=== PATIENT | male | born 1940 | race Caucasian/White ===

== ENCOUNTER 2022-07-03 16:17 | Outpatient (CLI) | payer MEDICARE, BC, SELFPAY ==
[2022-07-03 22:13] LABS: Hemoglobin* 9.9 gm/dL (13.5-17.5); Mean Corpuscular HGB Conc 33 gm/dL (32-36); Mean Corpuscular Hemoglobin 33 pg (26-34); Mean Corpuscular Volume 99 fL (80-100); Platelet Count* 139 K/uL (140-440); Red Blood Count 3.02 m/uL (4.30-5.90); Slide Review Reflex No; White Blood Count* 8.27 K/uL (4.50-11.00)
[2022-07-03 22:24] LABS: Chloride* 103 mmol/L (96-114); Potassium* 4.4 mmol/L (3.6-5.1); Sodium* 136 mmol/L (135-149)
[2022-07-03 22:27] LABS: Blood Urea Nitrogen* 22 mg/dL (7-30); Carbon Dioxide* 25 mmol/L (20-32); Creatinine* 1.3 mg/dL (0.5-1.5); Estimated Glomerular Filt Rate 55 ml/min
[2022-07-03 22:28] LABS: Calcium* 9.4 mg/dL (8.4-10.6); Glucose* 209 mg/dL (60-115)
== END 2022-07-03 16:18 | disposition home or self-care (01) ==
PROVIDERS: PCP Family Medicine; Visit Provider Family Medicine
DX: I10 Essential (primary) hypertension (principal)
CPT/HCPCS: 80048; 85027

== ENCOUNTER 2023-05-30 08:45 | Outpatient (CLI) | payer MEDICARE, BC, SELFPAY | END 2023-05-30 08:46 | disposition home or self-care (01) | PROVIDERS: PCP Family Medicine; Visit Provider Family Medicine | DX: E11.9 Type 2 diabetes mellitus without complications (principal); I10 Essential (primary) hypertension; E78.2 Mixed hyperlipidemia; E55.9 Vitamin D deficiency, unspecified; R53.83 Other fatigue | CPT/HCPCS: 80048; 80061; 85025 ==

== ENCOUNTER 2023-09-04 10:50 | Outpatient (CLI) | payer MEDICARE, BC, SELFPAY | END 2023-09-04 10:51 | disposition home or self-care (01) | PROVIDERS: PCP Family Medicine; Visit Provider Family Medicine | DX: I10 Essential (primary) hypertension (principal); D64.9 Anemia, unspecified | CPT/HCPCS: 80048; 85018; 85025 ==

== ENCOUNTER 2024-01-24 09:50 | Outpatient (CLI) | payer MEDICARE, BC, SELFPAY ==
--- OUTSIDE RECORDS SUMMARY | 2024-01-25 04:45 | XMS_ITS | Clinical Summary ---
Author Organization [facility] [employer] [facility] Address [place], [place] [address] Care Team Providers Care Striker Off Name Role Phone Tres Ling MD Primary Care Provider + Allergies Active Allergy Reactions Criticality Noted Date Comments Brimonidine Erythema High 07/18/2016 Other reaction(s): eye infection Medications Medication Sig Dispensed Refills Start Date End Date Status aspirin 325 mg tablet Take 325 mg by mouth once daily with a meal. Active dorzolamide-timolo l (COSOPT) 2-0.5 % ophthalmic solution Place 1 Drop into both eyes two times daily. Active cholecalciferol (VITAMIN D-3) 2,000 unit capsuleIndications :Vitamin D deficiency Take 1 capsule by mouth once daily. 100 capsule 3 8 Active latanoprost (XALATAN) 0.005 % ophthalmic solution Place 1 Drop into both eyes at bedtime. 8 Active simvastatin (ZOCOR) 40 mg tabletIndications: Hyperlipidemia, unspecified hyperlipidemia type Take 1 tablet by mouth at bedtime. 90 tablet 3 8 Active finasteride (PROSCAR) 5 mg tabletIndications: Benign prostatic hyperplasia, unspecified whether lower urinary tract symptoms present Take 1 tablet by mouth every morning. 90 tablet 3 8 Active blood sugar diagnostic (ACCU-CHEK WILLY PLUS TEST STRP) stripIndications:T ype 2 diabetes mellitus with complication, without long-term current use of insulin (HC) Dispense item covered by pt ins. E11.9 NIDDM type II - Test 4 times/day due to labile sugars 400 Strip 3 8 Active Bblcr-0-PSE-EPA-Fi sh Oil (Fish Oil) 1,000 mg (120 mg-180 mg) cap Take 1 Capsule by mouth once daily. Active carboxymethylcellu lose 0.5% (Refresh Tears) 0.5 % drop ophthalmic drops Place 1 Drop into both eyes two times daily. At noon and 3 pm Active pioglitazone (ACTOS) 30 mg tablet Take 30 mg by mouth once daily. Active glimepiride (AMARYL) 4 mg tablet Take 4 mg by mouth two times daily. Active losartan (COZAAR) 50 mg tabletIndications: Essential hypertension Take 1 Tablet (50 mg) by mouth once daily. 4 Active metoprolol succinate (TOPROL XL) 50 mg sustained-release tabletIndications: Essential hypertension Take 1 Tablet (50 mg) by mouth once daily. 4 Active insulin aspart, U-100, (NOVOLOG FLEXPEN) 100 unit/mL (3 mL) penIndications:Typ e 2 diabetes mellitus without complication, without long-term current use of insulin (HC) Give subcutaneous TID with meals per blood glucose (mg/dL). Don't give corrective dose for PRN, post-prandial or nocturnal glucose checks unless ordered. Blood Glucose.....Dose <70............. ..See Hypoglycemia Protocol 70-149.......... No insulin, give prandial insulin, if ordered 150-199........1 unit 200-249........2 units 250-299........3 units 300-349........4 units 350-399........5 units 400 or greater....6 units & call MD 4 Active losartan (COZAAR) 50 mg tabletIndications: Hypertension Take 1 tablet by mouth once daily. 90 tablet 3 8 01/11/20 24 Discontinued( Pharmacist change per medication history (E-cancel not sent)) glimepiride (AMARYL) 4 mg tabletIndications: Type 2 diabetes mellitus with complication, without long-term current use of insulin (HC) Take 1 tablet by mouth once daily with a meal. 1 BID 90 tablet 3 8 01/11/20 24 Discontinued( Pharmacist change per medication history (E-cancel not sent)) metoprolol succinate (TOPROL XL) 50 mg sustained-release tabletIndications: Essential hypertension Take 1 tablet by mouth once daily. 90 tablet 3 8 01/11/20 24 Discontinued( Pharmacist change per medication history (E-cancel not sent)) guaFENesin SR (MUCINEX) 1,200 mg [id number]:Co ugh Take 1 tablet by mouth every 12 hours if needed for Expectoration. 20 tablet 9 01/12/20 24 Discontinued( Pharmacist change per medication history (E-cancel not sent)) losartan (COZAAR) 100 mg tablet Take 100 mg by mouth once daily. 4 01/17/20 24 Discontinued( *IP Discontinued) metoprolol succinate (TOPROL XL) 100 mg Sustained-Release tablet Take 100 mg by mouth once daily. 01/17/20 24 Discontinued( *IP Discontinued) Active Problems Problem Noted Date Diagnosed Date Pneumothorax ex vacuo 01/14/2024 Macrocytic anemia 01/12/2024 CAD (coronary artery disease) 01/12/2024 Elevated troponin 01/12/2024 Complete heart block 01/12/2024 Pacemaker 01/12/2024 CHF (congestive heart failure) 01/12/2024 Fall 01/12/2024 Pneumothorax 01/12/2024 Pleural effusion on left 01/12/2024 Elevated brain natriuretic peptide (BNP) level 0 01/12/2024 Presence of cardiac pacemaker 01/12/2024 Cough 01/12/2024 Impaired functional mobility and activity tolera nce 08/28/2022 SBO (small bowel obstruction) 08/25/2022 BPH (benign prostatic hyperplasia) 08/25/2022 Essential hypertension 08/25/2022 Mixed hyperlipidemia 08/25/2022 Type 2 diabetes mellitus wit hout complication, without long-term current use of insulin 11/11/2017 Chronic coronary artery disease 09/28/2015 Bradycardia 09/28/2015 Traumatic intracerebral hemorrhage 09/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 09/28/2015 Herpes simplex virus (HSV) infection 10/07/2012 Syncope and collapse 09/25/2011 Vitamin D deficiency 09/25/2011 Anemia 09/20/2010 Resolved Problems Problem Noted Date Diagnosed Date Resolved Date Type 2 diabetes mellitus without complication 11/29/19 16 11/11/2017 Type 2 diabetes mellitus 09/28/2015 Encounters Date Type Department Care Team Description 01/17/2024 Orders Only [facility] [address] [place] [address] Richelle Villareal NP <No scans attached> 01/15/2024 Travel 01/13/2024 Travel 01/12/2024 5:33 PM CDT - 01/17/2024 10:30 AM CDT Hospital Encounter [facility] [address] [place] [address] [facility] [place] [facility] MD Qamar, Asma, MBBS Diastolic dysfunction (Primary Dx); Essential hypertension; Type 2 diabetes mellitus without complication, without long-term current use of insulin (HC) Discharge Disposition: Senior Care Facility 01/12/2024 Telephone [facility] [address] [address] Eran Kay MD C5 TRANFER ACCEPT 01/11/2024 5:35 PM CDT - 01/12/2024 4:25 PM CDT Emergency [facility] [address] [place] [address] Allyn Quevedo MD Connelly, MD Vicky Dean Jaya, MBBS Bodeau, Haleigh Ann, MD Congestive heart failure, unspecified HF chronicity, unspecified heart failure type (HC) (Primary Dx); Hypoxia; Fall, initial encounter; Anemia, unspecified type; Pleural effusion on left; Weakness generalized; Pneumothorax ex vacuo Discharge Disposition: Home Self Care 01/11/2024 Travel from Last 3 Months Immunizations Name Administration Dates Next Due COVID-19 vaccine (Cometa NTBeanstalk Tax 30mcg/0.3mL) JESSICA PLASENCIA 08/18/2020,07/28/2020 Hepatitis A (Adult) 07/16/1995 Influenza, High-dose Inactivated 03/05/2017,11/0 09/2015,06/07/2015 Influenza, IIV4 06/07/2015 Pneumococcal Poly,23-Valent (Pneumovax) 06/11/19 12,12/25/2003 Pneumococcal conj 13-Valent (Prevnar 13) 015 Tdap 06/07/2015 Zoster (Zostavax-ZVL, live) 10/11/2006 Family History Medical History Relation Name Comments Heart Disease Brother 1 Heart Disease Brother 2 Diabetes Brother 3 Heart Disease Brother 3 Good Health Daughter Stroke Father Good Health Son 1 Good Health Son 2 Good Health Son 3 Relation Name Status Comments Brother 1 Alive Brother 2 Brother 3 Daughter Alive Father Mother Son 1 Alive Son 2 Alive Son 3 Alive Social History Tobacco Use Types Packs/Day Years Used Date Smoking Tobacco: Former Cigars Smokeless Tobacco: Never Quit: 07/07/2005 Tobacco Cessation:Counseling Given: Yes Alcohol Use Standard Drinks/Week Comments Yes 7 (1 standard drink = 0.6 oz pur e alcohol) occasionally PHQ-2 Answer Date Recorded PHQ-2 Score 0 08/10/2018 Social Connections Answer Date Recorded Frequency of Communication with Friends and Fami ly 0 01/15/2024 Financial Resource Strain Answer Date R ecorded Difficulty of Paying Living Expenses 3 01/15/2024 Difficulty of Paying Living Expenses Not on file 01/15/2024 Food Insecurity Answer Date Recorded Worried About Running Out of Food in the Last Ye ar 1 01/15/2024 Transportation Needs Answer Date Record ed Lack of Transportation (Medical) 1 01/15/2024 Housing Stability Answer Date Recorded Unable to Pay for Housing in the Last Year 1 01/15/2024 Sex and Gender Information Value Date Recorded Sex Assigned at Not on file Gender Identity Not on file Sexual Orientation Not on file Obstetrics History Last Filed Vital Signs Vital Sign Reading Time Taken Comments Blood Pressure 107/56 01/17/2024 8:16 AM CDT Pulse 67 01/17/2024 8:16 AM CDT Temperature 36.4 ??C (97.6 ??F) 01/17/2024 8:16 AM CD T Respiratory Rate 18 01/17/2024 8:16 AM CDT Oxygen Saturation 95% 01/17/2024 8:16 AM CDT Inhaled Oxygen Concentration - - Weight 64.7 kg (142 lb 10.2 oz) 024 12:11 PM CDT Height 170.2 cm (5' 7) 01/13/2024 12:1 1 PM CDT Body Mass Index 22.34 01/13/2024 12:11 PM CDT Plan of Treatment Upcoming Encounters Date Type Department Care Team (Late st Contact Info) Description 05/16/2024 Cardiac Device Check [facility] [phone] Health Maintenance Due Date Last Done Comments Medicare Wellness for age 65+ 2003 Zoster (shingles) series for age 50+ (2 of 3) 12/06/2006 10/11/2006 BMI (ht and wt on same day) for age 18+ 02/26/2019 02/26/2018, 11/09/2017, 06/12/2017, Additional history exists Depression screening for age 12+ 02/26/2019 02/26/2018, 02/21/2018, 11/09/2017, Additional history exists COVID-19 vaccine series ( season) 2023 03/28/2021, 08/18/2020, 07/28/2020 Influenza for age 65+ 02/10/2024 03/05/2017 , 04/14/2016, 06/07/2015, Additional history exists Tetanus booster 06/07/2025 06/07/2015 Pneumococcal series for age 65+ Completed 11/24/2014, 06/11/2011, 12/25/2003 Tdap Completed 06/07/2015 Medical Devices Implanted Type Area Printer Slotter Helper Device Identifier Shelf Expiration Date Model / Serial / Lot Standard Pacemaker-2 Implanted: by Neville Dunbar MD (Quantity not on file) Standard Pacemaker [employer] [id number] / [id number] / Procedures Procedure Name Priority Date/Time Associated Diagnosis Comments GLUCOSE METER Timed 01/17/2024 8:21 AM CDT GLUCOSE METER Timed 01/16/2024 11:52 PM CDT LEGIONELLA AND PNEUMOCOCCAL URINE ANTIGEN Today 01/16/2024 6:50 PM CDT GLUCOSE METER Timed 01/16/2024 5:15 PM CDT XR CHEST 1 VIEW PORTABLE Routine 01/16/2024 12:20 PM CDT GLUCOSE METER Timed 01/16/2024 11:52 AM CDT STREP A PCR Timed 01/16/2024 11:32 AM CDT THROAT RAPID STREP A WITH REFLEX Today 01/16/2024 11:32 AM CDT GLUCOSE METER Timed 01/16/2024 8:16 AM CDT POTASSIUM Early AM 01/16/2024 7:35 AM CDT GLUCOSE METER Timed 01/15/2024 9:41 PM CDT GLUCOSE METER Timed 01/15/2024 6:16 PM CDT BODY FLUID CULTURE,STAIN (AEROBIC) Today 01/15/2024 4:56 PM CDT GLUCOSE METER Timed 01/15/2024 12:50 PM CDT XR CHEST 1 VIEW PORTABLE Routine 01/15/2024 12:03 PM CDT SCAN-CARDIAC STRIP 01/15/2024 8: 20 AM CDT XR CHEST 1 VIEW PORTABLE Routine 01/15/2024 7:51 AM CDT GLUCOSE METER Timed 01/15/2024 7:36 AM CDT POTASSIUM Early AM 01/15/2024 6:17 AM CDT GLUCOSE METER Timed 01/14/2024 8:52 PM CDT GLUCOSE METER Timed 01/14/2024 5:19 PM CDT PATH NON CLINICAL RECRUITER CYTOLOGY Today 01/14/2024 3:32 PM CDT LD,BODY FLUID Today 01/14/2024 3:22 PM CDT PROTEIN,BODY FLUID Today 01/14/2024 3: 22 PM CDT BODY FLUID CELL COUNT/DIF Today 01/14/2024 3:22 PM CDT ECHO TTE COMPLETE WO CONTRAST Routine 01/14/2024 1:44 PM CDT PACER [place] DUAL CHAMBER WO REPROG Routine 01/14/2024 11:14 AM CDT GLUCOSE METER Timed 01/14/2024 11:12 AM CDT SCAN-CARDIAC STRIP 01/14/2024 10 :10 AM CDT GLUCOSE METER Timed 01/14/2024 8:32 AM CDT HEMOGLOBIN A1C SCREENING Early AM 01/14/2024 6:42 AM CDT POTASSIUM Early AM 01/14/2024 6:42 AM CDT SCAN-CARDIAC STRIP 01/14/2024 1: 49 AM CDT GLUCOSE METER Timed 01/13/2024 8:58 PM CDT GLUCOSE METER Timed 01/13/2024 5:[address] CHEST TUBE PLACEMENT LEFT Routine 01/13/2024 3:[address] CHEST WO Routine 01/13/2024 2:07 PM CDT GLUCOSE METER Timed 01/13/2024 12:45 PM CDT SCAN-CARDIAC STRIP 01/13/2024 10 :48 AM CDT GLUCOSE METER Timed 01/13/2024 10:32 AM CDT GLUCOSE METER Timed 01/13/2024 8:36 AM CDT COMP METABOLIC PANEL Early AM 01/13/2024 7:57 AM CDT LD,TOTAL Early AM 01/13/2024 7:57 AM CDT SCAN-CARDIAC STRIP 01/12/2024 11 :16 PM CDT GLUCOSE METER Timed 01/12/2024 10:23 PM CDT SCAN-CARDIAC STRIP 01/12/2024 6: 53 PM CDT THORACENTESIS Routine 01/12/2024 4:28 AM CDT INFLUENZA A/B PCR STAT 01/12/2024 4:1 5 AM CDT COVID-19 MOLECULAR Today 01/12/2024 4: 15 AM CDT XR CHEST 1 VIEW PORTABLE STAT 01/12/2024 3:39 AM CDT XR CHEST 1 VIEW PORTABLE STAT 01/12/2024 1:44 AM CDT XR CHEST 1 VIEW PORTABLE STAT 01/11/2024 11:19 PM CDT PROTEIN,BODY FLUID STAT 01/11/2024 11 :17 PM CDT LD,BODY FLUID STAT 01/11/2024 11:17 PM CDT BEDSIDE US STUDY ARCHIVE Routine 01/11/2024 10:32 PM CDT URINALYSIS MICROSCOPIC STAT 9:42 PM CDT UA W/ SEDIMENT EXAM REFLEXED PER CRITERIA STAT 01/11/2024 9:[address] CHEST ABDOMEN PELVIS W STAT 01/11/2024 8:46 PM CDT TYPE & SCREEN STAT 01/11/2024 8:33 PM CDT TROPONIN T (HS) ONE TIME Timed 01/11/2024 8:33 PM CDT BEDSIDE US STUDY ARCHIVE Routine 01/11/2024 7:45 PM CDT EKG 12 LEAD STAT 01/11/2024 7:[address] SPINE CERVICAL WO STAT 01/11/2024 7:[address] HEAD BRAIN WO STAT 01/11/2024 7:12 PM CDT XR CHEST 2 VIEWS PA AND LATERAL STAT 01/11/2024 7:06 PM CDT PROTIME-INR STAT 01/11/2024 6:36 PM CDT TROPONIN T (HS) ACUTE W/2HR REFLEX [facility]ICO 01/11/2024 6:36 PM CDT PRO-BNP CHICO 01/11/2024 6:36 PM CDT CK TOTAL STAT 01/11/2024 6:36 PM CDT BASIC METABOLIC PANEL STAT 01/11/2024 6:36 PM CDT CBC W PLT NO DIFF STAT 01/11/2024 6:3 6 PM CDT GLUCOSE METER Routine 01/11/2024 5:51 PM CDT SCAN-PACER 01/11/2024 12:00 AM CDT SCAN-PACER 01/11/2024 12:00 AM CDT from Last 3 Months Results * (ABNORMAL) GLUCOSE METER (01/17/2024 8:21 AM CDT) Only the most recent of20 resultswithin the time period is included. [facility] Signature GLUCOSE METER 120(H) 65 - 100 mg/dL 01/17/2024 8:22 AM CDT [facility] Blood BLOOD SPECIMEN / Unknown 01/17/2024 8:21 AM CDT 01/17/2024 8:22 AM CDT Luis F Perez [facility] Performing Organization Address [facility] Co de Phone Number [facility] [address] [place] [address], * LEGIONELLA AND PNEUMOCOCCAL URINE ANTIGEN (01/16/2024 6:50 PM CDT) STREP PNEUMO ANTIGEN Negative 01/16/2024 7:45 PM CDT [facility] Comment:Presumptive negative for pneumococcal pneumonia, suggesting no current or recent pneumococcal infection. Infection due to S. pneumoniae cannot be ruled out since the antigen present in the sample may be below the detection limit of the test. LEGIONELLA ANTIGEN Negative 01/16/2024 7:45 PM CDT [facility] Comment:Negative for L.pneum ophila serogroup 1 antigen, suggesting no recent or current infection. Infection due to Legionella cannot be ruled out since other serogroups and species may cause disease, antigen may not be present in urine in early infection, and the level of antigen present may be below the detection limit of the test. Low test sensitivity in patients with mild pneumonia. Urine URINE SPECIMEN / Unknown Non-Blood / Unknown 01/16/2024 6:50 PM CDT 01/16/2024 7:04 PM CDT Luis F Perez [facility] Performing Organization Address [facility] de Phone Number [facility] [address] [place] [address], * XR CHEST 1 VIEW PORTABLE (01/16/2024 12:20 PM CDT) Only the most recent of6 resultswithin the time period is included. Anatomical Region Laterality Modality HEART, THORAX, CHEST Digital Rad iography 01/16/2024 3:26 PM CDT Impressions 01/16/2024 3:26 PM CDT Interval removal of left chest tube. No pneumothorax. Dictated by Clifford Pink MD @ Jan ??7 2023 ??3:26PM (Electronically Signed) [email or web address] Narrative 01/16/2024 3:26 PM CDT For Patients: ??As a result of the Cures Act, medical imaging exams and procedure reports are released immediately into your electronic medical record. ??You may view this report before your referring provider. ??If you have questions, please contact your health care provider. INDICATION: Post chest tube removal. TECHNIQUE: Chest 1 views. COMPARISON: January 15, 2024. FINDINGS: Cardiovascular and mediastinum: ??Stable heart size and vasculature. Unchanged right chest wall pacemaker device and left chest wall abandoned leads. Lungs and pleural spaces: ??Interval removal of left chest tube. Stable left lower lobe airspace disease. Trace left pleural effusion. No pneumothorax. ?? Bones and soft tissues: ??No significant findings. Procedure Note Clifford Pink MD - 01/16/2024 For Patients: As a result of the Cures Act, medical imagingexams and procedure reports are released immediately into your electronicmedical record. You may view this report before your referring provider.If you have questions, please contact your health care provider. INDICATION: Post chest tube removal. TECHNIQUE: Chest 1 views. COMPARISON: January 15, 2024. FINDINGS: Cardiovascular and mediastinum: Stable heart size and vasculature.Unchanged right chest wall pacemaker device and left chest wall abandonedleads. Lungs and pleural spaces: Interval removal of left chest tube. Stableleft lower lobe airspace disease. Trace left pleural effusion. Nopneumothorax. Bones and soft tissues: No significant findings. IMPRESSION: Interval removal of left chest tube. No pneumothorax. Dictated by Clifford Pink MD @ Jan 16 2024 3:26PM (Electronically Signed) [email or web address] [facility] * STREP A PCR (01/16/2024 11:32 AM CDT) GROUP A STREP Negative 01/16/2024 12:58 PM CDT [facility] Throat SPECIMEN FROM THROAT / Unknown Non-Blood / Unknown 01/16/2024 11:32 AM CDT 01/16/2024 12:24 PM CDT [facility] Performing Organization Address [facility] Co de Phone Number [facility] [address] [place] [address], * THROAT RAPID STREP A WITH REFLEX (01/16/2024 11:32 AM CDT) STREP A ANTIGEN Negative 01/16/2024 12:24 PM CDT [facility] Comment:PCR to follow. Throat SPECIMEN FROM THROAT / Unknown Non-Blood / Unknown 01/16/2024 11:32 AM CDT 01/16/2024 12:02 PM CDT Luis F Perez [facility] Performing Organization Address [facility] Co de Phone Number [facility] [address] [place] [address], * POTASSIUM (01/16/2024 7:35 AM CDT) Only the most recent of3 resultswithin the time period is included. POTASSIUM 3.6 3.5 - 5.1 mmol/L 01/16/2024 8:10 AM CDT [facility] Blood BLOOD SPECIMEN / Unknown Non-Lab Venipuncture / Unknown 01/16/2024 7:35 AM CDT 01/16/2024 7:41 AM CDT Getachew Pastrana MD CHEMISTRY Performing Organization Address [facility] Co de Phone Number [facility] [address] [place] [address], * BODY FLUID CULTURE,STAIN (AEROBIC) (01/15/2024 4:56 PM CDT) CULTURE No Growth. 01/21/2024 10:07 AM CDT [facility] GRAM STAIN No PMNs 01/21/2024 10:07 AM CDT [facility] GRAM STAIN No Epithelial cells 01/21/2024 10:07 AM CDT [facility] GRAM STAIN 2+ RBCs 01/21/2024 10:07 AM CDT [facility] GRAM STAIN No organisms seen 01/21/2024 10:07 AM CDT [facility] Body Fluid (Pleural) Non-Blood / Unknown 01/15/2024 4:56 PM CDT 01/15/2024 5:04 PM CDT Luis F Perez [facility] [address] [place] [address], * SCAN-CARDIAC STRIP (01/15/2024 8:20 AM CDT) Scanner OTHER * Cytology Pleural Fluid (LEFT) (01/14/2024 3:32 PM CDT) Case Report Medical Cytology Report ? Case: [id number] ? Authorizing Provider: ??Luis Angel Jasso, DO ?Collected: ? 01/14/2024 1532 ? Ordering Location: ? [facility] ?Received: ?01/14/2024 1534 ? Hospital ? Pathologist: ? Segundo Cuevas MD ? Specimen: ?Left Pleural Fluid ? 01/16/2024 4:46 PM CDT [facility] Final Diagnosis A) LEFT PLEURAL FLUID, CYTOLOGY WITH CELL BLOCK: 1. Negative for malignancY 2. Blood 01/16/2024 4:46 PM CDT [facility] Clinical Information Left pleural effusion 01/16/2024 4:46 PM CDT [facility] Gross Description A) SOURCE: Pleural fluid, left The specimen consists of 10 cc of red cloudy fluid from which the following is prepared: ? -1 DiffQuik stained slide ? -1 Papanicolaou stained ThinPrep slide ? -1 H&E stained cell block slide A2 Cell block material was placed in formalin at 1010 on 01/15/24 and fixed in formalin at least 6 hours and no more than 72 hours. 01/16/2024 4:46 PM CDT [facility] Microscopic Description Specimen adequacy: Adequate for interpretation. All slides were reviewed. The microscopic appearance substantiates the diagnosis. 01/16/2024 4:46 PM CDT [facility] Additional Information Cytology is screened at [facility] - [address], [place] [address] and [facility] - [address] [place] [address] and [facility] - [address] [address] Interpreted at [facility] - [address], [place] [address] 01/16/2024 4:46 PM CDT [facility] Other (Left Pleural Fluid) Non-Blood / Unknown 01/14/2024 3:32 PM CDT 01/14/2024 3:34 PM CDT Comment:Collect from fluid a trium Luis Angel Jasso DO PATHOLOGY/CYTOLOGY Performing Organization Address [facility]/ZIP Co de Phone Number [facility] [address] [address], [place] * Cell Count Pleural Fluid (LEFT) (01/14/2024 3:22 PM CDT) BODY FLUID SOURCE Pleural Fluid 01/14/2024 4:41 PM CDT [facility] Comment:Left BODY FLUID COLOR Grossly Bloody 01/14/2024 4:41 PM CDT [facility] BODY FLUID CLARITY Turbid 01/14/2024 4:41 PM CDT [facility] TOTAL NUCLEATED CELLS, BF 146 /cu mm 01/14/2024 4:41 PM CDT [facility] RED BLOOD COUNT, BODY FLUID 128,000 /cu mm 01/14/2024 4:41 PM CDT [facility] % NEUTROPHILS, BODY FLUID 56 % 01/14/2024 4:41 PM CDT [facility] % LYMPHOCYTES, BODY FLUID 44 % 01/14/2024 4:41 PM CDT [facility] Body Fluid SPECIMEN FROM PLEURA OBTAINED BY THORACENTESIS / Unknown Non-Blood / Unknown 01/14/2024 3:22 PM CDT 01/14/2024 3:[address] [facility] - 01/14/2024 4:41 PM CDT Collect from fluid atrium TO ORDER BODY FLUID CULTURES, USE; [id number] BODY FLUID CULTURE, STAIN Luis Angel Jasso DO BODY FLUID Performing Organization Address City/[facility]/ZIP Co de Phone Number [facility] [address] [place] [id number], [place] * Protein Pleural Fluid (LEFT) (01/14/2024 3:22 PM CDT) Only the most recent of2 resultswithin the time period is included. SPECIMEN SOURCE Thoracentesis 01/14/2024 6:18 PM CDT [facility] PROTEIN,BODY FLUID 3.1 g/dL 01/14/2024 6:18 PM CDT [facility] Comment:No Reference Range D efined. Body Fluid SPECIMEN FROM PLEURA OBTAINED BY THORACENTESIS / Unknown Non-Blood / Unknown 01/14/2024 3:22 PM CDT 01/14/2024 3:33 PM CDT [facility] - 01/14/2024 6:18 PM CDT Pleural: Pleural fluid transudate total protein to serum total protein ratio typically </=0.5. Pleural fluid exudate total protein to serum total protein ratio typically >0.5. Peritoneal: Ascitic fluid total protein is a reflection of serum protein concentration. May be useful in differentiating secondary bacterial peritonitis from spontaneous bacterial peritonitis when at least two of the three criteria are met in ascetic fluid: Total Protein > 1.0 g/dL Glucose < 50 mg/dL LDH > Upper reference limit for serum Ascitic fluid total protein may be elevated > 2.5 g/dL in patients with high albumin gradient ascites caused by heart failure. Test developed & performance characteristics determined by [facility], [place], [place] consistent with CLIA requirements. Not cleared or approved by [place] FDA. Luis Angel Jasso DO BODY FLUID [facility] [address] [place] [address], * LD Pleural Fluid (LEFT) (01/14/2024 3:22 PM CDT) Only the most recent of2 resultswithin the time period is included. SPECIMEN SOURCE Thoracentesis 01/14/2024 6:18 PM CDT [facility] LD,BODY FLUID 376 IU/L 01/14/2024 6:18 PM CDT [facility] Body Fluid SPECIMEN FROM PLEURA OBTAINED BY THORACENTESIS / Unknown Non-Blood / Unknown 01/14/2024 3:22 PM CDT 01/14/2024 3:[address] [facility] - 01/14/2024 6:18 PM CDT Pleural: ? Pleural fluid LDH to serum LDH ratio <= 0.6 or less than 2/3 the ?upper limit of normal serum LDH consistent with transudative ?effusions, while pleural fluid LDH to serum LDH ratio > 0.6 is ?consistent with exudative effusions. Peritoneal: ??Ascitic fluid LDH may be useful in differentiating secondary ?bacterial peritonitis from spontaneous bacterial peritonitis when ?at least two of the three criteria are met in ascites Fluid: ? Total protein >1.0 g/dL ? Glucose <50 mg/dL ? LDH > upper reference limit for serum Test developed & performance characteristics determined by [facility], [place], [place] consistent with CLIA requirements. Not cleared or approved by [place] FDA. Luis Angel Jasso DO BODY FLUID [facility] [address] [place] [address], * ECHO TTE COMPLETE WO CONTRAST (01/14/2024 1:44 PM CDT) AORTIC VALVE MEAN PG 4 mmHg PEAK TR VELOCITY 2.5 m/s LVEDD 3.1 cm EJECTION FRACTION 55 - 60% Anatomical Region Laterality Modality Ultrasound 01/14/2024 10:0 7 AM CDT Narrative 01/14/2024 4:46 PM CDT ECHOCARDIOGRAM EMILIO RIDER ?Accession#: ?? [id number] : ?[id number] 83 years Study Date: ?? 01/14/2024 10:07:48 AM Gender: M ? BP: ? 147/71 mmHg Height: 170.00 cm ? BSA: ?1.75 m? ? ? Weight: 65.00 kg ?Tech: ? OZZIE/CM ?Referring MD: ERAN KAY Site: ? [facility] Reading Location: AN IP Patient Location: Inpatient. Procedure: 2D, Color Doppler and Spectral Doppler. Indication for study: CHF Cardiac Rhythm: Normal sinus.Study quality: Technically limited. Imaging limitations: This study was subject to imaging limitations due to lying in a supine position. Final Impressions: 1. Technically limited exam. 2. Normal LV size, severely increased wall thickness, normal global systolic function with an estimated EF of 55 - 60%. 3. The mitral valve is sclerotic, trace mitral regurgitation. 4. The aortic valve is trileaflet and sclerotic, no stenosis and no regurgitation. Comparison Compared to prior exam images and report of 05/16/2017, there has been no significant change. Chamber Sizes and Function Normal left ventricular size, severely increased wall thickness, normal global systolic function with an estimated EF of 55 - 60%. Left atrial size is normal. Right ventricular cavity size is normal, global systolic RV function is normal. Pacing wire/catheter visualized in the right ventricle and pacing wire/catheter visualized in the right atrium. The right atrium is normal. The pulmonary artery is not well visualized. The sinus of Valsalva is normal sized. The ascending aorta is normal sized. Valves, RV Pressures and Diastolic Function The aortic valve is trileaflet and sclerotic, no stenosis and no regurgitation. The mitral valve is sclerotic, trace mitral regurgitation. Indeterminate pattern of LV diastolic filling. The tricuspid valve is normal in structure. Tricuspid regurgitation is mild regurgitation. The tricuspid regurgitant velocity is 2.5 m/s, the estimated right ventricular systolic pressure is 26 mmHg plus right atrial pressure. The pulmonic valve is normal. Trace pulmonary regurgitation. Masses, Effusion, Shunts There is no pericardial effusion. The inferior vena cava is normal sized, respiratory size variation greater than 50%. No left to right shunting was detected by limited color flow Doppler interrogation of the interatrial septum. MEASUREMENTS AND CALCULATIONS 2-D Measurements and LV Function: LVID (d) 3.1 cm LV FS% (2D) ?? 39 % LVID (s) 1.9 cm LVOT diameter 2.1 cm IVS (d) ??1.5 cm HR ?70 bpm LVPW (d) 1.5 cm LA Vol index ??33 ml/m2 Ao Sinus 3.6 cm RV Max 4C (d) 3.8 cm Asc Ao ?? 3.0 cm Diastology: Mitral ?Tissue Doppler E Peak 0.8 m/s ??e', Septum ? 0.05 m/s A Peak 1.0 m/s ??e', Lateral ?0.06 m/s E/A ?0.8 ?E/e' Average ?? 14.80 DT ? 301 msec Aortic Valve: Vmax ? 1.4 m/s ??SD (V) ?? 3.54 cm? ? ? VTI ?0.30 m ?? SD (I) ?? 3.26 cm? ? ? LVOT V max 1.4 m/s ??Max PG ?7 mmHg LVOT VTI ?? 0.28 m ?? Mean PG ?? 4 mmHg SV ? 97 ml ?Dim Index 0.94 SV index ?? 55 ml/m? ? ? CO ?6.8 l/min ?CI ?3.9 l/min/m? ? ? Mitral Valve: MVA ?2.5 cm? ? ? MV P 1/2 87 msec Tricuspid Valve and estimated PA pressures: TR Vmax 2.5 m/s TAPSE 2.0 cm TR maxG 26 mmHg . This study was interpreted by an [facility] accredited facility. ??Final ?? Procedure Note Carole Carbajal MD - 01/14/2024 ECHOCARDIOGRAM EMILIO RIDER : 1940 83 years Study Date: 01/14/2024 10:07:48 AM Gender: M BP: 147/71 mmHg Height: 170.00 cm BSA: 1.75 m? ? ? Weight: 65.00 kg Tech: OZZIE/CM Referring MD: ERAN KAY Site: [facility] Patient Location: Inpatient. Procedure: 2D, Color Doppler and Spectral Doppler. Indication for study: CHF Cardiac Rhythm: Normal sinus.Study quality: Technically limited. Imaging limitations: This study was subject to imaging limitations due tolying in a supine position. Final Impressions: 1. Technically limited exam. 2. Normal LV size, severely increased wall thickness, normal globalsystolic function with an estimated EF of 55 - 60%. 3. The mitral valve is sclerotic, trace mitral regurgitation. 4. The aortic valve is trileaflet and sclerotic, no stenosis and noregurgitation. Comparison Compared to prior exam images and report of 05/16/2017, there has been nosignificant change. Chamber Sizes and Function Normal left ventricular size, severely increased wall thickness, normalglobal systolic function with an estimated EF of 55 - 60%. Left atrialsize is normal. Right ventricular cavity size is normal, global systolicRV function is normal. Pacing wire/catheter visualized in the rightventricle and pacing wire/catheter visualized in the right atrium. Theright atrium is normal. The pulmonary artery is not well visualized. Thesinus of Valsalva is normal sized. The ascending aorta is normal sized. Valves, RV Pressures and Diastolic Function The aortic valve is trileaflet and sclerotic, no stenosis and noregurgitation. The mitral valve is sclerotic, trace mitral regurgitation.Indeterminate pattern of LV diastolic filling. The tricuspid valve isnormal in structure. Tricuspid regurgitation is mild regurgitation. Thetricuspid regurgitant velocity is 2.5 m/s, the estimated right ventricularsystolic pressure is 26 mmHg plus right atrial pressure. The pulmonicvalve is normal. Trace pulmonary regurgitation. Masses, Effusion, Shunts There is no pericardial effusion. The inferior vena cava is normal sized,respiratory size variation greater than 50%. No left to right shunting wasdetected by limited color flow Doppler interrogation of the interatrialseptum. MEASUREMENTS AND CALCULATIONS 2-D Measurements and LV Function: LVID (d) 3.1 cm LV FS% (2D) 39 % LVID (s) 1.9 cm LVOT diameter 2.1 cm IVS (d) 1.5 cm HR 70 bpm LVPW (d) 1.5 cm LA Vol index 33 ml/m2 Ao Sinus 3.6 cm RV Max 4C (d) 3.8 cm Asc Ao 3.0 cm Diastology: Mitral Tissue Doppler E Peak 0.8 m/s e', Septum 0.05 m/s A Peak 1.0 m/s e', Lateral 0.06 m/s E/A 0.8 E/e' Average 14.80 DT 301 msec Aortic Valve: Vmax 1.4 m/s SD (V) 3.54 cm? ? ? VTI 0.30 m SD (I) 3.26 cm? ? ? LVOT V max 1.4 m/s Max PG 7 mmHg LVOT VTI 0.28 m Mean PG 4 mmHg SV 97 ml Dim Index 0.94 SV index 55 ml/m? ? ? CO 6.8 l/min CI 3.9 l/min/m? ? ? Mitral Valve: MVA 2.5 cm? ? ? MV P 1/2 87 msec Tricuspid Valve and estimated PA pressures: TR Vmax 2.5 m/s TAPSE 2.0 cm TR maxG 26 mmHg . This study was interpreted by an [facility] accredited facility. Final Eran Kay MD ECHO ORD * SCAN-CARDIAC STRIP (01/14/2024 10:10 AM CDT) Scanner OTHER * (ABNORMAL) HEMOGLOBIN A1C SCREENING (01/14/2024 6:42 AM CDT) HEMOGLOBIN A1C SCREENING 8.6(H) <=6.4 % 01/14/2024 7:58 AM CDT [facility] Blood BLOOD SPECIMEN / Unknown Venipuncture / Unknown 01/14/2024 6:42 AM CDT 01/14/2024 7:[address] [facility] - 01/14/2024 7:58 AM CDT ? (<5.7%) ?Normal ? (5.7% to 6.4%) ? Indicates prediabetes ? (>=6.5%) ? Confirms diabetes Falsely low levels may be seen with: Recent Transfusion, Recent Significant Blood Loss, Hemolytic Diseases, or Falsely elevated levels may be seen with: Untreated Anemias, Splenectomy Luis F BENAVIDES CHEMISTRY [facility] [address] [place] [address], * SCAN-CARDIAC STRIP (01/14/2024 1:49 AM CDT) Scanner OTHER * CT CHEST TUBE PLACEMENT LEFT (01/13/2024 3:11 PM CDT) Anatomical Region Laterality Modality Computed Tomogra phy Narrative 01/13/2024 3:42 PM CDT RADIOLOGY POST PROCEDURE NOTE ?? 01/13/2024 Emilio Rider [id number] INFORMEDCONSENT: In my discussion, prior to the signing of the consent, I reviewed the procedure, benefits, risks, long-term effects, treatment options, possible use of pain or sedation medications, and how the procedure will meet the treatment goal with the patient and/or family. The patient was given ample time to ask questions. All questions were answered. INDICATIONS: Left pneumothorax. PROCEDURE PERFORMED: CT-guided left-sided chest tube placement. PROCEDURE NARRATIVE: The left-sided pneumothorax was using CT. ??The overlying skin was prepped and draped in the usual sterile fashion. ??1% lidocaine was used for local anesthesia. ??A 12 Jamaican drainage catheter was advanced into the pneumothorax at the left anterior third-fourth intercostal space and attached to an atrium. POST-PROCEDURE DIAGNOSIS: ??Status post CT-guided left-sided chest tube placement. PATIENT POSITION: supine ANTISEPTIC PREPARATION and BARRIER TECHNIQUES USED: ??Skin was prepped and draped in the usual sterile fashion. IMAGING GUIDANCE FOR ACCESS / PROCEDURE: ??CT ?Permanently recorded images are archived in PACS. ACCESS LOCATION / SITE / TECHNIQUE: Anterior left chest. EQUIPMENT UTILIZED: 12 Jamaican drainage catheter. CLOSURE: ??none RADIATION DOSE: ?? total exam DLP: 411 mGy-cm MEDICATIONS GIVEN: ?1% Lidocaine was used for local anesthesia. SPECIMEN(S): None. COMPLICATIONS: no complications noted DRAINS: 12 Jamaican drainage catheter. ESTIMATED BLOOD LOSS: ??Less than 10 cc. PHYSICIAN(S) AND ASSISTANTS (if any): ??Chase Child MD Additional Comments: Please call with questions. Chase Child MD [place] Protocol A. Pre-procedure verification complete yes 1-relevant information / documentation available, reviewed and properly matched to the patient; 2-consent accurate and complete, 3-equipment and supplies available B. Site marking complete Yes Site marked if not in continuous attendance with patient C. TIME OUT completed yes Time Out was conducted just prior to starting procedure to verify the eight required elements: 1-patient identity, 2-consent accurate and complete, 3-position, 4-correct side/site marked (if applicable), 5-procedure, 6-relevant images / results properly labeled and displayed (if applicable), 7-antibiotics / irrigation fluids (if applicable), 8-safety precautions. Please note that all CT scans at this facility use dose modulation, iterative reconstruction, and/or weight-based dosing when appropriate to reduce radiation dose to as low as reasonably achievable. Getachew Pastrana MD CT * CT CHEST WO (01/13/2024 2:07 PM CDT) Anatomical Region Laterality Modality CHEST, THORAX, HEART Computed To mography Narrative 01/13/2024 3:51 PM CDT Indication: Pleural effusion. ??Pneumothorax. Comparison: CT scan of the chest, abdomen, and pelvis dated 11 January 2024. Technique: Noncontrast chest ET scan. Findings: No mediastinal or hilar adenopathy. ??No axillary adenopathy. ?? Atherosclerotic vascular calcifications. ??Right-sided pacemaker. The lungs show resolution of the left-sided pleural effusion. ?? Atelectasis/consolidation of the lower portion of the left lower lobe. ?? Nodular left anterior pleural thickening. ??A few calcified pleural plaques bilaterally. Moderate left-sided pneumothorax. ??Left-sided chest tube in the chest wall. No focal abnormalities identified in the visualized portions of the liver, spleen, pancreas, adrenal glands, and kidneys. Degenerative changes of the spine. Impression: Resolution of the left-sided pleural effusion. Moderate left-sided pneumothorax. Getachew Pastrana MD CT * SCAN-CARDIAC STRIP (01/13/2024 10:48 AM CDT) Scanner OTHER * (ABNORMAL) LD,TOTAL (01/13/2024 7:57 AM CDT) [facility] LD,TOTAL 284(H) 135 - 225 IU/L 01/13/2024 9:24 AM CDT [facility] Blood BLOOD SPECIMEN / Unknown Venipuncture / Unknown 01/13/2024 7:57 AM CDT 01/13/2024 8:16 AM CDT [facility] [address] [place] [address], * (ABNORMAL) COMP METABOLIC PANEL (01/13/2024 7:57 AM CDT) [facility] SODIUM 142 136 - 145 mmol/L 01/13/2024 8:42 AM CDT [facility] POTASSIUM 3.2(L) 3.5 - 5.1 mmol/L 01/13/2024 8:42 AM [facility] CHLORIDE 100 98 - 107 mmol/L 01/13/2024 8:42 AM [facility] CO2,TOTAL 32(H) 22 - 29 mmol/L 01/13/2024 8:42 AM [facility] ANION GAP 10 5 - 18 01/13/2024 8:42 AM [facility] GLUCOSE 70 70 - 99 mg/dL 01/13/2024 8:42 AM [facility] CALCIUM 9.0 8.8 - 10.2 mg/dL 01/13/2024 8:42 AM [facility] BUN 21 8 - 23 mg/dL 01/13/2024 8:42 AM [facility] CREATININE 1.09 0.70 - 1.20 mg/dL 01/13/2024 8:42 AM [facility] BUN/CREAT RATIO 19 10 - 20 8:42 AM [facility] eGFR 67(L) >90 mL/min/1.7 3m2 01/13/2024 8:42 AM [facility] Comment:As of 2021, eG FR is calculated by the CKD-EPI creatinine equation without race adjustment. ??eGFR can be influenced by muscle mass, exercise, and diet. ??The reported eGFR is an estimation only and is only applicable if the renal function is stable. ALBUMIN 3.4(L) 4.0 - 4.9 g/dL 01/13/2024 8:42 AM [facility] PROTEIN,TOTAL 6.8 6.0 - 8.0 g/dL 01/13/2024 8:42 AM [facility] BILIRUBIN,TOTAL 0.6 0.0 - 1.2 mg/dL 01/13/2024 8:42 AM [facility] ALK PHOSPHATASE 107 40 - 129 IU/L 01/13/2024 8:42 AM CDT [facility] ALT (SGPT) 6(L) 10 - 50 IU/L 01/13/2024 8:42 AM CDT [facility] AST (SGOT) 25 10 - 50 IU/L 01/13/2024 8:42 AM CDT [facility] Blood BLOOD SPECIMEN / Unknown Venipuncture / Unknown 01/13/2024 7:57 AM CDT 01/13/2024 8:14 AM CDT [facility]i [facility] [address] [place] [id number], * SCAN-CARDIAC STRIP (01/12/2024 11:16 PM CDT) Scanner OTHER * SCAN-CARDIAC STRIP (01/12/2024 6:53 PM CDT) Scanner OTHER * THORACENTESIS (01/12/2024 4:28 AM CDT) Narrative Andres Hampton MD - 01/12/2024 4:28 AM CDT Andres Hampton MD ? 01/12/2024 ??7:59 AM THORACENTESIS Date/Time: 01/12/2024 4:28 AM Performed by: Andres Hampton MD Authorized by: Andres Hampton MD ?? Consent: ??Consent obtained: ??Written ??Consent given by: ??Patient (Daughter agrees as witness at bedside.) ??Risks, benefits, and alternatives were discussed: yes ?Risks discussed: ??Bleeding, infection, pain, pneumothorax and incomplete drainage ??Alternatives discussed: ??Delayed treatment, observation and referral [place] protocol: ??Procedure explained and questions answered to patient or proxy's satisfaction: yes ?Relevant documents present and verified: yes ?Test results available: yes ?Imaging studies available: yes ?Required blood products, implants, devices, and special equipment available: no ?Site/side marked: yes ?Immediately prior to procedure, a time out was called: yes ?Patient identity confirmed: ??Verbally with patient, arm band and hospital-assigned identification number Sedation: ??Sedation type: ??None Anesthesia: ??Anesthesia method: ??Local infiltration ??Local anesthetic: ??Lidocaine 1% WITH epi Procedure details: ??Preparation: Patient was prepped and draped in usual sterile fashion ?Patient position: ??Sitting ??Location: ??L midscapular line ??Intercostal space: ??6th ??Puncture method: ??Fory-[id number]-[id number] catheter ??Ultrasound guidance: yes ?Indwelling catheter placed: yes ?Needle gauge: ??18 ??Catheter size: ??8 Fr ??Number of attempts: ??1 ??Fluid characteristics: 1.3 L removed of yellow pleural fluid, some serosanguinous. Post-procedure details: ??Chest x-ray performed: yes ?Chest x-ray findings: ??Pneumothorax and pleural effusion improved ??Procedure completion: ??Tolerated Andres Hampton MD PROCEDURE ORD * COVID-19 MOLECULAR (01/12/2024 4:15 AM CDT) [facility] COVID 19 [place] MOLECULAR Not detected Not detected 01/12/2024 4:39 AM CDT [facility]ING LABORATORY [facility] 01/12/2024 4:39 AM CDT [facility] Comment:Specimen submitted t o [facility] for testing. Other SPECIMEN FROM NASOPHARYNGEAL STRUCTURE / Unknown Non-Blood / Unknown 01/12/2024 4:15 AM CDT 01/12/2024 4:18 AM CDT Andres Hampton MD MICROBIOLOGY [facility] [address] [place] [address] * INFLUENZA A/B PCR (01/12/2024 4:15 AM CDT) [facility] INFLUENZA A PCR NOT Detected 01/12/2024 4:39 AM CDT [facility] INFLUENZA B PCR NOT Detected 01/12/2024 4:39 AM CDT [facility] Other SPECIMEN FROM NASOPHARYNGEAL STRUCTURE / Unknown Non-Blood / Unknown 01/12/2024 4:15 AM CDT 01/12/2024 4:18 AM CDT Andres Hampton MD MICROBIOLOGY Performing Organization Address [facility] Co de Phone Number [facility] [address] [place] [address] * URINALYSIS MICROSCOPIC (01/11/2024 9:42 PM CDT) RBC None Seen 0-2, None Seen /HPF 01/11/2024 9:56 PM CDT [facility] WBC None Seen 0-2, 3-5, None Seen /HPF 01/11/2024 9:56 PM CDT [facility] BACTERIA Rare None Seen, Rare, Few Bacteria/ HPF 01/11/2024 9:56 PM CDT [facility] EPITHELIAL CELLS None Seen None Seen, Few Epi/HPF 01/11/2024 9:56 PM CDT [facility] Urine URINE SPECIMEN / Unknown Non-Blood / Unknown 01/11/2024 9:42 PM CDT 01/11/2024 9:47 PM CDT Allyn Quevedo MD URINE Performing Organization Address [facility] Co de Phone Number [facility] [address] [place] [address] * (ABNORMAL) UA W/ SEDIMENT EXAM REFLEXED PER CRITERIA (01/11/2024 9:42 PM CDT) COLOR Yellow Yellow Color 01/11/2024 9:50 PM CDT [facility] CLARITY Clear Clear Clarity 01/11/2024 9:50 PM CDT [facility] SPECIFIC GRAVITY,URINE 1.015 1.010, 1.015, 1.020, 1.025 01/11/2024 9:50 PM CDT [facility] PH,URINE 7.5 6.0, 7.0, 8.0, 5.5, 6.5, 7.5, 8.5 01/11/2024 9:50 PM CDT [facility] UROBILINOGEN, QUALITATIVE Normal Normal EU/dl 01/11/2024 9:50 PM CDT [facility] PROTEIN, URINE Negative Negative mg/dL 01/11/2024 9:50 PM CDT [facility] GLUCOSE, URINE 500(A) Negative mg/dL 01/11/2024 9:50 PM CDT [facility] KETONES,URINE Negative Negative mg/dL 01/11/2024 9:50 PM CDT [facility] BILIRUBIN,URI NE Negative Negative 01/11/2024 9:50 PM CDT [facility] OCCULT BLOOD,URINE Trace(A) Negative 01/11/2024 9:50 PM CDT [facility] NITRITE Negative Negative 01/11/2024 9:50 PM CDT [facility] LEUKOCYTE ESTERASE Negative Negative 01/11/2024 9:50 PM CDT [facility] Urine URINE SPECIMEN / Unknown Non-Blood / Unknown 01/11/2024 9:42 PM CDT 01/11/2024 9:47 PM CDT Allyn Quevedo MD URINE [facility] [address] [place] [address] * CT CHEST ABDOMEN PELVIS W (01/11/2024 8:46 PM CDT) Anatomical Region Laterality Modality Abdomen, Pelvis, AORTA, LIVER, SPLEEN, CHEST Computed Tomography 01/11/2024 9:14 PM CDT Impressions 01/11/2024 9:14 PM CDT Large left pleural effusion with compressive atelectasis. Otherwise, no acute intrathoracic or intra-abdominal/pelvic abnormality. Chronic T8 and L1 compression fractures. Please note that all CT scans at this facility use dose modulation, iterative reconstruction, and/or weight-based dosing when appropriate to reduce radiation dose to as low as reasonably achievable. Dictated by Clifford Pink MD @ 01/11/2024 9:14:27 PM (Electronically Signed) Narrative 01/11/2024 9:14 PM CDT For Patients: ??As a result of the Cures Act, medical imaging exams and procedure reports are released immediately into your electronic medical record. ??You may view this report before your referring provider. ??If you have questions, please contact your health care provider. INDICATION: Trauma. TECHNIQUE: CT chest, abdomen and pelvis acquired with 100 cc Omnipaque 300 IV contrast. COMPARISON: Chest x-ray, January 11, 2024. CT abdomen/pelvis, August 24, 2022. FINDINGS: CHEST: Cardiovascular structures: Heart size is normal. Coronary artery calcifications. Thoracic aorta and main pulmonary artery are normal in caliber. ? Mediastinum and suleiman: No mass or adenopathy. ?? Lungs and pleura: Large left pleural effusion with compressive atelectasis. No right lung focal consolidations or significant pleural effusions. Scattered pleural calcifications. No pneumothoraces. Chest wall and axilla: Right chest wall pacemaker device. No mass or adenopathy. ?? Bones: Chronic T8 compression fracture. ABDOMEN AND PELVIS: Liver: Unremarkable. No sign of acute injury. Gallbladder and bile ducts: Cholecystectomy. Pancreas: Unremarkable. ?? Spleen: Unremarkable. No sign of acute injury. Adrenal glands: Unremarkable. ?? Kidneys: Unremarkable. ?? GI tract: Unremarkable. ?? Vascular structures: Aortoiliac arterial calcifications.. Mesenteric arteries are patent. Lymph nodes: Unremarkable. ?? Miscellaneous: Unremarkable. ??No free air or significant free fluid. ?? Pelvic Organs: Mildly distended bladder with circumferential wall thickening.. Bones: Chronic L1 compression fracture. Procedure Note Clifford Pink MD - 01/11/2024 For Patients: As a result of the Cures Act, medical imagingexams and procedure reports are released immediately into your electronicmedical record. You may view this report before your referring provider.If you have questions, please contact your health care provider. INDICATION: Trauma. TECHNIQUE: CT chest, abdomen and pelvis acquired with 100 cc Omnipaque 300 IVcontrast. COMPARISON: Chest x-ray, January 11, 2024. CT abdomen/pelvis, August 24, 2022. FINDINGS: CHEST: Cardiovascular structures: Heart size is normal. Coronary arterycalcifications. Thoracic aorta and main pulmonary artery are normal incaliber. Mediastinum and suleiman: No mass or adenopathy. Lungs and pleura: Large left pleural effusion with compressiveatelectasis. No right lung focal consolidations or significant pleuraleffusions. Scattered pleural calcifications. No pneumothoraces. Chest wall and axilla: Right chest wall pacemaker device. No mass oradenopathy. Bones: Chronic T8 compression fracture. ABDOMEN AND PELVIS: Liver: Unremarkable. No sign of acute injury. Gallbladder and bile ducts: Cholecystectomy. Pancreas: Unremarkable. Spleen: Unremarkable. No sign of acute injury. Adrenal glands: Unremarkable. Kidneys: Unremarkable. GI tract: Unremarkable. Vascular structures: Aortoiliac arterial calcifications.. Mesentericarteries are patent. Lymph nodes: Unremarkable. Miscellaneous: Unremarkable. No free air or significant free fluid. Pelvic Organs: Mildly distended bladder with circumferential wallthickening.. Bones: Chronic L1 compression fracture. IMPRESSION: Large left pleural effusion with compressive atelectasis. Otherwise, no acute intrathoracic or intra-abdominal/pelvic abnormality. Chronic T8 and L1 compression fractures. Please note that all CT scans at this facility use dose modulation,iterative reconstruction, and/or weight-based dosing when appropriate toreduce radiation dose to as low as reasonably achievable. Dictated by Clifford Pink MD @ 01/11/2024 9:14:27 PM (Electronically Signed) Allyn Quevedo MD CT * (ABNORMAL) TROPONIN T (HS) ONE TIME (01/11/2024 8:33 PM CDT) TROPONIN T HS 45(H) 6-15 ng/L ng/L 01/11/2024 8:58 PM CDT [facility] Blood BLOOD SPECIMEN / Unknown Butterfly / Unknown 01/11/2024 8:33 PM CDT 01/11/2024 8:39 PM CDT Andres Hampton MD CHEMISTRY [facility] [address] [place] [address] * TYPE AND SCREEN ONLY (01/11/2024 8:33 PM CDT) ABORH B Rh Positive 01/11/2024 9:14 PM CDT [facility] BLOOD BANK ANTIBODY SCREEN Negative Negative 01/11/2024 9:14 PM CDT [facility] BLOOD BANK SPECIMEN EXPIRATION DATE/TIME 01/14/24 23:59 01/11/2024 9:14 PM CDT [facility] BLOOD BANK Blood BLOOD SPECIMEN / Unknown Butterfly / Unknown 01/11/2024 8:33 PM CDT 01/11/2024 8:39 PM CDT Andres Hampton MD BLOOD BANK [facility] BLOOD BANK [address] [place] [address] * EKG 12 LEAD (01/11/2024 7:21 PM CDT) Pathologist [facility] Interpretation AV dual-paced rhythm Abnormal ECG When compared with ECG of 27-Feb-2023 15:47, Vent. rate has decreased by ?? 3 bpm BEYOND NOW Ventricular Rate 60 BPM BEYOND NOW Atrial Rate 60 BPM BEYOND NOW P-R Interval 188 ms BEYOND NOW QRS Duration 146 ms BEYOND NOW QT 506 ms BEYOND NOW QTc 506 ms BEYOND NOW P Col[place] degrees BEYOND NOW R Colcord 39 degrees BEYOND NOW T Colcord -65 degrees BEYOND NOW 01/11/2024 7:21 PM CDT 01/11/2024 7:55 PM CDT Allyn Quevedo MD EKG ORD BEYOND NOW [place], [place] * CT SPINE CERVICAL WO (01/11/2024 7:13 PM CDT) Anatomical Region Laterality Modality CERVICAL SPINE, NECK, Spine Comp uted Tomography 01/11/2024 7:57 PM CDT Impressions 01/11/2024 7:57 PM CDT 1. Superior endplate fractures at C7, T1 and T2 with mild height loss. Age indeterminate. Please note that all CT scans at this facility use dose modulation, iterative reconstruction, and/or weight-based dosing when appropriate to reduce radiation dose to as low as reasonably achievable. Dictated by Saran Summers MD @ 01/11/2024 7:57:10 PM (Electronically Signed) Narrative 01/11/2024 7:57 PM CDT For Patients: ??As a result of the Cures Act, medical imaging exams and procedure reports are released immediately into your electronic medical record. ??You may view this report before your referring provider. ??If you have questions, please contact your health care provider. INDICATION: Neck trauma. TECHNIQUE: CT of the cervical spine without contrast. Coronal and sagittal reformats are included. COMPARISON: None. FINDINGS: Superior endplate fractures at C7, T1 and T2 with mild height loss. Age indeterminate. Bones are diffusely demineralized. Craniocervical junction alignment is maintained. Mild disc degeneration C4-5. Trace anterolisthesis C4-5, C5-6 and C6-7. Multilevel uncovertebral/facet arthrosis with high-grade neural foraminal stenosis at C2-3/C3-4 on the right, and low-grade elsewhere. No high grade spinal canal stenosis as far as visualized. Left ICA stenting. The visualized pulmonary apices are clear. Procedure Note Saran Summers MD - 01/11/2024 For Patients: As a result of the Cures Act, medical imagingexams and procedure reports are released immediately into your electronicmedical record. You may view this report before your referring provider.If you have questions, please contact your health care provider. INDICATION: Neck trauma. TECHNIQUE: CT of the cervical spine without contrast. Coronal and sagittal reformatsare included. COMPARISON: None. FINDINGS: Superior endplate fractures at C7, T1 and T2 with mild height loss. Ageindeterminate. Bones are diffusely demineralized. Craniocervical junctionalignment is maintained. Mild disc degeneration C4-5. Traceanterolisthesis C4-5, C5-6 and C6-7. Multilevel uncovertebral/facetarthrosis with high-grade neural foraminal stenosis at C2-3/C3-4 on theright, and low-grade elsewhere. No high grade spinal canal stenosis as faras visualized. Left ICA stenting. The visualized pulmonary apices areclear. IMPRESSION: 1. Superior endplate fractures at C7, T1 and T2 with mild height loss. Ageindeterminate. Please note that all CT scans at this facility use dose modulation,iterative reconstruction, and/or weight-based dosing when appropriate toreduce radiation dose to as low as reasonably achievable. Dictated by Saran Summers MD @ 01/11/2024 7:57:10 PM (Electronically Signed) Allyn Quevedo MD CT * CT HEAD BRAIN WO (01/11/2024 7:12 PM CDT) Anatomical Region Laterality Modality HEAD, BRAIN Computed Tomogra phy 01/11/2024 7:47 PM CDT Impressions 01/11/2024 7:47 PM CDT IMPRESSION: ? 1. ??No acute intracranial abnormalities. Please note that all CT scans at this facility use dose modulation, iterative reconstruction, and/or weight-based dosing when appropriate to reduce radiation dose to as low as reasonably achievable. Dictated by Saran Summers MD @ 01/11/2024 7:47:12 PM (Electronically Signed) Narrative 01/11/2024 7:47 PM CDT For Patients: ??As a result of the Century Cures Act, medical imaging exams and procedure reports are released immediately into your electronic medical record. ??You may view this report before your referring provider. ??If you have questions, please contact your health care provider. INDICATION: Head trauma. TECHNIQUE: CT of the head without contrast. Coronal and sagittal reformats are included. COMPARISON: Head CT from 09/28/2015. FINDINGS: No acute intracranial hemorrhage. No mass effect or midline shift. No hydrocephalus or extra-axial collections. Patchy white matter hypoattenuation, typical for chronic microvascular ischemic change. [id number] generalized parenchymal volume loss. Renovascular calcifications. No acute osseous abnormalities. Widespread paranasal sinus opacification. Postop changes right maxillary sinus. Mastoid air cells are clear. Small left parietal scalp contusion. Procedure Note Saran Summers MD - 01/11/2024 For Patients: As a result of the Cures Act, medical imagingexams and procedure reports are released immediately into your electronicmedical record. You may view this report before your referring provider.If you have questions, please contact your health care provider. INDICATION: Head trauma. TECHNIQUE: CT of the head without contrast. Coronal and sagittal reformats areincluded. COMPARISON: Head CT from 09/28/2015. FINDINGS: No acute intracranial hemorrhage. No mass effect or midline shift. Nohydrocephalus or extra-axial collections. Patchy white matterhypoattenuation, typical for chronic microvascular ischemic change.[id number] generalized parenchymal volume loss. Renovascularcalcifications. No acute osseous abnormalities. Widespread paranasal sinus opacification.Postop changes right maxillary sinus. Mastoid air cells are clear. Smallleft parietal scalp contusion. IMPRESSION: IMPRESSION: 1. No acute intracranial abnormalities. Please note that all CT scans at this facility use dose modulation,iterative reconstruction, and/or weight-based dosing when appropriate toreduce radiation dose to as low as reasonably achievable. Dictated by Saran Summers MD @ 01/11/2024 7:47:12 PM (Electronically Signed) Allyn Quevedo MD CT * XR CHEST 2 VIEWS PA AND LATERAL (01/11/2024 7:06 PM CDT) Anatomical Region Laterality Modality CHEST, THORAX, Lung, HEART Digit al Radiography 01/11/2024 8:11 PM CDT Narrative 01/11/2024 8:11 PM CDT For Patients: ??As a result of the Cures Act, medical imaging exams and procedure reports are released immediately into your electronic medical record. ??You may view this report before your referring provider. ??If you have questions, please contact your health care provider. INDICATION: Shortness of breath TECHNIQUE: Chest radiograph 2 views COMPARISON: 02/27/2023 FINDINGS: Mediastinum: The mediastinum is normal in appearance. The heart silhouette is normal in size and morphology. Right cardiac pacer and disconnected left pacer leads are noted without change. Lung: New consolidation of most of the left hemithorax is noted which may be due to a large loculated pleural effusion. Small right lung volumes are present with mild perihilar and basilar atelectasis. No pneumothorax is identified. Bone and Soft tissue: There is a severe chronic compression deformity present in the midthoracic spine. Interval development of a severe compression deformity is noted in the thoracolumbar region. IMPRESSIONS: 1. New consolidation of most of the left hemithorax is noted which may be due to a large loculated pleural effusion. 2. There is a severe chronic compression deformity present in the midthoracic spine. Interval development of a severe compression deformity is noted in the thoracolumbar region. Dictated by Kenn Florentino MD @ 01/11/2024 8:11:45 PM Dictated by: Kenn Florentino MD @ 01/11/2024 20:11:50 (Electronically Signed) Procedure Note Kenn Florentino MD - 01/11/2024 For Patients: As a result of the Cures Act, medical imagingexams and procedure reports are released immediately into your electronicmedical record. You may view this report before your referring provider.If you have questions, please contact your health care provider. INDICATION: Shortness of breath TECHNIQUE: Chest radiograph 2 views COMPARISON: 02/27/2023 FINDINGS: Mediastinum: The mediastinum is normal in appearance. The heart silhouetteis normal in size and morphology. Right cardiac pacer and disconnectedleft pacer leads are noted without change. Lung: New consolidation of most of the left hemithorax is noted which maybe due to a large loculated pleural effusion. Small right lung volumes arepresent with mild perihilar and basilar atelectasis. No pneumothorax isidentified. Bone and Soft tissue: There is a severe chronic compression deformitypresent in the midthoracic spine. Interval development of a severecompression deformity is noted in the thoracolumbar region. IMPRESSIONS: 1. New consolidation of most of the left hemithorax is noted which may bedue to a large loculated pleural effusion. 2. There is a severe chronic compression deformity present in themidthoracic spine. Interval development of a severe compression deformityis noted in the thoracolumbar region. Dictated by Kenn Florentino MD @ 01/11/2024 8:11:45 PM Dictated by: Kenn Florentino MD @ 01/11/2024 20:11:50 (Electronically Signed) Allyn Quevedo MD GENERAL IMAGI NG * (ABNORMAL) TROPONIN T (HS) ACUTE W/2HR REFLEX (01/11/2024 6:36 PM CDT) TROPONIN T HS 54(H) 6-15 ng/L ng/L 01/11/2024 8:45 PM CDT [facility] Blood BLOOD SPECIMEN / Unknown Venipuncture / Unknown 01/11/2024 6:36 PM CDT 01/11/2024 6:41 PM CDT [facility] - 01/11/2024 8:45 PM CDT hs-cTnT (Elecsys Troponin T Gen 5) concentration (s) above the sex-specific 99th percentile (16 ng/L or greater for males or 11 ng/L or greater for females) are indicative of myocardial injury. If initial hs-cTnT <=100 ng/L at presentation, a 0h/2h ABSOLUTE (ng/L) delta change (rising or falling) of >=10 ng/L suggests a significant change, whereas a 0h/2h delta change <=3 ng/L suggests no significant change. If initial hs-cTnT >100 ng/L at presentation, a 0h/2h/ RELATIVE (percent, %) delta change of 20% is suggested to distinguish patients with acute vs. chronic myocardial injury. There are multiple etiologies that can cause hs-cTnT increases above the 99th percentile (myocardial injury) other than acute myocardial infarction. Clinical context and careful clinical evaluation are critical for diagnosis and risk-stratification. The diagnosis of acute myocardial infarction requires a rising and/or falling pattern in hs-cTnT concentrations with at least one value above the sex-specific 99th percentile PLUS at least one of the following clinical criteria: ischemic symptoms, new or presumed new significant ST-T wave changes or new LBBB, development of pathological Q waves, imaging evidence of new loss of viable myocardium or new regional wall motion abnormality, or identification of intracoronary atherothrombosis or an acute angiographic culprit on coronary angiography. In appropriate low-risk patients with a non-ischemic electrocardiogram without active chest pain with a symptom onset >3-hours without recurrence, a single initial hs-cTnT<6 ng/L identifies patient with a very low risk in emergency department patient population. Andres Hampton MD CHEMISTRY [facility] [address] [place] [address] * (ABNORMAL) CBC W PLT NO DIFF (01/11/2024 6:36 PM CDT) WHITE BLOOD COUNT 7.7 4.5 - 11.0 thou/cu mm 01/11/2024 6:45 PM CDT [facility] RED BLOOD COUNT 2.95(L) 4.30 - 5.90 mil/cu mm 01/11/2024 6:45 PM T [facility] HEMOGLOBIN 9.5(L) 13.5 - 17.5 g/dL 01/11/2024 6:45 PM T [facility] HEMATOCRIT 30.5(L) 37.0 - 53.0 % 01/11/2024 6:45 PM T [facility] MCV 103(H) 80 - 100 fL 01/11/2024 6:45 PM T [facility] MCH 32.2 26.0 - 34.0 pg 01/11/2024 6:45 PM T [facility] MCHC 31.1(L) 32.0 - 36.0 g/dL 01/11/2024 6:45 PM T [facility] RDW 13.8 11.5 - 15.5 % 01/11/2024 6:45 PM T [facility] PLATELET COUNT 182 140 - 440 thou/cu mm 01/11/2024 6:45 PM T [facility] MPV 10.9 6.5 - 11.0 fL 01/11/2024 6:45 PM [facility] Blood BLOOD SPECIMEN / Unknown Venipuncture / Unknown 01/11/2024 6:36 PM CDT 01/11/2024 6:41 PM CDT Allyn Quevedo MD HEMATOLOGY Performing Organization Address [facility] Co de Phone Number [facility] [address] [place] [address] * (ABNORMAL) PROTIME-INR (01/11/2024 6:36 PM CDT) INR 1.5(H) <1.3 01/11/2024 8:28 PM CDT [facility] PROTIME 16.4(H) 10.3 - 12.3 sec 01/11/2024 8:28 PM CDT [facility] Blood BLOOD SPECIMEN / Unknown Venipuncture / Unknown 01/11/2024 6:36 PM CDT 01/11/2024 8:24 PM CDT [facility] - 01/11/2024 8:28 PM CDT ?Therapeutic Range 2.0-3.0 for most anticoagulated patients 2.5-3.5 or 4.0 for high risk patients The INR is only used for patients on stable oral anticoagulant therapy. It makes no significant contribution to the diagnosis or treatment of patients whose Protime is prolonged for other reasons. INR results are increased when heparin levels exceed 1.0 U/mL, which corresponds to an aPTT >125 seconds if the patient is on UFH. Andres Hampton MD HEMATOLOGY Performing Organization Address [facility] Co de Phone Number [facility] [address] [place] [address] * (ABNORMAL) PRO-BNP (01/11/2024 6:36 PM CDT) PRO-BNP 12,163(H) <450 pg/mL 01/11/2024 8:45 PM CDT [facility] Blood BLOOD SPECIMEN / Unknown Venipuncture / Unknown 01/11/2024 6:36 PM CDT 01/11/2024 6:41 PM CDT [facility] - 01/11/2024 8:45 PM CDT The following cut-points have been suggested for the use of proBNP for the diagnostic evaluation of heart failure (HF) in patient with acute dyspnea. Patients with eGFR >= 60 Diagnosis (rule in CHF) ? <50 Years Old ?450 pg/mL 50 - 75 Years Old ?900 pg/mL >75 Years Old ? 1800 pg/mL Exclusion (rule out CHF) Age Independent ?300 pg/mL A cutoff of 1200 pg/mL for patients with an eGFR <60 yields a diagnostic sensitivity of 89% and specificity of 72% for acute congestive heart failure. ? Andres Hampton MD SEND OUTS Performing Organization Address [facility] Co de Phone Number [facility] [address] [place] [address] * CK TOTAL (01/11/2024 6:36 PM CDT) [facility] CK,TOTAL 151 39 - 308 IU/L 01/11/2024 7:00 PM CDT [facility] Blood BLOOD SPECIMEN / Unknown Venipuncture / Unknown 01/11/2024 6:36 PM CDT 01/11/2024 6:41 PM CDT Allyn Quevedo MD CHEMISTRY Performing Organization Address [facility] Co de Phone Number [facility] [address] [place], [place] [id number] * (ABNORMAL) BASIC METABOLIC PANEL (01/11/2024 6:36 PM CDT) [facility] SODIUM 140 136 - 145 mmol/L 01/11/2024 7:00 PM [facility] POTASSIUM 3.3(L) 3.5 - 5.1 mmol/L 01/11/2024 7:00 PM [facility] CHLORIDE 100 98 - 107 mmol/L 01/11/2024 7:00 PM [facility] CO2,TOTAL 29 22 - 29 mmol/L 01/11/2024 7:00 PM [facility] ANION GAP 11 5 - 18 01/11/2024 7:00 PM [facility] GLUCOSE 274(H) 70 - 99 mg/dL 01/11/2024 7:00 PM [facility] CALCIUM 9.5 8.8 - 10.2 mg/dL 01/11/2024 7:00 PM [facility] BUN 26(H) 8 - 23 mg/dL 01/11/2024 7:00 PM [facility] CREATININE 1.15 0.70 - 1.20 mg/dL 01/11/2024 7:00 PM [facility] BUN/CREAT RATIO 23(H) 10 - 20 7:00 PM [facility] eGFR 62(L) >90 mL/min/1.7 3m2 01/11/2024 7:00 PM [facility] Comment:As of 2021, eG FR is calculated by the CKD-EPI creatinine equation without race adjustment. ??eGFR can be influenced by muscle mass, exercise, and diet. ??The reported eGFR is an estimation only and is only applicable if the renal function is stable. Blood BLOOD SPECIMEN / Unknown Venipuncture / Unknown 01/11/2024 6:36 PM CDT 01/11/2024 6:41 PM T Allyn Quevedo MD CHEMISTRY [facility] [address] [place] [address] * SCAN-PACER (01/11/2024 12:00 AM CDT) Narrative 01/11/2024 12:00 AM CDT Ordered by an unspecified provider. Other Clinical Staff OTHER * SCAN-PACER (01/11/2024 12:00 AM CDT) Narrative 01/11/2024 12:00 AM CDT Ordered by an unspecified provider. Other Clinical Staff OTHER from Last 3 Months Advance Directives Documents on File Type Date Recorded Patient [place] Expl anation Healthcare Directive 06/30/2014 3:23 PM * Full Code (Latest Code Status on File) Date Activated Date Inactivated Comments 01/12/2024 6:11 PM 01/17/2024 12:31 PM Question Answer Comments Code Status Discussion: Reviewed Preferences * DNR Date Activated Date Inactivated Comments 01/12/2024 5:45 PM 01/12/2024 6:11 PM Question Answer Comments Code Status Discussion: Unable to Assess Preferences, Provider to review later * DNR Date Activated Date Inactivated Comments 08/25/2022 2:07 PM 08/28/2022 6:57 PM Question Answer Comments Code Status Discussion: Reviewed Preferences * Full Code Date Activated Date Inactivated Comments 09/28/2015 1:16 PM 09/30/2015 1:16 PM Question Answer Comments Code Status Discussion: Discussed Care Teams Striker Off Relationship Specialty Start Date End Date Tres Ling MD [address] [place] [id number] PCP - General Family Practice 04/19/19
--- OUTSIDE RECORDS SUMMARY | 2024-01-25 04:46 | XMS_ITS | Encounter Summary ---
Author Organization [facility] Address [address] [place] [id number] Care Team Providers Care Insurance Processor Name Role Phone Unavailable Primary Care Provider Unavailabl e Reason for Referral * Outpatient (Routine) - Authorized Specialty Diagnoses / Procedures Referred By Chris ratliff Referred To Contact Ophthalmology Miky Dorsey M.D., M.S. [address] [place] [phone] [facility] Referral ID Status Reason Start Date Expiration Date V isits Requested Visits Authorized [id number] Authorized 01/11/2024 07/12/2025 1 1 * Outpatient (Routine) - Authorized Specialty Diagnoses / Procedures Referred By Chris ratliff Referred To Contact Diagnoses Refraction Disorder Procedures Refraction Miky Dorsey M.D., M.S. [address] [place] [phone] [facility] Referral ID Status Reason Start Date Expiration Date V isits Requested Visits Authorized [id number] Authorized 01/11/2024 01/10/2025 1 1 Reason for Visit * Reason Comments Follow-up * Outpatient (Routine) - Closed Specialty Diagnoses / Procedures Referred By Chris t Referred To Contact Ophthalmology Braden Skinner M.D. [address] [place] [phone] [facility] Referral ID Status Reason Start Date Expiration Date Visits Re quested Visits Authorized [id number] Closed 11/28/2023 05/29/2025 1 1 Encounter Details Date Type Department Care Team (Latest Contact Info) Description 01/07/2024 8:30 AM CDT Office Visit Department of Ophthalmology in [place], [place] [address] [place] [phone] Miky Dorsey M.D., M.S. 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; Refraction Disorder Social History Tobacco Use Types Packs/Day Years Used Date Smoking Tobacco: Former Cigarettes Q uit: 1999 Passive Smoke Exposure: Never Smokeless Tobacco: Never Alcohol Use Standard Drinks/Week Comments Yes 10 (1 standard drink = 0.6 oz pu re alcohol) Nutrition Answer Date Recorded Nutrition: EVOO Fat Source 13 02/23 Nutrition: Servings of Fruits/Vegetables per Day Not on file 02/24/2020 Dental Answer Date Recorded Dental: Regular Dentist Unknown 08/10/19 21 Sex and Gender Information Value Date Recorded Sex Assigned at Not on file Gender Identity Not on file Sexual Orientation Not on file documented as of this encounter Progress Notes * Miky Dorsey M.D., M.S. 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 OCT macula showed some mild reticular pseudodrusen with EZ preservation and so unlikely to explain visual decrease, and no clear progression on OCT nerve. Visual arvizu are repeatedly unreliable. He is on maximally tolerated medical therapy given cost concerns and allergies to other topical medications. We have trialed the less invasive SLT procedure 3x on the left eye without IOP benefit. Given history of OIS in the right eye he isfunctionally monocular in his left eye. If additional surgery would be needed for glaucoma, optionswould be incisional surgery (trabeculectomy vs Baerveldt). Would recommend trabeculectomy left eye given better IOP control long-term if that was the case. 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 I think this combination is most likely underlying the vision decrease. # ERM, left eye Mild # Dry eye, both eyes - warm compresses BID - artificial tears at least 6x daily - can consider punctal plugs # Pseudophakia, both eyes No records of refraction prior to CEIOL S/p YAG left eye Plan: - Continue current glaucoma drops left eye for now as there was some IOP response to SLT in the left eye - Recommend warm compresses BID and aggressive lubrication as any surface disease can compound vision loss in patients with retinal disease - Will hold off on incisional glaucoma surgery pending further workup given that picture for glaucoma is not clear cut. Arvizu are unreliable, and OCT is roughly stable. He does have some element of glaucoma but it would be atypical for this to cause central or visual acuity vision loss without fixation threatening disease - Repeat OCT macula, FAF, microperimetry to evaluate choroid status. RTC in 1 month with testing - will update refraction - Discussed that with current vision, he is not legal to drive without restrictions. Extensive discussion with multiple family members.We will attempt to improve visual acuity with lubrication and refraction. Discussed with AJS and AJB documented in this encounter Miscellaneous Notes * Addendum Note - Miky Dorsey M.D., M.S. - 01/07/2024 8:30 AM CDTAddended by: MIKY DORSEY on: 01/11/2024 10:45 AM Modules accepted: Orders * Addendum Note - Miky Dorsey M.D., M.S. 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 Expected: 02/11/2024, Expires: 04/12/2025 Fundus Photos - OU - Both Eyes Ophthalmology Routine 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 Expected: 02/11/2024, Expires: 04/12/2025 Automated VF - Extended - OU - Both Eyes Ophthalmology Routine 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 Expected: 02/11/2024, Expires: 04/12/2025 Scheduled Referrals Name Type Priority Associated Diagnoses Order Schedule Ophthalmology office visit (clinic) Outpatient Referral Routine Expected: 02/11/2024, Expires: 04/12/2025 documented as of this encounter Visit Diagnoses Diagnosis Primary Open-Angle Glaucoma Moderate Stage Left- Primary 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
--- OUTSIDE RECORDS SUMMARY | 2024-01-25 04:46 | XMS_ITS | Encounter Summary ---
Author Organization [facility] Address [address] [place] [address] Care Team Providers Care Adviser Sales Name Role Phone Unavailable Primary Care Provider Unavailabl e Encounter Details Date Type Department Care Team (Late st Contact Info) Description 12/26/2013 Historical Ophthalmology RST OPH Sherlyn Crenshaw M.D. [address] [phone] Social History Tobacco Use Types Packs/Day Years Used Date Smoking Tobacco: Never Assessed Sex and Gender Information Value Date Recorded Sex Assigned at Not on file Gender Identity Not on file Sexual Orientation Not on file documented as of this encounter Progress Notes * Sherlyn Crenshwa M.D. - 12/26/2013 8:23 AM CDT Eye General CHIEF COMPLAINT Laser HISTORY OF PRESENT ILLNESS Patient is here for laser;right eye; IMPRESSION / REPORT / PLAN #1 S/P Ahmed shunt, right eye, 01/2012 #2 Ocular ischemic syndrome, right side #3 Neovascular glaucoma, right eye #4 Ocular hypertension, left eye #5 Diabetes #6 s/p CEA right carotid and stent left carotid s/p PRP right ENEDINA VF 24-2: Right: inferior arc,reliable, appears to have some more loss compared to 2013, no progression on GPA. Left: wnl, stable, no progression on GPA OCT RNFL: Right: thickness 60, thin 12,6 and 9, slightly thinner when compared to 2013. Left: thickness 74, thin 6, appears stable new Drance hemorrhage right Discussed case with CLK. Recommend SLT OD to areas of open angle. If IOP not improved consider adding mirtha vs second tube. Observe left eye for now. 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
--- OUTSIDE RECORDS SUMMARY | 2024-01-25 04:46 | XMS_ITS | Encounter Summary ---
Author Organization [facility] Address [address] [place] [address] Care Team Providers Care Automatic Serging Machine Operator Name Role Phone Unavailable Primary Care Provider Unavailabl e Encounter Details Date Type Department Care Team (Late st Contact Info) Description 09/11/2016 Historical Ophthalmology RST OPH [place] [address] Social History Tobacco Use Types Packs/Day Years Used Date Smoking Tobacco: Never Sex and Gender Information Value Date Recorded Sex Assigned at Not on file Gender Identity Not on file Sexual Orientation Not on file documented as of this encounter Progress Notes * Jelani Lew M.D. - 09/11/2016 12:41 PM CDT Eye General CHIEF COMPLAINT recheck HISTORY OF PRESENT ILLNESS Patient notes no changes with his eyes since last visit. Noticing that lashes are getting longer. He started putting an ointment left eye at bedtime and that has stopped his tearing IMPRESSION / REPORT / PLAN 11 Sep 2016 OCT RNFL: Ave RNFL thickness = 62/68; SS 01/16; OD - thinning sup and inf; OS thinning inf - stable compared to 01/2411 Sep 2016 ENEDINA 24-2: Rt - FN 8%, possible new superior nasal step, stable inf arc; Lt - FP 6% andFN 7% stable, no defects 20 Jul 2016 OCT Macula: Rt - ave thickness = 286, reticular pseudodrusen, ERM with mild foveal distortion, retinal thinning temporal macula; Lt - ave thickness = 284, reticular pseudodrusen, detachedposterior hyaloid, normal foveal contour; no IRF or SRF OU #1 Ocular ischemic syndrome, right side 01/2012 #2 Neovascular glaucoma, right eye, secondary to #1, S/P Ahmed shunt, right eye, 01/2012 #3 Ocular hypertension, left eye Tmax 42/ Goal high teens/ mid teens s/p CEA right carotid and stent left carotid s/p PRP right for OIS s/p SLT laser OD 12/26/13 after had a new drance hemorrhage OD, IOP had minimal response. OS: good IOP response to Cosopt. Briminodine allergy 31 Jan 2016 OCT rnfl OD ss 8/10, 63um; superior, inferior, and temporal quadrant thinning; OS ss 10/10, rnfl 70um, inferior quadrant thinning, stable vs May 2015 31 Jan 2016 OD 10% FN, probable inf>sup arc; improved/increased reliability vs previous 07 Jul 2016 ENEDINA 24-2: Rt - unreliable (Fl 11/23, FP 7%, FN 10%), inferior arc that may have progressed slightly compared to 01/31/16, but difficult to compare in the setting of unreliability due to ocular surface issues; Lt - unreliable (FL 01/24, FP 6%, FN 10%), non-specific scatter IOP today = 11 Sep 2016 Assessment and Plan: Eyelids appear back to baseline since coming off brimonidine and using triamcinolone cream (has completed). IOP remains good off brimonidine. -- Continue Cosopt BID both, Latanoprost QHS both -- RV in 6 months with ENEDINA and IOP check #4 Lagophthalmos - resolved #5 Ectropion - resolved #6 Diabetes Mellitus, mild nonproliferative retinopathy #7 Pseudophakia #8 Dry eye On celluvisc, refresh, and restasis DIAGNOSIS #1 Ocular ischemic syndrome, right side 01/2012 #2 Neovascular glaucoma, right eye, secondary to #1, S/P Ahmed shunt, right eye, 01/2012 #3 Ocular hypertension, left eye #4 Lagophthalmos - resolved #5 Ectropion - resolved #6 Diabetes Mellitus, mild nonproliferative retinopathy #7 Pseudophakia #8 Dry eye CDM Reports - EYEGEN Id: [id number] Status: Fnl documented in this encounter Plan of Treatment Not on file documented as of this encounter Visit Diagnoses Not on filedocumented in this encounter Additional Health Concerns Assessment Noted Time PHQ-9 Depression Total Score: 1 02/13/20 13 10:20 AM CDT documented as of this encounter
--- OUTSIDE RECORDS SUMMARY | 2024-01-25 04:46 | XMS_ITS | Encounter Summary ---
Author Organization [facility] Address [address] [place] [address] Care Team Providers Care Logging Specialist Name Role Phone Unavailable Primary Care Provider Unavailabl e Encounter Details Date Type Department Care Team (Late st Contact Info) Description 08/19/2012 Historical Ophthalmology RST OPH Sung Gonzalez M.D. [address] [place] [address] Social History Tobacco Use Types Packs/Day Years Used Date Smoking Tobacco: Never Assessed Sex and Gender Information Value Date Recorded Sex Assigned at Not on file Gender Identity Not on file Sexual Orientation Not on file documented as of this encounter Progress Notes * Sung Gonzalez M.D. - 08/19/2012 8:30 AM CDT Eye General CHIEF COMPLAINT Recheck eyes. HISTORY OF PRESENT ILLNESS Alphagan right eye twice a day patient said. Vision is the same he said. IMPRESSION / REPORT / PLAN #1 S/P Ahmed shunt, right eye #2 Ocular ischemic syndrome, right side #3 Neovascular glaucoma, right eye #4 Diabetes IOP excellent today, both eyes. Goal high teens. 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
--- OUTSIDE RECORDS SUMMARY | 2024-01-25 04:46 | XMS_ITS | Encounter Summary ---
Author Organization [facility] Address [address] [place] [address] Care Team Providers Care Fleet Operations Manager Name Role Phone Unavailable Primary Care Provider Unavailabl e Encounter Details Date Type Department Care Team (Late st Contact Info) Description 04/29/2012 Historical Ophthalmology RST OPH Jarocho Heath M.D. [address] [facility], [address] [place] [address] Social History Tobacco Use Types Packs/Day Years Used Date Smoking Tobacco: Never Assessed Sex and Gender Information Value Date Recorded Sex Assigned at Not on file Gender Identity Not on file Sexual Orientation Not on file documented as of this encounter Progress Notes * Jarocho Heath M.D. - 04/29/2012 7:48 AM CST Eye General CHIEF COMPLAINT check up HISTORY OF PRESENT ILLNESS Notes vision seems ok, can see fairly good, feels it getting better all the time. Denies flaoters; flash; diplopia. No new concerns today. JPB: as above. No concerns per patient. Thinks he is out of Alphagan IMPRESSION / REPORT / PLAN #1 S/P Ahmed shunt, right eye #2 Ocular ischemic syndrome, right side #3 Neovascular glaucoma, right eye #4 Diabetes IOP at high end of satisfactory today Plan: - Cosopt BID, right; will need lifetime - Continue Latanaprost QHS, right eye; will likely need lifetime - Continue Alphagan TID right eye - Recheck 2 months w/ DJR DIAGNOSIS #1 S/P Ahmed shunt, right eye #2 Ocular ischemic syndrome, right side #3 Neovascular glaucoma, right eye #4 Diabetes CDM Reports - EYEGEN Id: [id number] Status: Fnl documented in this encounter Plan of Treatment Not on file documented as of this encounter Visit Diagnoses Not on filedocumented in this encounter
--- OUTSIDE RECORDS SUMMARY | 2024-01-25 04:46 | XMS_ITS | Encounter Summary ---
Author Organization [facility] Address [address] [place] [address] Care Team Providers Care Data Analytics Developer Name Role Phone Unavailable Primary Care Provider Unavailabl e Encounter Details Date Type Department Care Team (Late st Contact Info) Description 06/07/2015 Historical Ophthalmology RST OPH Doris Saldaña M.D. Social History Tobacco Use Types Packs/Day Years Used Date Smoking Tobacco: Never Assessed Sex and Gender Information Value Date Recorded Sex Assigned at Not on file Gender Identity Not on file Sexual Orientation Not on file documented as of this encounter Progress Notes * Doris Saldaña M.D. - 06/07/2015 12:04 PM CST Eye General CHIEF COMPLAINT Follow up of glaucoma HISTORY OF PRESENT ILLNESS This is a 74 year old male here for follow up of neovascular glaucoma and ocular hypertension. Patient feels vision is stable since his last visit. Denies flashes of light, floaters or ocular pain. IMPRESSION / REPORT / PLAN #1 Ocular ischemic syndrome, right side #2 Neovascular glaucoma, right eye, secondary to #1, S/P Ahmed shunt, right eye, 01/2012 #3 Ocular hypertension, left eye Tmax 42/ 22 Goal high teens/ mid teens- IOP acceptable right, borderline left s/p CEA right carotid and stent left carotid s/p PRP right for OIS s/p SLT laser OD 12/26/13 after had a new drance hemorrhage OD, IOP had minimal response. OS: good IOP response to Cosopt. TESTING 03 Dec 2014 ENEDINA VF 24-2: Right: inferior arc, high PF, PF and FL, no progression on GPA. Left: wnl, reliable, no progression on GPA 07 Jul 2014 OCT RNFL: Right: thickness 60, thin 12,6,overall stable compared to 2013. Left: thickness 73, appears stable compared to 2013 Impression Stable testing, although VF slightly unreliable right more than left. IOP borderline left. Previously Staffed with SARAH 03/2014: Gave patient 3 options. 1. Careful monitoring, as no progression on VF, follow closely with repeat testing every 3- 4months. 2. Start [place] QID if IOP not atgoal 3. Place second tube (higher risk) if IOP not at goal. 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
--- OUTSIDE RECORDS SUMMARY | 2024-01-25 04:46 | XMS_ITS | Encounter Summary ---
Author Organization [facility] Address [address] [place] [address] Care Team Providers Care Light Out Examiner Name Role Phone Unavailable Primary Care Provider Unavailabl e Encounter Details Date Type Department Care Team (Late st Contact Info) Description 10/03/2013 Historical Ophthalmology RST OPH [place] [address] Social History Tobacco Use Types Packs/Day Years Used Date Smoking Tobacco: Never Assessed Sex and Gender Information Value Date Recorded Sex Assigned at Not on file Gender Identity Not on file Sexual Orientation Not on file documented as of this encounter Progress Notes * Glenn Rose M.D. - 10/03/2013 11:04 AM CDT Eye General CHIEF COMPLAINT Glaucoma recheck HISTORY OF PRESENT ILLNESS No blurred vision, no floaters or flashes of light. No headaches or pressure. No compliants. Drops as directed. IMPRESSION / REPORT / PLAN #1 S/P Ahmed shunt, right eye #2 Ocular ischemic syndrome, right side #3 Neovascular glaucoma, right eye #4 Ocular hypertension, left eye #5 Diabetes OCT rNFL (11/06/2012): RIGHT: avg thickness 64 (red); superior/inferior thinning (red) LEFT: avg thickness 77 (green); no thinning ENEDINA (11/06/2012): RIGHT: inferior > superior arc, 8% false-negatives LEFT: superior > inferior scatter, 3% false-negatives 01/21 ENEDINA RIGHT FN10%, inf, sup arc (2 spots?progresssion, not very reliable); LEFT 0%FN sup and inf scatter 04/23 ENEDINA RIGHT FN12%, inf>sup arc (unreliable); LEFT 1%FN sup and inf scatter, wildly unreliable with 42% false positives OCT rNFL (09/2013): RIGHT: avg thickness 59 (red); superior/inferior thinning (red) Temporal yellow LEFT: avg thickness 76 (green); IT Yellow. Rest green ENEDINA 09/2013 RIGHT: Inferior arc and ? early superior step. No progression. LEFT: Normal. Both borderline reliability Impression: History of acute neovascular glaucoma of the right with Ahmed shunt placed 01/2012. 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 On maximal medical therapy in the right. IOP elevated left eye today, no retinal pathology and angles open. Discussed starting treatment in the left for ocular hypertension. Will repeat ENEDINA/OCT Plan: - Cosopt BID, right; will need lifetime - Continue Latanaprost QHS, right eye; will likely need lifetime - Continue Alphagan BID right eye - Continue latanoprost left eye as well There may be some subtle progression as evidenced by the change in OCT in the left eye. I will ask the patient to continue the Latanoprost in the left eye and the other medications as outlined above.I will plan to see him again in 3 months with repeat ENEDINA and OCT. 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
--- OUTSIDE RECORDS SUMMARY | 2024-01-25 04:46 | XMS_ITS | Encounter Summary ---
Author Organization [facility] Address [address] [place] [address] Care Team Providers Care Grinder Operator Tool Name Role Phone Unavailable Primary Care Provider Unavailabl e Encounter Details Date Type Department Care Team (Latest Contact Info) Description 01/09/2024 Clinical Communication Department of Ophthalmology in [place], [place] [address] [place] [address] Cherri Dorsey M.D., M.S. [address] [place] [address] Social History Tobacco Use Types Packs/Day Years [...] on file documented as of this encounter Miscellaneous Notes * Telephone Encounter - Bibiana Betancourt - 01/09/2024 12:44 PM CDT Patient's daughter states she just got a phone call a few minutes ago from you. I don't see any communication. Please call her back when you are able documented in this encounter Plan of Treatment Not on file documented as of this encounter Visit Diagnoses Not on filedocumented in this encounter Additional Health Concerns Assessment Noted Time PHQ-9 Depression Total Score: 1 02/13/20 13 10:20 AM CDT documented as of this encounter
--- OUTSIDE RECORDS SUMMARY | 2024-01-25 04:46 | XMS_ITS | Encounter Summary ---
Author Organization [facility] Address [address] [place] [address] Care Team Providers Care Pediatric Clinical Dietician Name Role Phone Unavailable Primary Care Provider Unavailabl e Encounter Details Date Type Department Care Team (Late st Contact Info) Description 07/07/2014 Historical Ophthalmology RST OPH Sherlyn Crenshaw M.D. [address] [phone] Social History Tobacco Use Types Packs/Day Years Used Date Smoking Tobacco: Never Assessed Sex and Gender Information Value Date Recorded Sex Assigned at Not on file Gender Identity Not on file Sexual Orientation Not on file documented as of this encounter Progress Notes * Sherlyn Crenshaw M.D. - 07/07/2014 10:33 AM CST Eye General CHIEF COMPLAINT Follow up on neovascular glaucoma, right eye HISTORY OF PRESENT ILLNESS This is a 73 year old male here for follow up on neovascular glaucoma, right eye. Patient is unsureif he has had any changes in vision. Cosopt drop dumont. Denies eye pain or headaches. No new eye concerns. IMPRESSION / REPORT / PLAN #1 Ocular ischemic syndrome, right side #2 Neovascular glaucoma, right eye, secondary to #1, S/P Ahmed shunt, right eye, 01/2012 #3 Ocular hypertension, left eye s/p CEA right carotid and stent left carotid s/p PRP right for OIS s/p SLT laser OD 12/26/13 after had a new drance hemorrhage OD, IOP had minimal response. OS: good IOP response to Cosopt. TESTING 07 Jul 2014 ENEDINA VF 24-2: Right: inferior arc,reliable, no progression on GPA. Left: wnl, no progression on GPA 07 Jul 2014 OCT RNFL: Right: thickness 60, thin 12,6,overall stable compared to 2013. Left: thickness 73, appears stable compared to 2013 Impression Today: Stable testing. IOP at goal OU. Previously Staffed with SARAH 03/2014: Gave patient 3 options. 1. Careful monitoring, as no progression on VF, follow closely with repeat testing every 3- 4 months. 2. Start Pilocarpine QID if IOP not at goal 3. Place second tube (higher risk) if IOP not at goal. 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
--- OUTSIDE RECORDS SUMMARY | 2024-01-25 04:46 | XMS_ITS | Encounter Summary ---
Author Organization [facility] Address [address] [place] [address] Care Team Providers Care Supervisor Beam Department Name Role Phone Unavailable Primary Care Provider Unavailabl e Encounter Details Date Type Department Care Team (Late st Contact Info) Description 04/01/2014 Historical Ophthalmology RST OPH Amada Sahu M.D. Social History Tobacco Use Types Packs/Day Years Used Date Smoking Tobacco: Never Assessed Sex and Gender Information Value Date Recorded Sex Assigned at Not on file Gender Identity Not on file Sexual Orientation Not on file documented as of this encounter Progress Notes * Amada Sahu M.D. - 04/01/2014 10:37 AM CDT Eye General CHIEF COMPLAINT glaucoma follow up HISTORY OF PRESENT ILLNESS blurred vision, lower part; right eye; constant; for the past several years; IMPRESSION / REPORT / PLAN #1 S/P Ahmed shunt, right eye, 01/2012 #2 Ocular ischemic syndrome, right side #3 Neovascular glaucoma, right eye #4 Ocular hypertension, left eye #5 Diabetes #6 s/p CEA right carotid and stent left carotid s/p PRP right ENEDINA VF 24-2: Right: inferior arc,reliable, may be developing sup arc, no progression on GPA. Left:wnl, possible rim artifact, watch for nasal step, no progression on GPA 12/22OCT RNFL: Right: thickness 60, thin 12,6 and 9, slightly thinner when compared to 2013. Left: thickness 74, thin 6, appears stable new Drance hemorrhage right 12/22 s/p SLT laser OD 12/26/13, IOP no change. OS: good IOP response to Cosopt Staffed with CLK: Gave patient 3 options. 1. Careful monitoring, as no progression on VF, follow closely with repeat testing every 3-4 months. 2. Start Pilocarpine QID 3. Place second tube (higher risk). Discussed patient will likely needs some intervention in the future, whether he chooses to do so now or later as the Drance hemorrhage from December is an indicator his IOP is running too high. Patient is aware of this and elects option #1. 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 Continue Lacrilube QHS, both eyes, discussed artificial tears DIAGNOSIS #1 S/P Ahmed shunt, right eye, 01/2012 #2 Ocular ischemic syndrome, right side #3 Neovascular glaucoma, right eye #4 Ocular hypertension, left eye #5 Diabetes #6 s/p CEA right carotid and stent left carotid #7 Lagophthalmos, 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
--- OUTSIDE RECORDS SUMMARY | 2024-01-25 04:46 | XMS_ITS | Encounter Summary ---
Author Organization [facility] Address [address] [place] [id number] Care Team Providers Care Supervisor Ore Dressing Name Role Phone Unavailable Primary Care Provider Unavailabl e Reason for Referral * Outpatient (Routine) - Closed Specialty Diagnoses / Procedures Referred By Chris ratliff Referred To Contact Ophthalmology Miguel Sosa M.D. [address] [place] [address] [facility] Referral ID Status Reason Start Date Expiration Date Visits Re quested Visits Authorized [id number] Closed 10/12/2023 04/12/2025 1 1 Scheduling Instructions SLT Left Eye; Book with TTX Reason for Visit * Appointment Request (Routine) - Closed Specialty Diagnoses / Procedures Referred By Chris ratliff Referred To Contact Ophthalmology Diagnoses Glaucoma Open Angle (POAG) Primary Moderate Stage Glaucoma Neovascular Diabetes Mellitus Type 2 (HCC) Dry Eye Syndrome Referral ID Status Reason Start Date Expiration Date Visits Re quested Visits Authorized [id number] Closed 08/06/2023 08/05/2024 1 1 Encounter Details Date Type Department Care Team ([facility] st Contact Info) Description 10/12/2023 8:45 AM CDT Office Visit Department of Ophthalmology in [place], [place] [address] [place] [phone] Miguel Sosa M.D. Glaucoma Neovascular (Primary Dx); Glaucoma; Other Symptoms And Signs Involving Cognitive Functions And Awareness Social History Tobacco Use Types Packs/Day Years [...] as of this encounter Progress Notes * Miguel Sosa M.D. 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 status post SLT laser OS 03/30/20, fair response s/p Baerveldt (inferonasal, second tube) OD (MKF/AJS) 10/09/22 s/p SLT LEFT 11/08/22 (MKF), good response at week 2 (15-->12) Briminodine allergy Unable to afford rhopressa Currently using: Latanoprost QHS OS, Cosopt BID OS # Diabetes Mellitus, mild nonproliferative retinopathy both Status post panretinal photocoagulation right eye for OIS No PDR left eye # Dry age-related macular degeneration both Continue AREDS2 # Dry eye # Epiphora, both eyes Continue use of artificial tears and addition of lubricating ointment qHS Impression 10/12/23 IOP elevated in the left eye today; VA decreased in the right eye today without a clear etiology itmight be related to glaucoma progression however he has fluctuated. Obtain OCT Macula to evaluated as there is no clear progression on OCT RNFL or visual field. Left eye is too high on max topical therapy. Discussed with AJLuis who recommended repeat SLT again on the left and observation as there are no changes on visual field or OCT RNFL. Incisional surgery should be done if visual field or RNFL show changes or IOP continues to increase Plan: -Continue latanoprost qHS and Cosopt BID OS -Off all drops right eye -If IOP OS goes above 12 in future, will likely require incisional surgery (would staff with AJS) - OCT Macula - Follow up with Ttx for SLT ADDENDUM: OCT Macula 10/16/23 Right: ERM with parafoveal GA, fPED Left: ERM, reticular pseudodrusen documented in this encounter Plan of Treatment Scheduled Referrals Name Type Priority Associated Diagnoses Order Schedule Ophthalmology office visit (clinic) Outpatient Referral Routine Expected: 10/12/2023, Expires: 01/11/2025 documented as of this encounter Results * Optical Coherence Tomography - Macula/Retina - OU - Both Eyes (10/16/2023 2:24 PM CDT) Narrative OPHTHALMOLOGY IMAGING EXAM - 10/19/2023 9:34 AM CDT Right Eye OCT device used was Spectralis . Left Eye OCT device used was Spectralis . Notes ZK; See note Miguel Sosa M.D. OPHTH TOMOGRAPHY Performing Organization Address [facility] Co de Phone Number OPHTHALMOLOGY IMAGING EXAM * Automated VF - Intermediate - OU - Both Eyes (10/16/2023 12:34 PM CDT) Narrative OPHTHALMOLOGY IMAGING EXAM - 10/19/2023 9:34 AM CDT Right Eye Automated visual field device used was Zeiss. Strategy was ENEDINA. Threshold was Esterman. Eyelid was untaped. Left Eye Automated visual field device used was Zeiss. Strategy was ENEDINA. Threshold was Esterman. Eyelid was untaped. Notes See note Miguel Sosa M.D. OPHTH VISUAL FIEL D Performing Organization Address [facility] Co de Phone Number OPHTHALMOLOGY IMAGING EXAM documented in this encounter Visit Diagnoses Diagnosis Glaucoma Neovascular- Primary Glaucoma Other Symptoms And Signs Involving Cognitive Functions And Awareness Glaucoma Glaucoma Neovascular documented in this encounter Additional Health Concerns Assessment Noted Time PHQ-9 Depression Total Score: 1 02/13/20 13 10:20 AM CDT documented as of this encounter
--- OUTSIDE RECORDS SUMMARY | 2024-01-25 04:46 | XMS_ITS | Encounter Summary ---
Author Organization [facility] Address [address] [place] [address] Care Team Providers Care Damage Prevention Coordinator Name Role Phone Unavailable Primary Care Provider Unavailabl e Encounter Details Date Type Department Care Team (Late st Contact Info) Description 01/29/2017 Historical Ophthalmology RST OPH Kaycee Tamayo M.B.B.S. [address] [place] [phone] Social History Tobacco Use Types Packs/Day Years Used Date Smoking Tobacco: Never Sex and Gender Information Value Date Recorded Sex Assigned at Not on file Gender Identity Not on file Sexual Orientation Not on file documented as of this encounter Progress Notes * Kaycee Tamayo M.B.B.S. - 01/29/2017 9:45 AM CDT Eye General CHIEF COMPLAINT Watering both eyes HISTORY OF PRESENT ILLNESS Patient states When I read my eyes water up, so I have trouble reading. I would like some Kenalog like I had before. Watering; both eyes; occassionally; x 1 year. Blurred vision; both eyes; in AM only upon waking then I wash my eyes out and its okay; x 1 year. Denies floaters, flashes of light and ocular pain. IMPRESSION / REPORT / PLAN 01/29/2017 ENEDINA 24-2: Rt - FN 12%,stable superior nasal step, stable inf arc; Lt - FP 6% and FN 7% stable, no defects 11 Sep 2016 OCT RNFL: Ave RNFL thickness = 62/68; SS 8/8; OD - thinning sup and inf; OS [...] Tmax 42/ 22 Goal high teens/ mid teens s/p CEA [...] FN 10%), non-specific scatter IOP today = Assessment and Plan: Eyelids appear back to baseline since coming off brimonidine and using triamcinolone cream (has completed). IOP remains good off brimonidine. -- Continue Cosopt BID both, Latanoprost QHS both -- RV in 3 months with OCT NFL and IOP check #4 Lagophthalmos - resolved [...] Dry eye CDM Reports - EYEGEN Id: [id number] Status: Fnl documented in this encounter Plan of Treatment Not on file documented as of this encounter Visit Diagnoses Not on filedocumented in this encounter Additional Health Concerns Assessment Noted Time PHQ-9 Depression Total Score: 1 02/13/20 13 10:20 AM CDT documented as of this encounter
--- OUTSIDE RECORDS SUMMARY | 2024-01-25 04:46 | XMS_ITS | Encounter Summary ---
Author Organization [facility] Address [address] [place] [address] Care Team Providers Care Application Spec Name Role Phone Unavailable Primary Care Provider Unavailabl e Encounter Details Date Type Department Care Team (Late st Contact Info) Description 01/29/2013 Historical Ophthalmology RST OPH Taye Hidalgo M.D. Social History Tobacco Use Types Packs/Day Years Used Date Smoking Tobacco: Never Assessed Sex and Gender Information Value Date Recorded Sex Assigned at Not on file Gender Identity Not on file Sexual Orientation Not on file documented as of this encounter Progress Notes * Taye Hidalgo M.D. - 01/29/2013 8:26 AM CDT Eye General CHIEF COMPLAINT follow up glaucoma HISTORY OF PRESENT ILLNESS Patient returns for follow up glaucoma. He feels his vision has been stable. No new eye concerns. HEG: Confirmed above history. The patient states that he is pretty faithful with drops, rarely misses drops, this morning he missed one. No pain or discomfort. IMPRESSION / REPORT / PLAN #1 S/P Ahmed shunt, right eye #2 Ocular ischemic syndrome, right side #3 Neovascular glaucoma, right eye #4 Diabetes OCT rNFL (11/06/2012): RIGHT: avg thickness 64 (red); superior/inferior thinning (red) LEFT: avg thickness 77 (green); no thinning ENEDINA (11/06/2012): RIGHT: inferior > superior arc, 8% false-negatives LEFT: superior > inferior scatter, 3% false-negatives 01/21 ENEDINA RIGHT FN10%, inf, sup arc (2 spots?progresssion, not very reliable); LEFT 0%FN sup and inf scatter Impression: History of acute neovascular glaucoma of the right with Ahmed shunt placed 01/2012. 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 On maximal medical therapy in the right. 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
--- OUTSIDE RECORDS SUMMARY | 2024-01-25 04:46 | XMS_ITS | Encounter Summary ---
Author Organization [facility] Address [address] [place] [address] Care Team Providers Care Facilities Officer Name Role Phone Unavailable Primary Care Provider Unavailabl e Reason for Referral * Outpatient (Routine) - Authorized Specialty Diagnoses / Procedures Referred By Chris ratliff Referred To Contact Diagnoses Glaucoma Procedures Laser Trabeculoplasty Selective - OS - Left Eye Braden Skinner M.D. [address] [place] [phone] [facility] Referral ID Status Reason Start Date Expiration Date V isits Requested Visits Authorized [id number] Authorized 11/28/2023 11/27/2024 1 1 * Outpatient (Routine) - Closed Specialty Diagnoses / Procedures Referred By Chris ratliff Referred To Contact Ophthalmology Braden Skinner M.D. [address] [place] [phone] [facility] Referral ID Status Reason Start Date Expiration Date Visits Re quested Visits Authorized [id number] Closed 11/28/2023 05/29/2025 1 1 Reason for Visit * Outpatient (Routine) - Closed Specialty Diagnoses / Procedures Referred By Chris ratliff Referred To Contact Ophthalmology Miguel Sosa M.D. [address] [place] [phone] [facility] Referral ID Status Reason Start Date Expiration Date Visits Re quested Visits Authorized [id number] Closed 10/12/2023 04/12/2025 1 1 Encounter Details Date Type Department Care Team (Latest Contact Info) Description 11/28/2023 11:00 AM CDT Office Visit Department of Ophthalmology in [place], [place] [address] [place] [phone] Braden Skinner M.D. [address] [place] [phone] Glaucoma (Primary Dx) Social History Tobacco Use Types Packs/Day Years [...] as of this encounter Progress Notes * Braden Skinner M.D. - 11/28/2023 11:00 AM CDT Procedure visit - SLT left eye. See procedure note for details. FU 6 weeks for IOP check with chief resident, then I am happy to see him [facility] documented in this encounter Plan of Treatment Scheduled Referrals Name Type Priority Associated Diagnoses Order Schedule Ophthalmology office visit (clinic) Outpatient Referral Routine Expected: 01/11/2024, Expires: 02/27/2025 documented as of this encounter Procedures Procedure Name Priority Date/Time Associated Diagnosis Comments LASER TRABECULOPLASTY SELECTIVE - OS - LEFT EYE Routine 11/28/2023 11:22 AM CDT Glaucoma documented in this encounter Results * Laser Trabeculoplasty Selective - OS - Left Eye (11/28/2023 11:22 AM CDT) Narrative Braden Skinner M.D. - 11/28/2023 11:21 AM CDT Time Out Confirmed correct patient, procedure, site, and patient consented. Procedure Procedure was SLT. Topical anesthesia was used. Laser Information Laser power was 1.20 milliwatts. Total spots was 106. Post-op The patient tolerated the procedure well. There were no complications. Notes SLT 360 Performed by JENI Staffed by CHAITANYA at last visit Braden Skinner M.D. OPHTH CLINIC PROCEDU RES documented in this encounter Visit Diagnoses Diagnosis Glaucoma- Primary documented in this encounter Additional Health Concerns Assessment Noted Time PHQ-9 Depression Total Score: 1 02/13/20 13 10:20 AM CDT documented as of this encounter
--- OUTSIDE RECORDS SUMMARY | 2024-01-25 04:46 | XMS_ITS | Clinical Summary ---
Author Organization [facility] Address [address] [place] [address] Care Team Providers Care Welding Machine Tender Name Role Phone Unavailable Primary Care Provider Unavailabl e Source Comments Patient records contain information from all sites at [facility]. For routine questions regarding patient records, call [phone] during business hours, M-F 8:00 AM - 5:00 PM Central Time. Record requests for emergency care only can be directed to [phone] at any time.[facility] Allergies Active Allergy Reactions Criticality Noted Date Comments Brimonidine Other (see comments) 07/18/2016 lid swelling, redness Metformin Other (see comments) Low 09/04/2023 Medications Medication Sig Dispensed Refills Start Date End Date Status aspirin 325 mg tablet Take 1 tablet by mouth daily. 11/28/2011 Active carboxymethylcellulo se (THERATEARS) 1 % ophthalmic solution Administer 1 drop into both eyes daily as needed. For dryness, both eyes 03/28/2012 Active glimepiride (for_AMARYL) 4 mg tablet Take 1 tablet by mouth every morning. 01/31/2016 Active metoprolol tartrate (for_LOPRESSOR) 25 mg tablet Take 1 tablet by mouth daily. 06/23/2011 Active carboxymethylcellulo se sodium (REFRESH TEARS OPHT) Administer 1 drop into both eyes 2 (two) times a day. 01/31/2016 Active simvastatin (for_ZOCOR) 40 mg tablet Take 1 tablet by mouth at bedtime. 09/27/2010 Active dorzolamide-timolol (COSOPT) 22.3-6.8 mg/mL ophthalmic solution Administer 1 drop into both eyes 2 (two) times a day. 10 mL 11 11/13/2017 Active latanoprost (XALATAN) 0.005 % ophthalmic solution Administer 1 drop into both eyes every evening. 2.5 mL 11 11/13/2017 Active losartan (COZAAR) 50 mg tablet Take 50 mg by mouth. 12/09/2017 Acti ve metoprolol succinate (TOPROL-XL) 50 mg 24 hr tablet 02/25/2018 Active finasteride (PROSCAR) 5 mg tablet Take 5 mg by mouth. 02/26/2018 Activ e multivitamin-eye (PRESERVISION LUTEIN) 226 mg-90 mg-5 mg-0.8 mg capsule Take 1 capsule by mouth daily. Active vitamins A,C,P-qsrf-yrtqpu (PRESERVISION AREDS) 7,160 Units-113 mg-100 Units per tablet Take 1 tablet by mouth 2 (two) times a day. Active blood sugar diagnostic strips Dispense item covered by pt ins. E11.9 NIDDM type II - Test 4 times/day due to labile sugars 05/03/2018 Active cholecalciferol (VITAMIN D3) 50 mcg (2,000 Unit) capsule Take 1 capsule by mouth daily. 07/14/2017 Active prednisoLONE acetate (PRED FORTE) 1 % ophthalmic suspension Administer 1 drop into the right eye 4 (four) times a day. 15 mL 2 11/08/2022 Active Additional Information Patient taking differently:1 drop right eye 4 times daily,Using the PF 3x day right eye and 2x day in the left eye currently, Reported on 11/22/2022 pioglitazone (ACTOS) 30 mg tablet Take 1 tablet by mouth daily. 08/21/2023 Active Hospital, Clinic, or Other Facility Administered Medication Ordered Dose Route Frequency Start Date End Date Status sodium chloride 0.9 % injection 3 mLIndications:Hemorrhag e Retinal Right 3 mL IV As needed 07/12/2021 Active sodium chloride 0.9 % injection 10 mL 10 mL IV As needed 02/28/2022 Active indocyanine green injection 12.5 mg (IC-GREEN) 12.5 mg IV Once in imaging 02/28/2022 Active fluorescein 100 mg/mL (10 %) injection 500 mg (AK-FLUOR/FLUORESCEIN) 500 mg IV Once in imaging 02/28/2022 Active sodium chloride 0.9 % injection 5 mL 5 mL IV Once 02/28/2022 Active Active Problems Problem Noted Date Diagnosed Date Primary Open-Angle Glaucoma Severe Stage Right 0 09/04/2022 Overview (09/04/2022): Added automatically from request for surgery [id number] Primary Open-Angle Glaucoma Moderate Stage Left 03/05/2019 Glaucoma Neovascular 03/05/2019 Dry Eye Syndrome Bilateral 03/05/2019 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 Stage 08/16/2018 Coronary Artery Disease (Unspecified) 07/21/2015 Overview (10/31/2016): Coronary Artery Disease (CAD) NOS Diabetes Mellitus Type 2 With Diabetic Neuropath y 06/07/2015 Overview (10/31/2016): DM2 Neuropathy Diabetes Mellitus Type 2 10/04/2013 Diabetes Mellitus Type 2 Uncontrolled 02/03/2011 Overview (10/31/2016): Diabetes mellitus II, uncontrolled (also use V58.67 if pt has terminal operator (current insulin use) Diabetes Mellitus Type 2 11/12/2009 Overview (10/31/2016): Diabetes mellitus type II Seizure 10/19/2008 Overview (10/31/2016): Spells Hypertension 11/29/2005 Encounters Date Type Department Care Team Description 01/09/2024 Clinical Communication Department of Ophthalmology in [place], [place] [address] [place] [address] Cherri Dorsey M.D., M.S. 01/07/2024 8:30 AM CDT Office Visit Department of Ophthalmology in [place], [place] [address] [place] [phone] Cherri Dorsey M.D., M.S. 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 Glaucoma (Primary Dx) from Last 3 Months Immunizations Name Administration Dates Next Due HZV (ZOSTAVAX) 10/11/2006 Influenza, Unspecified 06/07/2015,2012,04/09/2012,04/05/2011, 0 PCV13 11/24/2014 PPSV23 06/11/2011,12/25/2003 Tdap 06/07/2015,12/25/2003 Family History Medical History Relation Name Comments Diabetes Brother Stroke Father Diabetes Sister Macular degeneration Sister Relation Name Status Comments Brother Father Sister Social History Tobacco Use Types Packs/Day Years Used Date Smoking Tobacco: Former Cigarettes Q uit: 1999 Passive Smoke Exposure: Never Smokeless Tobacco: Never Tobacco Cessation:Counseling Given: Not Answered Alcohol Use Standard Drinks/Week Comments Yes 10 [...] on file Sexual Orientation Not on file Last Filed Vital Signs Vital Sign Reading Time Taken Comments Blood Pressure 161/77 10/09/2022 5:18 PM CDT Pulse 61 10/09/2022 5:18 PM CDT Temperature 37.1 ??C (98.8 ??F) 10/09/2022 1:46 PM CD T Respiratory Rate 13 10/09/2022 5:15 PM CDT Oxygen Saturation 97% 10/09/2022 5:18 PM CDT Inhaled Oxygen Concentration - - Weight 59.9 kg (132 lb 0.9 oz) 10/09/2022 1:46 P M CDT Height 163.5 cm (5' 4.37) 10/09/2022 1:46 PM CD T Body Mass Index 22.41 10/09/2022 1:46 PM CDT Plan of Treatment Health Maintenance Due Date Last Done Comments Diabetic Office Visit with F oot Exam 1940 Office Visit for Blood Press ure Check / Re-check 1940 Hepatitis B Vaccines (1 of 3 - Risk 3-dose series) 1998 Zoster Vaccines (2 of 3) 12/06/2006 10/11/2006 Urine Albumin 11/25/2015 11/24/2014, 10/09, 10/09/2012, Additional history exists Hemoglobin A1C 11/26/2022 08/26/2022, 02/09, 06/07/2015, Additional history exists COVID-19 Vaccine (2022- 4 season) 2023 03/28/2021, 08/18/2020, 07/28/2020 Depression Screening (Annual PHQ-2) 06/11/2023 Fall Risk Screen (Annual) 06/11/2023 Influenza Vaccine (#1) 2024 , 03/27/2022, 03/17/2021, Additional history exists Dilated Eye Exam 10/15/2024 10/16/2023, 12/2023, 10/12/2023, Additional history exists Creatinine Level (Kidney Fun ction Test) 01/12/2025 01/13/2024, 01/11/2024, 02/27/2023, Additional history exists Potassium Level 01/12/2025 01/13/2024, 08/0 07/2023, 02/27/2023, Additional history exists Sodium Level 01/12/2025 01/13/2024, 08/0 07/2023, 02/27/2023, Additional history exists DTaP,Tdap,and Td Vaccines (3 - Td or Tdap) 06/07/2025 06/07/2015, 12/25/2003, 12/25/2003 Pneumococcal vaccine (65+ years) Completed 11/24/2014, 06/11/2011, 12/25/2003 Medical Devices Implanted Type Area Sap Portal Consultant Device Identifier Shelf Expiration Date Model / Serial / Lot Grft Crn 9 - [id number] - [id number] Implanted:Qty: 1 on 10/09/2022 by Abdiaziz Salas M.D., M.S. at [facility] Bone or Tissue Right: Eye [employer]nea[employer] (Prev. Tissue [employer]) 06/20/2024 [id number] / [id number] / Lead [id number] Capsurefix Novus - Sebastian [id number] Implanted:Qty: 1 on 10/20/2008 Cardiac Lead Other/Legacy - See Implant Description Medtronic / [id number] / Description:Device Manufactu rer - Medtronic [employer] Inc. Body Location - Other. Not Applicable. Device Status Text - CARD [id number]. Lead Tendril [id number] - Sebastian [id number] Implanted:Qty: 1 on 10/20/2008 Cardiac Lead Other/Legacy - See Implant Description [employer] (a Division of Rod[employer]) / [id number] / Description:Device Manufactu rer - [employer]. Body Location - Other. Not Applicable. Device Status Text - CARD [id number]. Tutoplast Pericardium 1.5x1.5cm - Sebastian [id number] Implanted:Qty: 1 on 01/22/2012 Ocular (Eye) Implant Right: Other/Legacy - See Implant Description IOP Inc (Use Katena) Description:Device Manufactu rer - IOP Inc.. Body Location - Right. Device Status Text - [id number]. Valve Ahmed Glaucoma Flex Plate - Sebastian [id number] Implanted:Qty: 1 on 01/22/2012 Ocular (Eye) Implant Right: Other/Legacy - See Implant Description [employer] World Imports Description:Device Manufactu rer - [employer] Inc. Body Location - Right. Device Status Text - [id number]. Leda Carrington 350 - [id number] - [id number] Implanted:Qty: 1 on 10/09/2022 by Abdiaziz Salas M.D., M.S. at [facility] Ocular (Eye) Implant Right: Eye [employer] (Previously KELLY) 06/02/2024 [id number] / [id number] / Pacer Standard Altrua S-[address] Dr - Sebastian [id number] Implanted:Qty: 1 on 10/20/2008 Pacemaker Other/Legacy - See Implant Description [employer] / [id number] / Description:Device Manufactu rer - [employer]. Body Location - Other. Not Applicable. Device Status Text - [id number]. Pacemaker [employer] [id number] Implanted:10/20 (Quantity not on file) Pacemaker Other/Legacy - See Implant Description [employer] / [id number] / Description:Pacemaker [employer] [id number] ALTRUA 20 Stent Precise Pro Rx [id number] - Sebastian [id number] Implanted:Qty: 1 on 11/27/2011 Vascular Stent Cordis Description:Device Manufactu rer - Cordis Dereck. Device Status Text - VASCULAR-32754. Procedures Procedure Name Priority Date/Time Associated Diagnosis Comments LASER TRABECULOPLASTY SELECTIVE - OS - LEFT EYE Routine 11/28/2023 11:22 AM CDT Glaucoma OPHTHALMOLOGY IMAGE EXAM Routine 10/16/2023 10:35 AM CDT HEMOGLOBIN A1C, B Routine 06/07/2015 8:3 6 AM CUTTING MACHINE OFFBEARER BASIC METABOLIC PANEL, S/P Routine 06/07/2015 8:36 AM CUTTING MACHINE OFFBEARER ALBUMIN, RANDOM, U Routine 11/24/2014 9: 47 AM CDT from Last 3 Months or Most Recently Relevant to Health Maintenance Results * Laser Trabeculoplasty Selective - OS [...] Braden Skinner M.D. OPHTH CLINIC PROCEDU RES * Visual Arvizu (VF)-Ophthalmology Image Exam (10/16/2023 10:35 AM CDT) 10/16/2023 10:3 1 AM CDT Narrative IIMS - 10/16/2023 12:49 PM CDT This order has been created and auto-finalized to support the import of images acquired without order. The clinical documentation to support these images can be found on the encounter that produced images. Provider Not In System IMG NON RAD IMAGI NG PROCEDURES Performing Organization Address [facility] de Phone Number IIMS NA * (ABNORMAL) Hemoglobin A1c (06/07/2015 8:36 AM CUTTING MACHINE OFFBEARER) Hemoglobin A1c, B 7.3(H) <=5.6 A1C POWERCHART Blood 06/07/2015 8:36 AM CUTTING MACHINE OFFBEARER Tres Gillespie M.D. LAB BLOOD ADD-ON Performing Organization Address [facility] de Phone Number POWERCHART * Microalbumin, Random, Urine (11/24/2014 9:47 AM CDT) HXU Albumin % 11.2 MGL POWERCHART Creatinine, Random, U 183.5 MGDL POWERCHART Albumin/Creatin ine Ratio 6 0 - 17 MGG POWERCHART Urine 11/24/2014 9:47 AM CDT Tres Gillespie M.D. LAB URINE ORDERABL ES Performing Organization Address [facility] de Phone Number POWERCHART from Last 3 Months or Most Recently Relevant to Health Maintenance Advance Directives For more information, please contact: [phone] Documents on File Type Date Recorded Patient Bonding Supervisor Expl anation Advance Directives 07/17/2014 12:00 AM Lega cy document. See document viewer. Advance Directives 07/13/2014 12:00 AM Lega cy document. See document viewer.
--- OUTSIDE RECORDS SUMMARY | 2024-01-25 04:46 | XMS_ITS | Encounter Summary ---
Author Organization [facility] Address [address] [place] [address] Care Team Providers Care Dope Edger Name Role Phone Unavailable Primary Care Provider Unavailabl e Encounter Details Date Type Department Care Team (Late st Contact Info) Description 02/03/2014 Historical Ophthalmology RST OPH Sherlyn Crenshaw M.D. [address] [phone] Social History Tobacco Use Types Packs/Day Years Used Date Smoking Tobacco: Never Assessed Sex and Gender Information Value Date Recorded Sex Assigned at Not on file Gender Identity Not on file Sexual Orientation Not on file documented as of this encounter Progress Notes * Sherlyn Crenshaw M.D. - 02/03/2014 8:37 AM CDT Eye General CHIEF COMPLAINT recheck HISTORY OF PRESENT ILLNESS Here for 6 week recheck. Feels vision is same as last visit. Denies pain. No new concerns. IMPRESSION / REPORT / PLAN #1 S/P [...] 6, appears stable new Drance hemorrhage right s/p SLT laser OD 12/26/13, IOP lower OD. Will monitor for VF changes, consider adding mirtha vs secondtube if progression. IOP OS high today. 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 Continue Lacrilube QHS, both eyes, discussed artificial tears DIAGNOSIS #1 S/P Ahmed shunt, right eye, 01/2012 #2 Ocular ischemic syndrome, right side #3 Neovascular glaucoma, right eye #4 Ocular hypertension, left eye #5 Diabetes #6 s/p CEA right carotid and stent left carotid #7 Lagophthalmos, 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
--- OUTSIDE RECORDS SUMMARY | 2024-01-25 04:46 | XMS_ITS | Encounter Summary ---
Author Organization [facility] Address [address] [place] [address] Care Team Providers Care Organisation And Methods Analyst Name Role Phone Unavailable Primary Care Provider Unavailabl e Encounter Details Date Type Department Care Team (Late st Contact Info) Description 11/06/2012 Historical Ophthalmology [facility]ST OPH Sung Gonzalez M.D. [address] [place] [address] Social History Tobacco Use Types Packs/Day Years Used Date Smoking Tobacco: Never Assessed Sex and Gender Information Value Date Recorded Sex Assigned at Not on file Gender Identity Not on file Sexual Orientation Not on file documented as of this encounter Progress Notes * Sung Gonzalez M.D. - 11/06/2012 10:37 AM CDT Eye General CHIEF COMPLAINT glaucoma HISTORY OF PRESENT ILLNESS NO changes since he was here 2 months ago. Using all the eye drops as directed and ointment at night. NO eye pain, no flashes of light. IMPRESSION / REPORT / PLAN #1 S/P Ahmed shunt, right eye #2 Ocular ischemic syndrome, right side #3 Neovascular glaucoma, right eye #4 Diabetes OCT rNFL (11/06/2012): RIGHT: avg thickness 64 (red); superior/inferior thinning (red) LEFT: avg thickness 77 (green); no thinning ENEDINA (11/06/2012): RIGHT: inferior > superior arc, 8% false-negatives LEFT: superior > inferior scatter, 3% false-negatives Impression: History of acute neovascular glaucoma of the right with Ahmed shunt placed 01/2012. 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 His IOP today is accpetable in the right on my check and borderline pre-dilation in the left. He is currently on maximal medical therapy in the right. Plan: [...] > left CDM Reports - EYEGEN Id: [id number] Status: Fnl documented in this encounter Plan of Treatment Not on file documented as of this encounter Visit Diagnoses Not on filedocumented in this encounter
--- OUTSIDE RECORDS SUMMARY | 2024-01-25 04:46 | XMS_ITS | Encounter Summary ---
Author Organization [facility] Address [address] [place] [address] Care Team Providers Care Gas Tester Name Role Phone Unavailable Primary Care Provider Unavailabl e Encounter Details Date Type Department Care Team (Late st Contact Info) Description 04/16/2013 Historical Ophthalmology RST OPH Taye Hidalgo M.D. Social History Tobacco Use Types Packs/Day Years Used Date Smoking Tobacco: Never Assessed Sex and Gender Information Value Date Recorded Sex Assigned at Not on file Gender Identity Not on file Sexual Orientation Not on file documented as of this encounter Progress Notes * Taye Hidalgo M.D. - 04/16/2013 8:38 AM CST Eye General CHIEF COMPLAINT glaucoma followup. HISTORY OF PRESENT ILLNESS 72 year old mald returns for glaucoma followup. Vision stable. Denies new complaints. 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
--- OUTSIDE RECORDS SUMMARY | 2024-01-25 04:46 | XMS_ITS | Encounter Summary ---
Author Organization [facility] Address [address] [place] [address] Care Team Providers Care Clay Processing Labourer Name Role Phone Unavailable Primary Care Provider Unavailabl e Encounter Details Date Type Department Care Team (Late st Contact Info) Description 11/30/2015 Historical Ophthalmology [facility]ST OPH Doris Saldaña M.D. Social History Tobacco Use Types Packs/Day Years Used Date Smoking Tobacco: Never Assessed Sex and Gender Information Value Date Recorded Sex Assigned at Not on file Gender Identity Not on file Sexual Orientation Not on file documented as of this encounter Progress Notes * Doris Saldaña M.D. - 11/30/2015 10:30 AM CDT Eye General CHIEF COMPLAINT Follow up of glaucoma HISTORY OF PRESENT ILLNESS Insurance company wants him to switch from Alphagan to Brimonidine; he is in need of a refill. Blurred vision; both eyes; x 4 months; worsening since first noted, notices mainly in distance vision. No new concerns. IMPRESSION / REPORT / PLAN #1 Ocular ischemic syndrome, right side 01/2012 #2 Neovascular glaucoma, right eye, secondary to #1, S/P Ahmed shunt, right eye, 01/2012 #3 Ocular hypertension, left eye Tmax 42/ 22 Goal high teens/ mid teens- IOP acceptable both eyes APD right eye. s/p CEA right carotid and stent left carotid s/p PRP right for OIS s/p SLT laser OD 12/26/13 after had a new drance hemorrhage OD, IOP had minimal response. OS: good IOP response to Cosopt. TESTING 11/2015 ENEDINA VF 24-2: Right: inferior arc and nasal step,- unreliable Left: scatter, reliable, no progression on GPA 07 Jul 2014 OCT RNFL: Right: thickness 60, thin 12,6,overall stable compared to 2013. Left: thickness 73, appears stable compared to 2013 Impression Acceptable IOP both eyes, today with blurred vision secondary to diffuse dry eye. Goal is to prevent HVF progression. He is compliant with drops. 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 Continue Lacrilube QHS, both eyes, discussed artificial tears #5 Diabetes Mellitus, no diabetic retinopathy DIAGNOSIS #1 Ocular ischemic syndrome, right side 01/2012 #2 Neovascular glaucoma, right eye, secondary to #1, S/P Ahmed shunt, right eye, 01/2012 #3 Ocular hypertension, left eye #4 Lagophthalmos, 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
--- OUTSIDE RECORDS SUMMARY | 2024-01-25 04:46 | XMS_ITS | Encounter Summary ---
Author Organization [facility] Address [address] [place] [address] Care Team Providers Care Extrusion Line Operator Name Role Phone Unavailable Primary Care Provider Unavailabl e Encounter Details Date Type Department Care Team (Late st Contact Info) Description 01/31/2016 Historical Ophthalmology RST OPH Walter Talamantes M.D., Ph.D. [address] [place] [address] Social History Tobacco Use Types Packs/Day Years Used Date Smoking Tobacco: Never Assessed Sex and Gender Information Value Date Recorded Sex Assigned at Not on file Gender Identity Not on file Sexual Orientation Not on file documented as of this encounter Progress Notes * Walter Talamantes M.D., Ph.D. - 01/31/2016 9:34 AM CDT Eye General HISTORY OF PRESENT ILLNESS Denies vision complaints at distance (drving) and near (reading). Denies flashes or floaters (both eyes). Diabetes ; A1C 7.3, B.S. 165 (06/07/15) IMPRESSION / REPORT / PLAN #1 Ocular ischemic syndrome, right side 01/2012 #2 Neovascular glaucoma, right eye, secondary to #1, S/P Ahmed shunt, right eye, 01/2012 #3 Ocular hypertension, left eye Tmax Goal high teens/ mid teens s/p CEA right carotid and stent left carotid s/p PRP right for OIS s/p SLT laser OD 12/26/13 after had a new drance hemorrhage OD, IOP had minimal response. OS: good IOP response to Cosopt. Previously Staffed with [facility]: Gave patient 3 options. 1. Careful monitoring, as no progression on VF, follow closely with repeat testing every 3-4months. 2. Start [place] QID if IOP not at goal 3.Place second tube (higher risk) if IOP not at goal. 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, mild nonproliferative retinopathy #6 Pseudophakia #7 Refractive error Recommended fill Rx 1 in particular for driving, discussed that he is borderline legal to drive with unrestricted lisence with current rx but is 20/40, 20/30 with updated correction DIAGNOSIS #1 Ocular ischemic syndrome, right side 01/2012 #2 Neovascular glaucoma, right eye, secondary to #1, S/P Ahmed shunt, right eye, 01/2012 #3 Ocular hypertension, left eye #4 Lagophthalmos, 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
--- OUTSIDE RECORDS SUMMARY | 2024-01-25 04:46 | XMS_ITS | Encounter Summary ---
Author Organization [facility] Address [address] [place] [address] Care Team Providers Care Sort Manager Name Role Phone Unavailable Primary Care Provider Unavailabl e Encounter Details Date Type Department Care Team (Late st Contact Info) Description 07/15/2012 Historical Ophthalmology RST OPH Sung Gonzalez M.D. [address] [place] [address] Social History Tobacco Use Types Packs/Day Years Used Date Smoking Tobacco: Never Assessed Sex and Gender Information Value Date Recorded Sex Assigned at Not on file Gender Identity Not on file Sexual Orientation Not on file documented as of this encounter Progress Notes * Sung Gonzalez M.D. - 07/15/2012 7:54 AM CST Eye General CHIEF COMPLAINT follow up HISTORY OF PRESENT ILLNESS Patient here for follow up. Dry eyes; both eyes; over 1 year; constant. Still using drops; States Timilol still dumont when he uses it. No new concerns today. IMPRESSION / REPORT / PLAN #1 S/P Ahmed shunt, right eye #2 Ocular ischemic syndrome, right side #3 Neovascular glaucoma, right eye #4 Diabetes IOP excellent today, both eyes. Goal high teens. 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
--- OUTSIDE RECORDS SUMMARY | 2024-01-25 04:46 | XMS_ITS ---
Author Organization [facility] Address [address] [place] [address] Care Team Providers Care Reproductive Endocrinologist Name Role Phone Unavailable Unavailable Unavailable Surgery Details Not on file Complications Check Surgery Details section. Procedure Estimated Blood Loss Check Surgery Details section. Procedure Findings Check Surgery Details section. Procedure Specimens Taken Check Surgery Details section.
--- OUTSIDE RECORDS SUMMARY | 2024-01-25 04:46 | XMS_ITS | Encounter Summary ---
Author Organization [facility] Address [address] [place] [address] Care Team Providers Care Biomedical Service Engineer Name Role Phone Unavailable Primary Care Provider Unavailabl e Encounter Details Date Type Department Care Team (Late st Contact Info) Description 06/24/2012 Historical Ophthalmology RST OPH Sung Gonzalez M.D. [address] [place] [address] Social History Tobacco Use Types Packs/Day Years Used Date Smoking Tobacco: Never Assessed Sex and Gender Information Value Date Recorded Sex Assigned at Not on file Gender Identity Not on file Sexual Orientation Not on file documented as of this encounter Progress Notes * Sung Gonzalez M.D. - 06/24/2012 8:49 AM CST Eye General CHIEF COMPLAINT f/u on Ahmed Shunt, right eye HISTORY OF PRESENT ILLNESS Patient is here today for a follow up on Ahmed Shunt, right eye. Patient reports that dorzolomide/timolol drops has been giving him burning sensation which started about a month ago. Denies any vision changes. Denies flashes of lights, floaters or diplopia. Patient denies ocular pain. IMPRESSION / REPORT / PLAN #1 S/P Ahmed shunt, right eye #2 Ocular ischemic syndrome, right side #3 Neovascular glaucoma, right eye #4 Diabetes IOP excellent today, both eyes. 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 It sounds like this was being treated by his previous inspector eyeglass and may be a long-standing issue. 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
--- OUTSIDE RECORDS SUMMARY | 2024-01-25 04:46 | XMS_ITS | Encounter Summary ---
Author Organization [facility] Address [address] [place] [address] Care Team Providers Care Director Enterprise Data Architecture Name Role Phone Unavailable Primary Care Provider Unavailabl e Encounter Details Date Type Department Care Team (Late st Contact Info) Description 08/03/2016 Historical Ophthalmology RST OPH [place] [address] Social History Tobacco Use Types Packs/Day Years Used Date Smoking Tobacco: Never Sex and Gender Information Value Date Recorded Sex Assigned at Not on file Gender Identity Not on file Sexual Orientation Not on file documented as of this encounter Progress Notes * Jelani Lew M.D. - 08/03/2016 9:48 AM CST Eye General CHIEF COMPLAINT follow up HISTORY OF PRESENT ILLNESS Patient notes he's here for a followup. Since his last visit his watery eyes have almost stopped.He notes vision is unchanged. Denies flashes/floaters. Denies additional concerns. IMPRESSION / REPORT / PLAN 20 Jul 2016 OCT Macula: Rt - [...] 01/24, FP 6%, FN 10%), non-specific scatter 03 Aug 2016: Eyelids are doing much better and now only has mild punctal ectropion. Still with somelid thickening. Has been on triamcinolone cream x2 weeks. 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 Will continue for 1 more week and follow-up in 4 weeks. No need for LTS at this point. Patient seen with STEPHANIE. 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
--- OUTSIDE RECORDS SUMMARY | 2024-01-25 04:46 | XMS_ITS | Encounter Summary ---
Author Organization [facility] Address [address] [place] [address] Care Team Providers Care Water Supply Engineer Name Role Phone Unavailable Primary Care Provider Unavailabl e Encounter Details Date Type Department Care Team (Late st Contact Info) Description 07/18/2016 Historical Ophthalmology RST [place] [address] Social History Tobacco Use Types Packs/Day Years Used Date Smoking Tobacco: Never Sex and Gender Information Value Date Recorded Sex Assigned at Not on file Gender Identity Not on file Sexual Orientation Not on file documented as of this encounter Progress Notes * Jelani Lew M.D. - 07/18/2016 10:48 AM CST Eye General CHIEF COMPLAINT Eyes water alot; both eyes; noted x 2 months. HISTORY OF PRESENT ILLNESS Eyes water alot; both eyes; noted x 2 months; does affect vision. Denies flashes or floaters (both eyes). SDM: Patient reports that his eyelids first started bothering him in toward the end of May. Hesaw Dr. Talamantes and was switched from Alphagan to Alphagan P. He reports improvement in his symptoms since making the switch, but was seen by [facility] on 07/07/16 and referral made to me for consideration ofLTS of ectropion. He has been using warm washcloths 2x/day, erythromycin ointment qhs (since 07/07/16 ), Refresh 2x/day, and restasis 2x/day. 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 This isn't true cicatricial ectropion since the eyelid position does not changewhen he opens his mouth. Discussed with STEPHANIE who also saw the patient. Will proceed with trial of topical triamcinolone 0.1% BID to both lower eyelids and discontinuing brimonidine altogether (since this may be contributing). Photos taken today. Return in 2 weeks. If no improvement, he will need a bilateral tarsal strip with skin graft to the left lower lid. If moderate improvement, we may be ableto only due the LTS. There is a chance that the topical steroid and discontinue the brimonidine will have enough affect to resolve the ectropion. #5 Diabetes Mellitus, mild nonproliferative retinopathy #6 [...] Dry eye CDM Reports - EYEGEN Id: [id number] Status: Fnl documented in this encounter Plan of Treatment Not on file documented as of this encounter Visit Diagnoses Not on filedocumented in this encounter Additional Health Concerns Assessment Noted Time PHQ-9 Depression Total Score: 1 02/13/20 13 10:20 AM CDT documented as of this encounter
--- OUTSIDE RECORDS SUMMARY | 2024-01-25 04:46 | XMS_ITS | Encounter Summary ---
Author Organization [facility] Address [address] [place] [address] Care Team Providers Care Platemaker Name Role Phone Unavailable Primary Care Provider Unavailabl e Encounter Details Date Type Department Care Team (Late st Contact Info) Description 10/17/2023 Clinical Communication Department of Ophthalmology in [place], [place] [address] [place] [address] Miguel Sosa M.D. Social History Tobacco Use Types Packs/Day [...] on file documented as of this encounter Plan of Treatment Not on file documented as of this encounter Visit Diagnoses Not on filedocumented in this encounter Additional Health Concerns Assessment Noted Time PHQ-9 Depression Total Score: 1 02/13/20 13 10:20 AM CDT documented as of this encounter
--- OUTSIDE RECORDS SUMMARY | 2024-01-25 04:46 | XMS_ITS | Encounter Summary ---
Author Organization [facility] Address [address] [place] [address] Care Team Providers Care Digital Project Manager Name Role Phone Unavailable Primary Care Provider Unavailabl e Encounter Details Date Type Department Care Team (Late st Contact Info) Description 06/07/2016 Historical Ophthalmology RST OPH Walter Talamantes M.D., Ph.D. [address] [place] [address] Social History Tobacco Use Types Packs/Day Years Used Date Smoking Tobacco: Never Assessed Sex and Gender Information Value Date Recorded Sex Assigned at Not on file Gender Identity Not on file Sexual Orientation Not on file documented as of this encounter Progress Notes * Walter Talamantes M.D., Ph.D. - 06/07/2016 10:01 AM CST Eye General CHIEF COMPLAINT Redness in both eyes & swollen lids HISTORY OF PRESENT ILLNESS Patient is here because both eyes are red, swollen, and watery; 3 weeks; slowly improving. Patient notes that at night redness is worse and they don't hurt they feel wore out. Patient denies ocularpain. He notes that both eyes are itchy; 3 weeks. Patient notes vision seems to be OK. Patient denies additional vision concerns. IMPRESSION / REPORT / PLAN #1 [...] good IOP response to Cosopt. 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 #5 Diabetes Mellitus, mild nonproliferative retinopathy #6 Pseudophakia #7 Dry eye On celluvisc, refresh, and restasis DIAGNOSIS #1 Ocular ischemic syndrome, right side 01/2012 #2 Neovascular glaucoma, right eye, secondary to #1, S/P Ahmed shunt, right eye, 01/2012 #3 Ocular hypertension, left eye #4 Lagophthalmos, 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
--- OUTSIDE RECORDS SUMMARY | 2024-01-25 04:46 | XMS_ITS | Encounter Summary ---
Author Organization [facility] Address [address] [place] [address] Care Team Providers Care Special Education Itinerant Teacher Name Role Phone Unavailable Primary Care Provider Unavailabl e Encounter Details Date Type Department Care Team (Late st Contact Info) Description 12/03/2014 Historical Ophthalmology RST OPH Sherlyn Crenshaw M.D. [address] [address] Social History Tobacco Use Types Packs/Day Years Used Date Smoking Tobacco: Never Assessed Sex and Gender Information Value Date Recorded Sex Assigned at Not on file Gender Identity Not on file Sexual Orientation Not on file documented as of this encounter Progress Notes * Sherlyn Crenshaw M.D. - 12/03/2014 9:56 AM CDT Eye General CHIEF COMPLAINT Follow up of neovascular glaucoma and ocular hypertension HISTORY OF PRESENT ILLNESS This a 74 year old male here for follow up of neovascular glaucoma and ocular hypertension, pain; frontal; x several months; on and off; symptoms reported at level of 2/10. Denies flashes of light orfloaters. IMPRESSION / REPORT / PLAN #1 Ocular [...] stable compared to 2013 Impression Today: Stable testing, although VF slightly unreliable. IOP at goal OU. Previously Staffed with [...] eye - Continue Cosopt BID, left eye Gave patient printed instructions for the drops. 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
--- OUTSIDE RECORDS SUMMARY | 2024-01-25 04:46 | XMS_ITS | Encounter Summary ---
Author Organization [facility] Address [address] [place] [address] Care Team Providers Care Special Events Planner Name Role Phone Unavailable Primary Care Provider Unavailabl e Encounter Details Date Type Department Care Team (Late st Contact Info) Description 12/26/2013 Historical Ophthalmology RST OPH Celeste Thornton [address] [place] [address] Social History Tobacco Use Types Packs/Day Years Used Date Smoking Tobacco: Never Assessed Sex and Gender Information Value Date Recorded Sex Assigned at Not on file Gender Identity Not on file Sexual Orientation Not on file documented as of this encounter Progress Notes * Celeste Thornton - 12/26/2013 10:02 AM CDT Eye Subsequent Visit HISTORY OF PRESENT ILLNESS YAG right eye post op and pictures. CDM Reports - EYESV Id: [id number] Status: Fnl documented in this encounter Plan of Treatment Not on file documented as of this encounter Visit Diagnoses Not on filedocumented in this encounter Additional Health Concerns Assessment Noted Time PHQ-9 Depression Total Score: 1 02/13/20 13 10:20 AM CDT documented as of this encounter
--- OUTSIDE RECORDS SUMMARY | 2024-01-25 04:46 | XMS_ITS | Encounter Summary ---
Author Organization [facility] Address [address] [place] [address] Care Team Providers Care Night Club Manager Name Role Phone Unavailable Primary Care Provider Unavailabl e Encounter Details Date Type Department Care Team (Late st Contact Info) Description 07/07/2016 Historical Ophthalmology RST OPH Walter Talamantes M.D., Ph.D. [address] [place] [address] Social History Tobacco Use Types Packs/Day Years Used Date Smoking Tobacco: Never Sex and Gender Information Value Date Recorded Sex Assigned at Not on file Gender Identity Not on file Sexual Orientation Not on file documented as of this encounter Progress Notes * Walter Talamantes M.D., Ph.D. - 07/07/2016 11:54 AM CST Eye General CHIEF COMPLAINT follow up on allergenic reaction to new glaucoma drops HISTORY OF PRESENT ILLNESS Notes vision has improved since started on alphagan; took a few weeks to get Rx in the mail. Notes eyes are frequently watery and irritated. Lower lids are turning out. Notes mattery buildup in the morning when he wakes up. Patient denies ocular pain. Denies any further concerns. 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
--- OUTSIDE RECORDS SUMMARY | 2024-01-25 04:46 | XMS_ITS | Encounter Summary ---
Author Organization [facility] Address [address] [place] [address] Care Team Providers Care Stove Refinisher Name Role Phone Unavailable Primary Care Provider Unavailabl e Encounter Details Date Type Department Care Team (Late st Contact Info) Description 12/16/2013 Historical Ophthalmology RST OPH Sherlyn Crenshaw M.D. [address] [address] Social History Tobacco Use Types Packs/Day Years Used Date Smoking Tobacco: Never Assessed Sex and Gender Information Value Date Recorded Sex Assigned at Not on file Gender Identity Not on file Sexual Orientation Not on file documented as of this encounter Progress Notes * Sherlyn Crenshaw M.D. - 12/16/2013 1:43 PM CDT Eye Subsequent Visit HISTORY OF PRESENT ILLNESS Patient is here today for VF test and photos and will return to see Dr. Crenshaw on December 23. IMPRESSION / REPORT / PLAN The following tests have been completed and need interpretation. Hanny visual field, OCT NFL CDM Reports - EYESV Id: [id number] Status: Fnl documented in this encounter Plan of Treatment Not on file documented as of this encounter Visit Diagnoses Not on filedocumented in this encounter Additional Health Concerns Assessment Noted Time PHQ-9 Depression Total Score: 1 02/13/20 13 10:20 AM CDT documented as of this encounter
--- OUTSIDE RECORDS SUMMARY | 2024-01-25 04:46 | XMS_ITS | Encounter Summary ---
Author Organization [facility] Address [address] [place] [address] Care Team Providers Care Addiction Psychiatrist Name Role Phone Unavailable Primary Care Provider Unavailabl e Encounter Details Date Type Department Care Team (Late st Contact Info) Description 07/13/2017 Historical Ophthalmology RST OPH Kaycee Tamayo M.B.B.S. [address] [place] [phone] Social History Tobacco Use Types Packs/Day Years Used Date Smoking Tobacco: Never Sex and Gender Information Value Date Recorded Sex Assigned at Not on file Gender Identity Not on file Sexual Orientation Not on file documented as of this encounter Progress Notes * Kaycee Tamayo M.B.B.S. - 07/13/2017 8:48 AM CST Eye General CHIEF COMPLAINT Both eyes watering HISTORY OF PRESENT ILLNESS Watering; both eyes ; x 2 years; constantly; symptoms are severe.Vision is stable.Last HbA1c was 7.3 05/2015 . Blood sugars 79 IMPRESSION / REPORT / PLAN 13 Jul 2017 ENEDINA 24-2: Rt - FN 10%,stable superior nasal step, stable inf arc; Lt FN 12% stable, nodefects '01/29/2017 ENEDINA 24-2: Rt - FN 12%,stable superior [...] 2016 ENEDINA 24-2: Rt - unreliable (Fl /, FP 7%, FN 10%), inferior arc that may have progressed slightly compared to 01/31/16, but difficult to compare in the setting of unreliability due to ocular surface issues; Lt - unreliable (FL 01/24, FP 6%, FN 10%), non-specific scatter IOP today = 13 Jul 2017 Assessment and Plan: Patient complaining of watering and ectropion. Discussed option ofsurgery. He will think about it and call me. -- Continue timolol and brinzolamide BID both, Latanoprost QHS both -- RV in 4-5 months with OCT NFL and IOP check #4 Lagophthalmos - resolved #5 Ectropion persists #6 Diabetes Mellitus, mild nonproliferative retinopathy #7 Pseudophakia #8 Dry eye On celluvisc, refresh, and restasis DIAGNOSIS #1 Ocular ischemic syndrome, right side 01/2012 #2 Neovascular glaucoma, right eye, secondary to #1, S/P Ahmed shunt, right eye, 01/2012 #3 Ocular hypertension, left eye #4 Lagophthalmos - resolved #5 Ectropion persists #6 Diabetes Mellitus, mild nonproliferative retinopathy #7 Pseudophakia #8 Dry eye CDM Reports - EYEGEN Id: [id number] Status: Fnl documented in this encounter Plan of Treatment Not on file documented as of this encounter Visit Diagnoses Not on filedocumented in this encounter Additional Health Concerns Assessment Noted Time PHQ-9 Depression Total Score: 1 02/13/20 13 10:20 AM CDT documented as of this encounter
--- OUTSIDE RECORDS SUMMARY | 2024-01-25 04:46 | XMS_ITS | Referral Summary ---
Author Organization [facility] Address [address] [place] [address] Care Team Providers Care Business Administration Teacher Name Role Phone Unavailable Primary Care Provider Unavailabl e Source Comments Patient records contain information from all sites at [facility]. For routine questions regarding patient records, call [phone] during business hours, M-F 8:00 AM - 5:00 PM Central Time. Record requests for emergency care only can be directed to [phone] at any time.[facility] Encounters Date Type Department Care Team Description 01/09/2024 Clinical Communication Department of Ophthalmology in [place], [place] [address] [place] [phone] Cherri Dorsey M.D., M.S. 01/07/2024 8:30 AM CDT Office Visit Department of Ophthalmology in [place], [place] [address] [place] [phone] Cherri Dorsey M.D., M.S. 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 Glaucoma (Primary Dx) from Last 3 Months Allergies Active Allergy Reactions Criticality Noted Date [...] 1 capsule by mouth daily. 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 (current insulin use) Diabetes Mellitus Type 2 11/12/2009 Overview (10/31/2016): Diabetes mellitus type II Seizure 10/19/2008 Overview (10/31/2016): Spells Hypertension 11/29/2005 Immunizations Name Administration Dates Next Due HZV (ZOSTAVAX) 10/11/2006 Influenza, Unspecified 06/07/2015,2012,04/09/2012,04/05/2011, 0 PCV13 11/24/2014 PPSV23 06/11/2011,12/25/2003 Tdap 06/07/2015,12/25/2003 Social History Tobacco Use Types Packs/Day Years Used Date Smoking Tobacco: Former Cigarettes Q uit: 2000 Passive Smoke Exposure: Never Smokeless Tobacco: Never [...] 10/09/2022 1:46 PM CDT Plan of Treatment Not on file Medical Devices Implanted Type Area Floor Manager Device Identifier Shelf Expiration Date Model / Serial / Lot Grft Crn 9 - [id number] - [id number] Implanted:Qty: 1 on 10/09/2022 by Abdiaziz Salas M.D., M.S. at [facility] Bone or Tissue Right: Eye CorneaGen (Prev. Tissue [employer]) 06/20/2024 [id number] / [id number] / Lead 4076-58 Capsurefix Novus - Sebastian [id number] Implanted:Qty: 1 on 10/20/2008 Cardiac Lead Other/Legacy - See Implant Description Medtronic / [id number] / Description:Device Manufactu rer - Medtronic [employer] Inc. Body Location - Other. Not Applicable. Device Status Text - CARD [id number]. Lead Tendril [id number] - Sebastian [id number] Implanted:Qty: 1 on 10/20/2008 Cardiac Lead Other/Legacy - See Implant Description [employer] (a Division of Rodríguez) / [id number] / Description:Device Manufactu rer - [employer]. Body Location - Other. Not Applicable. Device Status Text - CARD [id number]. Tutoplast Pericardium 1.5x1.5cm - Sebastian [id number] Implanted:Qty: 1 on 01/22/2012 Ocular (Eye) Implant Right: Other/Legacy - See Implant Description IOP Inc (Use Katena) Description:Device Manufactu rer - IOP Inc.. Body Location - Right. Device Status Text - [id number]. Valve Ahmed Glaucoma Flex Plate - Sebastian [id number] Implanted:Qty: 1 on 01/22/2012 Ocular (Eye) Implant Right: Other/Legacy - See Implant Description New World Imports Description:Device Manufactu rer - [employer] Inc. Body Location - Right. Device Status Text - [id number]. Leda Carrington 350 - [id number] - [id number] Implanted:Qty: 1 on 10/09/2022 by Abdiaziz Salas M.D., M.S. at [facility] Ocular (Eye) Implant Right: Eye J and J Optics (Previously KELLY) 06/02/2024 [id number] / [id number] / Pacer Standard Altrua S-202 Dr - Sebastian [id number] Implanted:Qty: 1 on 10/20/2008 Pacemaker Other/Legacy - See Implant Description Modena Scientific / [id number] / Description:Device Manufactu rer - [employer]. Body Location - Other. Not Applicable. Device Status Text - [id number]. Pacemaker Mod[employer] Scientific [id number] Implanted:10/20 (Quantity not on file) Pacemaker Other/Legacy - See Implant Description [employer] / [id number] / Description:Pacemaker Mod[employer] Scientific [id number] S202 ALTRUA 20 Stent Precise Pro Rx [id number] - Sebastian [id number] Implanted:Qty: 1 on 11/27/2011 Vascular Stent Cordis Description:Device Manufactu rer - Cordis Dereck. Device Status Text - VASCULAR-62715. Procedures Procedure Name Priority Date/Time Associated Diagnosis Comments LASER TRABECULOPLASTY SELECTIVE - OS - LEFT EYE Routine 11/28/2023 11:22 AM CDT Glaucoma OPHTHALMOLOGY IMAGE EXAM Routine 10/16/2023 10:35 AM CDT HEMOGLOBIN A1C, B Routine 06/07/2015 8:3 6 AM UI LEAD DEVELOPER BASIC METABOLIC PANEL, S/P Routine 06/07/2015 8:36 AM UI LEAD DEVELOPER ALBUMIN, RANDOM, U Routine 11/24/2014 9: 47 [...] no complications. Notes SLT 360 Performed by TTX Staffed by CHAITANYA at last visit Braden [...] RAD IMAGI NG PROCEDURES Performing Organization Address City/[facility] Co de Phone Number IIMS NA * (ABNORMAL) Hemoglobin A1c (06/07/2015 8:36 AM UI LEAD DEVELOPER) Hemoglobin A1c, B 7.3(H) <=5.6 A1C POWERCHART Blood 06/07/2015 8:36 AM UI LEAD DEVELOPER Tres Gillespie M.D. LAB BLOOD ADD-ON Performing Organization Address [facility] de Phone Number POWERCHART * Microalbumin, Random, Urine (11/24/2014 9:47 AM CDT) HXU Albumin % 11.2 MGL POWERCHART Creatinine, Random, U 183.5 MGDL POWERCHART Albumin/Creatin ine Ratio 6 0 - 17 MGG POWERCHART Urine 11/24/2014 9:47 AM CDT Tres Gillespie M.D. LAB URINE ORDERABL ES Performing Organization Address [facility] de Phone Number POWERCHART from Last 3 Months or Most Recently Relevant to Health Maintenance Advance Directives For more information, please contact: [phone] Documents on File Type Date Recorded Patient Optical Design Engineer Expl anation Advance Directives 07/17/2014 12:00 AM Lega cy document. See document viewer. Advance Directives 07/13/2014 12:00 AM Lega cy document. See document viewer.
--- OUTSIDE RECORDS SUMMARY | 2024-01-25 04:46 | XMS_ITS | Encounter Summary ---
Author Organization [facility] Address [address] [place] [address] Care Team Providers Care Rougher Operator Name Role Phone Unavailable Primary Care Provider Unavailabl e Encounter Details Date Type Department Care Team (Late st Contact Info) Description 12/23/2013 Historical Ophthalmology RST OPH Sherlyn Crenshaw M.D. [address] [phone] Social History Tobacco Use Types Packs/Day Years Used Date Smoking Tobacco: Never Assessed Sex and Gender Information Value Date Recorded Sex Assigned at Not on file Gender Identity Not on file Sexual Orientation Not on file documented as of this encounter Progress Notes * Sherlyn Crenshaw M.D. - 12/23/2013 1:40 PM CDT Eye General CHIEF COMPLAINT Follow up HISTORY OF PRESENT ILLNESS Patient is wondering if there is another drop than can substitute for the Alphagan because he thinks this is the drop that is costing him 90 dollars a time? No other concerns at this time. Patient denies ocular pain, flashes of light, or floaters. Patient denies any noticable changes with his vision. IMPRESSION / REPORT / PLAN #1 S/P [...] second tube. Observe left eye for now. Patient will make appointment for SLT in the next couple of weeks. Plan: - Cosopt BID, right; will need [...] > left CDM Reports - EYEGEN Id: [id number] Status: Fnl documented in this encounter Plan of Treatment Not on file documented as of this encounter Visit Diagnoses Not on filedocumented in this encounter Additional Health Concerns Assessment Noted Time PHQ-9 Depression Total Score: 1 02/13/20 13 10:20 AM CDT documented as of this encounter
--- OUTSIDE RECORDS SUMMARY | 2024-01-25 04:47 | XMS_ITS | Encounter Summary ---
Author Organization [facility] Address [address] [place] [address] Care Team Providers Care Product Operations Associate Name Role Phone Unavailable Primary Care Provider Unavailabl e Encounter Details Date Type Department Care Team (Late st Contact Info) Description 01/05/2012 Historical Ophthalmology RST OPH Sherlyn Crenshaw M.D. [address] [phone] Social History Tobacco Use Types Packs/Day Years Used Date Smoking Tobacco: Never Assessed Sex and Gender Information Value Date Recorded Sex Assigned at Not on file Gender Identity Not on file Sexual Orientation Not on file documented as of this encounter Progress Notes * Sherlyn Crenshaw M.D. - 01/05/2012 10:04 AM CDT Eye General CHIEF COMPLAINT Follow up on Ocular ischemic syndrome, right eye HISTORY OF PRESENT ILLNESS Patient returns for a follow up on Ocular ischemic syndrome, right eye. Vision in the right eye hasslightly improved since yesterday. Denies flashes of lights, floaters or diplopia. Patient denies ocular pain. Denies any new concerns. GIORGIO: Agree with above. Patient has no eye complaints. No eye pain. Feels his vision is improved. Notfeeling sick. Is taking all his medications as prescribed. IMPRESSION / REPORT / PLAN Consult requested by: Erickson Owusu #1 Ocular ischemic syndrome, right side #2 Neovascular glaucoma, right eye #3 Diabetes FA 01/02/12: RIGHT: delayed transit, vascular staining LEFT: MAs late perifoveal leakage Delayed transit times on FA in the setting of NVA and NVG on the right consistent with ocular ischemic syndrome on the right. s/p PRP and Avastin injection on 01/02/12 s/p AC tap 01/04/12 IOP imporved to 24 today Plan 01/05/2012: - Continue Pred Forte QID, right eye - Continue Combigan BID, right eye - Continue Lumigan QHS, right eye - Continue Trusopt BID, right eye - Continue PO Diamog 500 mg SR q12H (this is his renal dose) - Recheck IOP tomorrow - Discussed performing laser if his pressure does not stay down with max medical management. Tube would be less ideal given current anticoagulation. - Carotid artery repair scheduled on 01/09/12 Seen with MARIA GUADALUPER/SARAH DIAGNOSIS #1 Ocular ischemic syndrome, right side #2 Neovascular glaucoma, right eye #3 Diabetes CDM Reports - EYEGEN Id: [id number] Status: Fnl documented in this encounter Plan of Treatment Not on file documented as of this encounter Visit Diagnoses Not on filedocumented in this encounter
--- OUTSIDE RECORDS SUMMARY | 2024-01-25 04:47 | XMS_ITS | Encounter Summary ---
Author Organization [facility] Address [address] [place] [address] Care Team Providers Care Risk Compliance Manager Name Role Phone Unavailable Primary Care Provider Unavailabl e Encounter Details Date Type Department Care Team (Late st Contact Info) Description 01/10/2012 Historical Ophthalmology RST OPH Sherlyn Crenshaw M.D. [address] [phone] Social History Tobacco Use Types Packs/Day Years Used Date Smoking Tobacco: Never Assessed Sex and Gender Information Value Date Recorded Sex Assigned at Not on file Gender Identity Not on file Sexual Orientation Not on file documented as of this encounter Progress Notes * Sherlyn Crenshaw M.D. - 01/10/2012 9:36 AM CDT Eye General CHIEF COMPLAINT follow-up for ocular ischemic sundrome, right eye HISTORY OF PRESENT ILLNESS Patient seen in the hosptial. He was intubated but alert. Was able to cooperate with exam for IOP. IMPRESSION / REPORT / PLAN #1 Ocular [...] injection on 01/02/12 s/p AC tap 01/04/12 s/p CEA 01/09/12 IOP increased post operativley to 32 Plan - Continue Pred Forte QID, right eye - Continue Combigan BID, right eye - Continue Lumigan QHS, right eye - Continue Trusopt BID, right eye - Continue PO Diamog 500 mg SR q12H (this is his renal dose) DIAGNOSIS #1 Ocular ischemic syndrome, right side #2 Neovascular glaucoma, right eye #3 Diabetes CDM Reports - EYEGEN Id: [id number] Status: Fnl documented in this encounter Plan of Treatment Not on file documented as of this encounter Visit Diagnoses Not on filedocumented in this encounter
--- OUTSIDE RECORDS SUMMARY | 2024-01-25 04:47 | XMS_ITS | Encounter Summary ---
Author Organization [facility] Address [address] [place] [address] Care Team Providers Care Fisheries Enforcement Officer Name Role Phone Unavailable Primary Care Provider Unavailabl e Encounter Details Date Type Department Care Team (Late st Contact Info) Description 01/04/2012 Historical Ophthalmology RST OPH Sherlyn Crenshaw M.D. [address] [phone] Social History Tobacco Use Types Packs/Day Years Used Date Smoking Tobacco: Never Assessed Sex and Gender Information Value Date Recorded Sex Assigned at Not on file Gender Identity Not on file Sexual Orientation Not on file documented as of this encounter Progress Notes * Sherlyn Crenshaw M.D. - 01/04/2012 2:00 PM CDT Eye General CHIEF COMPLAINT check up HISTORY OF PRESENT ILLNESS Patient is here for follow up. Notes vision is a bit clearer since last visit. Denies ocular pain. No new concerns. GIORGIO: Agree with above. Patient notes that his vision is improved compared to last time. Is using allhis eye drops as prescribed including lumigan, combigan and presnisolone. IMPRESSION / REPORT / PLAN Consult requested by: Erickson Owusu FA 01/02/12: RIGHT: delayed transit, vascular staining LEFT: MAs late perifoveal leakage Delayed transit times on FA in the setting of NVA and NVG on the right consistent with ocular ischemic syndrome on the right. #1 Ocular ischemic syndrome, right side #2 Neovascular glaucoma, right eye #3 Diabetes s/p RPR and Avastin injection on 01/02/12 Plan 01/04/2012: - Continue Pred Forte QID, right eye - Continue Combigan BID, right eye - Continue Lumigan QHS, right eye - Start Trusopt BID, right eye - Start PO Diamog 500 mg SR q12H (this is his renal dose) - Performed AC tap today - pressure following tap was 9 - Recheck IOP tomorrow - Discussed performing laser if his pressure does not stay down with max medical management. Tube would be less ideal given current anticoagulation. - Carotid artery repair scheduled on 01/09/12 Seen with MARIA GUADALUPER/SARAH DIAGNOSIS #1 Ocular ischemic syndrome, right side #2 Neovascular glaucoma, right eye #3 Diabetes CDM Reports - EYEGEN Id: [id number] Status: Fnl documented in this encounter Plan of Treatment Not on file documented as of this encounter Visit Diagnoses Not on filedocumented in this encounter
--- OUTSIDE RECORDS SUMMARY | 2024-01-25 04:47 | XMS_ITS | Encounter Summary ---
Author Organization [facility] Address [address] [place] [address] Care Team Providers Care Military Science Teacher Name Role Phone Unavailable Primary Care Provider Unavailabl e Encounter Details Date Type Department Care Team (Late st Contact Info) Description 01/06/2012 Historical Ophthalmology RST OPH Sherlyn Crenshaw M.D. [address] [phone] Social History Tobacco Use Types Packs/Day Years Used Date Smoking Tobacco: Never Assessed Sex and Gender Information Value Date Recorded Sex Assigned at Not on file Gender Identity Not on file Sexual Orientation Not on file documented as of this encounter Progress Notes * Sherlyn Crenshaw M.D. - 01/06/2012 9:25 AM CDT Eye General CHIEF COMPLAINT follow up for ocular ischemic syndrome, right eye HISTORY OF PRESENT ILLNESS Patient is doing well today. States that he could see the TV really well from his lower field of view on his affected eye. Has some mild eye pain when he puts the drops in. He is taking the oral diamox and drops as prescribed. IMPRESSION / REPORT / PLAN #1 Ocular [...] s/p AC tap 01/04/12 IOP imporved to 20 today Plan 01/06/2012: - Continue Pred Forte QID, right eye - Continue Combigan BID, right eye - Continue Lumigan QHS, right eye - Continue Trusopt BID, right eye - Continue PO Diamog 500 mg SR q12H (this is his renal dose) - Recheck IOP Sunday - Discussed performing laser if his pressure does not stay down with max medical management. Tube would be less ideal given current anticoagulation. - Carotid artery repair scheduled on 01/09/12 Staffed with DIMITRI DIAGNOSIS #1 Ocular ischemic syndrome, right side #2 Neovascular glaucoma, right eye #3 Diabetes CDM Reports - EYEGEN Id: [id number] Status: Fnl documented in this encounter Plan of Treatment Not on file documented as of this encounter Visit Diagnoses Not on filedocumented in this encounter
--- OUTSIDE RECORDS SUMMARY | 2024-01-25 04:47 | XMS_ITS | Encounter Summary ---
Author Organization [facility] Address [address] [place] [address] Care Team Providers Care Stone Layer Name Role Phone Unavailable Primary Care Provider Unavailabl e Encounter Details Date Type Department Care Team (Late st Contact Info) Description 03/28/2012 Historical Ophthalmology RST OPH Jarocho Heath M.D. [address] [facility] [address] [place] [address] Social History Tobacco Use Types Packs/Day Years Used Date Smoking Tobacco: Never Assessed Sex and Gender Information Value Date Recorded Sex Assigned at Not on file Gender Identity Not on file Sexual Orientation Not on file documented as of this encounter Progress Notes * Jarocho Heath M.D. - 03/28/2012 8:57 AM CDT Eye Postoperative MULTI-VISIT DOCUMENT This document contains multiple patient visits and is available for review in Document Viewer. CDM Reports - EYEPO Id: [id number] Status: Fnl documented in this encounter Plan of Treatment Not on file documented as of this encounter Visit Diagnoses Not on filedocumented in this encounter
--- OUTSIDE RECORDS SUMMARY | 2024-01-25 04:47 | XMS_ITS | Encounter Summary ---
Author Organization [facility] Address [address] [place] [address] Care Team Providers Care Director Client Services Name Role Phone Unavailable Primary Care Provider Unavailabl e Encounter Details Date Type Department Care Team (Late st Contact Info) Description 01/12/2012 Historical Ophthalmology RST OPH Sherlyn Crenshaw M.D. [address] [phone] Social History Tobacco Use Types Packs/Day Years Used Date Smoking Tobacco: Never Assessed Sex and Gender Information Value Date Recorded Sex Assigned at Not on file Gender Identity Not on file Sexual Orientation Not on file documented as of this encounter Progress Notes * Sherlyn Crenshaw M.D. - 01/12/2012 2:06 PM CDT Eye General CHIEF COMPLAINT follow up HISTORY OF PRESENT ILLNESS Patient is here for follow up appointment. Notes vision has been better since last visit. Denies ocular pain. Patient is concerned about his pressure. GIORGIO: Patient doing well. Was discharged yesterday from the hosptial after CEA on the right. Feels that his vision is doing well in the right eye. He is still using all the drops as prescribed. IMPRESSION / REPORT / [...] AC tap 01/04/12 s/p CEA 01/09/12 IOP remains increased post operativley at 32 Plan - Continue Pred Forte QID, right eye - Continue Combigan BID, right eye - Continue Lumigan QHS, right eye - Continue Trusopt BID, right eye - Continue PO Diamog 500 mg SR q12H (this is his renal dose) RTC Sunday for IOP check Will consider RESIDENTIAL MORTGAGE MANAGER vs Tube in the right eye next week DIAGNOSIS #1 Ocular ischemic syndrome, right side #2 Neovascular glaucoma, right eye #3 Diabetes CDM Reports - EYEGEN Id: [id number] Status: Fnl documented in this encounter Plan of Treatment Not on file documented as of this encounter Visit Diagnoses Not on filedocumented in this encounter
--- OUTSIDE RECORDS SUMMARY | 2024-01-25 04:47 | XMS_ITS | Encounter Summary ---
Author Organization [facility] Address [address] [place] [address] Care Team Providers Care Blocklayer Name Role Phone Unavailable Primary Care Provider Unavailabl e Encounter Details Date Type Department Care Team (Late st Contact Info) Description 01/17/2012 Historical Ophthalmology RST OPH Celeste Thornton [address] [place] [address] Social History Tobacco Use Types Packs/Day Years Used Date Smoking Tobacco: Never Assessed Sex and Gender Information Value Date Recorded Sex Assigned at Not on file Gender Identity Not on file Sexual Orientation Not on file documented as of this encounter Progress Notes * Celeste Thornton - 01/17/2012 9:45 AM CDT Eye Subsequent Visit HISTORY OF PRESENT ILLNESS Will return on Sunday to see DR. Garima ibrahim pamplet given and reviewed for procedure right eye by Dr. Gonzalez. CDM Reports - EYESV Id: [id number] Status: Fnl documented in this encounter Plan of Treatment Not on file documented as of this encounter Visit Diagnoses Not on filedocumented in this encounter
--- OUTSIDE RECORDS SUMMARY | 2024-01-25 04:47 | XMS_ITS | Encounter Summary ---
Author Organization [facility] Address [address] [place] [address] Care Team Providers Care Gastrointestinal Technician Name Role Phone Unavailable Primary Care Provider Unavailabl e Encounter Details Date Type Department Care Team (Late st Contact Info) Description 01/15/2012 Historical Ophthalmology RST OPH Sherlyn Crenshaw M.D. [address] [phone] Social History Tobacco Use Types Packs/Day Years Used Date Smoking Tobacco: Never Assessed Sex and Gender Information Value Date Recorded Sex Assigned at Not on file Gender Identity Not on file Sexual Orientation Not on file documented as of this encounter Progress Notes * Sherlyn Crenshaw M.D. - 01/15/2012 10:13 AM CDT Eye General HISTORY OF PRESENT ILLNESS follow-up Ocular ischemic syndrome, right side. Patient states everything has been about the same since his last visit. Patient states he accidently pulled one of his stitches/tacho out in his neckdue to the fact he tilts his head back for all his drops and it constantly bleeds. GIORGIO: Agree with above. Patients vision remains unchanged. He is using all of his drops and medications as prescribed. He has brought them to todays visit so we can review them today. IMPRESSION / REPORT / PLAN #1 Ocular [...] 01/09/12 IOP remains increased post operativley at 39 Plan - Continue Pred Forte QID, right eye - Continue Combigan BID, right eye - Continue Lumigan QHS, right eye - Continue Trusopt BID, right eye - Continue PO Diamog 500 mg SR q12H (this is his renal dose) RTC Sunday for IOP check and discussion of surgery HOSIERY LOOPER vs Tube in the right eye next week DIAGNOSIS #1 Ocular ischemic syndrome, right side #2 Neovascular glaucoma, right eye #3 Diabetes CDM Reports - EYEGEN Id: [id number] Status: Fnl documented in this encounter Plan of Treatment Not on file documented as of this encounter Visit Diagnoses Not on filedocumented in this encounter
--- OUTSIDE RECORDS SUMMARY | 2024-01-25 04:47 | XMS_ITS | Encounter Summary ---
Author Organization [facility] Address [address] [place] [address] Care Team Providers Care Crop Farm Workers Name Role Phone Unavailable Primary Care Provider Unavailabl e Encounter Details Date Type Department Care Team (Late st Contact Info) Description 01/19/2012 Historical Ophthalmology RST OPH Sherlyn Crenshaw M.D. [address] [phone] Social History Tobacco Use Types Packs/Day Years Used Date Smoking Tobacco: Never Assessed Sex and Gender Information Value Date Recorded Sex Assigned at Not on file Gender Identity Not on file Sexual Orientation Not on file documented as of this encounter Progress Notes * Sherlyn Crenshaw M.D. - 01/19/2012 8:39 AM CDT Eye General CHIEF COMPLAINT follow-up ocular ischemic syndrome HISTORY OF PRESENT ILLNESS GIORGIO: Patient is doing well. No changes in vision. Using all his drops and taking oral diamox. IMPRESSION / REPORT / PLAN #1 Ocular [...] 01/09/12 IOP remains increased post operativley at 32 today Plan - Continue Pred Forte QID, right eye - Continue Combigan BID, right eye - Continue Lumigan QHS, right eye - Continue Trusopt BID, right eye - Continue PO Diamox 500 mg SR q12H (this is his renal dose) Will proceed with Ahmed Tube in the right eye on Sunday. Discussed risks and benefits. Patient wishes to proceed. Patient given prescription for Vigamox today to start after surgery on Sunday. DIAGNOSIS #1 Ocular ischemic syndrome, right side #2 Neovascular glaucoma, right eye #3 Diabetes CDM Reports - EYEGEN Id: [id number] Status: Fnl documented in this encounter Plan of Treatment Not on file documented as of this encounter Visit Diagnoses Not on filedocumented in this encounter
--- OUTSIDE RECORDS SUMMARY | 2024-01-25 04:47 | XMS_ITS | Encounter Summary ---
Author Organization [facility] Address [address] [place] [address] Care Team Providers Care Wide Piece Goods Inspector Name Role Phone Unavailable Primary Care Provider Unavailabl e Encounter Details Date Type Department Care Team (Late st Contact Info) Description 01/02/2012 Historical Ophthalmology RST OPH Sherlyn Crenshaw M.D. [address] [phone] Social History Tobacco Use Types Packs/Day Years Used Date Smoking Tobacco: Never Assessed Sex and Gender Information Value Date Recorded Sex Assigned at Not on file Gender Identity Not on file Sexual Orientation Not on file documented as of this encounter Progress Notes * Sherlyn Crenshaw M.D. - 01/02/2012 1:14 PM CDT Eye General CHIEF COMPLAINT Ocular Ischemia, right; Neovascular Glaucoma; HISTORY OF PRESENT ILLNESS Blurred vision; Filmy vision; right eye; x 3 weeks; constantly. Patient states he often feels discomfort when blinking. Patient denies flashes of light or floaters. GIORGIO: Agree with above. Patient has YVAN and DM. Was seeing an completion engineer in [place], [place] for regular exams. In October he had a regular exam and was fine. He then underwent stenting of the left carotid artery in November and after returning home from the hospital he noticed his vision in the right eye deteriorate. He then had one day when his lower field vision in the right eye was house for approximately 5 minutes. He was able to preceive light during this episode but not any shapes. This episodeoccured again but his entire field was house and it also resolved after 5 minutes. 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 He was referred here by his local completion engineer Dr. Erickson Perez for further management. IMPRESSION / REPORT / PLAN Consult requested by: Erickson Owusu FA: RIGHT: delayed transit, vascular staining LEFT: MAs late perifoveal leakage #1 Ocular ischemic syndrome, right side #2 Neovascular glaucoma, right eye #3 Diabetes Impression 01/02/2012: Delayed transit times on FA in the setting of NVA and NVG on the right consistent with ocular ischemic syndrome on the right. Patient will get vascular repair of his lesion in 1 week. Plan 01/02/2012: - Continue Pred Forte QID, right eye - Continue Combigan BID, right eye - Continue Lumigan QHS, right eye - Avastin, right eye today - PRP right eye today - Recheck IOP in 2 days, continue DIAGNOSIS #1 Ocular ischemic syndrome, right side #2 Neovascular glaucoma, right eye #3 Diabetes CDM Reports - EYEGEN Id: [id number] Status: Fnl documented in this encounter Plan of Treatment Not on file documented as of this encounter Visit Diagnoses Not on filedocumented in this encounter
--- OUTSIDE RECORDS SUMMARY | 2024-01-25 04:47 | XMS_ITS | Encounter Summary ---
Author Organization [facility] Address [address] [place] [address] Care Team Providers Care Equip Tech Name Role Phone Unavailable Primary Care Provider Unavailabl e Encounter Details Date Type Department Care Team (Late st Contact Info) Description 01/08/2012 Historical Ophthalmology RST OPH Sherlyn Crenshaw M.D. [address] [phone] Social History Tobacco Use Types Packs/Day Years Used Date Smoking Tobacco: Never Assessed Sex and Gender Information Value Date Recorded Sex Assigned at Not on file Gender Identity Not on file Sexual Orientation Not on file documented as of this encounter Progress Notes * Sherlyn Crenshaw M.D. - 01/08/2012 1:04 PM CDT Eye General CHIEF COMPLAINT Follow up appointment, Ocular Ischemic Syndrome, right side HISTORY OF PRESENT ILLNESS Patient states that he can see out of the right eye about the same as he could on sunday; Patientdenies ocular pain. Patient states that today before he put his drops in, he was able to see my blood vessels, but I put my drops in and my sight came back. GIORGIO: Agree with above. patient feels that his vision is stable. He is using his medication as prescribed without difficulty. He is scheduled to undergo right ICA CEA vs stenting tomorrow with Dr. Hahn. IMPRESSION / REPORT / PLAN #1 Ocular [...] 01/02/12 s/p AC tap 01/04/12 IOP imporved today Plan 01/08/2012: - Continue Pred Forte QID, right eye - Continue Combigan BID, right eye - Continue Lumigan QHS, right eye - Continue Trusopt BID, right eye - Continue PO Diamog 500 mg SR q12H (this is his renal dose) - Carotid artery repair scheduled on 01/09/12 - Will see patient after surgery to check IOP DIAGNOSIS #1 Ocular ischemic syndrome, right side #2 Neovascular glaucoma, right eye #3 Diabetes CDM Reports - EYEEMBI Id: [id number] Status: Fnl documented in this encounter Plan of Treatment Not on file documented as of this encounter Visit Diagnoses Not on filedocumented in this encounter
--- OUTSIDE RECORDS SUMMARY | 2024-01-25 04:47 | XMS_ITS | Encounter Summary ---
Author Organization [facility] Address [address] [place] [address] Care Team Providers Care All Source Analyst Name Role Phone Unavailable Primary Care Provider Unavailabl e Encounter Details Date Type Department Care Team (Late st Contact Info) Description 10/12/1966 12:00 PM CDT Telemedicine Department of Ophthalmology Social History Tobacco Use Types Packs/Day Years Used Date Smoking Tobacco: Never Assessed Sex and Gender Information Value Date Recorded Sex Assigned at Not on file Gender Identity Not on file Sexual Orientation Not on file documented as of this encounter Plan of Treatment Not on file documented as of this encounter Procedures Procedure Name Priority Date/Time Associated Diagnosis Comments OPHTHALMOLOGY IMAGE EXAM Routine 10/12/1966 12:00 PM CDT documented in this encounter Results * OPHTHALMOLOGY IMAGE EXAM (10/12/1966 12:00 PM CDT) Narrative [facility] - 07/13/2017 11:[address] ROUTE SERVICER This order has been created and auto-finalized to support the import of images acquired without order. The clinical documentation to support these images can be found on the encounter that produced images. Provider Not In System IMG NON RAD IMAGI NG PROCEDURES [facility] NA documented in this encounter Visit Diagnoses Not on filedocumented in this encounter
--- OUTSIDE RECORDS SUMMARY | 2024-01-25 04:47 | XMS_ITS | Encounter Summary ---
Author Organization [facility] Address [address] [place] [address] Care Team Providers Care Engineering Illustrator Name Role Phone Unavailable Primary Care Provider Unavailabl e Encounter Details Date Type Department Care Team (Late st Contact Info) Description 01/17/2012 Historical Ophthalmology RST OPH Sherlyn Crenshaw M.D. [address] [phone] Social History Tobacco Use Types Packs/Day Years Used Date Smoking Tobacco: Never Assessed Sex and Gender Information Value Date Recorded Sex Assigned at Not on file Gender Identity Not on file Sexual Orientation Not on file documented as of this encounter Progress Notes * Sherlyn Crenshaw M.D. - 01/17/2012 8:20 AM CDT Eye General CHIEF COMPLAINT Follow up for Ocular ischemic syndrome, right eye HISTORY OF PRESENT ILLNESS Patient returns today for a follow up for ocular ischemic syndrome, right eye;Patient reports no new vision changes. Notes that his stitches along his neck hasn't been bleeding, so is excited about that. GIORGIO: Agree with above. Patient is using all his medications as prescribed. Feels his vision is unchanged. No other symptoms. He will have his neck tacho removed on the . IMPRESSION / REPORT / PLAN #1 Ocular [...] 01/09/12 IOP remains increased post operativley at 28 today Plan - Continue Pred Forte QID, right eye - Continue Combigan BID, right eye - Continue Lumigan QHS, right eye - Continue Trusopt BID, right eye - Continue PO Diamog 500 mg SR q12H (this is his renal dose) RTC Sunday for IOP check. Will proceed with Ahmed Tube in the right eye on Sunday. Discussed risks and benefits. Patient wishes to proceed. DIAGNOSIS #1 Ocular ischemic syndrome, right side #2 Neovascular glaucoma, right eye #3 Diabetes CDM Reports - EYEGEN Id: [id number] Status: Fnl documented in this encounter Plan of Treatment Not on file documented as of this encounter Visit Diagnoses Not on filedocumented in this encounter
== END 2024-01-24 09:51 | disposition home or self-care (01) ==
LOC: AMB 01-25 04:43
PROVIDERS: PCP Family Medicine; Visit Provider Family Medicine
DX: U07.1 COVID-19 (principal); R53.1 Weakness; R19.7 Diarrhea, unspecified; R11.10 Vomiting, unspecified
CPT/HCPCS: A0425; A0429

== ENCOUNTER 2024-01-24 10:18 | Inpatient (IN) | payer MEDICARE, BC, SELFPAY ==
[2024-01-24] VITALS (37 sets, daily range): BP systolic 80–134; BP diastolic 42–63; PULSE 60–64; RESP 0–20; TEMP 36.2–37; O2SAT 60–100; BMI 22.7
--- NOTE | 2024-01-24 10:34 | ED.NURSE ---
Patient sating at 100% on 2L nasal canula. Trial of room air began and after 3 minutes patient with sats at 95% Will continue to monitor.
--- NOTE | 2024-01-24 10:58 | ED.NURSE ---
Patient noted to desat to 60's. Immediately nurses responded to room and patient was asleep and appears apneic. Patient recovered in about 30 seconds back to mid nineties. Oxygen was placed under mouth as patient is a mouth breather when sleeping. Respiratory was contacted and is now with patient. MD notified.
--- NOTE | 2024-01-24 11:06 | CRLHL7_ITS ---
For Patients: As a result of the Century Cures Act, medical imaging exams and procedure reports are released immediately into your electronic medical record. You may view this report before your referring provider. If you have questions, please contact your health care provider. INDICATION: Cough. COVID. TECHNIQUE: Chest 1 portable view. COMPARISON: 04/04/2021. FINDINGS: Right-sided intracardiac device and abandoned left pacemaker leads appear unchanged. No pneumothorax or definite pleural effusion. Patchy bilateral ill-defined opacities greatest in the right upper lung zone and left lung base. Aortic atherosclerosis. Stable cardiac and mediastinal contours. Upper abdomen and osseous structures as imaged show no acute abnormality. IMPRESSION: Bilateral ill-defined opacities worrisome for pneumonia, to include COVID related pneumonia. Dictated by Aime Raymundo MD @ 01/24/2024 11:58:17 AM (Electronically Signed)
--- NOTE | 2024-01-24 11:28 | ED_ITS ---
HPI - Weakness General Date Seen: 01/24/24 Chief complaint: Weakness Stated complaint: +covid, weakness Time Seen by Provider: 01/24/24 10:53 Source: patient, EMS, RN notes reviewed and old records reviewed Mode of arrival: EMS Limitations: no limitations History of Present Illness HPI Narrative: Patient is a gentleman brought over from [address] [place] [address]. After he was admitted there on the 16 of January, after spending 5 days at [facility]. He has tested positive for COVID yesterday. Has a roommate had this, and he has increased weakness today. Is brought over for an evaluation by his daughter I believe. Who is not yet present He tells me does not know why he is here, he tells me he otherwise feels fine, other than being a little bit weak, denies any fevers chills or sweats no nausea vomiting denies any chest pain. MD Complaint: generalized weakness Associated symptoms: denies other symptoms Related Data Home Medications ?Medication ?Instructions ?Recorded ?Confirmed aspirin 325 mg tablet 325 mg PO QDAY 12/26/21 09/04/23 cholecalciferol (vitamin D3) 50 50 mcg PO QDAY 12/26/21 09/04/23 mcg (2,000 unit) tablet omega 8-cve-egs-fish oil 100 1 cap PO QDAY 03/24/22 09/04/23 mg-160 mg-1,000 mg capsule (Fish Oil) blood sugar diagnostic (Blood 05/30/22 09/04/23 Glucose Test strips) Previous Rx's ?Medication ?Instructions ?Recorded blood sugar diagnostic (Contour #200 ea 03/01/23 Next Test Strips) dorzolamide 22.3 mg-timolol 6.8 1 drp ophthalmic (eye) QAM AND QHS 06/14/23 mg/mL eye drops #30 mL finasteride 5 mg tablet 5 mg PO QDAY #90 tabs 06/15/23 latanoprost 0.005 % eye drops 1 drp ophthalmic (eye) .Bedtime 07/18/23 #7.5 mL simvastatin 40 mg tablet 40 mg PO QDAY #90 tabs 08/16/23 losartan 100 mg tablet 100 mg PO QDAY #90 tabs 09/27/23 glimepiride 4 mg tablet 4 mg PO BID #180 tabs 10/26/23 pioglitazone 30 mg tablet 30 mg PO QDAY #90 tabs 12/03/23 metoprolol succinate 100 mg 100 mg PO DAILY #90 tabs 12/17/23 tablet,extended release 24 hr Allergies Allergy/AdvReac Type Severity Reaction Status Date / Time metformin Allergy Mild dizzy Verified 09/04/23 09:31 brimonidine AdvReac Intermediate Eye Verified 09/04/23 09:31 Infection Review of Systems Status of ROS: Reports: 10 or more systems reviewed and unremarkable except as noted in History and below PFSH [facility] Medical History Type 2 diabetes mellitus, without long-term current use of insulin ?E11.9 - Type 2 diabetes mellitus without complications (ICD-10) Primary hypertension ?I10 - Essential (primary) hypertension (ICD-10) Mixed hyperlipidemia ?E78.2 - Mixed hyperlipidemia (ICD-10) Proximal humerus fracture ?S42.209A - Unspecified fracture of upper end of unspecified humerus, initial encounter for closed fracture (ICD-10) Insomnia ?G47.00 - Insomnia, unspecified (ICD-10) Glaucoma ?H40.9 - Unspecified glaucoma (ICD-10) Vitamin D deficiency (09/25/11) ?E55.9 - Vitamin D deficiency, unspecified (ICD-10) 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) ?S06.36AA - Traumatic hemorrhage of cerebrum, unspecified, with loss of consciousness status unknown, initial encounter (ICD-10) Presence of cardiac pacemaker (2006) ?Z95.0 - Presence of cardiac pacemaker (ICD-10) Peripheral neuropathy ?G62.9 - Polyneuropathy, unspecified (ICD-10) Lumbar radiculopathy ?M54.16 - Radiculopathy, lumbar region (ICD-10) Dry eyes ?H04.123 - Dry eye syndrome of bilateral lacrimal glands (ICD-10) Chronic low back pain ?M54.50 - Low back pain, unspecified (ICD-10) ?G89.29 - Other chronic pain (ICD-10) BPH (benign prostatic hyperplasia) ?N40.0 - Benign prostatic hyperplasia without lower urinary tract symptoms (ICD-10) Surgical History History of carotid endarterectomy ?Z98.890 - Other specified postprocedural states (ICD-10) Family History Brother Diabetes Sister Diabetes Social History Narrative: 4 children Non smoker social EtOH What is your current living situation?: I presently have a place to live Problems where you live: no known problems In the past 12 months, utilities in danger of being shut off: no In past 12 months, lack of transportation kept you from medical appts, meetings, work, or getting things needed for daily living: no In the past 12 mos, have been you worried that your food would run out before you had money to buy more?: never true In the past 12 mos, the food you bought just didn't last and you didn't have money to buy more?: never true Smoking Status: Never smoker Non-prescribed substance use: denies use How often does anyone, including family, friends and others, physically hurt you : never How often does anyone, including family, friends and others, insult or talk down to you: never How often does anyone, including family, friends and others, threaten you with harm: never How often does anyone, including family, friends and others, scream or curse at you: never Little interest or pleasure in doing things: not at all Feeling down, depressed, or hopeless: not at all Exam Narrative: Exam Narrative: He is seen in room 2 he is in no apparent distress, he does fall asleep multiple times during my interview, but wakes up, he had some oxygen place by my nurses, on his mouth, as he appears to be a mouth breather. The oxygen is removed any is 95% on room air. Pupils are equal round reactive to light, he has ectropions bilaterally, TMs are normal oropharynx is normal, he is able to sit up by himself, his chest has some decreased air entry bilaterally with some crackles noted in the basis is left seems a little bit more crackly than the right. Heart sounds no clicks murmurs or gallops I do not Leonel see any scars from his previous pneumothorax although his left upper chest test a healed area that may be where they put the tube in. Abdomen is soft scars from previous surgeries are noted, but he is otherwise soft, bowel sounds are normally moves all extremities independently well with 1 to 2+ pitting edema, neurologically intact moving his upper and lower extremities, little bit pale looking. GCS is 14/15 losing a point as he falls asleep. Const: Vital Signs, click to edit/add: Vital Signs - 24 hr 01/24/24 10:29 01/24/24 10:30 01/24/24 10:32 Temperature 98.6 F Pulse Rate 60 61 Pulse Rate [Right Pulse Oximeter] 60 Respiratory Rate 18 Blood Pressure 95/49 L Blood Pressure [Ri ght Upper Arm] 95/49 L Pulse Oximetry 100 100 100 Oxygen Delivery Me thod Room Air Oxygen Flow Rate 2 01/24/24 10:32 01/24/24 10:45 01/24/24 11:00 Temperature Pulse Rate 62 60 61 Pulse Rate [Right Pulse Oximeter] Respiratory Rate Blood Pressure 94/45 L Blood Pressure [Ri ght Upper Arm] Pulse Oximetry 100 94 99 Oxygen Delivery Me thod Room Air Oxygen Flow Rate 01/24/24 11:02 01/24/24 11:06 01/24/24 11:15 Temperature Pulse Rate 61 62 Pulse Rate [Right Pulse Oximeter] Respiratory Rate 19 Blood Pressure 92/46 L Blood Pressure [Ri ght Upper Arm] Pulse Oximetry 98 92 83 L Oxygen Delivery Me thod Oxygen Flow Rate 01/24/24 11:30 01/24/24 11:32 01/24/24 11:33 Temperature Pulse Rate Pulse Rate [Right Pulse Oximeter] Respiratory Rate 13 20 12 Blood Pressure Blood Pressure [Ri ght Upper Arm] Pulse Oximetry Oxygen Delivery Me thod Room Air Oxygen Flow Rate 01/24/24 11:45 01/24/24 11:54 01/24/24 12:00 Temperature Pulse Rate 62 63 60 Pulse Rate [Right Pulse Oximeter] Respiratory Rate 17 Blood Pressure 97/57 L Blood Pressure [Ri ght Upper Arm] Pulse Oximetry 86 L 77 L 85 L Oxygen Delivery Me thod Oxygen Flow Rate 01/24/24 12:02 01/24/24 12:15 Temperature Pulse Rate 60 60 Pulse Rate [Right Pulse Oximeter] Respiratory Rate Blood Pressure 103/55 L Blood Pressure [Ri ght Upper Arm] Pulse Oximetry 97 95 Oxygen Delivery Me thod Oxygen Flow Rate Documenting provider has reviewed patient's vital signs: yes Course Vital Signs Vital signs: Initial Vital Signs Pulse Rate 60 01/24/24 10:29 Blood Pressure 95/49 L 01/24/24 10:29 Blood Pressure Mean 64 L 01/24/24 10:29 Pulse Oximetry 100 01/24/24 10:29 Oxygen Flow Rate 2 01/24/24 10:29 Vital Signs Pulse Rate 60 01/24/24 10:29 Blood Pressure 95/49 L 01/24/24 10:29 Pulse Oximetry 100 01/24/24 10:29 Oxygen Flow Rate 2 01/24/24 10:29 Temperature 98.6 F 01/24/24 10:32 Pulse Rate 60 01/24/24 12:15 Respiratory Rate 17 01/24/24 11:45 Blood Pressure 103/55 L 01/24/24 12:02 Pulse Oximetry 95 01/24/24 12:15 Oxygen Delivery Method Room Air 01/24/24 11:32 Oxygen Flow Rate 2 01/24/24 10:29 Medications Administered Medications: Discontinued Medications Generic Name Dose Route Start Last Admin Trade Name Hazel PRN Reason Stop Dose Admin Dexamethasone 10 mg 01/24/24 12:39 01/24/24 12:54 Dexamethasone 10 Mg/Ml Inj IVP 01/24/24 12:40 10 mg ONCE ONE Administration MDM - Weakness MDM Narrative Medical decision making narrative: I suspect is weakness is from his COVID, he is maintaining his saturations, we will go ahead and do chest x-ray new some basic labs, I will speak to his family. Hemoglobin came back low at 7.5 white count elevated at 15.6. Chest x-ray shows some infiltrates, suggestive of pneumonia possibly COVID pneumonia. Given his weakness and his status, I discussed with his family further intervention, we talked about intubation, and sent to the [facility] after discussing with his family about the risks benefits of this. The daughter chilled he decided that this was not the best interest of the patient, and that was also the conversation I had with the patient and he did not want to go to the [facility]. They know the limitations of our hospital, we will treat aggressively with IV antibiotics fluids possibly blood products, and go forward with this I then consulted with the inpatient physician. Dr. Martino, she accepted him. Blood cultures, lactate, CT of the chest, were ordered. Differential Diagnosis Differential diagnosis: Likely acute myocardial infarction, anemia, hypoglycemia, hypothyroidism, rhabdomyolysis, sepsis and dehydration Medical Records Attestation: I reviewed the patient's medical records. Lab Data Attestation: I reviewed the patient's lab results. Labs: Lab Results 01/24/24 01/24/24 01/24/24 Range/Units 11:07 11:38 12:50 WBC 15.67 H (4.50-11.00) K/uL RBC 2.38 L (4.30-5.90) m/uL Hgb 7.6 L* (13.5-17.5) gm/dL Hct 24.6 L (37.0-53.0) % MCV 103 H (80-100) fL MCH 32 (26-34) pg MCHC 31 L (32-36) gm/dL RDW Coeff of Fely 13.9 (11.5-15.5) % Plt Count 210 (140-440) K/uL Neut % (Auto) 87.6 H (42.0-72.0) % Lymph % (Auto) 6.3 L (20-44) % Shackelford % (Auto) 5.8 (0.0-11.0) % Eos % (Auto) 0.0 (0.0-7.0) % Baso % (Auto) 0.1 (0.0-3.0) % Neut # (Auto) 13.70 H (1.7-7.0) K/uL Lymph # (Auto) 1.00 (0.90-2.90) K/uL Shackelford # (Auto) 0.90 (0.00-0.90) K/UL Eos # (Auto) 0.00 (0.00-0.50) K/uL Baso # (Auto) 0.00 (0.00-0.30) K/uL Abs Immat Gran (auto) 0.00 (0.00-0.30) K/uL Imm/Tot Granulo (auto) 0.2 % INR 1.27 H (0.91-1.10) APTT 42 H (23-33) Seconds Sodium 134 L (135-149) mmol/L Potassium 4.3 (3.6-5.1) mmol/L Chloride 99 (96-114) mmol/L Carbon Dioxide 28 (20-32) mmol/L Anion Gap 7 (7-15) mEq/L BUN 29 (7-30) mg/dL Creatinine 1.6 H (0.5-1.5) mg/dL Estimated GFR 42 ml/min Glucose 117 H (60-115) mg/dL Lactate 1.3 (0.5-1.9) mmol/L Calcium 8.8 (8.4-10.6) mg/dL C-Reactive Protein 8.7 H (0.5-1.0) mg/dL NT-Pro-B Natriuret Pep 01221 pg/mL POC Troponin I 0.07 H (0.01-0.04) ng/ml Imaging Data Chest x-ray: Attestation: I have reviewed the pertinent imaging results. My impression: Infiltrates were seen, consistent with a pneumonia possibly COVID pneumonia. ECG Data Attestation: I personally reviewed and interpreted this ECG as follows: Interpretation: EKG showed AV dual paced rhythm. Ventricular rate 62. Unchanged Discharge Plan Discharge Clinical Impression: COVID, Sepsis, Apnea spell, Pneumonia Patient Disposition: Admitted As Observation Prescriptions: No Action Fish Oil 100-160-1,000 mg capsule 1 cap PO QDAY (DME) Contour Next Test Strips Strip See Rx Instructions .Route Qty: 200 5RF Rx Instructions: Tests BID due to high A1c cholecalciferol (vitamin D3) 50 mcg (2,000 unit) tablet 50 mcg PO QDAY aspirin 325 mg tablet 325 mg PO QDAY (DME) Blood Glucose Test Strip See Rx Instructions .Route Rx Instructions: Deven Contour tests QID dorzolamide-timolol 22.3-6.8 mg/mL drops 1 drp ophthalmic (eye) QAM AND QHS Qty: 30 3RF finasteride 5 mg tablet 5 mg PO QDAY Qty: 90 3RF latanoprost 0.005 % drops 1 drp ophthalmic (eye) .Bedtime Qty: 7.5 3RF simvastatin 40 mg tablet 40 mg PO QDAY Qty: 90 2RF losartan 100 mg tablet 100 mg PO QDAY Qty: 90 3RF glimepiride 4 mg tablet 4 mg PO BID Qty: 180 0RF pioglitazone 30 mg tablet 30 mg PO QDAY Qty: 90 0RF metoprolol succinate 100 mg tablet extended release 24 hr 100 mg PO DAILY Qty: 90 2RF Follow Up/Referrals: Tres Ling MD [Primary Care Provider] -
[2024-01-24 11:59] LABS: Chloride* 99 mmol/L (96-114); Potassium* 4.3 mmol/L (3.6-5.1); Sodium* 134 mmol/L (135-149)
[2024-01-24 12:00] LABS: Basophils Percent Auto 0.1 % (0.0-3.0); Hematocrit 24.6 % (37.0-53.0); Immature Granulocytes Pct Auto 0.2 %; Lymphocytes Percent Auto 6.3 % (20-44); Mean Corpuscular HGB Conc 31 gm/dL (32-36); Mean Corpuscular Hemoglobin 32 pg (26-34); Mean Corpuscular Volume 103 fL (80-100); Monocytes Percent Auto 5.8 % (0.0-11.0); Neutrophils Percent Auto 87.6 % (42.0-72.0); Platelet Count* 210 K/uL (140-440); RDW Coefficient of Variation % 13.9 % (11.5-15.5); Red Blood Count 2.38 m/uL (4.30-5.90); White Blood Count* 15.67 K/uL (4.50-11.00)
[2024-01-24 12:01] LABS: INR 1.27 (0.91-1.10); Prothrombin Time 16.7 Seconds
[2024-01-24 12:02] LABS: Anion Gap 7 mEq/L (7-15); Blood Urea Nitrogen* 29 mg/dL (7-30); Carbon Dioxide* 28 mmol/L (20-32); Creatinine* 1.6 mg/dL (0.5-1.5); Estimated Glomerular Filt Rate 42 ml/min; Partial Thromboplastin Time* 42 Seconds (23-33)
[2024-01-24 12:03] LABS: Calcium* 8.8 mg/dL (8.4-10.6); Glucose* 117 mg/dL (60-115)
[2024-01-24 12:05] LABS: C Reactive Protein* 8.7 mg/dL (0.5-1.0)
[2024-01-24 12:07] LABS: Troponin, Point-of-Care* 0.07 ng/ml (0.01-0.04)
[2024-01-24 12:07] LABS: Hemoglobin* 7.6 gm/dL (13.5-17.5)
[2024-01-24 12:12] LABS: NT Pro B Type NatriureticPept* 13900 pg/mL; Slide Review Reflex No
--- NOTE | 2024-01-24 12:17 | CRLHL7_ITS ---
For Patients: As a result of the Century Cures Act, medical imaging exams and procedure reports are released immediately into your electronic medical record. You may view this report before your referring provider. If you have questions, please contact your health care provider. INDICATION: SOB, COUGH, INFILTRATES, COVID +. TECHNIQUE: CT chest PE was acquired with 95 cc Omnipaque 350 IV contrast. COMPARISON: Earlier same day chest radiograph. FINDINGS: Heart and vasculature: Contrast opacification of the pulmonary arterial tree is adequate. No sign of pulmonary embolism. Heart size is normal. Thoracic aorta and pulmonary artery are normal in caliber. Right chest pacemaker and abandoned left chest pacemaker leads in place. Lungs and pleura: Moderate patchy bilateral consolidations with surrounding ground-glass opacities, right greater than left. Small to moderate left hydropneumothorax with a small gas component. There are consolidations in the underlying parenchyma. Calcified right pleural plaque. Lymph nodes/mediastinum: No mediastinal, hilar, or axillary adenopathy. Chest wall: No masses. Upper abdomen: Few mildly dilated bowel loops in the left upper quadrant measuring up to 3.9 centimeters () Bones: Chronic appearing moderate compression deformities of the T8 and L1 vertebral bodies with mild bony retropulsion. No evident result high-grade spinal canal stenosis. Additional smaller compression deformities versus prominent superior endplate Schmorl nodes C7, T1, and T2. IMPRESSION: 1. No acute pulmonary embolism. 2. Moderate patchy bilateral consolidations and ground-glass opacities, right greater than left, compatible with atypical pneumonia, such as that caused by COVID. 3. Small to moderate left hydropneumothorax, primarily comprised of fluid, but with a small gas component. There associated underlying consolidations, which at least partially reflect atelectasis, though superimposed infection is not excluded. 4. Few mildly dilated loops of small bowel in the partially visualized abdomen. This is nonspecific, but can be seen in the setting of ileus or obstruction. Consider further evaluation with a dedicated CT abdomen pelvis, at clinical discretion. Please note that all CT scans at this facility use dose modulation, iterative reconstruction, and/or weight-based dosing when appropriate to reduce radiation dose to as low as reasonably achievable. Dictated by Segundo De La Rosa MD @ 01/24/2024 1:56:10 PM (Electronically Signed)
[2024-01-24] MEDS: dexAMETHasone 10 MG/ML inj IVP (12:54)
[2024-01-24 13:05] LABS: Lactate* 1.3 mmol/L (0.5-1.9)
[2024-01-24] MEDS: 0.9 % SODIUM CHLORIDE 1000 ml 1,000 ML IV (13:31)
[2024-01-24] MEDS: PIPERACILLIN/TAZOBACTAM 3.375 GM in 0.9 % SODIUM CHLORIDE Mini-bag 100 ML IVPB ×2 (13:31→20:15)
[2024-01-24 14:21] LABS: pH VBG 7.383 (7.32-7.43)
[2024-01-24 14:22] LABS: HCO3 VBG 30 mmol/L (21-28); PCO2 VBG 50 mmHG (40-50); PO2 VBG 31.6 mmHG (25-47)
[2024-01-24 14:30] LABS: NT Pro B Type NatriureticPept* 12700 pg/mL
--- NOTE | 2024-01-24 15:29 | PM.IMHP1 ---
Hospitalist- H&P: HPI History of Present Illness Date Seen: 01/24/24 Chief complaint: +covid, weakness Narrative: Emilio Rider is a 83 year old male who presented to the emergency room today for the evaluation of weakness in the setting of known COVID infection. Patient is currently living at [address] [place] [address] for a rehab stay. Mark had a fall at home on January 10, seen in the [place] [facility] and found to have a large left hemothorax. He underwent a large volume thoracentesis (pathology reviewed and benign), had a subsequent pneumothorax and was transferred to [facility] for a chest tube. He was hospitalized at [facility] from January 11-, then discharged to [facility]. He was not on supplemental oxygen at [address] [place] [address]. ER course and findings: - intermittent episodes of apnea with severe hypoxia, normalized when awakened - reassuring VBG - hemoglobin 7.6 (was 9.5 on 01/11/24, not rechecked after his thoracentesis) - small to moderate L hydropneumothorax, primarily fluid - few mildly dilated loops of small bowel, nonspecific (patient passing flatus and loose stool, no abdominal pain) - POC troponin 0.07, no CP. Baseline paced EKG - creatinine 1.6 (outpatient baseline 1.1-1.2) Histories updated below, PCP is Dr. Ling. Review of Systems Status of ROS: Reports: 10 or more systems reviewed and unremarkable except as noted in History and below [facility] Medical History Type 2 diabetes mellitus, without long-term current use of insulin ?E11.9 - Type 2 diabetes mellitus without complications (ICD-10) Primary hypertension ?I10 - Essential (primary) hypertension (ICD-10) Mixed hyperlipidemia ?E78.2 - Mixed hyperlipidemia (ICD-10) Proximal humerus fracture ?S42.209A - Unspecified fracture of upper end of unspecified humerus, initial encounter for closed fracture (ICD-10) Insomnia ?G47.00 - Insomnia, unspecified (ICD-10) Glaucoma ?H40.9 - Unspecified glaucoma (ICD-10) Vitamin D deficiency (09/25/11) ?E55.9 - Vitamin D deficiency, unspecified (ICD-10) 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) ?S06.36AA - Traumatic hemorrhage of cerebrum, unspecified, with loss of consciousness status unknown, initial encounter (ICD-10) Presence of cardiac pacemaker (2006) ?Z95.0 - Presence of cardiac pacemaker (ICD-10) Peripheral neuropathy ?G62.9 - Polyneuropathy, unspecified (ICD-10) Lumbar radiculopathy ?M54.16 - Radiculopathy, lumbar region (ICD-10) Dry eyes ?H04.123 - Dry eye syndrome of bilateral lacrimal glands (ICD-10) Chronic low back pain ?M54.50 - Low back pain, unspecified (ICD-10) ?G89.29 - Other chronic pain (ICD-10) BPH (benign prostatic hyperplasia) ?N40.0 - Benign prostatic hyperplasia without lower urinary tract symptoms (ICD-10) Surgical History History of carotid endarterectomy ?Z98.890 - Other specified postprocedural states (ICD-10) Family History Brother Diabetes Sister Diabetes Social History Narrative: 4 children Non smoker social EtOH What is your current living situation?: I presently have a place to live Problems where you live: no known problems Problems where you live details: NA In the past 12 months, utilities in danger of being shut off: no In past 12 months, lack of transportation kept you from medical appts, meetings, work, or getting things needed for daily living: no In the past 12 mos, have been you worried that your food would run out before you had money to buy more?: never true In the past 12 mos, the food you bought just didn't last and you didn't have money to buy more?: never true Highest level of school completed/degree received: high school graduate Smoking Status: Never smoker How often do you have a drink containing alcohol: 2-4 times a month Alcohol type: beer How often do you have six or more drinks on one occasion: Never AUDIT-C Alcohol total score: 2 Non-prescribed substance use: denies use Caffeine: Yes (coffee) How often does anyone, including family, friends and others, physically hurt you: never How often does anyone, including family, friends and others, insult or talk down to you: never How often does anyone, including family, friends and others, threaten you with harm: never How often does anyone, including family, friends and others, scream or curse at you: never Little interest or pleasure in doing things: not at all Feeling down, depressed, or hopeless: not at all service: Yes Meds Home Medications and Allergies Home Medications ?Medication ?Instructions ?Recorded ?Confirmed ?Type aspirin 325 mg tablet 325 mg PO DAILY 12/26/21 01/24/24 History cholecalciferol (vitamin D3) 50 50 mcg PO DAILY 12/26/21 01/24/24 History mcg (2,000 unit) tablet omega 2-ieg-ybf-fish oil 100 1 cap PO DAILY 03/24/22 01/24/24 History mg-160 mg-1,000 mg capsule (Fish Oil) blood sugar diagnostic (Blood 05/30/22 09/04/23 History Glucose Test strips) finasteride 5 mg tablet 5 mg PO DAILY 01/24/24 01/24/24 History latanoprost 0.005 % eye drops 1 drp ophthalmic (eye) HS 01/24/24 01/24/24 History losartan 100 mg tablet 100 mg PO DAILY 01/24/24 01/24/24 History nirmatrelvir 300 mg (150 mg See Rx Instructions PO .COMPLEX 01/24/24 01/24/24 History x2)-ritonavir 100 mg tablet,dose pack (Paxlovid) pioglitazone 30 mg tablet 30 mg PO DAILY 01/24/24 01/24/24 History simvastatin 40 mg tablet 40 mg PO DAILY 01/24/24 01/24/24 History Allergies Allergy/AdvReac Type Severity Reaction Status Date / Time metformin Allergy Mild dizzy Verified 01/24/24 13:26 brimonidine AdvReac Intermediate Eye Verified 01/24/24 13:26 Infection Exam Narrative: Exam Narrative: GEN: Sleepy but arouses to voice, appears ill HEENT: EOMIs bilaterally, no scleral icterus, + conjunctival pallor CV: RRR, No concerning murmurs R: No wheezing, bibasilar rales with decreased air movement Ab: soft, nontender, hyperactive bowel sounds Ext: wwp, no concerning edema Skin: No concerning skin lesions or rashes on exposed skin Neuro: No focal deficits Psych: Appropriate Const: Vital Signs, click to edit/add: Vital Signs - 24 hr 01/24/24 10:29 01/24/24 10:30 01/24/24 10:32 Temperature 98.6 F Pulse Rate 60 61 Pulse Rate [Right Pulse Oximeter] 60 Respiratory Rate 18 Blood Pressure 95/49 L Blood Pressure [Ri ght Upper Arm] 95/49 L Pulse Oximetry 100 100 100 Oxygen Delivery Me thod Room Air Oxygen Flow Rate 2 01/24/24 10:32 01/24/24 10:45 01/24/24 11:00 Temperature Pulse Rate 62 60 61 Pulse Rate [Right Pulse Oximeter] Respiratory Rate Blood Pressure 94/45 L Blood Pressure [Ri ght Upper Arm] Pulse Oximetry 100 94 99 Oxygen Delivery Me thod Room Air Oxygen Flow Rate 01/24/24 11:02 01/24/24 11:06 01/24/24 11:15 Temperature Pulse Rate 61 62 Pulse Rate [Right Pulse Oximeter] Respiratory Rate 19 Blood Pressure 92/46 L Blood Pressure [Ri ght Upper Arm] Pulse Oximetry 98 92 83 L Oxygen Delivery Me thod Oxygen Flow Rate 01/24/24 11:30 01/24/24 11:32 01/24/24 11:33 Temperature Pulse Rate Pulse Rate [Right Pulse Oximeter] Respiratory Rate 13 20 12 Blood Pressure Blood Pressure [Ri ght Upper Arm] Pulse Oximetry Oxygen Delivery Me thod Room Air Oxygen Flow Rate 01/24/24 11:45 01/24/24 11:54 01/24/24 12:00 Temperature Pulse Rate 62 63 60 Pulse Rate [Right Pulse Oximeter] Respiratory Rate 17 Blood Pressure 97/57 L Blood Pressure [Ri ght Upper Arm] Pulse Oximetry 86 L 77 L 85 L Oxygen Delivery Me thod Oxygen Flow Rate 01/24/24 12:02 01/24/24 12:15 01/24/24 12:30 Temperature Pulse Rate 60 60 60 Pulse Rate [Right Pulse Oximeter] Respiratory Rate 12 Blood Pressure 103/55 L Blood Pressure [Ri ght Upper Arm] Pulse Oximetry 97 95 96 Oxygen Delivery Me thod Oxygen Flow Rate 01/24/24 12:32 01/24/24 12:45 01/24/24 13:16 Temperature Pulse Rate 60 61 62 Pulse Rate [Right Pulse Oximeter] Respiratory Rate Blood Pressure 109/53 L Blood Pressure [Ri ght Upper Arm] Pulse Oximetry 96 95 95 Oxygen Delivery Me thod Oxygen Flow Rate 01/24/24 13:30 01/24/24 13:31 01/24/24 13:32 Temperature Pulse Rate 60 64 60 Pulse Rate [Right Pulse Oximeter] Respiratory Rate Blood Pressure 122/60 111/58 L Blood Pressure [Ri ght Upper Arm] Pulse Oximetry 92 89 95 Oxygen Delivery Me thod Oxygen Flow Rate Hospitalist - H&P: Result Labs Labs: Short CBC 01/24/24 Range/Units 11:38 WBC 15.67 H (4.50-11.00) K/uL Hgb 7.6 L* (13.5-17.5) gm/dL Hct 24.6 L (37.0-53.0) % Plt Count 210 (140-440) K/uL BMP 01/24/24 11:38 Sodium 134 L Potassium 4.3 Chloride 99 Carbon Dioxide 28 BUN 29 Creatinine 1.6 H Glucose 117 H Calcium 8.8 Assessment and Plan Assessment and plan (1) Pneumonia: Problem comment: - known COVID, also has leukocytosis and recent hospitalization - Zosyn initiated in ED 01/23, will continue - MRSA swab, Legionella/Strep antigens ordered and pending Status: Acute (2) Apnea spell: Problem comment: - accompanied by severe hypoxia (50-60%), returns to baseline when awakened - VBG reassuring - likely severe underlying STANISLAV (vs COVID symptoms vs pneumothorax vs central apnea), RT following and will initiate CPAP when napping or asleep at night - small residual pneumothorax on chest CT; CXR repeated after initiation of BIPAP with no change in size - continue to follow CXR to ensure no worsening Status: Acute (3) Type 2 diabetes mellitus, without long-term current use of insulin: Problem comment: - last A1C 8.6 01/2024 - hold oral medications, Accuchecks and SSI Status: Acute (4) COVID: Problem comment: - intermittently hypoxic with apneic episodes, stable on RA without need for supplemental oxygen - on Paxlovid as COVID-specific therapy Status: Acute (5) Acute kidney injury: Problem comment: - baseline creatinine 1.1-1.2, creatinine on admission 01/23 is 1.6 - likely prerenal 2/2 anemia and illness (decreased po intake), also possibly intrarenal/iatrogenic from DM2 meds/Losartan - hold nephrotoxins, follow renal function Status: Acute (6) Anemia: Problem comment: - Hgb 7.6 on 01/24/24, outpatient baseline of 10 - presumably ABLA from recent hemothorax (had a fall on 01/10 with large hemothorax at that time, 1L thoracentesis. Hgb 9.5 on 01/10, hasn't been rechecked since) - amenable to transfusion of 1U PRBCs with close monitoring Status: Acute (7) Elevated troponin: Problem comment: - likely demand ischemia from acute illness - follow troponin to peak, telemetry Status: Acute (8) Abnormal abdominal CT scan: Problem comment: - possible ileus vs early SBO - patient has had mild anorexia but no significant pain, reassuring exam - passing flatus and having looser stills, will monitor symptoms closely, consider C-Diff testing if diarrhea worsens Status: Acute (9) Pneumothorax on left: Problem comment: - hemothorax 01/11/24 after fall, had 1L blood out via thoracentesis in [place], followed by pneumothorax - transferred to [facility] for chest tube, this d/c'd prior to transfer to [address] [place] [address] (01/17/24) - still has very small PTX on CT chest 01/23 (not noted on CXR) - continue to follow CXRs given need for BIPAP administration - General Surgery aware, do not anticipate any need for formal surgical consult at this time Status: Acute Plan - per above - family updated at bedside, questions answered - patient amenable to blood/BIPAP, declines transfer to outside hospital, requests no intubation or CPR - Anemia and IRENA both contraindications for pharmacologic prophylaxis at this time, will utilize SCDs
[2024-01-24 15:53] LABS: Procalcitonin* 4.81 ng/mL (<0.50)
--- NOTE | 2024-01-24 16:55 | CRLHL7_ITS ---
For Patients: As a result of the Cures Act, medical imaging exams and procedure reports are released immediately into your electronic medical record. You may view this report before your referring provider. If you have questions, please contact your health care provider. INDICATION: Follow pneumonia TECHNIQUE: Chest radiograph 1 view COMPARISON: 01/24/2024 FINDINGS: Mediastinum: The mediastinum is normal in appearance. The heart silhouette is normal in size and morphology. There is a right cardiac pacer present with leads in the right atrium and right ventricle. Disconnected pacer leads over the left chest are unchanged. Lung: Small lung volumes with patchy airspace infiltrate in the left lung base are unchanged. Airspace opacities in the right mid lung zone have increased in the interval. Small stable left pleural effusion is noted. No pneumothorax is identified. Bone and Soft tissue: Unremarkable for age. IMPRESSIONS: 1. Small lung volumes with patchy airspace infiltrate in the left lung base are unchanged. Airspace opacities in the right mid lung zone have increased in the interval. 2. No pneumothorax is seen on the current or prior film. Dictated by Kenn Florentino MD @ 01/24/2024 5:41:01 PM Dictated by: Kenn Florentino MD @ 01/24/2024 17:41:06 (Electronically Signed)
--- NOTE | 2024-01-24 18:23 | PC.NURSE ---
(Shift 15-19) Pt arrived to floor around 1440. Pt alert to self; family at bedside. Pt?s saturations would be in mid 90?s and drop to low 40?s-70?s during periods of apnea. Pt placed on BiPAP. X-ray of chest done. One unit of PRBC started. Pt had no complaints of pain. Pt?s blood pressures have been soft; pulse maintained around 60; Pt has pacemaker and tele showed AV paced- irregular QRS. Pt has mepalex on left knee from SNF.?
[2024-01-24 20:03] LABS: HCO3 VBG 26 mmol/L (21-28); PCO2 VBG 45 mmHG (40-50); PO2 VBG 40.9 mmHG (25-47); pH VBG 7.373 (7.32-7.43)
[2024-01-24 20:07] LABS: Hemoglobin* 9.5 gm/dL (13.5-17.5)
[2024-01-24] MEDS: 0.9 % SODIUM CHLORIDE 1000 ml 1,000 ML 75 ML IV (20:15)
[2024-01-24 20:48] LABS: Troponin I* 0.03 ng/mL (0.01-0.04)
[2024-01-24] MEDS: NIRMATRELVIR/RITONAVIR DOSEPAK 3 TAB PO (20:51)
[2024-01-24] MEDS: FUROSEMIDE 10 MG/ML inj 20 MG IVP (20:51)
[2024-01-24] MEDS: SODIUM CHLORIDE 0.9 % (FLUSH) 10 ML SYRINGE 5 ML IVF (20:52)
[2024-01-24] MEDS: LATANOPROST 0.005% OPHTH 1 DROP EYE-BOTH (21:03)
[2024-01-24] MEDS: 0.9 % SODIUM CHLORIDE 250 ml 250 ML IV (22:08)
[2024-01-24 23:43] LABS: Legionella pneumo Ag Urine N (Negative); S pneumo Ag Urine N (Negative)
--- NOTE | 2024-01-24 23:54 | PC.NURSE ---
End of Shift: Patient pleasant and cooperative. Denies pain. 1 unit of blood completed and no s/s of reaction noted. O2 sats above 90% while awake. Sats decrease into the 60s while sleeping with apneic episodes noted, Bipap on while sleeping. Tolerating fluids and pudding with no nausea. Frequent turn and reposition. Incontinent of stool. Attempted to use urinal and unable to void. Bladder scanned for 500 mL, updated MD and Adams placed as ordered. BP decreased to 80/42, updated MD and 250 mL bolus given.
[2024-01-25] VITALS (19 sets, daily range): BP systolic 116–153; BP diastolic 55–93; PULSE 60–66; RESP 12–21; TEMP 35.8–37; O2SAT 96–100
[2024-01-25] MEDS: PIPERACILLIN/TAZOBACTAM 3.375 GM in 0.9 % SODIUM CHLORIDE Mini-bag 100 ML IVPB (01:42)
[2024-01-25 06:38] LABS: HCO3 VBG 24 mmol/L (21-28); PCO2 VBG 41 mmHG (40-50); PO2 VBG 56.4 mmHG (25-47); pH VBG 7.374 (7.32-7.43)
[2024-01-25 06:39] LABS: Hemoglobin* 9.6 gm/dL (13.5-17.5); Lymphocytes Percent Auto 4.2 % (20-44); Mean Corpuscular HGB Conc 31 gm/dL (32-36); Mean Corpuscular Hemoglobin 30 pg (26-34); Mean Corpuscular Volume 96 fL (80-100); Neutrophils Percent Auto 92.8 % (42.0-72.0); Platelet Count* 193 K/uL (140-440); RDW Coefficient of Variation % 17.5 % (11.5-15.5); Red Blood Count 3.22 m/uL (4.30-5.90); White Blood Count* 12.58 K/uL (4.50-11.00)
--- NOTE | 2024-01-25 06:55 | PC.NURSE ---
END OF SHIFT NOTE: PT PLEASANT AND COOPERATIVE WITH CARES. A&O. DENIES CP, SOB, N/V. PT REMAINED IN BED THIS SHIFT; TURNED AND REPOSITIONED FOR COMFORT AND OFFLOADING WT. VSS & AFEBRILE. BIPAP REMAINED ON DURING HS. NS@75MLS/HR TO RIGHT FA. SAUNDERS IN PLACE AND PATENT. INCONTINENT OF BM. SON-DIMA AT BEDSIDE, APPEARS LOVING. BED ALARM ON AND CALL LIGHT WITHIN PT?S REACH.
[2024-01-25 06:56] LABS: Slide Review Reflex No
--- NOTE | 2024-01-25 07:00 | CRLHL7_ITS ---
For Patients: As a result of the Century Cures Act, medical imaging exams and procedure reports are released immediately into your electronic medical record. You may view this report before your referring provider. If you have questions, please contact your health care provider. INDICATION: Follow-up PTX TECHNIQUE: 1 view chest radiograph COMPARISON: 01/24/2024 x 2, 04/04/2021 FINDINGS: Devices: Abandoned left subclavian transvenous pacemaker leads. Right subclavian transvenous pacemaker leads in the right atrium and right ventricular positions. Lung volumes are moderate. Focal bronchovascular consolidation in the right upper lobe. Left retrocardiac and perihilar opacification with some central air bronchograms. Moderate left pleural effusion. No pneumothorax. Heart size is similar to prior. IMPRESSION: Multifocal opacities are presumably pneumonia. Moderate left pleural effusion. Dictated by Jessy Krishnamurthy MD @ 01/25/2024 7:13:06 AM (Electronically Signed)
[2024-01-25 07:02] LABS: Chloride* 103 mmol/L (96-114)
[2024-01-25 07:03] LABS: Albumin* 3.3 g/dL (3.3-5.0); Potassium* 4.5 mmol/L (3.6-5.1); Sodium* 134 mmol/L (135-149)
[2024-01-25 07:06] LABS: Alanine Aminotransferase* 16 U/L (4-50); Alkaline Phosphatase* 95 U/L (40-150); Anion Gap 8 mEq/L (7-15); Aspartate Amino Transferase* 29 U/L (12-35); Bilirubin Total* 0.7 mg/dL (0.1-1.5); Blood Urea Nitrogen* 40 mg/dL (7-30); Calcium* 8.2 mg/dL (8.4-10.6); Carbon Dioxide* 23 mmol/L (20-32); Creatinine* 1.6 mg/dL (0.5-1.5); Est. Creatinine Clearance* 29.36; Estimated Glomerular Filt Rate 42 ml/min; Glucose* 280 mg/dL (60-115); Total Protein* 6.4 g/dL (6.0-8.3)
[2024-01-25 07:18] LABS: Troponin I* 0.02 ng/mL (0.01-0.04)
[2024-01-25 07:22] LABS: Procalcitonin* 4.23 ng/mL (<0.50)
--- NOTE | 2024-01-25 07:55 | PM.IMPN1 ---
Progress Note: A&P Assessment and plan (1) HAP (hospital-acquired pneumonia): Problem details: - hospital 01/11/24, direct transfer to [facility] 01/11 - 01/16, TCU 01/16 - 01/23 @ [facility] -changing zosyn to vanc/cefepime -continue paxlovid -continue dexamethsone -not wheezing; continue ISP/aerobika -RT assisting with CPAP/BiPAP /2 apnea -daily CXR and VBG given hx of hemopneumo and bipap/cpap use Status: Acute (2) Pleural effusion associated with pulmonary infection: Problem details: - hemothorax 01/11/24 after fall, had 1L blood out via thoracentesis in [place], followed by pneumothorax - transferred to [facility] for chest tube, this d/c'd prior to transfer to [address] [place] [address] (01/17/24) - still has very small PTX on CT chest 01/23 (not noted on CXR) - continue to follow CXRs given need for BIPAP administration - General Surgery aware, do not anticipate any need for formal surgical consult at this time Status: Acute (3) COVID: Problem details: -first day of symptoms 01/22; started on Paxlovid 01/22 at [facility] -weak; mildly dyspneic - transferred to our ED from [facility] -noted to have apneic spells in the ED (normal gas; bipap used intermittently); - intermittently hypoxic with apneic episodes, stable on RA without need for supplemental oxygen - on Paxlovid as COVID-specific therapy Status: Acute (4) Anemia: Problem details: - Hgb 7.6 on 01/24/24, outpatient baseline of 10 - presumably ABLA from recent hemothorax (had a fall on 01/10 with large hemothorax at that time, 1L thoracentesis. Hgb 9.5 on 01/10, hasn't been rechecked since) - s/p 1 unit packed cells on 01/23 --> improved to 9.6 Status: Acute (5) Acute kidney injury: Problem details: - baseline creatinine 1.1-1.2, creatinine on admission 01/23 is 1.6 - likely prerenal 2/2 anemia and illness (decreased po intake), also possibly intrarenal/iatrogenic from DM2 meds/Losartan - hold nephrotoxins, follow renal function Status: Acute (6) Apnea spell: Problem details: - accompanied by severe hypoxia (50-60%), returns to baseline when awakened - VBG reassuring - likely severe underlying STANISLAV (vs COVID symptoms vs pneumothorax vs central apnea), RT following and will initiate CPAP when napping or asleep at night - small residual pneumothorax on chest CT; CXR repeated after initiation of BIPAP with no change in size - continue to follow CXR to ensure no worsening Status: Acute (7) Sepsis: Problem details: BC and MRSA pending. on broad spectrum coverage to include coverage for HAP. -unusual presentation (other flags for sepsis not present (hypotension, fever, HR, RR, lactate, thrombocytopenia, acidosis, hyperbili) but +WBC elevation, intermittent hypoxia. Remain vigilant for bacteremia/sepsis progression with the likelihood of HAP/Covid. Status: Acute (8) Abnormal abdominal CT scan: Problem details: - possible ileus vs early SBO - patient has had mild anorexia but no significant pain, reassuring exam - passing flatus and having looser stills, will monitor symptoms closely, consider C-Diff testing if diarrhea worsens Status: Acute (9) Elevated troponin: Problem details: - resolved Status: Acute (10) Type 2 diabetes mellitus, without long-term current use of insulin: Problem details: - last A1C 8.6 01/2024 - hold oral medications, Accuchecks and SSI Status: Acute (11) Primary hypertension: Status: Acute (12) Presence of cardiac pacemaker: Status: Acute Subjective Date Seen: 01/25/24 Interval history: Daily Progress Note - Hospital Medicine #:2 (admitted to CCU yesterday afternoon) CC: Covid, Hospital acquired pneumonia, intermittent apnea 24 HOUR UPDATE: stable night. has been on/off bipap for apnea - his gas is stable. he is alert, and interactive with me this morning. Son, leslie, is bedside. fluids at 75 cc running, crisostomo placed, when awake - no oxygen. CXR ordered this morning. Notable Labs, Micro, Rads, Interventions: Vitals have all been stable. He has been afebrile overnight. Current blood pressure is 153/80, pulse in the 60s, respiratory rate 14 to 16, pulse ox 96% when on room air and awake however he does drop into the low 80s when he falls asleep and has short apneic spells. CBC reflects a down trending WBC count. 15.6 down to 12.5. Hemoglobin has come up nicely with 2 units of packed red blood cells 7.6 was his terri, currently 9.6 this morning. Platelets are normal Venous blood gas this morning shows a nice stable pH at 7.37. PCO2 41. Bicarb normal. Sodium is 134. Creatinine is up just a little with 1.6 and a BUN of 40. Baseline is a BUN of 23 and a creatinine of 1.4. Glucose is mildly elevated at 280. Known diabetic. A1c in August was 7.7. Lactate was normal yesterday. LFTs are normal. Troponin is undetectable CRP is up trending 8.7-13.2 Procalcitonin is markedly elevated at 4.23, however this is slightly down from yesterday at 4.81 Negative urine strep pneumo and Legionella. Two blood cultures were drawn yesterday 01/23 at approximately 12 noon. These are still negative to date. MRSA is pending, nasal swab Portable chest x-ray this morning shows multiple opacities that are likely hospital-acquired pneumonia, moderate left pleural effusion. CT chest from yesterday was reviewed. I reviewed his EKG which is completely paced at a rate of 62. I reviewed an echo from 2 weeks ago. Results below. 01/14/2024 Final Impressions: 1. Technically limited exam. 2. Normal LV size, severely increased wall thickness, normal global systolic function with an estimated EF of 55 - 60%. 3. The mitral valve is sclerotic, trace mitral regurgitation. 4. The aortic valve is trileaflet and sclerotic, no stenosis and no regurgitation. ? Comparison Compared to prior exam images and report of 05/16/2017, there has been no significant change. Objective: alert, eyes open, tells me he is here b/c he is sick - he say's not bad Vitals: see above Lungs: Clear. poor inspiratory effort Cardiac: S1S2. good color Disposition/Potential discharge - SS will look into a bed hold status at 3L. possible continued TCU care once this acute event has resolved. Today I spent 50minutes seeing the patient, reviewing Expanse and EPIC notes/diagnostics, discussing the care plan with our care time that includes social work, PT/OT, pharmacy, RT, chcf and documenting my impressions and plan in the medical record. Exam Const: Vital Signs, click to edit/add: Vital Signs - 24 hr 01/24/24 10:29 01/24/24 10:30 01/24/24 10:32 Temperature 98.6 F Pulse Rate 60 61 Pulse Rate [Pulse Oximeter] Pulse Rate [Right Pulse Oximeter] 60 Respiratory Rate 18 Blood Pressure 95/49 L Blood Pressure [Le ft Arm] Blood Pressure [Ri ght Upper Arm] 95/49 L Pulse Oximetry 100 100 100 Oxygen Delivery Me thod Room Air Oxygen Flow Rate 2 Fraction of Inspir ed Oxygen 01/24/24 10:32 01/24/24 10:45 01/24/24 11:00 Temperature Pulse Rate 62 60 61 Pulse Rate [Pulse Oximeter] Pulse Rate [Right Pulse Oximeter] Respiratory Rate Blood Pressure 94/45 L Blood Pressure [Le ft Arm] Blood Pressure [Ri ght Upper Arm] Pulse Oximetry 100 94 99 Oxygen Delivery Me thod Room Air Oxygen Flow Rate Fraction of Inspir ed Oxygen 01/24/24 11:00 01/24/24 11:02 01/24/24 11:06 Temperature Pulse Rate 61 Pulse Rate [Pulse Oximeter] Pulse Rate [Right Pulse Oximeter] Respiratory Rate 0 L Blood Pressure 92/46 L Blood Pressure [Le ft Arm] Blood Pressure [Ri ght Upper Arm] Pulse Oximetry 60 L 98 92 Oxygen Delivery Me thod Room Air Oxygen Flow Rate Fraction of Inspir ed Oxygen 01/24/24 11:15 01/24/24 11:30 01/24/24 11:32 Temperature Pulse Rate 62 Pulse Rate [Pulse Oximeter] Pulse Rate [Right Pulse Oximeter] Respiratory Rate 19 13 20 Blood Pressure Blood Pressure [Le ft Arm] Blood Pressure [Ri ght Upper Arm] Pulse Oximetry 83 L Oxygen Delivery Me thod Room Air Oxygen Flow Rate Fraction of Inspir ed Oxygen 01/24/24 11:33 01/24/24 11:45 01/24/24 11:54 Temperature Pulse Rate 62 63 Pulse Rate [Pulse Oximeter] Pulse Rate [Right Pulse Oximeter] Respiratory Rate 12 17 Blood Pressure 97/57 L Blood Pressure [Le ft Arm] Blood Pressure [Ri ght Upper Arm] Pulse Oximetry 86 L 77 L Oxygen Delivery Me thod Oxygen Flow Rate Fraction of Inspir ed Oxygen 01/24/24 12:00 01/24/24 12:02 01/24/24 12:15 Temperature Pulse Rate 60 60 60 Pulse Rate [Pulse Oximeter] Pulse Rate [Right Pulse Oximeter] Respiratory Rate Blood Pressure 103/55 L Blood Pressure [Le ft Arm] Blood Pressure [Ri ght Upper Arm] Pulse Oximetry 85 L 97 95 Oxygen Delivery Me thod Oxygen Flow Rate Fraction of Inspir ed Oxygen 01/24/24 12:30 01/24/24 12:32 01/24/24 12:45 Temperature Pulse Rate 60 60 61 Pulse Rate [Pulse Oximeter] Pulse Rate [Right Pulse Oximeter] Respiratory Rate 12 Blood Pressure 109/53 L Blood Pressure [Le ft Arm] Blood Pressure [Ri ght Upper Arm] Pulse Oximetry 96 96 95 Oxygen Delivery Me thod Oxygen Flow Rate Fraction of Inspir ed Oxygen 01/24/24 13:16 01/24/24 13:30 01/24/24 13:31 Temperature Pulse Rate 62 60 64 Pulse Rate [Pulse Oximeter] Pulse Rate [Right Pulse Oximeter] Respiratory Rate Blood Pressure 122/60 Blood Pressure [Le ft Arm] Blood Pressure [Ri ght Upper Arm] Pulse Oximetry 95 92 89 Oxygen Delivery Me thod Oxygen Flow Rate Fraction of Inspir ed Oxygen 01/24/24 13:32 01/24/24 14:45 01/24/24 14:45 Temperature 97.2 F L Pulse Rate 60 Pulse Rate [Pulse Oximeter] 60 Pulse Rate [Right Pulse Oximeter] Respiratory Rate 14 14 Blood Pressure 111/58 L Blood Pressure [Le ft Arm] 96/53 L Blood Pressure [Ri ght Upper Arm] Pulse Oximetry 95 96 96 Oxygen Delivery Me thod Room Air Room Air Oxygen Flow Rate 0 Fraction of Inspir ed Oxygen 01/24/24 15:34 01/24/24 15:34 01/24/24 15:57 Temperature Pulse Rate 60 Pulse Rate [Pulse Oximeter] Pulse Rate [Right Pulse Oximeter] Respiratory Rate 14 Blood Pressure Blood Pressure [Le ft Arm] Blood Pressure [Ri ght Upper Arm] Pulse Oximetry 96 96 Oxygen Delivery Me thod Room Air Oxygen Flow Rate 0 Fraction of Inspir ed Oxygen 01/24/24 16:29 01/24/24 17:25 01/24/24 17:47 Temperature 97.7 F 97.1 F L 97.2 F L Pulse Rate 60 60 Pulse Rate [Pulse Oximeter] 60 Pulse Rate [Right Pulse Oximeter] Respiratory Rate 18 14 14 Blood Pressure 107/49 L 117/53 L Blood Pressure [Le ft Arm] 108/56 L Blood Pressure [Ri ght Upper Arm] Pulse Oximetry 92 99 99 Oxygen Delivery Me thod CPAP Oxygen Flow Rate Fraction of Inspir ed Oxygen 21 01/24/24 17:47 01/24/24 18:15 01/24/24 18:32 Temperature 97.2 F L 97.3 F L Pulse Rate 60 60 Pulse Rate [Pulse Oximeter] Pulse Rate [Right Pulse Oximeter] Respiratory Rate 14 18 Blood Pressure 117/53 L 102/51 L Blood Pressure [Le ft Arm] Blood Pressure [Ri ght Upper Arm] Pulse Oximetry 99 98 Oxygen Delivery Me thod Oxygen Flow Rate Fraction of Inspir ed Oxygen 0.21 01/24/24 19:00 01/24/24 19:26 01/24/24 20:00 Temperature 97.3 F L 97.8 F Pulse Rate 63 60 Pulse Rate [Pulse Oximeter] 60 Pulse Rate [Right Pulse Oximeter] Respiratory Rate 16 14 Blood Pressure 117/59 L Blood Pressure [Le ft Arm] 128/60 Blood Pressure [Ri ght Upper Arm] Pulse Oximetry 94 97 Oxygen Delivery Me thod Room Air Oxygen Flow Rate Fraction of Inspir ed Oxygen 01/24/24 20:27 01/24/24 21:47 01/24/24 22:00 Temperature 97.8 F 97.5 F L Pulse Rate 60 Pulse Rate [Pulse Oximeter] 60 Pulse Rate [Right Pulse Oximeter] Respiratory Rate 14 18 Blood Pressure 128/60 Blood Pressure [Le ft Arm] 80/42 L 94/43 L Blood Pressure [Ri ght Upper Arm] Pulse Oximetry 97 94 Oxygen Delivery Me thod BiPAP Oxygen Flow Rate Fraction of Inspir ed Oxygen 01/24/24 22:46 01/25/24 00:00 01/25/24 00:00 Temperature 96.9 F L Pulse Rate Pulse Rate [Pulse Oximeter] 61 Pulse Rate [Right Pulse Oximeter] Respiratory Rate 21 Blood Pressure Blood Pressure [Le ft Arm] 134/63 143/73 H Blood Pressure [Ri ght Upper Arm] Pulse Oximetry 98 98 Oxygen Delivery Me thod BiPAP Oxygen Flow Rate 0 Fraction of Inspir ed Oxygen 0.21 01/25/24 00:00 01/25/24 00:00 01/25/24 02:00 Temperature 96.7 F L Pulse Rate 60 Pulse Rate [Pulse Oximeter] 61 60 Pulse Rate [Right Pulse Oximeter] Respiratory Rate 21 16 Blood Pressure Blood Pressure [Le ft Arm] 116/55 L Blood Pressure [Ri ght Upper Arm] Pulse Oximetry 99 Oxygen Delivery Me thod BiPAP Oxygen Flow Rate 0 Fraction of Inspir ed Oxygen 0.21 01/25/24 02:40 01/25/24 04:00 01/25/24 06:00 Temperature 96.9 F L 96.5 F L Pulse Rate 60 Pulse Rate [Pulse Oximeter] 60 60 Pulse Rate [Right Pulse Oximeter] Respiratory Rate 18 12 Blood Pressure Blood Pressure [Le ft Arm] 135/67 135/70 Blood Pressure [Ri ght Upper Arm] Pulse Oximetry 98 99 Oxygen Delivery Me thod BiPAP BiPAP Oxygen Flow Rate 0 0 Fraction of Inspir ed Oxygen 0.21 0.21 01/25/24 07:00 Temperature Pulse Rate 64 Pulse Rate [Pulse Oximeter] Pulse Rate [Right Pulse Oximeter] Respiratory Rate Blood Pressure Blood Pressure [Le ft Arm] Blood Pressure [Ri ght Upper Arm] Pulse Oximetry Oxygen Delivery Me thod Oxygen Flow Rate Fraction of Inspir ed Oxygen Labs Labs: Laboratory Results - last 24 hr 01/24/24 01/24/24 01/24/24 11:07 11:38 12:50 WBC 15.67 H RBC 2.38 L Hgb 7.6 L* Hct 24.6 L MCV 103 H MCH 32 MCHC 31 L RDW Coeff of Fely 13.9 Plt Count 210 Neut % (Auto) 87.6 H Lymph % (Auto) 6.3 L Christian % (Auto) 5.8 Eos % (Auto) 0.0 Baso % (Auto) 0.1 Neut # (Auto) 13.70 H Lymph # (Auto) 1.00 Christian # (Auto) 0.90 Eos # (Auto) 0.00 Baso # (Auto) 0.00 Abs Immat Gran (auto) 0.00 Imm/Tot Granulo (auto) 0.2 INR 1.27 H APTT 42 H VBG pH 7.383 VBG pCO2 50 VBG pO2 31.6 VBG HCO3 30 H Sodium 134 L Potassium 4.3 Chloride 99 Carbon Dioxide 28 Anion Gap 7 BUN 29 Creatinine 1.6 H Estimated Creat Clear Estimated GFR 42 Glucose 117 H Lactate 1.3 Calcium 8.8 Total Bilirubin AST ALT Alkaline Phosphatase Troponin I C-Reactive Protein 8.7 H NT-Pro-B Natriuret Pep 73124 85666 Total Protein Albumin Procalcitonin 4.81 H Urine L. pneumophilia Ag Urine Strep pneumoniae Ag Lab Acknowledgement POC Troponin I 0.07 H Blood Type B Positive Antibody Screen NEGATIVE Crossmatch ([facility]) See Detail 01/24/24 01/24/24 01/24/24 14:00 19:59 22:45 WBC RBC Hgb 9.5 L Hct MCV MCH MCHC RDW Coeff of Fely Plt Count Neut % (Auto) Lymph % (Auto) Christian % (Auto) Eos % (Auto) Baso % (Auto) Neut # (Auto) Lymph # (Auto) Christian # (Auto) Eos # (Auto) Baso # (Auto) Abs Immat Gran (auto) Imm/Tot Granulo (auto) INR APTT VBG pH 7.373 VBG pCO2 45 VBG pO2 40.9 VBG HCO3 26 Sodium Potassium Chloride Carbon Dioxide Anion Gap BUN Creatinine Estimated Creat Clear Estimated GFR Glucose Lactate Calcium Total Bilirubin AST ALT Alkaline Phosphatase Troponin I 0.03 C-Reactive Protein NT-Pro-B Natriuret Pep Total Protein Albumin Procalcitonin Urine L. pneumophilia Ag N Urine Strep pneumoniae Ag N Lab Acknowledgement Test Added POC Troponin I Blood Type Antibody Screen Crossmatch ([facility]) 01/25/24 01/25/24 06:07 07:48 WBC 12.58 H RBC 3.22 L Hgb 9.6 L Hct 31.0 L MCV 96 MCH 30 MCHC 31 L RDW Coeff of Fely 17.5 H Plt Count 193 Neut % (Auto) 92.8 H Lymph % (Auto) 4.2 L Christian % (Auto) 2.0 Eos % (Auto) 0.0 Baso % (Auto) 0.0 Neut # (Auto) 11.70 H Lymph # (Auto) 0.50 L Christian # (Auto) 0.30 Eos # (Auto) 0.00 Baso # (Auto) 0.00 Abs Immat Gran (auto) 0.10 Imm/Tot Granulo (auto) 1.0 INR APTT VBG pH 7.374 VBG pCO2 41 VBG pO2 56.4 H VBG HCO3 24 Sodium 134 L Potassium 4.5 Chloride 103 Carbon Dioxide 23 Anion Gap 8 BUN 40 H Creatinine 1.6 H Estimated Creat Clear 29.36 Estimated GFR 42 Glucose 280 H Lactate Calcium 8.2 L Total Bilirubin 0.7 AST 29 ALT 16 Alkaline Phosphatase 95 Troponin I 0.02 C-Reactive Protein NT-Pro-B Natriuret Pep Total Protein 6.4 Albumin 3.3 Procalcitonin 4.23 H Urine L. pneumophilia Ag Urine Strep pneumoniae Ag Lab Acknowledgement Test Added POC Troponin I Blood Type Antibody Screen Crossmatch ([facility])
[2024-01-25] MEDS: dexAMETHasone 10 MG/ML inj 6 MG IV (08:27)
[2024-01-25] MEDS: CEFEPIME HCL 1 GM in 0.9 % SODIUM CHLORIDE Mini-bag 100 ML IVPB ×3 (08:28→23:41)
[2024-01-25 08:33] LABS: C Reactive Protein* 13.2 mg/dL (0.5-1.0)
[2024-01-25] MEDS: FUROSEMIDE 10 MG/ML inj 40 MG IVP (08:44)
[2024-01-25] MEDS: DORZOLAMIDE HCL 2 % OPHTH DROP 1 DROP EYE-BOTH ×2 (08:45→20:30)
[2024-01-25] MEDS: timoloL maleate 0.5 % 1 DROP EYE-BOTH ×2 (08:48→20:31)
[2024-01-25] MEDS: SODIUM CHLORIDE 0.9 % (FLUSH) 10 ML SYRINGE 5 ML IVF ×2 (08:52→20:33)
--- NOTE | 2024-01-25 09:14 | PC.PHA ---
Vancomycin consult note: Indication for vancomycin: [PNEUMONIA] Age: [83] Height: [165 CM] Weight: [64 KG] Most recent SCr: [1.6] Estimated CrCL: [30] Recommended dose and frequency: [1 GM IV Q24 HR (AUC 572] to obtain an estimated AUC/MAYNOR of 400-600 mcg*hr/m Additional comment: []
[2024-01-25] MEDS: NIRMATRELVIR/RITONAVIR DOSEPAK 3 TAB PO ×2 (09:29→20:31)
[2024-01-25] MEDS: VANCOMYCIN 1 GM/200 ML 1 GM/200 ML PIGGYBACK IVPB (09:29)
--- NOTE | 2024-01-25 10:42 | PC.SOCIAL ---
Confirmed with [address] [place] [address] that famly did not hold patent's bed there. [facility] has a private TCU bed that opened up for Sunday if needed. Pt. acquired COVID from his roommate at [facility].
--- NOTE | 2024-01-25 11:23 | PC.SOCIAL ---
Spoke with pt.'s son Leonardo at [phone]. Confirmed if pt. needs a rehab bed when ready for discharge he wants pt. to return to [facility] in a private room, rather than look for another facility farther away. Pt's referral has been sent to [facility] for review for a potential bed on Sunday.
[2024-01-25] MEDS: INSULIN ASPART 100 UNIT/ML SUBCUT (17:30)
--- NOTE | 2024-01-25 19:21 | PC.NURSE ---
End of shift note: Patient is pleasant and cooperative w/cares. Alert and oriented x3. Tele-AV paced. Patient on RA. Adams patent and draining. Patient IV in R FA SL. BG was 562, notified and 12 units of novolog Sliding scale used. Patient up to chair for meals and tolerated activity well. Patient VSS and afebrile this shift.
[2024-01-25] MEDS: LATANOPROST 0.005% OPHTH 1 DROP EYE-BOTH (20:30)
[2024-01-25 21:26] LABS: Glucose* 701 mg/dL (60-115)
[2024-01-25 21:48] LABS: Chloride* 97 mmol/L (96-114); Potassium* 4.9 mmol/L (3.6-5.1); Sodium* 132 mmol/L (135-149)
[2024-01-25 21:51] LABS: Anion Gap 13 mEq/L (7-15); Blood Urea Nitrogen* 60 mg/dL (7-30); Carbon Dioxide* 22 mmol/L (20-32); Creatinine* 1.9 mg/dL (0.5-1.5); Est. Creatinine Clearance* 24.73; Estimated Glomerular Filt Rate 34 ml/min
[2024-01-25 21:52] LABS: Calcium* 8.2 mg/dL (8.4-10.6)
[2024-01-25] MEDS: INSULIN GLARGINE,HUM.REC.ANLOG 100 UNIT/ML INSULN.PEN 10 UNIT SUBCUT (22:13)
[2024-01-25] MEDS: INSULIN INF 100 UNIT/100 ML 100 UNIT/100 ML BAG 6.5 UNIT IVPB (22:14)
[2024-01-25] MEDS: INSULIN REGULAR, HUMAN 100 UNIT/ML VIAL 12 UNIT IVP (22:35)
--- NOTE | 2024-01-25 23:52 | PM.EN ---
Chart Event Note Chart Event Note: Mark's blood glucoses have been climbing throughout the day and are greater than 500 this evening. I think this is likely due to DM2, dexamethasone and that his only oral intake today has been 4 bottles of ensure. BMP is noteable for worsening IRENA, AG is 13. BUN is also more elevated. I suspect he is prerenal. I have started gentle IVF, lantus 10units, an insulin drip, and q1h POC glucose checks. BMP 4hrs after starting drip and in am.
[2024-01-26] VITALS (20 sets, daily range): BP systolic 110–149; BP diastolic 58–76; PULSE 58–99; RESP 18–20; TEMP 35.8–36.6; O2SAT 94–100
[2024-01-26 02:29] LABS: Chloride* 100 mmol/L (96-114)
[2024-01-26 02:30] LABS: Potassium* 4.2 mmol/L (3.6-5.1); Sodium* 134 mmol/L (135-149)
[2024-01-26 02:32] LABS: Anion Gap 12 mEq/L (7-15); Carbon Dioxide* 22 mmol/L (20-32); Est. Creatinine Clearance* 23.49; Estimated Glomerular Filt Rate 32 ml/min
[2024-01-26 02:33] LABS: Blood Urea Nitrogen* 65 mg/dL (7-30); Calcium* 8.5 mg/dL (8.4-10.6)
[2024-01-26 02:42] LABS: Glucose* 493 mg/dL (60-115)
[2024-01-26] MEDS: INSULIN INF 100 UNIT/100 ML 100 UNIT/100 ML BAG 18.5 UNIT IVPB (05:41)
[2024-01-26 06:45] LABS: HCO3 VBG 23 mmol/L (21-28); PCO2 VBG 44 mmHG (40-50); PO2 VBG 36.7 mmHG (25-47); pH VBG 7.331 (7.32-7.43)
--- NOTE | 2024-01-26 06:58 | PC.NURSE ---
End of shift note: Pt alert & oriented x 4 and able to make needs known. Bi-pap worn during sleeping hours with pt requesting to have removed at 0440. Insulin drip started per order last evening with glucose level of 701 noted by lab draw last evening. Staff assisted pt with repositioning in bed throughout the night. IV to R FA patent with NS running at 75 mL/hr per order. Adams catheter remains in place. VSS and pt has been afebrile throughout the shift. Pt on tele and is A/V paced. Pt currently on Q1H blood glucose checks with insulin drip. MD Reyes updated regarding critical lab glucose of 493 before 0200. MD instructed to follow facility protocol for insulin drip. Last blood glucose check at 0640 noted to be 177 with insulin drip adjusted per protocol. MD Hoskins has been updated regarding latest blood glucose along with insulin drip titrated per protocol. Pt has had no hyperglycemia symptoms noted throughout the shift and has been denying pain when asked. No coughing noted throughout the shift and pt has been denying shortness of breath when asked. ?
--- NOTE | 2024-01-26 07:00 | CRLHL7_ITS ---
For Patients: As a result of the Cures Act, medical imaging exams and procedure reports are released immediately into your electronic medical record. You may view this report before your referring provider. If you have questions, please contact your health care provider. INDICATION: COVID. Bacterial pneumonia. History of hemopneumothorax. FINDINGS: AP portable semi upright chest x-ray. COMPARISON: January 25, 2024. FINDINGS: Shallow inspiration. Minimal improving patchy infiltrates within the right upper lobe and left lower lobe. Calcified pleural plaques. Right-sided pacemaker. Abandoned left-sided pacemaker lead wires. Degenerative arthritis of the shoulders. IMPRESSION: Improving patchy right upper lobe and left lower lung infiltrates. No other change. Dictated by Jarocho Cisneros MD @ 01/26/2024 7:17:04 AM (Electronically Signed)
[2024-01-26 07:03] LABS: Chloride* 103 mmol/L (96-114)
[2024-01-26 07:04] LABS: Albumin* 3.3 g/dL (3.3-5.0); Potassium* 4.1 mmol/L (3.6-5.1); Sodium* 135 mmol/L (135-149)
[2024-01-26 07:06] LABS: Anion Gap 12 mEq/L (7-15); Carbon Dioxide* 20 mmol/L (20-32); Est. Creatinine Clearance* 23.49; Estimated Glomerular Filt Rate 32 ml/min; Hematocrit 33.6 % (37.0-53.0); Hemoglobin* 10.5 gm/dL (13.5-17.5); Mean Corpuscular HGB Conc 31 gm/dL (32-36); Mean Corpuscular Hemoglobin 30 pg (26-34); Mean Corpuscular Volume 96 fL (80-100); Platelet Count* 203 K/uL (140-440); White Blood Count* 11.74 K/uL (4.50-11.00)
[2024-01-26 07:07] LABS: Alanine Aminotransferase* 18 U/L (4-50); Alkaline Phosphatase* 117 U/L (40-150); Aspartate Amino Transferase* 26 U/L (12-35); Bilirubin Total* 0.6 mg/dL (0.1-1.5); Blood Urea Nitrogen* 70 mg/dL (7-30); Calcium* 8.5 mg/dL (8.4-10.6); Glucose* 182 mg/dL (60-115); Total Protein* 6.6 g/dL (6.0-8.3)
[2024-01-26 07:08] LABS: Slide Review Reflex No
[2024-01-26 07:10] LABS: C Reactive Protein* 5.3 mg/dL (0.5-1.0)
[2024-01-26 07:18] LABS: Troponin I* 0.02 ng/mL (0.01-0.04)
[2024-01-26 07:23] LABS: Procalcitonin* 3.79 ng/mL (<0.50)
--- NOTE | 2024-01-26 09:11 | RESP.RT ---
Patient on BiPAP till 04:40 AM then asked Nurse to remove it. Patient stated he does not like BiPAP mask and never wants to where it again. Asked if I could refit mask patient refused. Patient on Room Air with SaO2 98-100%, breathing regular/easy. BBS with Right upper Lobe and Left Lower Lobe noted with fine crackles and diminished over other galan, Right Lower lobe, Left Upper Lobe clear with good air movement. Patient as good nonproductive cough, uses Aerobika with good effect and chest shake. No home repiratory medications.
[2024-01-26] MEDS: NIRMATRELVIR/RITONAVIR DOSEPAK 3 TAB PO ×2 (10:16→20:46)
[2024-01-26] MEDS: PIPERACILLIN/TAZOBACTAM 2.25 GM in 0.9 % SODIUM CHLORIDE Mini-bag 100 ML IVPB ×3 (10:16→19:48)
[2024-01-26] MEDS: DORZOLAMIDE HCL 2 % OPHTH DROP 1 DROP EYE-BOTH (10:23)
[2024-01-26] MEDS: timoloL maleate 0.5 % 1 DROP EYE-BOTH (10:23)
[2024-01-26] MEDS: INSULIN ASPART 100 UNIT/ML 10 UNIT SUBCUT ×2 (11:27→17:59)
[2024-01-26] MEDS: INSULIN ASPART 100 UNIT/ML SUBCUT ×3 (11:28→20:39)
--- NOTE | 2024-01-26 14:04 | PM.IMPN1 ---
Progress Note: A&P Assessment and plan (1) HAP (hospital-acquired pneumonia): Problem details: - hospital 01/11/24, direct transfer to [facility] 01/11 - 01/16, TCU 01/16 - 01/23 @ [facility] Radiographically appears to be bacterial pneumonia more than COVID pneumonia. Treat with Zosyn. MRSA negative. Also on Paxlovid Status: Acute (2) Type 2 diabetes mellitus, without long-term current use of insulin: Problem details: - last A1C 8.6 01/2024 indicating suboptimal control. Severe hyperglycemia overnight likely due to dexamethasone and acute illness. Now off insulin drip and doing fairly well. Dexamethasone discontinued. - hold oral medications, Accuchecks and SSI pending return of appetite Status: Acute (3) Pleural effusion associated with pulmonary infection: Problem details: - hemothorax 01/11/24 after fall, had 1L blood out via thoracentesis in [place], followed by pneumothorax - transferred to [facility] for chest tube, this d/c'd prior to transfer to [address] [place] [address] (01/17/24) - still has very small PTX on CT chest 01/23 (not noted on CXR) - continue to follow CXRs given need for BIPAP administration - General Surgery aware, do not anticipate any need for formal surgical consult at this time Status: Acute (4) COVID: Problem details: -first day of symptoms 01/22; started on Paxlovid 01/22 at [facility] -weak; mildly dyspneic - transferred to our ED from [facility] -noted to have apneic spells in the ED (normal gas; bipap used intermittently); - intermittently hypoxic with apneic episodes, stable on RA without need for supplemental oxygen - on Paxlovid as COVID-specific therapy Very poor appetite likely a combination of COVID and Paxlovid Status: Acute (5) Anemia: Problem details: - Hgb 7.6 on 01/24/24, outpatient baseline of 10 - presumably ABLA from recent hemothorax (had a fall on 01/10 with large hemothorax at that time, 1L thoracentesis. Hgb 9.5 on 01/10, hasn't been rechecked since) - s/p 1 unit packed cells on 01/23 --> improved to 9.6 Status: Acute (6) Acute kidney injury: Problem details: - baseline creatinine 1.1-1.2, creatinine on admission 01/23 is 1.6 - likely prerenal 2/2 anemia and illness (decreased po intake), also possibly intrarenal/iatrogenic from DM2 meds/Losartan - hold nephrotoxins, follow renal function Status: Acute (7) Apnea spell: Problem details: - accompanied by severe hypoxia (50-60%), returns to baseline when awakened - VBG reassuring - likely severe underlying STANISLAV (vs COVID symptoms vs pneumothorax vs central apnea), RT following and will initiate CPAP when napping or asleep at night - small residual pneumothorax on chest CT; CXR repeated after initiation of BIPAP with no change in size - continue to follow CXR to ensure no worsening Status: Acute (8) Sepsis: Problem details: BC and MRSA pending. on broad spectrum coverage to include coverage for HAP. -unusual presentation (other flags for sepsis not present (hypotension, fever, HR, RR, lactate, thrombocytopenia, acidosis, hyperbili) but +WBC elevation, intermittent hypoxia. Remain vigilant for bacteremia/sepsis progression with the likelihood of HAP/Covid. Status: Acute (9) Elevated troponin: Problem details: - resolved Status: Acute (10) Primary hypertension: Problem details: Blood pressure medicines held for illness. Continue to monitor Status: Acute (11) Presence of cardiac pacemaker: Status: Acute (12) Dementia: Problem details: [place] of in August of 2022. Review with patient and family plan of care going forward. Need for increased supervision. Address frailty. Status: Acute Plan Continue in hospital for evaluation and management of pneumonia, COVID, hypoxic respiratory failure, ventilatory failure requiring BiPAP at night, hyperglycemia and hypoglycemia, poor oral intake, profound weakness. Transfer to [facility] surge status. Time Spent With Patient Total time spent: Critical care time today is 80 minutes. Subjective Date Seen: 01/26/24 Interval history: 83-year-old male Ray had a fall at home on January 10, seen in the [place] Emergency Department and found to have a large left hemothorax. He underwent a large volume thoracentesis (pathology reviewed and benign), had a subsequent pneumothorax and was transferred to [facility] for a chest tube. He was hospitalized at [facility] from January 11-. At [place] he was treated for his pneumothorax. Is also evaluated for an elevated troponin and heart failure. He had a echo with preserved ejection fraction. He was then discharged to [facility]. At [facility] he acquired COVID infection and developed hypoxic respiratory failure. He is admitted the hospital here with pneumonia and COVID infection causing profound weakness , hypoxic respiratory failure and ventilatory failure treated with BiPAP. He has required BiPAP the last 2 nights overnight but yesterday during the day and today during the day he has been able to breathe comfortably on room air. Is no longer having fevers. He has a very poor appetite and is taking in poor p.o. food and fluid. Last night he was put on insulin drip because of blood sugars greater than 700. This morning his blood sugars come down to less than 200 and his insulin drip has been discontinued. This morning he developed hypoglycemia blood sugars in the 30s. He was able to take in p.o. food and sugar and blood sugars have now normalized. Hemoglobin A1c at [place] was 8.6 indicating suboptimal control of diabetes on his glimepiride 4 mg daily. Review of records from August of 2022 shows that he had a [place] score of 15/30. Additional OT evaluation showed some difficulties with problem solving. Concerns at that time about his living independently though he was able to manage all tasks of ADLs. Recommendations were family would take over medication management and financial foundations associate and that ray consider assisted living. Concerns about driving led to recommendation that he should stop driving or have a route relief driver safety evaluation. Exam Narrative: Exam Narrative: He is alert and appears in no obvious distress breathing room air. Unable to give much detail about his recent health problems. He is seen with his daughter today. Head is without trauma. Oropharynx is normal. Neck is supple without mass or adenopathy. Respirations with somewhat diminished breath sounds, poor respiratory effort, occasional crackles. Cardiovascular: S1, S2, regular rate and rhythm. Abdomen: Bowel sounds are active. Abdomen is soft without tenderness or mass. Extremities without edema. Const: Vital Signs, click to edit/add: Vital Signs - 24 hr 01/25/24 15:00 01/25/24 15:00 01/25/24 16:00 Temperature 98.0 F Pulse Rate 65 Pulse Rate [Pulse Oximeter] 62 62 Pulse Rate [Right Radial] Respiratory Rate 16 16 Blood Pressure [Le ft Arm] 129/57 L Pulse Oximetry 96 Oxygen Delivery Me thod Room Air Oxygen Flow Rate Fraction of Inspir ed Oxygen 01/25/24 18:00 01/25/24 19:00 01/25/24 20:00 Temperature 98.0 F 98.0 F Pulse Rate 61 Pulse Rate [Pulse Oximeter] 63 60 Pulse Rate [Right Radial] Respiratory Rate 16 20 Blood Pressure [Le ft Arm] 141/81 H 128/57 L Pulse Oximetry 96 98 Oxygen Delivery Me thod Room Air Room Air Oxygen Flow Rate Fraction of Inspir ed Oxygen 01/25/24 22:00 01/25/24 23:00 01/25/24 23:00 Temperature 97.4 F L Pulse Rate 61 Pulse Rate [Pulse Oximeter] 60 60 Pulse Rate [Right Radial] Respiratory Rate 20 20 Blood Pressure [Le ft Arm] 128/60 Pulse Oximetry 98 Oxygen Delivery Me thod Room Air Oxygen Flow Rate 0 Fraction of Inspir ed Oxygen 0.21 01/25/24 23:46 01/26/24 00:00 01/26/24 02:00 Temperature 96.6 F L 96.6 F L Pulse Rate Pulse Rate [Pulse Oximeter] 61 62 Pulse Rate [Right Radial] Respiratory Rate 20 20 Blood Pressure [Le ft Arm] 132/62 132/65 Pulse Oximetry 99 100 97 Oxygen Delivery Me thod BiPAP BiPAP Oxygen Flow Rate 0 0 Fraction of Inspir ed Oxygen 0.21 0.21 01/26/24 03:01 01/26/24 04:00 01/26/24 06:00 Temperature 96.5 F L 97.0 F L Pulse Rate 63 Pulse Rate [Pulse Oximeter] 60 63 Pulse Rate [Right Radial] Respiratory Rate 20 20 Blood Pressure [Le ft Arm] 133/73 126/61 Pulse Oximetry 100 94 Oxygen Delivery Me thod BiPAP Room Air Oxygen Flow Rate 0 0 Fraction of Inspir ed Oxygen 0.21 0.21 01/26/24 07:48 01/26/24 08:34 01/26/24 09:04 Temperature 97.9 F 97.9 F Pulse Rate Pulse Rate [Pulse Oximeter] Pulse Rate [Right Radial] 63 60 Respiratory Rate 18 18 Blood Pressure [Le ft Arm] 120/58 L 110/60 Pulse Oximetry 98 96 Oxygen Delivery Me thod Room Air Room Air Oxygen Flow Rate Fraction of Inspir ed Oxygen 21 01/26/24 09:08 01/26/24 10:00 01/26/24 11:00 Temperature 97.6 F 97 F L Pulse Rate Pulse Rate [Pulse Oximeter] Pulse Rate [Right Radial] 99 60 Respiratory Rate 18 18 18 Blood Pressure [Le ft Arm] 110/60 134/66 Pulse Oximetry 98 94 96 Oxygen Delivery Me thod Room Air Room Air Room Air Oxygen Flow Rate Fraction of Inspir ed Oxygen 01/26/24 11:00 01/26/24 12:11 Temperature Pulse Rate 63 Pulse Rate [Pulse Oximeter] Pulse Rate [Right Radial] Respiratory Rate Blood Pressure [Le ft Arm] Pulse Oximetry 96 Oxygen Delivery Me thod Oxygen Flow Rate Fraction of Inspir ed Oxygen Documenting provider has reviewed patient's vital signs: yes Labs Labs: Laboratory Results - last 24 hr 01/25/24 01/25/24 01/26/24 20:55 21:28 01:58 WBC RBC Hgb Hct MCV MCH MCHC Plt Count VBG pH VBG pCO2 VBG pO2 VBG HCO3 Sodium 132 L 134 L Potassium 4.9 4.2 Chloride 97 100 Carbon Dioxide 22 22 Anion Gap 13 12 BUN 60 H 65 H Creatinine 1.9 H 2.0 H Estimated Creat Clear 24.73 23.49 Estimated GFR 34 32 Glucose 701 H* 493 H* Calcium 8.2 L 8.5 Total Bilirubin AST ALT Alkaline Phosphatase Troponin I C-Reactive Protein Total Protein Albumin Procalcitonin Lab Acknowledgement Test Added 01/26/24 06:37 WBC 11.74 H RBC 3.50 L Hgb 10.5 L Hct 33.6 L MCV 96 MCH 30 MCHC 31 L Plt Count 203 VBG pH 7.331 VBG pCO2 44 VBG pO2 36.7 VBG HCO3 23 Sodium 135 Potassium 4.1 Chloride 103 Carbon Dioxide 20 Anion Gap 12 BUN 70 H Creatinine 2.0 H Estimated Creat Clear 23.49 Estimated GFR 32 Glucose 182 H Calcium 8.5 Total Bilirubin 0.6 AST 26 ALT 18 Alkaline Phosphatase 117 Troponin I 0.02 C-Reactive Protein 5.3 H Total Protein 6.6 Albumin 3.3 Procalcitonin 3.79 H Lab Acknowledgement Imaging Chest x-ray: Attestation: I have reviewed the pertinent imaging results. (No significant change from yesterday)
--- NOTE | 2024-01-26 14:42 | RESP.RT ---
Mask re-fit. Patient BiPAP full face interface was re-fitted/adjusted to make patient more comfortable with wearing mask. Mask was adjusted to 20-26 Leak, patient was comfortable, receiving adequate tidal volumes and SaO2 increased from 92% to 98% with FiO2 set at .21%. Patient stated felt better than before.
--- NOTE | 2024-01-26 18:59 | PC.NURSE ---
shift note: insulin gtt dc'd. blood sugar this a.m dropped as low as 38; Dr. Hoskins notified. No serum order. pt received snack with 15 min rechecks x2. IV patent. LS this a.m with RLL crkls posteriorly and dim. this afternoon LS dim bilat posteriorly. pt on bibap 1400 till 1700. cont sats 96% while awake. pt has 5-6sec apnea with sleep. BP stable. pt afeb.
[2024-01-26] MEDS: SODIUM CHLORIDE 0.9 % (FLUSH) 10 ML SYRINGE 5 ML IVF (20:40)
[2024-01-26] MEDS: LATANOPROST 0.005% OPHTH 1 DROP EYE-LEFT (20:40)
[2024-01-26] MEDS: DORZOLAMIDE HCL 2 % OPHTH DROP 1 DROP EYE-LEFT (20:40)
[2024-01-26] MEDS: timoloL maleate 0.5 % 1 DROP EYE-LEFT (20:40)
[2024-01-27] VITALS (10 sets, daily range): BP systolic 131–175; BP diastolic 66–82; PULSE 60–68; RESP 16–18; TEMP 36.1–36.6; O2SAT 97–100
[2024-01-27] MEDS: PIPERACILLIN/TAZOBACTAM 2.25 GM in 0.9 % SODIUM CHLORIDE Mini-bag 100 ML IVPB ×4 (01:01→19:55)
[2024-01-27] MEDS: SODIUM CHLORIDE 0.9 % (FLUSH) 10 ML SYRINGE 5 ML IVF ×3 (01:01→20:50)
--- NOTE | 2024-01-27 06:40 | PC.NURSE ---
End of shift note: Pt alert & oriented x 4 and able to make needs known. He is able to pivot transfer with assist of 1 with FWW and gait belt. Staff have also been assisting him with repositioning in bed throughout the shift. Blood glucose readings of 166 and 239 this shift. Pt took Bipap off at 0040 and refused to have put back on despite previous education provided. VSS. Pt remains on tele with A paced noted. IV to R FA patent and SL. Pt currently receiving IV antibiotic per order. Pt noted to have one loose liquid stool though he has been primarily drinking Ensure supplements per nurse report. Adams cath remains in place. Bed alarm on and call light within reach. Pt has been denying pain when asked.
[2024-01-27 06:41] LABS: Hematocrit 31.7 % (37.0-53.0); Hemoglobin* 10.2 gm/dL (13.5-17.5); Immature Granulocytes Pct Auto 0.8 %; Lymphocytes Percent Auto 3.4 % (20-44); Mean Corpuscular HGB Conc 32 gm/dL (32-36); Mean Corpuscular Hemoglobin 30 pg (26-34); Mean Corpuscular Volume 94 fL (80-100); Monocytes Percent Auto 3.1 % (0.0-11.0); Neutrophils Percent Auto 92.7 % (42.0-72.0); Platelet Count* 212 K/uL (140-440); Red Blood Count 3.38 m/uL (4.30-5.90); White Blood Count* 14.44 K/uL (4.50-11.00)
[2024-01-27 06:42] LABS: Slide Review Reflex No
[2024-01-27 06:52] LABS: Chloride* 102 mmol/L (96-114); Potassium* 4.5 mmol/L (3.6-5.1); Sodium* 133 mmol/L (135-149)
[2024-01-27 06:55] LABS: Creatinine* 1.8 mg/dL (0.5-1.5); Estimated Glomerular Filt Rate 36 ml/min
[2024-01-27 06:56] LABS: Anion Gap 7 mEq/L (7-15); Blood Urea Nitrogen* 68 mg/dL (7-30); Calcium* 8.5 mg/dL (8.4-10.6); Carbon Dioxide* 24 mmol/L (20-32); Glucose* 236 mg/dL (60-115)
[2024-01-27 06:59] LABS: C Reactive Protein* 3.3 mg/dL (0.5-1.0)
[2024-01-27] MEDS: 0.9 % SODIUM CHLORIDE 250 ml IV (07:59)
[2024-01-27] MEDS: INSULIN ASPART 100 UNIT/ML 6 UNIT SUBCUT (09:53)
[2024-01-27] MEDS: INSULIN ASPART 100 UNIT/ML SUBCUT ×4 (09:54→20:57)
[2024-01-27] MEDS: GLIMEPIRIDE 4 MG TABLET PO ×2 (10:00→20:49)
[2024-01-27] MEDS: LOSARTAN POTASSIUM 50 MG TABLET PO (10:00)
[2024-01-27] MEDS: METOPROLOL SUCCINATE (XL) 50 MG TAB PO (10:01)
[2024-01-27] MEDS: DORZOLAMIDE HCL 2 % OPHTH DROP 1 DROP EYE-LEFT ×2 (10:02→20:48)
[2024-01-27] MEDS: NIRMATRELVIR/RITONAVIR DOSEPAK 3 TAB PO ×2 (10:02→20:49)
[2024-01-27] MEDS: timoloL maleate 0.5 % 1 DROP EYE-LEFT ×2 (10:03→20:55)
--- NOTE | 2024-01-27 12:45 | RESP.RT ---
Pt BIPAP in room on SB. IF pt does not use this HS, will remove in AM.
--- NOTE | 2024-01-27 13:45 | P.IMPN_ITS ---
Progress Note: A&P Assessment and plan (1) HAP (hospital-acquired pneumonia): Problem details: - hospital 01/11/24, direct transfer to [facility] 01/11 - 01/16, TCU 01/16 - 01/23 @ [facility] Radiographically appears to be bacterial pneumonia more than COVID pneumonia. Treat with Zosyn. MRSA negative. Also on Paxlovid Status: Acute (2) Type 2 diabetes mellitus, without long-term current use of insulin: Problem details: - last A1C 8.6 01/2024 indicating suboptimal control. Severe hyperglycemia overnight likely due to dexamethasone and acute illness. Now off insulin drip and doing fairly well. Dexamethasone discontinued. - hold oral medications, Accuchecks and SSI pending return of appetite Status: Acute (3) Pleural effusion associated with pulmonary infection: Problem details: - hemothorax 01/11/24 after fall, had 1L blood out via thoracentesis in [place], followed by pneumothorax - transferred to [facility] for chest tube, this d/c'd prior to transfer to [address] [place] [address] (01/17/24) - still has very small PTX on CT chest 01/23 (not noted on CXR) - continue to follow CXRs given need for BIPAP administration - General Surgery aware, do not anticipate any need for formal surgical consult at this time Status: Acute (4) COVID: Problem details: -first day of symptoms 01/22; started on Paxlovid 01/22 at [facility] -weak; mildly dyspneic - transferred to our ED from [facility] -noted to have apneic spells in the ED (normal gas; bipap used intermittently); - intermittently hypoxic with apneic episodes, stable on RA without need for supplemental oxygen - on Paxlovid as COVID-specific therapy Very poor appetite likely a combination of COVID infection and Paxlovid therapy. Status: Acute (5) Anemia: Problem details: - Hgb 7.6 on 01/24/24, outpatient baseline of 10 - presumably ABLA from recent hemothorax (had a fall on 01/10 with large hemothorax at that time, 1L thoracentesis. Hgb 9.5 on 01/10, hasn't been rechecked since) - s/p 1 unit packed cells on 01/23 --> improved to 9.6 Status: Acute (6) Acute kidney injury: Problem details: - baseline creatinine 1.1-1.2, creatinine on admission 01/23 is 1.6 - likely prerenal 2/2 anemia and illness (decreased po intake), also possibly intrarenal/iatrogenic from DM2 meds/Losartan - hold nephrotoxins, follow renal function Status: Acute (7) Apnea spell: Problem details: - accompanied by severe hypoxia (50-60%) on admission, returns to baseline when awakened - VBG reassuring - likely severe underlying STANISLAV (vs COVID symptoms vs pneumothorax vs central apnea), RT following and will initiate CPAP when napping or asleep at night - small residual pneumothorax on chest CT; CXR repeated after initiation of BIPAP with no change in size - continue to follow CXR to ensure no worsening Status: Acute (8) Sepsis: Problem details: BC and MRSA pending. on broad spectrum coverage to include coverage for HAP. -unusual presentation (other flags for sepsis not present (hypotension, fever, HR, RR, lactate, thrombocytopenia, acidosis, hyperbili) but +WBC elevation, intermittent hypoxia. Remain vigilant for bacteremia/sepsis progression with the likelihood of HAP/Covid. Status: Acute (9) Elevated troponin: Problem details: - resolved Status: Acute (10) Primary hypertension: Problem details: Blood pressure medicines held for illness. Continue to monitor Status: Acute (11) Presence of cardiac pacemaker: Status: Acute (12) Dementia: Problem details: [place] of in August of 2022. Review with patient and family plan of care going forward. Need for increased supervision. Address frailty. Status: Acute (13) Weakness: Problem details: Acute on chronic. Appears that he was failing prior to recent events. Weakness is gotten much worse with multiple recent hospitalizations and acute illness. Ongoing need for rehab. Status: Acute Plan Continue in hospital for treatment of pneumonia, hospital-acquired pneumonia as well as COVID pneumonia, monitoring of pneumothorax, acute kidney injury, hypoxic respiratory failure, disability. Time Spent With Patient Total time spent: 45 minutes Subjective Date Seen: 01/27/24 Interval history: 83-year-old male Ray had a fall at home on January 10, seen in the [place] Emergency Department and found to have a large left hemothorax. He underwent a large volume thoracentesis (pathology reviewed and benign), had a subsequent pneumothorax and was transferred to [facility] for a chest tube. He was hospitalized at [facility] from January 11-. At [place] he was treated for his pneumothorax. Is also evaluated for an elevated troponin and heart failure. He had a echo with preserved ejection fraction. He was then discharged to [facility]. At [address] [place] [address] he acquired COVID infection and developed hypoxic respiratory failure. He is admitted the hospital here with pneumonia and COVID infection causing profound weakness , hypoxic respiratory failure and ventilatory failure treated with BiPAP. He has required BiPAP the last 2 nights overnight but yesterday during the day and today during the day he has been able to breathe comfortably on room air. Is no longer having fevers. He has a very poor appetite and is taking in poor p.o. food and fluid. Last night he was put on insulin drip because of blood sugars greater than 700. This morning his blood sugars come down to less than 200 and his insulin drip has been discontinued. This morning he developed hypoglycemia blood sugars in the 30s. He was able to take in p.o. food and sugar and blood sugars have now normalized. Hemoglobin A1c at [place] was 8.6 indicating suboptimal control of diabetes on his glimepiride 4 mg daily. Review of records from August of 2022 shows that he had a [place] score of 15/30. Additional OT evaluation showed some difficulties with problem solving. Concerns at that time about his living independently though he was able to manage all tasks of ADLs. Recommendations were family would take over medication management and financial consultant and that ray consider assisted living. Concerns about driving led to recommendation that he should stop driving or have a security patrol driver safety evaluation. January 26: Patient unable to give much information about symptoms. Per nursing notes he did sleep with the BiPAP for a while last night and then took it off at 4:00 a.m. and refused to put it back on again. After that however he did not needed as his oxygen saturations remained in the mid 90s. He ate most of a normal breakfast this morning. He has no other concerns today. Therapy indicates he is profoundly weak. Exam Narrative: Exam Narrative: He is alert and pleasant. Unable to give significant details of recent events or symptoms. Reports no concerns. Respirations with a rare basilar crackle. No wheezing or consolidation. Breathing is unlabored on room air. Cardiovascular: S1, S2, regular rate and rhythm. No murmur gallop or rub. Abdomen: Bowel sounds active. Abdomen is soft without tenderness. No mass. Extremities without edema. Const: Vital Signs, click to edit/add: Vital Signs - 24 hr 01/26/24 14:00 01/26/24 15:00 01/26/24 16:00 Temperature 97 F L 97.9 F Pulse Rate Pulse Rate [Pulse Oximeter] Pulse Rate [Right Radial] 72 61 61 Respiratory Rate 18 18 18 Blood Pressure [Le ft Arm] 149/72 H 136/61 Pulse Oximetry 96 94 Oxygen Delivery Me thod Room Air Room Air Oxygen Flow Rate Fraction of Inspir ed Oxygen 01/26/24 16:34 01/26/24 19:00 01/26/24 22:31 Temperature 97.9 F 97.5 F L Pulse Rate 60 Pulse Rate [Pulse Oximeter] 63 58 L Pulse Rate [Right Radial] Respiratory Rate 18 20 Blood Pressure [Le ft Arm] 128/58 L 148/76 H Pulse Oximetry 98 100 Oxygen Delivery Me thod Room Air BiPAP Oxygen Flow Rate Fraction of Inspir ed Oxygen 01/26/24 23:00 01/26/24 23:16 01/27/24 03:00 Temperature 97.6 F Pulse Rate 61 Pulse Rate [Pulse Oximeter] 68 Pulse Rate [Right Radial] 61 Respiratory Rate 20 18 Blood Pressure [Le ft Arm] 163/82 H Pulse Oximetry 99 Oxygen Delivery Me thod Room Air Oxygen Flow Rate 0 Fraction of Inspir ed Oxygen 21 01/27/24 07:45 01/27/24 07:45 01/27/24 08:00 Temperature 97.8 F Pulse Rate 62 Pulse Rate [Pulse Oximeter] 63 Pulse Rate [Right Radial] 64 Respiratory Rate 16 16 Blood Pressure [Le ft Arm] 149/68 H Pulse Oximetry 97 Oxygen Delivery Me thod Room Air Oxygen Flow Rate Fraction of Inspir ed Oxygen 01/27/24 13:00 01/27/24 13:00 Temperature 97.2 F L Pulse Rate Pulse Rate [Pulse Oximeter] Pulse Rate [Right Radial] 65 Respiratory Rate 18 Blood Pressure [Le ft Arm] 152/73 H Pulse Oximetry 98 97 Oxygen Delivery Me thod Room Air Oxygen Flow Rate Fraction of Inspir ed Oxygen Documenting provider has reviewed patient's vital signs: yes Labs Labs: Laboratory Results - last 24 hr 01/27/24 06:26 WBC 14.44 H RBC 3.38 L Hgb 10.2 L Hct 31.7 L MCV 94 MCH 30 MCHC 32 RDW Coeff of Fely 17.0 H Plt Count 212 Neut % (Auto) 92.7 H Lymph % (Auto) 3.4 L Toole % (Auto) 3.1 Eos % (Auto) 0.0 Baso % (Auto) 0.0 Neut # (Auto) 13.40 H Lymph # (Auto) 0.50 L [place]ole # (Auto) 0.40 Eos # (Auto) 0.00 Baso # (Auto) 0.00 Abs Immat Gran (auto) 0.10 Imm/Tot Granulo (auto) 0.8 Sodium 133 L Potassium 4.5 Chloride 102 Carbon Dioxide 24 Anion Gap 7 BUN 68 H Creatinine 1.8 H Estimated Creat Clear 26.10 Estimated GFR 36 Glucose 236 H Calcium 8.5 C-Reactive Protein 3.3 H
--- NOTE | 2024-01-27 18:54 | PC.NURSE ---
Pt up with walker, gait belt, and 1 assist. Pleasant and cooperative while cognition ebbs/flows. Denies pain. Sats remains above 96% on RA entire shift. See MAR for Insulin administration for elevated blood sugars. crisostomo pulled, continent of bladder but wears a brief. 2 Loose semi-continent stools due to not getting to the toilet quickly enough. Son, Ronnie at bedside visiting with pt for most of the afternoon.
[2024-01-27] MEDS: ENOXAPARIN 30 MG/0.3ML INJ SUBCUT (20:48)
[2024-01-27] MEDS: LATANOPROST 0.005% OPHTH 1 DROP EYE-LEFT (20:50)
[2024-01-28] MEDS: PIPERACILLIN/TAZOBACTAM 2.25 GM in 0.9 % SODIUM CHLORIDE Mini-bag 100 ML IVPB ×3 (01:55→12:22)
[2024-01-28] MEDS: SODIUM CHLORIDE 0.9 % (FLUSH) 10 ML SYRINGE 5 ML IVF ×2 (01:56→07:52)
[2024-01-28 03:27] VITALS: BP 172/79; PULSE 60; RESP 16; TEMP 36; O2SAT 99
[2024-01-28 06:27] LABS: Hematocrit 32.4 % (37.0-53.0); Hemoglobin* 10.4 gm/dL (13.5-17.5); Immature Granulocytes Abs Auto 0.08 K/uL (0.00-0.30); Immature Granulocytes Pct Auto 0.8 %; Lymphocytes Percent Auto 5.8 % (20-44); Mean Corpuscular HGB Conc 32 gm/dL (32-36); Mean Corpuscular Hemoglobin 30 pg (26-34); Mean Corpuscular Volume 93 fL (80-100); Monocytes Percent Auto 5.4 % (0.0-11.0); Platelet Count* 205 K/uL (140-440); Red Blood Count 3.48 m/uL (4.30-5.90); Slide Review Reflex No; White Blood Count* 10.44 K/uL (4.50-11.00)
[2024-01-28 06:36] LABS: Chloride* 104 mmol/L (96-114); Potassium* 3.7 mmol/L (3.6-5.1); Sodium* 133 mmol/L (135-149)
--- NOTE | 2024-01-28 06:37 | PC.NURSE ---
End of shift note: No specific confusion noted this shift. Pt has been refusing to wear Bipap throughout the shift despite education provided and being reapproached. Pt has been afebrile throughout the shift. Pt remains on tele and remains A-paced. Pt remains on IV antibiotic. Blood sugars of 234,187 and 190 this shift. IV to R FA remains patent and SL. Pt able to transfer with assist of 1 with FWW and gait belt. He has been denying pain when asked. Pt no longer has Adams catheter in place?and has been continent of bowel and bladder using bedside commode. Stool noted to be mix of soft/loose x 1 this shift. SBP noted to be in the 170s last evening though pt was asymptomatic and denied CP. Pt started on doses of Losartan and Metoprolol yesterday. Computer Specialist did update MD Farnsworth regarding SBP values and pt being asymptomatic- no new orders given. Bed alarm on and call light within reach. Pt ordered to have repeat CXR this morning. Computer Specialist did update pt regarding order in place. Mepilex protective dressings in place to coccyx and L elbow. Scabs to L knee and bilateral toes BUCKLE SEWER.
[2024-01-28 06:39] LABS: Creatinine* 1.5 mg/dL (0.5-1.5); Est. Creatinine Clearance* 30.93; Estimated Glomerular Filt Rate 45 ml/min
[2024-01-28 06:40] LABS: Anion Gap 5 mEq/L (7-15); Blood Urea Nitrogen* 52 mg/dL (7-30); Calcium* 8.3 mg/dL (8.4-10.6); Carbon Dioxide* 24 mmol/L (20-32); Glucose* 185 mg/dL (60-115)
[2024-01-28 06:42] LABS: C Reactive Protein* 2.2 mg/dL (0.5-1.0)
[2024-01-28 07:00] VITALS: BP 147/74; PULSE 60; PULSE 61; RESP 20; TEMP 36.6; O2SAT 99
[2024-01-28] MEDS: DORZOLAMIDE HCL 2 % OPHTH DROP 1 DROP EYE-LEFT (07:49)
[2024-01-28] MEDS: timoloL maleate 0.5 % 1 DROP EYE-LEFT (07:49)
[2024-01-28] MEDS: LOSARTAN POTASSIUM 50 MG TABLET PO ×2 (07:50→09:13)
[2024-01-28] MEDS: NIRMATRELVIR/RITONAVIR DOSEPAK 3 TAB PO (07:50)
[2024-01-28] MEDS: GLIMEPIRIDE 4 MG TABLET PO (07:50)
[2024-01-28] MEDS: 0.9 % SODIUM CHLORIDE 250 ml IV (07:52)
[2024-01-28] MEDS: METOPROLOL SUCCINATE (XL) 50 MG TAB PO (07:52)
[2024-01-28] MEDS: INSULIN ASPART 100 UNIT/ML SUBCUT ×2 (07:53→11:50)
[2024-01-28] MEDS: INSULIN ASPART 100 UNIT/ML 6 UNIT SUBCUT ×2 (07:54→11:51)
--- NOTE | 2024-01-28 08:00 | CRLHL7_ITS ---
For Patients: As a result of the Century Cures Act, medical imaging exams and procedure reports are released immediately into your electronic medical record. You may view this report before your referring provider. If you have questions, please contact your health care provider. INDICATION: Chest pain. TECHNIQUE: Chest 1 views. COMPARISON: Chest radiograph 01/26/2024 FINDINGS: Heart and mediastinum: Heart size is normal. Right chest wall pacemaker with leads in similar positions. Abandoned lead wires in the left chest wall. Atherosclerosis of the aorta. Lungs and pleural spaces: Decreased patchy consolidations throughout the lungs. Right pleural plaques. Small left pleural effusion. No pneumothorax. Bones and soft tissues: No significant findings. IMPRESSION: Decreased patchy consolidations throughout the lungs. Small left pleural effusion. Dictated by Yanira Zavala MD @ 01/28/2024 10:16:54 AM (Electronically Signed)
[2024-01-28 11:00] VITALS: BP 172/83; PULSE 66; RESP 18; TEMP 36.6; O2SAT 100
--- NOTE | 2024-01-28 11:54 | PM.DS1 ---
DS: Providers Provider Date Seen: 01/28/24 Date of admission: 01/24/24 14:46 Primary care physician: Tres Ling MD Admitting Clinician: Celina Martino MD Attending Physician on discharge: Niall Hoskins MD Date of Discharge: 01/28/24 DS: Diagnosis Discharge Diagnosis (1) HAP (hospital-acquired pneumonia): Status: Acute Problem details: - hospital 01/11/24, direct transfer to [facility] 01/11 - 01/16, U 01/16 - 01/23 @ [facility] Radiographically appears to be bacterial pneumonia more than COVID pneumonia. Treated with Zosyn in the hospital. Two more days of Augmentin to complete therapy. MRSA negative. Also on Paxlovid in the hospital. Discontinued Paxlovid at discharge Not requiring oxygen or BiPAP for the last 2 days. (2) Type 2 diabetes mellitus, without long-term current use of insulin: Status: Acute Problem details: - last A1C 8.6 01/2024 indicating suboptimal control. Severe hyperglycemia overnight likely due to dexamethasone and acute illness. Now off insulin drip and doing fairly well. Dexamethasone discontinued. - hold oral medications, Accuchecks and SSI pending return of appetite (3) Pleural effusion associated with pulmonary infection: Status: Acute Problem details: - hemothorax 01/11/24 after fall, had 1L blood out via thoracentesis in [place], followed by pneumothorax - transferred to [facility] for chest tube, this d/c'd prior to transfer to [address] [place] [address] (01/17/24) - still has very small PTX on CT chest 01/23 (not noted on CXR) - continue to follow CXRs given need for BIPAP administration - General Surgery aware, do not anticipate any need for formal surgical consult at this time (4) COVID: Status: Acute Problem details: -first day of symptoms 01/22; started on Paxlovid 01/22 at [facility] -weak; mildly dyspneic - transferred to our ED from [facility] -noted to have apneic spells in the ED (normal gas; bipap used intermittently); - intermittently hypoxic with apneic episodes, stable on RA without need for supplemental oxygen - on Paxlovid as COVID-specific therapy Very poor appetite likely a combination of COVID infection and Paxlovid therapy. (5) Anemia: Status: Acute Problem details: - Hgb 7.6 on 01/24/24, outpatient baseline of 10 - presumably ABLA from recent hemothorax (had a fall on 01/10 with large hemothorax at that time, 1L thoracentesis. Hgb 9.5 on 01/10, hasn't been rechecked since) - s/p 1 unit packed cells on 01/23 --> improved to 10.4 at discharge (6) Acute kidney injury: Status: Acute Problem details: - baseline creatinine 1.1-1.2, creatinine on admission 01/23 is 1.6. Creatinine increased to 2.0 during hospital stay. Creatinine on discharge 1.5 - likely prerenal 2/2 anemia and illness (decreased po intake), also possibly intrarenal/iatrogenic from DM2 meds/Losartan - hold nephrotoxins, follow renal function (7) Apnea spell: Status: Acute Problem details: - accompanied by severe hypoxia (50-60%) on admission, returns to baseline when awakened - VBG reassuring - likely severe underlying STANISLAV (vs COVID symptoms vs pneumothorax vs central apnea), RT following and will initiate CPAP when napping or asleep at night - small residual pneumothorax on chest CT; CXR repeated after initiation of BIPAP with no change in size Chest x-ray shows improvement in infiltrates on day of discharge (8) Sepsis: Status: Acute Problem details: On admission had hypotension, hypoxia, elevated white count, elevated CRP and altered mental status. Also developed IRENA, hyperglycemia. BC and MRSA pending. on broad spectrum coverage to include coverage for HAP. -unusual presentation (other flags for sepsis not present (hypotension, fever, HR, RR, lactate, thrombocytopenia, acidosis, hyperbili) but +WBC elevation, intermittent hypoxia. Remain vigilant for bacteremia/sepsis progression with the likelihood of HAP/Covid. (9) Elevated troponin: Status: Acute Problem details: - resolved (10) Primary hypertension: Status: Acute Problem details: On admission blood pressure medicines were held. Now restarted blood pressure medicines with a reduced dose of metoprolol as his pulse is 60 on 50 mg daily (11) Presence of cardiac pacemaker: Status: Acute (12) Dementia: Status: Acute Problem details: [place] of in August of 2022. Review with patient and family plan of care going forward. Need for increased supervision. Address frailty. (13) Weakness: Status: Acute Problem details: Acute on chronic. Appears that he was failing prior to recent events. Weakness is gotten much worse with multiple recent hospitalizations and acute illness. Ongoing need for rehab. DS: Summary Hospital Course Hospital Course: Mark had a fall at home on January 10, seen in the [facility] and found to have a large left hemothorax. He underwent a large volume thoracentesis (pathology reviewed and benign), had a subsequent pneumothorax and was transferred to [facility] for a chest tube. He was hospitalized at [facility] from January 11-. At [place] he was treated for his pneumothorax. Is also evaluated for an elevated troponin and heart failure. He had a echo with preserved ejection fraction. He was then discharged to [facility]. At [address] [place] [address] he acquired COVID infection and developed hypoxic respiratory failure. He is admitted the hospital here with pneumonia and COVID infection causing profound weakness , hypoxic respiratory failure and ventilatory failure treated with BiPAP. He has required BiPAP the last 2 nights overnight but yesterday during the day and today during the day he has been able to breathe comfortably on room air. Is no longer having fevers. He has a very poor appetite and is taking in poor p.o. food and fluid. Last night he was put on insulin drip because of blood sugars greater than 700. This morning his blood sugars come down to less than 200 and his insulin drip has been discontinued. This morning he developed hypoglycemia blood sugars in the 30s. He was able to take in p.o. food and sugar and blood sugars have now normalized. Hemoglobin A1c at [place] was 8.6 indicating suboptimal control of diabetes on his glimepiride 4 mg daily. Review of records from August of 2022 shows that he had a [place] score of 15/30. Additional OT evaluation showed some difficulties with problem solving. Concerns at that time about his living independently though he was able to manage all tasks of ADLs. Recommendations were family would take over medication management and financial services auditor and that mark consider assisted living. 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 January 26: Patient unable to give much information about symptoms. Per nursing notes he did sleep with the BiPAP for a while last night and then took it off at 4:00 a.m. and refused to put it back on again. After that however he did not needed as his oxygen saturations remained in the mid 90s. He ate most of a normal breakfast this morning. He has no other concerns today. Therapy indicates he is profoundly weak. January 27: Patient was able to get through the night without BiPAP or hypoxia. Has not need oxygen in the last couple days. He is eating much better today. More alert. Chest x-ray is improved. Blood sugar also improved Status at Discharge Functional status at discharge: uses cane/walker Overall status at discharge: patient is progressing back to baseline Time Spent with Patient Time attestation: Total time spent providing and/or coordinating discharge services: 45 minutes Time spent: Greater than 30 minutes Exam Narrative: Exam Narrative: He is alert pleasant and appears in no distress. Unable to give much detail about recent history but more talkative and interactive today. Respirations are clear to auscultation except for an occasional left basilar crackle. Cardiovascular: S1, S2, regular rate and rhythm. Abdomen is soft without tenderness or mass. Extremities without edema. Const: Vital Signs, click to edit/add: Vital Signs - 24 hr 01/27/24 13:00 01/27/24 13:00 01/27/24 15:00 Temperature 97.2 F L Pulse Rate 62 Pulse Rate [Pulse Oximeter] Pulse Rate [Right Radial] 65 Respiratory Rate 18 Blood Pressure [Le ft Arm] 152/73 H Blood Pressure [Ri ght Arm] Pulse Oximetry 98 97 Oxygen Delivery Me thod Room Air Oxygen Flow Rate Fraction of Inspir ed Oxygen 01/27/24 15:00 01/27/24 15:00 01/27/24 19:51 Temperature 97.4 F L 97.0 F L Pulse Rate Pulse Rate [Pulse Oximeter] 64 64 60 Pulse Rate [Right Radial] 64 64 Respiratory Rate 18 18 18 Blood Pressure [Le ft Arm] 174/78 H Blood Pressure [Ri ght Arm] Pulse Oximetry 98 98 Oxygen Delivery Me thod Room Air Room Air Oxygen Flow Rate 0 Fraction of Inspir ed Oxygen 21 01/27/24 21:01 01/27/24 23:00 01/27/24 23:08 Temperature Pulse Rate 60 Pulse Rate [Pulse Oximeter] 60 Pulse Rate [Right Radial] 64 Respiratory Rate 18 Blood Pressure [Le ft Arm] 175/78 H Blood Pressure [Ri ght Arm] Pulse Oximetry Oxygen Delivery Me thod Oxygen Flow Rate Fraction of Inspir ed Oxygen 01/27/24 23:56 01/28/24 03:27 01/28/24 07:00 Temperature 96.9 F L 96.8 F L Pulse Rate 60 Pulse Rate [Pulse Oximeter] 60 60 Pulse Rate [Right Radial] Respiratory Rate 16 16 Blood Pressure [Le ft Arm] 131/66 172/79 H Blood Pressure [Ri ght Arm] Pulse Oximetry 100 99 Oxygen Delivery Me thod Room Air Room Air Oxygen Flow Rate 0 Fraction of Inspir ed Oxygen 21 01/28/24 07:00 01/28/24 07:00 01/28/24 11:00 Temperature 97.8 F 97.8 F Pulse Rate Pulse Rate [Pulse Oximeter] 61 61 66 Pulse Rate [Right Radial] Respiratory Rate 20 20 18 Blood Pressure [Le ft Arm] 172/83 H Blood Pressure [Ri ght Arm] 147/74 H Pulse Oximetry 99 100 Oxygen Delivery Me thod Room Air Room Air Oxygen Flow Rate Fraction of Inspir ed Oxygen Documenting provider has reviewed patient's vital signs: yes DS: Data Data Completed and Pending Labs on day of discharge: Labs from last 24 hours 01/28/24 06:00 WBC 10.44 RBC 3.48 L Hgb 10.4 L Hct 32.4 L MCV 93 MCH 30 MCHC 32 RDW Coeff of Fely 17.0 H Plt Count 205 Neut % (Auto) 88.0 H Lymph % (Auto) 5.8 L Ross % (Auto) 5.4 Eos % (Auto) 0.0 Baso % (Auto) 0.0 Neut # (Auto) 9.20 H Lymph # (Auto) 0.60 L Ross # (Auto) 0.60 Eos # (Auto) 0.00 Baso # (Auto) 0.00 Abs Immat Gran (auto) 0.08 Imm/Tot Granulo (auto) 0.8 Sodium 133 L Potassium 3.7 Chloride 104 Carbon Dioxide 24 Anion Gap 5 L BUN 52 H Creatinine 1.5 Estimated Creat Clear 30.93 Estimated GFR 45 Glucose 185 H Calcium 8.3 L C-Reactive Protein 2.2 H Preliminary micro results at discharge 01/24/24 12:50 Blood Culture - Preliminary Blood NO GROWTH AFTER 72 HOURS 01/24/24 12:48 Blood Culture - Preliminary Blood NO GROWTH AFTER [address] scan - chest: Radiologist's impression: INDICATION: SOB, COUGH, INFILTRATES, COVID +. TECHNIQUE: CT chest PE was acquired with 95 cc Omnipaque 350 IV contrast. COMPARISON: Earlier same day chest radiograph. FINDINGS: Heart and vasculature: Contrast opacification of the pulmonary arterial tree is adequate. No sign of pulmonary embolism. Heart size is normal. Thoracic aorta and pulmonary artery are normal in caliber. Right chest pacemaker and abandoned left chest pacemaker leads in place. Lungs and pleura: Moderate patchy bilateral consolidations with surrounding ground-glass opacities, right greater than left. Small to moderate left hydropneumothorax with a small gas component. There are consolidations in the underlying parenchyma. Calcified right pleural plaque. Lymph nodes/mediastinum: No mediastinal, hilar, or axillary adenopathy. Chest wall: No masses. Upper abdomen: Few mildly dilated bowel loops in the left upper quadrant measuring up to 3.9 centimeters () Bones: Chronic appearing moderate compression deformities of the T8 and L1 vertebral bodies with mild bony retropulsion. No evident result high-grade spinal canal stenosis. Additional smaller compression deformities versus prominent superior endplate Schmorl nodes C7, T1, and T2. IMPRESSION: 1. No acute pulmonary embolism. 2. Moderate patchy bilateral consolidations and ground-glass opacities, right greater than left, compatible with atypical pneumonia, such as that caused by COVID. 3. Small to moderate left hydropneumothorax, primarily comprised of fluid, but with a small gas component. There associated underlying consolidations, which at least partially reflect atelectasis, though superimposed infection is not excluded. 4. Few mildly dilated loops of small bowel in the partially visualized abdomen. This is nonspecific, but can be seen in the setting of ileus or obstruction. Consider further evaluation with a dedicated CT abdomen pelvis, at clinical discretion. Please note that all CT scans at this facility use dose modulation, iterative reconstruction, and/or weight-based dosing when appropriate to reduce radiation dose to as low as reasonably achievable. Dictated by Segundo De La Rosa MD @ 01/24/2024 1:56:10 PM Chest x-ray: Radiologist's impression: INDICATION: Chest pain. TECHNIQUE: Chest 1 views. COMPARISON: Chest radiograph 01/26/2024 FINDINGS: Heart and mediastinum: Heart size is normal. Right chest wall pacemaker with leads in similar positions. Abandoned lead wires in the left chest wall. Atherosclerosis of the aorta. Lungs and pleural spaces: Decreased patchy consolidations throughout the lungs. Right pleural plaques. Small left pleural effusion. No pneumothorax. Bones and soft tissues: No significant findings. IMPRESSION: Decreased patchy consolidations throughout the lungs. Small left pleural effusion. Dictated by Yanira Zavala MD @ 01/28/2024 10:16:54 AM Discharge Plan Discharge Disposition: [facility] Date of Admission: 01/24/24 14:46 Attending Provider on Discharge: Moustapha Hoskins Primary Care Provider: Tres Ling Discharge Medications: New amoxicillin-pot clavulanate 875-125 mg tablet 1 tab PO BID Qty: 4 0RF Continued Fish Oil 100-160-1,000 mg capsule 1 cap PO DAILY (DME) Contour Next Test Strips Strip See Rx Instructions .Route Qty: 200 5RF Rx Instructions: Tests BID due to high A1c pioglitazone 30 mg tablet 30 mg PO DAILY losartan 100 mg tablet 100 mg PO DAILY latanoprost 0.005 % drops 1 drp ophthalmic (eye) HS Patient Comments: LEFT EYE finasteride 5 mg tablet 5 mg PO DAILY cholecalciferol (vitamin D3) 50 mcg (2,000 unit) tablet 50 mcg PO DAILY aspirin 325 mg tablet 325 mg PO DAILY (DME) Blood Glucose Test Strip See Rx Instructions .Route Rx Instructions: Deven Contour tests QID dorzolamide-timolol 22.3-6.8 mg/mL drops 1 drp ophthalmic (eye) QAM AND QHS Qty: 30 3RF Patient Comments: LEFT EYE glimepiride 4 mg tablet 4 mg PO BID Qty: 180 0RF Changed metoprolol succinate 100 mg tablet extended release 24 hr 50 mg PO DAILY Qty: 90 2RF simvastatin 40 mg tablet 40 mg PO DAILY Qty: 30 0RF Rx Instructions: Restart simvastatin on February 02. Due to recent treatment with Paxlovid, simvastatin should be stopped for 5 days after paxlovid treatment Discontinued Paxlovid 300 mg (150 mg x 2)-100 mg tablets,dose pack See Rx Instructions .ROUTE .COMPLEX Rx Instructions: take TWO 150 mg tablets of nirmatrelvir with ONE 100 mg tablet of ritonavir twice daily for 5 days Discharge Orders: Discharge Order (Routine); Ordered 01/28/24 Ordered By: Moustapha Hoskins Activity Level: Up with assist and Use Walker Discharge Diet: Regular Follow Up Appointments: Tres Ling MD [Primary Care Provider] - Forms: [employer] Instructions Admit to: SNF Discharge Potential: Fair Length of Stay: <30 days Can use facility standing orders?: Yes Code Status: DNR/DNI Rehab Potential: Fair Therapy: Physical Therapy and Occupational Therapy Therapy Orders: Evaluate and Treat Oxygen: No Glucose Checks: check blood sugar twice daily
--- NOTE | 2024-01-28 12:40 | PC.SOCIAL ---
Pt. has been accepted back to [facility] today in a private TCU room. Pt.'s daughter will transport and arrive at 1pm. PAS completed # [id number].
[2024-01-28 13:00] VITALS: O2SAT 100
--- NOTE | 2024-01-28 14:46 | PC.NURSE ---
Nursing discharge note: Pt has been A&O, afebrile and VSS with exception to ongoing elevated SBP. He denies having any pain, nausea or dizziness. H is Ax1 with gait belt and rolling walker for transfers and ambulation. Pt has been continent/incontinent of B&B. He had a medium loose BM right before discharge. PIV in right FA was removed, catheter intact. Repeat CXR showed no pneumothorax and small left pleural effusion. Mepilex intact to left elbow. Mepilex to coccyx removed. Healing abrasions to left knee and bilateral toes. Pt completed Paxlovid today. TELE read A. paced rhythm in the 60s. Discharge instructions reviewed wtih patient and his daughter, Kenji, who both verbalized understanding & their questions were answered. Nurse-nurse report given via telephone call to [facility] prior to patient discharging. He discharged via W/C accompanied by his daughter and ELY Cuevas.
== END 2024-01-28 13:56 | DRG 177 ==
LOC: ED 13:20 → MEDSURG 14:47
PROVIDERS: Family Medicine; Admitting Provider Family Medicine; Emergency Provider Family Medicine; PCP Family Medicine; Visit Provider Family Medicine
DX: U07.1 COVID-19 (principal); A41.9 Sepsis, unspecified organism; J12.82 Pneumonia due to coronavirus disease 2019; J96.01 Acute respiratory failure with hypoxia; N17.9 Acute kidney failure, unspecified; D62 Acute posthemorrhagic anemia; J91.8 Pleural effusion in other conditions classified elsewhere; E11.65 Type 2 diabetes mellitus with hyperglycemia; E11.649 Type 2 diabetes mellitus with hypoglycemia without coma; F03.90 Unspecified dementia, unspecified severity, without behavioral disturbance, psychotic disturbance, mood disturbance, and anxiety; R79.89 Other specified abnormal findings of blood chemistry; G47.33 Obstructive sleep apnea (adult) (pediatric); S27.2XXD Traumatic hemopneumothorax, subsequent encounter; I10 Essential (primary) hypertension; E78.2 Mixed hyperlipidemia; G47.00 Insomnia, unspecified; N40.0 Benign prostatic hyperplasia without lower urinary tract symptoms; M54.50 Low back pain, unspecified; G89.29 Other chronic pain; G62.9 Polyneuropathy, unspecified; Z95.0 Presence of cardiac pacemaker; E55.9 Vitamin D deficiency, unspecified; H40.9 Unspecified glaucoma
CPT/HCPCS: 36415; 36430; 51701; 51798; 71045; 71275; 80048; 80053; 82803; 82947; 82962; 83605; 83880; 84145; 84484; 85018; 85025; 85027; 85610; 85730; 86140; 86850; 86900; 86901; 86922; 87040; 87081; 87449; 87899; 93005; 94660; 94664; 94761; 97110; 97112; 97116; 97162; 97165; 97530; 97535; 99285; A9270; J0692; J1100; J1650; J1815; J1940; J2543; J3372; J3590; J7030; J7050; P9016; Q9967

== ENCOUNTER 2024-03-18 12:57 | Outpatient (CLI) | payer MEDICARE, BC, SELFPAY ==
--- OUTSIDE RECORDS SUMMARY | 2024-03-18 13:03 | XMS_ITS | Encounter Summary ---
Author Organization [facility] Address [address] [place] [address] Care Team Providers Care Explosive Ordnance Handler Name Role Phone Unavailable Primary Care Provider Unavailabl e Encounter Details Date Type Department Care Team (Late st Contact Info) Description 01/29/2017 Historical Ophthalmology RST OPH Kaycee Tamayo M.B.B.S. [address] [place] [address] [phone] Social History Tobacco Use Types Packs/Day Years [...] Dry eye CDM Reports - EYEGEN Id: [id number] Status: Fnl documented in this encounter Plan of Treatment Not on file documented as of this encounter Visit Diagnoses Not on filedocumented in this encounter Additional Health Concerns Assessment Noted Time PHQ-9 Depression Total Score: 1 02/13/20 13 10:20 AM CDT documented as of this encounter
--- OUTSIDE RECORDS SUMMARY | 2024-03-18 13:03 | XMS_ITS | Referral Summary ---
Author Organization [facility] Address [address] [place] [id number] Care Team Providers Care [employer] Name Role Phone Unavailable Primary Care Provider Unavailabl e Source Comments Patient records contain information from all sites at [facility]. For routine questions regarding patient records, call [phone] during business hours, M-F 8:00 AM - 5:00 PM Central Time. Record requests for emergency care only can be directed to [phone] at any time.[facility] Encounters Date Type Department Care Team Description 01/09/2024 Clinical Communication Department of Ophthalmology in [place], [place] [address] [place] [address] Cherri Dorsey M.D., M.S. 01/07/2024 8:30 AM CDT Office Visit Department of Ophthalmology in [place], [place] [address] [place] [address] Cherri Dorsey M.D., M.S. 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 Active vitamins A,C,D-eyzd-xbvmzv (PRESERVISION AREDS) 7,160 Units-113 mg-100 Units per [...] (09/04/2022): Added automatically from request for surgery [id number] Primary Open-Angle Glaucoma Moderate Stage Left 03/05/2019 [...] uncontrolled (also use V58.67 if pt has care home (current insulin use) Diabetes Mellitus Type 2 [...] on file Medical Devices Implanted Type Area Circulation Manager Device Identifier Shelf Expiration Date Model / Serial / [facility] - [id number] - [id number] Implanted:Qty: 1 on 10/09/2022 by Abdiaziz Salas M.D., M.S. at [facility] Bone or Tissue Right: Eye [employer]nea[employer] (Prev. Tissue [employer]) 06/20/2024 [id number] / [id number] / Lead [id number] Capsurefix Novus - Sebastian [id number] Implanted:Qty: 1 on 10/20/2008 Cardiac Lead Other/Legacy - See Implant Description Medtronic / [id number] / Description:Device Manufactu rer - [employer] Inc. Body Location - Other. Not Applicable. Device Status Text - CARD [id number]. Lead Tendril [id number] - Sebastian [id number] Implanted:Qty: 1 on 10/20/2008 Cardiac Lead Other/Legacy - See Implant Description [employer] (a Division of [employer]) / [id number] / Description:Device Manufactu rer - [employer]. Body Location - Other. Not Applicable. Device Status Text - CARD LEAD-[id number]. Tutoplast Pericardium 1.5x1.5cm - Sebastian [id number] Implanted:Qty: 1 on 01/22/2012 Ocular (Eye) Implant Right: Other/Legacy - See Implant Description [employer] Inc (Use Katena) Description:Device Manufactu rer - [employer].. Body Location - Right. Device Status Text - [id number]. Valve Ahmed Glaucoma Flex Plate - Sebastian [id number] Implanted:Qty: 1 on 01/22/2012 Ocular (Eye) Implant Right: Other/Legacy - See Implant Description [employer]helf Imports Description:Device Manufactu rer - [employer]. Body Location - Right. Device Status Text - [id number]. Leda Carrington 350 - [id number] - [id number] Implanted:Qty: 1 on 10/09/2022 by [facility]iaziz [facility] M.D[facility] M.S[facility] Ocular (Eye) Implant Right: Eye [employer] (Previously KELLY) 06/02/2024 [id number] / [id number] / Pacer Standard Altrua S-[address] Dr - Sebastian [id number] Implanted:Qty: 1 on 10/20/2008 Pacemaker Other/Legacy - See Implant Description [employer] / [id number] / Description:Device Manufactu rer - [employer]. Body Location - Other. Not Applicable. Device Status Text - PACEMAKER-442508. Pacemaker [employer] [id number] Implanted:10/20 (Quantity not on file) Pacemaker Other/Legacy - See Implant Description [employer] / [id number] / Description:Pacemaker [employer] [id number] ALTRUA 20 Stent Precise Pro Rx [id number] - Sebastian [id number] Implanted:Qty: 1 on 11/27/2011 Vascular Stent Cordis Description:Device Manufactu rer - Cordis Dereck. Device Status Text - VASCULAR-16549. Procedures Procedure Name Priority Date/Time Associated Diagnosis Comments OPHTHALMOLOGY IMAGE EXAM Routine 10/16/2023 10:35 AM CDT HEMOGLOBIN A1C, B Routine 06/07/2015 8:3 6 AM VMWARE ADMINISTRATOR BASIC METABOLIC PANEL, S/P Routine 06/07/2015 8:36 AM VMWARE ADMINISTRATOR ALBUMIN, RANDOM, U Routine 11/24/2014 9: 47 AM CDT from Last 3 Months or Most Recently Relevant to Health Maintenance Results * Visual Arvizu (VF)-Ophthalmology Image Exam (10/16/2023 [...] NON RAD IMAGI NG PROCEDURES IIMS NA * Microalbumin, Random, Urine (11/24/2014 9:47 AM CDT) HXU Albumin % 11.2 MGL POWERCHART Creatinine, Random, U 183.5 MGDL POWERCHART Albumin/Creatin ine Ratio 6 0 - 17 MGG POWERCHART Urine 11/24/2014 9:47 AM CDT Tres Gillespie M.D. LAB URINE ORDERABL ES POWERCHART from Last 3 Months or Most Recently Relevant to Health Maintenance Advance Directives For more information, please contact: [phone] Documents on File Type Date Recorded Patient [employer] Member Expl anation Advance Directives 07/17/2014 12:00 AM [employer] document. See document viewer. Advance Directives 07/13/2014 12:00 AM [employer] document. See document viewer.
--- OUTSIDE RECORDS SUMMARY | 2024-03-18 13:03 | XMS_ITS | Clinical Summary ---
Author Organization [employer] [facility] Address [place], [place] [address] Care Team Providers Care Head Rose Grower Name Role Phone Tres Ling MD Primary Care Provider + Allergies Active Allergy Reactions Criticality Noted Date Comments Brimonidine Erythema High 07/18/2016 Other reaction(s): eye infection Metformin *Unknown Low 09/04/2023 Medications Medication Sig Dispensed Refills Start Date End Date Status aspirin 325 mg tablet Take 325 mg by mouth once daily with a meal. Active dorzolamide-timolol (COSOPT) 2-0.5 % ophthalmic solution Place 1 Drop into both eyes two times daily. Active cholecalciferol (VITAMIN D-3) 2,000 unit capsuleIndications:V itamin D deficiency Take 1 capsule by mouth once daily. 100 capsule 3 07/14/2017 Active latanoprost (XALATAN) 0.005 % ophthalmic solution Place 1 Drop into both eyes at bedtime. 02/13/2018 Active simvastatin (ZOCOR) 40 mg tabletIndications:Hy perlipidemia, unspecified hyperlipidemia type Take 1 tablet by mouth at bedtime. 90 tablet 3 02/26/2018 Active finasteride (PROSCAR) 5 mg tabletIndications:Be nign prostatic hyperplasia, unspecified whether lower urinary tract symptoms present Take 1 tablet by mouth every morning. 90 tablet 3 02/26/2018 Active blood sugar diagnostic (ACCU-CHEK WILLY PLUS TEST STRP) stripIndications:Typ e 2 diabetes mellitus with complication, without long-term current use of insulin (HC) Dispense item covered by pt ins. E11.9 NIDDM type II - Test 4 times/day due to labile sugars 400 Strip 3 05/03/2018 Active Qojas-4-BVS-EPA-Fish Oil (Fish Oil) 1,000 mg (120 mg-180 mg) cap Take 1 Capsule by mouth once daily. Active carboxymethylcellulo se 0.5% (Refresh Tears) 0.5 % drop ophthalmic drops Place 1 Drop into both eyes two times daily. At noon and 3 pm Active pioglitazone (ACTOS) 30 mg tablet Take 30 mg by mouth once daily. Active glimepiride (AMARYL) 4 mg tablet Take 4 mg by mouth two times daily. Active losartan (COZAAR) 50 mg tabletIndications:Es sential hypertension Take 1 Tablet (50 mg) by mouth once daily. 01/18/2024 Active metoprolol succinate (TOPROL XL) 50 mg sustained-release tabletIndications:Es sential hypertension Take 1 Tablet (50 mg) by mouth once daily. 01/18/2024 Active insulin aspart, U-100, (NOVOLOG FLEXPEN) 100 unit/mL (3 mL) penIndications:Type 2 diabetes mellitus without complication, without long-term current use of insulin (HC) Give subcutaneous TID with meals per blood glucose (mg/dL). Don't give corrective dose for PRN, post-prandial or nocturnal glucose checks unless ordered. Blood Glucose.....Dose <70.............. .See Hypoglycemia Protocol 70-149..........N o insulin, give prandial insulin, if ordered 150-199........1 unit 200-249........2 units 250-299........3 units 300-349........4 units 350-399........5 units 400 or greater....6 units & call MD 01/17/2024 Active Active Problems Problem Noted Date Diagnosed [...] Date Type 2 diabetes mellitus without complication 11/29/1911/11/2017 Type 2 diabetes mellitus 09/28/2015 Encounters Date Type Department Care Team Description 03/12/2024 Telephone [facility] [address] [place] [address] Isaac Luong MD 03/07/2024 3:25 PM CDT - 03/07/2024 11:59 PM CDT Hospital Encounter [facility] [address] [place] [address] Isaac Luong MD Pleural effusion 03/07/2024 Travel 03/06/2024 11:00 AM CDT Office Visit [facility] [address] [place] [address] Andres Bishop MD 02/26/2024 11:20 AM CDT Office Visit [facility] [place] [address] [place] [phone] Isaac Luong MD Hospital F/U (- pleural effusion /- feeling stable these days/-recovering at a TCU) 02/26/2024 Travel 02/25/2024 Lab Requisition [facility] [phone] Zaida Rosa NP 02/04/2024 Telephone [facility] [place] [address] [place] [phone] Isaac Luong MD LVM TO SCHED PP 01/17/2024 Orders Only [facility] [address] [place] [address] Richelle Villareal NP <No scans attached> 01/15/2024 Travel 01/13/2024 Travel 01/12/2024 5:33 PM CDT - 01/17/2024 10:30 AM CDT Hospital Encounter [facility] [address] [place] [address] [facility] Toro MD Qamar, Asma, MBBS Diastolic dysfunction (Primary Dx); Essential hypertension; Type 2 diabetes mellitus without complication, without long-term current use of insulin (HC) Discharge Disposition: Fdc Facility 01/12/2024 Telephone [facility] [address] [place] [address] Eran Kay MD C5 TRANFER ACCEPT 01/11/2024 5:35 PM CDT - 01/12/2024 4:25 PM CDT Emergency [facility] [address] [place] [address] Allyn Quevedo MD Connelly, MD Vicky Dean Jaya, MBBS Bodeau, Haleigh Ann, MD Congestive heart failure, unspecified HF chronicity, unspecified heart failure type (HC) (Primary Dx); Hypoxia; Fall, initial encounter; Anemia, unspecified type; Pleural effusion on left; Weakness generalized; Pneumothorax ex vacuo Discharge Disposition: Home Self Care 01/11/2024 Travel from Last 3 Months Immunizations Name Administration Dates Next Due COVID-19 vaccine ([facility] 30mcg/0.3mL) JESSICA PLASENCIA 08/18/2020,07/28/2020 Hepatitis A (Adult) [...] Pressure 107/56 01/17/2024 8:16 AM CDT Pulse 60 02/26/2024 11:00 AM CDT Temperature 36.4 ??C (97.6 ??F) 01/17/2024 8:16 AM CD T Respiratory Rate 15 02/26/2024 11:00 AM CDT Oxygen Saturation 99% 02/26/2024 11:00 AM CDT Inhaled Oxygen Concentration - - Weight 75.3 kg (166 lb) 02/26/2024 11:00 AM CDT Height 170.2 cm (5' 7) 02/26/2024 11:00 AM CDT Body Mass Index 26 02/26/2024 11:00 AM CDT Plan of Treatment Upcoming Encounters Date Type Department Care Team (Late st Contact Info) Description 05/16/2024 Cardiac Device Check [facility] [phone] Health Maintenance Due Date Last Done Comments Medicare Wellness for age 65+ 2003 Zoster (shingles) series for age 50+ (2 of 3) 12/06/2006 10/11/2006 RSV vaccine for adults or (1 - 1-dose 75+ series) 2013 Depression screening for age 12+ 02/26/2019 02/26/2018, 02/21/2018, 11/09/2017, Additional history exists COVID-19 vaccine series ( season) 2024 03/28/2021, 08/18/2020, 07/28/2020 Influenza for age 65+ 02/10/2024 03/05/2017 , 04/14/2016, 06/07/2015, Additional history exists BMI (ht and wt on same day) for age 18+ 02/25/2025 02/26/2024, 02/26/2018, 11/09/2017, Additional history exists Tetanus booster 06/07/2025 06/07/2015 Pneumococcal series for age 65+ Completed 11/24/2014, 06/11/2011, 12/25/2003 Tdap Completed 06/07/2015 Medical Devices Implanted Type Area [employer] We[employer] Equipment Operator Device Identifier Shelf Expiration Date Model / Serial / Lot Standard Pacemaker-2 Implanted: by Neville Dunbar MD (Quantity not on file) Standard Pacemaker [employer] [id number] / [id number] / Procedures Procedure Name Priority Date/Time Associated Diagnosis Comments CT CHEST WO Routine 03/07/2024 3:42 PM CDT Pleural effusion SPIROMETRY AND LUNG VOLUMES WITH BRONCHODILATOR Routine 02/26/2024 11:20 AM CDT Pleural effusion BASIC METABOLIC PANEL Routine 02/26/2024 7:40 AM CDT Essential (primary) hypertension GLUCOSE METER Timed 01/17/2024 8:21 AM CDT [...] Timed 01/14/2024 5:19 PM CDT PATH NON JOB SERVICE CONSULTANT CYTOLOGY Today 01/14/2024 3:32 PM CDT LD,BODY [...] Timed 01/14/2024 8:32 AM CDT HEMOGLOBIN A1C Early AM 01/14/2024 6:42 AM CDT POTASSIUM [...] CDT from Last 3 Months Results * CT CHEST WO (03/07/2024 3:42 PM CDT) Only the most recent of2 resultswithin the time period is included. Anatomical Region Laterality Modality CHEST, THORAX, HEART Computed To mography 03/09/2024 5:48 PM CDT Impressions 03/09/2024 5:48 PM CDT 1. Large right and anndo-sy-cwwbhxhb left pleural effusions associated with atelectasis of the dependent lungs bilaterally. 2. There is thickening of the left pleura in the posterior costophrenic recess. 3. Calcified pleural plaques are noted incidentally. 4. Thickening of the bronchovascular interstitium involving the left inferior lingula and multiple segments of the left lower lobe. Associated superior segment left lower lobe 2.3 cm juxtapleural nodular opacity with a comet tail sign suggesting round atelectasis (series 3; image 74). The finding is considered nonspecific, however, particularly in light of the associated bronchovascular interstitial thickening. Short interval follow-up chest CT is recommended in 6-12 weeks. 5. Respiratory motion artifact limits interpretation. Recommendation: Short interval follow-up chest CT (6-12 weeks). Please note that all CT scans at this facility use dose modulation, iterative reconstruction, and/or weight-based dosing when appropriate to reduce radiation dose to as low as reasonably achievable. Dictated by Francesco Silva MD @ 03/09/2024 5:48:18 PM (Electronically Signed) Narrative 03/09/2024 5:48 PM CDT For Patients: ??As a result of the 21st Century Cures Act, medical imaging exams and procedure reports are released immediately into your electronic medical record. ??You may view this report before your referring provider. ??If you have questions, please contact your health care provider. INDICATION: J90 Pleural effusion ICD-10-CM Pleural effusion Pleural effusionPleural effusion, known or suspected (Sic) COMPARISON: None available. TECHNIQUE: CT of the chest without intravenous contrast. ?? Please note that all CT scans at this facility use dose modulation, iterative reconstruction, and/or weight-based dosing when appropriate to reduce radiation dose to as low as reasonably achievable. FINDINGS: The study is performed without intravenous contrast. ??This limits the sensitivity of the exam for the detection vascular pathology including arterial thrombosis, dissection and pulmonary arterial embolism. Visualized Lower Neck: No lower cervical adenopathy. Mediastinum: Thoracic aorta and pulmonary trunk are normal in caliber. Heart and pericardium are without significant findings. Trachea and esophagus are normal in appearance. There is no mediastinal lymphadenopathy. Lungs and Pleura: Respiratory motion artifact limits interpretation. Thickening of the bronchovascular interstitium involving the left inferior lingula and multiple segments of the left lower lobe. Associated superior segment left lower lobe 2.3 cm juxtapleural nodular opacity with a comet tail sign suggesting round atelectasis (series 3; image 74). The finding is considered nonspecific, however, particularly in light of the associated bronchovascular interstitial thickening. Short interval follow-up chest CT is recommended in 6-12 weeks. Large right and jmcxr-vo-bkiuazrb left pleural effusions associated with atelectasis of the dependent lungs bilaterally. There is thickening of the left pleura in the posterior costophrenic recess. Calcified pleural plaques are noted incidentally. No pneumothorax. Skeleton: Unchanged severe pincer type compression deformities of T8 and L1 and mild superior endplate compression deformities of T1 and T2. Thoracic soft tissues: CR topogram is notable for a right-sided dual lead cardiac conduction device and abandoned cardiac conduction device electrodes overlying the left hemithorax. Leads are positioned over the right atrium and right ventricle. Cardiomegaly. Severe atherosclerotic coronary artery calcification. Diffuse thoracoabdominal subcutaneous edema. Visualized Upper Abdomen: Cholecystectomy. Procedure Note Francesco Silva MD - 03/09/2024 For Patients: As a result of the 21st Century Cures Act, medical imagingexams and procedure reports are released immediately into your electronicmedical record. You may view this report before your referring provider.If you have questions, please contact your health care provider. INDICATION: J90 Pleural effusion ICD-10-CM Pleural effusion Pleural effusionPleural effusion, known or suspected (Sic) COMPARISON: None available. TECHNIQUE: CT of the chest without intravenous contrast. Please note that all CTscans at this facility use dose modulation, iterative reconstruction,and/or weight-based dosing when appropriate to reduce radiation dose to aslow as reasonably achievable. FINDINGS: The study is performed without intravenous contrast. This limits thesensitivity of the exam for the detection vascular pathology includingarterial thrombosis, dissection and pulmonary arterial embolism. Visualized Lower Neck: No lower cervical adenopathy. Mediastinum: Thoracic aorta and pulmonary trunk are normal in caliber.Heart and pericardium are without significant findings. Trachea andesophagus are normal in appearance. There is no mediastinallymphadenopathy. Lungs and Pleura: Respiratory motion artifact limits interpretation.Thickening of the bronchovascular interstitium involving the left inferiorlingula and multiple segments of the left lower lobe. Associated superiorsegment left lower lobe 2.3 cm juxtapleural nodular opacity with a comettail sign suggesting round atelectasis (series 3; image 74). The findingis considered nonspecific, however, particularly in light of theassociated bronchovascular interstitial thickening. Short intervalfollow-up chest CT is recommended in 6-12 weeks. Large right vyykkxkd-at-gpmxuewn left pleural effusions associated with atelectasis ofthe dependent lungs bilaterally. There is thickening of the left pleura inthe posterior costophrenic recess. Calcified pleural plaques are notedincidentally. No pneumothorax. Skeleton: Unchanged severe pincer type compression deformities of T8 andL1 and mild superior endplate compression deformities of T1 and T2. Thoracic soft tissues: CR topogram is notable for a right-sided dual leadcardiac conduction device and abandoned cardiac conduction deviceelectrodes overlying the left hemithorax. Leads are positioned over theright atrium and right ventricle. Cardiomegaly. Severe atheroscleroticcoronary artery calcification. Diffuse thoracoabdominal subcutaneousedema. Visualized Upper Abdomen: Cholecystectomy. IMPRESSION: 1. Large right and bgshv-wy-jgadeorh left pleural effusions associatedwith atelectasis of the dependent lungs bilaterally. 2. There is thickening of the left pleura in the posterior costophrenicrecess. 3. Calcified pleural plaques are noted incidentally. 4. Thickening of the bronchovascular interstitium involving the leftinferior lingula and multiple segments of the left lower lobe. Associatedsuperior segment left lower lobe 2.3 cm juxtapleural nodular opacity witha comet tail sign suggesting round atelectasis (series 3; image 74). Thefinding is considered nonspecific, however, particularly in light of theassociated bronchovascular interstitial thickening. Short intervalfollow-up chest CT is recommended in 6-12 weeks. 5. Respiratory motion artifact limits interpretation. Recommendation: Short interval follow-up chest CT (6-12 weeks). Please note that all CT scans at this facility use dose modulation,iterative reconstruction, and/or weight-based dosing when appropriate toreduce radiation dose to as low as reasonably achievable. Dictated by Francesco Silva MD @ 03/09/2024 5:48:18 PM (Electronically Signed) Isaac Luong MD CT * SPIROMETRY AND LUNG VOLUMES WITH BRONCHODILATOR (02/26/2024 11:20 AM CDT) Narrative Isaac Luong MD - 02/26/2024 11:20 AM CDT Isaac Luong MD ? 02/26/2024 12:57 PM Pulmonary Function Test Interpretation [facility] Ordering Provider: No ref. provider found Reason for Study: (J90) Pleural effusion ??(primary encounter diagnosis) ?? Date of study: 02/26/2024 SPIROMETRY Spirometry suggest restriction. POSTBRONCHODILATOR No improvement. LUNG VOLUMES Severe restriction. Isaac Luong MD Interventional Pulmonology [facility] Pager: [phone] Isaac Luong MD PFT ORD * (ABNORMAL) BASIC METABOLIC PANEL (02/26/2024 7:40 AM CDT) Only the most recent of2 resultswithin the time period is included. SODIUM 142 136 - 145 mmol/L 02/26/2024 9:24 AM [facility] POTASSIUM 4.2 3.5 - 5.1 mmol/L 02/26/2024 9:24 AM [facility] CHLORIDE 105 98 - 107 mmol/L 02/26/2024 9:24 AM [facility] CO2,TOTAL 26 22 - 29 mmol/L 02/26/2024 9:24 AM [facility] ANION GAP 11 5 - 18 02/26/2024 9:24 AM [facility] GLUCOSE 100(H) 70 - 99 mg/dL 02/26/2024 9:24 AM [facility] CALCIUM 9.0 8.8 - 10.2 mg/dL 02/26/2024 9:[address] [facility] BUN 55(H) 8 - 23 mg/dL 02/26/2024 9:[address] [facility] CREATININE 1.43(H) 0.70 - 1.20 mg/dL 02/26/2024 9:[address] [facility] BUN/CREAT RATIO 38(H) 10 - 20 9:[address] [facility] eGFR 48(L) >90 mL/min/1.7 3m2 02/26/2024 9:24 AM [facility] Comment:As of 2021, eG FR is calculated by the CKD-EPI creatinine equation without race adjustment. ??eGFR can be influenced by muscle mass, exercise, and diet. ??The reported eGFR is an estimation only and is only applicable if the renal function is stable. Blood BLOOD SPECIMEN / Unknown Butterfly / Unknown 02/26/2024 7:40 AM CDT 02/26/2024 9:00 AM CDT Zaida Rosa NP CHEMISTRY [facility] [address] [place] [address] * (ABNORMAL) GLUCOSE METER (01/17/2024 8:21 AM CDT) Only the most recent of20 resultswithin the time period is included. [facility] Signature GLUCOSE METER 120(H) 65 - 100 mg/dL 01/17/2024 8:22 AM CDT [facility] Blood BLOOD SPECIMEN / Unknown 01/17/2024 8:21 AM CDT 01/17/2024 8:22 AM CDT Luis F BENAVIDES CHEMISTRY [facility] [address] [place] [address], [place] * LEGIONELLA AND PNEUMOCOCCAL URINE ANTIGEN (01/16/2024 6:50 PM CDT) STREP PNEUMO ANTIGEN Negative 01/16/2024 7:45 PM CDT [facility] Comment:Presumptive negative for pneumococcal pneumonia, suggesting no current or recent pneumococcal infection. Infection due to S. pneumoniae cannot be ruled out since the antigen present in the sample may be below the detection limit of the test. LEGIONELLA ANTIGEN Negative 01/16/2024 7:45 PM CDT [facility] Comment:Negative for L.pneum ophila serogroup 1 [...] 01/16/2024 7:04 PM CDT Luis F Perez [facility] MICROBIOLOGY [facility] [address] [place] [id number], [place] * XR CHEST 1 VIEW PORTABLE (01/16/2024 12:20 PM CDT) Only the most recent of6 resultswithin the time period is included. Anatomical Region Laterality Modality HEART, THORAX, CHEST Digital Rad iography 01/16/2024 3:26 PM CDT Impressions 01/16/2024 3:26 PM CDT Interval removal of left chest tube. No pneumothorax. Dictated by Clifford Pink MD @ Jan ??7 2023 ??3:26PM (Electronically Signed) [email or web address] Narrative 01/16/2024 3:26 PM CDT For Patients: [...] @ Jan 16 2024 3:26PM (Electronically Signed) [email or web address] Tribute Luis F BENAVIDES [facility]AL IM[facility] * STREP A PCR (01/16/2024 11:32 AM CDT) GROUP A STREP Negative 01/16/2024 12:58 PM CDT [facility] Throat SPECIMEN FROM THROAT / Unknown Non-Blood / Unknown 01/16/2024 11:32 AM CDT 01/16/2024 12:24 PM CDT Luis F BENAVIDES MICROBIOLOGY [facility] [address] [place] [address], * THROAT RAPID STREP A WITH REFLEX (01/16/2024 11:32 AM CDT) STREP A ANTIGEN Negative 01/16/2024 12:24 PM CDT [facility] Comment:PCR to follow. Throat SPECIMEN FROM THROAT / Unknown Non-Blood / Unknown 01/16/2024 11:32 AM CDT 01/16/2024 12:02 PM CDT Luis F BENAVIDES MICROBIOLOGY Performing Organization Address [facility]/ZIP Co de Phone Number [facility] [address] [place] [address], * POTASSIUM (01/16/2024 7:35 AM CDT) Only the most recent of3 resultswithin the time period is included. POTASSIUM 3.6 3.5 - 5.1 mmol/L 01/16/2024 8:10 AM CDT [facility] Blood BLOOD SPECIMEN / Unknown Non-Lab Venipuncture / Unknown 01/16/2024 7:35 AM CDT 01/16/2024 7:41 AM CDT Getachew Pastrana MD CHEMISTRY Performing Organization Address [facility] Co de Phone Number [facility] [address] [place] [address], * BODY FLUID CULTURE,STAIN (AEROBIC) (01/15/2024 4:56 PM CDT) CULTURE No Growth. 01/21/2024 10:07 AM CDT [facility] GRAM STAIN No PMNs 01/21/2024 10:07 AM CDT [facility] GRAM STAIN No Epithelial cells 01/21/2024 10:07 AM CDT [facility] GRAM STAIN 2+ RBCs 01/21/2024 10:07 AM CDT [facility] GRAM STAIN No organisms seen 01/21/2024 10:07 AM CDT [facility] Body Fluid (Pleural) Non-Blood / Unknown 01/15/2024 4:56 PM CDT 01/15/2024 5:04 PM CDT Luis F Perez [facility] MICROBIOLOGY [facility] [address] [place] [address], * SCAN-CARDIAC STRIP (01/15/2024 8:20 AM CDT) Scanner OTHER * Cytology Pleural Fluid (LEFT) (01/14/2024 3:32 PM CDT) Case Report Medical Cytology Report ? Case: [id number] ? Authorizing Provider: ??Luis Angel Jasso, ?Collected: ? 01/14/2024 1532 ? Ordering Location: ? [facility] ?Received: ?01/14/2024 153 ? Hospital ? Pathologist: ? Segundo Cuevas MD ? Specimen: ?Left Pleural Fluid ? 01/16/2024 4:46 PM CDT [facility] Final Diagnosis A) LEFT PLEURAL FLUID, CYTOLOGY WITH CELL BLOCK: 1. Negative for malignancY 2. Blood 01/16/2024 4:46 PM CDT [facility] Clinical Information Left pleural effusion 01/16/2024 4:46 PM CDT [facility] Gross Description A) SOURCE: Pleural fluid, [...] than 72 hours. 01/16/2024 4:46 PM CDT [facility] Microscopic Description Specimen adequacy: Adequate for interpretation. All slides were reviewed. The microscopic appearance substantiates the diagnosis. 01/16/2024 4:46 PM CDT [facility] Additional Information Cytology is screened at [facility] - [address] [address] and [facility] - [address] [place] [address] and [facility] - [address] [place] [address] Interpreted at [facility] - [address], [place] [address] 01/16/2024 4:46 PM CDT [facility] Other (Left Pleural Fluid) Non-Blood / Unknown 01/14/2024 3:32 PM CDT 01/14/2024 3:34 PM CDT Comment:Collect from fluid a trium Luis Angel Jasso DO PATHOLOGY/CYTOLOGY [facility] [address] [place] [address], [place] * Cell Count Pleural Fluid (LEFT) (01/14/2024 3:22 PM CDT) BODY FLUID SOURCE Pleural Fluid 01/14/2024 4:41 PM CDT [facility] Comment:Left BODY FLUID COLOR Grossly Bloody 01/14/2024 4:41 PM CDT [facility] BODY FLUID CLARITY Turbid 01/14/2024 4:41 PM CDT [facility] TOTAL NUCLEATED CELLS, BF 146 /cu mm 01/14/2024 4:41 PM CDT [facility] RED BLOOD COUNT, BODY FLUID 128,000 /cu mm 01/14/2024 4:41 PM CDT [facility] % NEUTROPHILS, BODY FLUID 56 % 01/14/2024 4:41 PM CDT [facility] % LYMPHOCYTES, BODY FLUID 44 % 01/14/2024 4:41 PM CDT [facility] Body Fluid SPECIMEN FROM PLEURA OBTAINED BY THORACENTESIS / Unknown Non-Blood / Unknown 01/14/2024 3:22 PM CDT 01/14/2024 3:33 PM CDT Narrative [facility] - 01/14/2024 4:41 PM CDT Collect from fluid atrium TO ORDER BODY FLUID CULTURES, USE; [id number] BODY FLUID CULTURE, STAIN Luis Angel Jasso DO BODY FLUID [facility] [address] [place] [address], [place] * Protein Pleural Fluid (LEFT) (01/14/2024 3:22 PM CDT) Only the most recent of2 resultswithin the time period is included. SPECIMEN SOURCE Thoracentesis 01/14/2024 6:18 PM CDT [facility] PROTEIN,BODY FLUID 3.1 g/dL 01/14/2024 6:18 PM CDT [facility] Comment:No Reference Range D efined. Body Fluid SPECIMEN FROM PLEURA OBTAINED BY THORACENTESIS / Unknown Non-Blood / Unknown 01/14/2024 3:22 PM CDT 01/14/2024 3:33 PM CDT Narrative [facility] - 01/14/2024 6:18 PM CDT Pleural: [...] Test developed & performance characteristics [facility] [place] [place] consistent with CLIA requirements. Not cleared or approved by [place] FDA. Luis Angel Jasso DO BODY FLUID [facility] [address] [place] [address], * LD Pleural Fluid (LEFT) (01/14/2024 3:22 PM CDT) Only the most recent of2 resultswithin the time period is included. SPECIMEN SOURCE Thoracentesis 01/14/2024 6:18 PM CDT [facility] LD,BODY FLUID 376 IU/L 01/14/2024 6:18 PM CDT [facility] Body Fluid SPECIMEN FROM PLEURA OBTAINED BY THORACENTESIS / Unknown Non-Blood / Unknown 01/14/2024 3:22 PM CDT 01/14/2024 3:33 PM CDT [facility] - 01/14/2024 6:18 PM CDT Pleural: ? [...] Test developed & performance characteristics determined by [employer], [place], [place] consistent with CLIA requirements. Not cleared or approved by [place] FDA. Luis Angel Jasso DO BODY FLUID [facility] [address] [place] [address], * ECHO TTE COMPLETE WO CONTRAST (01/14/2024 1:44 PM CDT) AORTIC VALVE MEAN PG 4 mmHg PEAK TR VELOCITY 2.5 m/s LVEDD 3.1 cm EJECTION FRACTION 55 - 60% Anatomical Region Laterality Modality Ultrasound 01/14/2024 10:0 7 AM CDT Narrative 01/14/2024 4:46 PM CDT ECHOCARDIOGRAM EMILIO RIDER ?Accession#: ?? [id number] : ?1940 83 years Study Date: ?? 01/14/2024 10:07:48 AM Gender: M ? BP: ? 147/71 mmHg Height: 170.00 cm ? BSA: ?1.75 m? ? ? Weight: 65.00 kg ?Tech: ? OZZIE/CM ?Referring MD: ERAN KAY Site: ? [facility] Reading Location: [facility] Patient Location: Inpatient. Procedure: 2D, Color Doppler [...] . This study was interpreted by an [facility] accredited facility. ??Final ?? Procedure Note Carole Carbjaal MD - 01/14/2024 ECHOCARDIOGRAM EMILIO RIDER : 1940 83 years Study Date: 01/14/2024 10:07:48 AM Gender: M BP: 147/71 mmHg Height: 170.00 cm BSA: 1.75 m? ? ? Weight: 65.00 kg Tech: OZZIE/CM Referring MD: ERAN KAY Site: [facility] Reading Location: [facility] Patient Location: Inpatient. Procedure: 2D, Color [...] . This study was interpreted by an [facility] accredited facility. Final Eran Kay MD ECHO ORD * PACER [place] DUAL CHAMBER WO REPROG (01/14/2024 11:14 AM CDT) Narrative Neville Dunbar MD - 01/14/2024 11:14 AM CDT Erickson Fox RN ? 01/14/2024 11:36 AM PACEMAKER EVALUATION REPORT 01/14/2024 Indication for Pacemaker: Complete Heart Block Primary MD: Tres Ling MD Primary Watch Crystal Edge Grinder: ?? Implanting MD: Neville Dunbar MD DEVICE DATA [employer]sn[employer]Ssbn Weapons Equipment [employer]:Model [address] ??Implant Date: 09/29/2015 LEAD DATA ?? Atrial Lead: Ssn[employer]Ss[employer] Equipment Operator [employer]: Model 4135 ??Implant Date: 09/29/2015 RV Lead: Ssn/Ssbn Weapons Equipment Operator [employer]: Model 4136 ??Implant Date: 09/29/2015 Capped leads: ?? Atrial Lead: Ssn/Ssbn Weapons Equipment Operator [employer]: Model 1882- 52 cm ?? Implant Date 10/20/2008 RV Lead: Ssn/Ssbn Weapons Equipment Operator [employer]: Model 4076 ??Implant Date 10/20/2008 Visit location: [facility] H8000 Reason For Evaluation: Overdue last checked 12/18/2022 MEASUREMENTS Atrial Sensing - P wave: 2.9 mV Atrial Capture: Maintained: 0.7 V @ 0.4 ms Atrial Lead Impedance: 518 ohms Ventricular Sensing - R wave: no R waves at VVI 30 bpm Ventricular Capture: 0.7 V @ 0.4 ms Ventricular Lead Impedance: Right - 528 ohms ?? Underlying Rhythm: ??Sinus Bradycardia at 54 bpm with CHB, no escape at VVI 30 bpm DIAGNOSTIC DATA - since 12/18/2022 Atrial paced: 81% Ventricular paced: 100% Atrial Episodes: ??3 detections, all < 10 seconds in duration. No symptoms reported. Ventricular High Rates: None Sensor response: Appropriate heart rate distribution Magnet rate: 100 bpm ?? Estimated Battery Longevity: 6.5 years FINAL PARAMETERS Mode: DDDR ??Lower Rate: 60 bpm ??Upper Rate: 120/130 bpm ??AV Delay: 100/180; 85/150 ms ??Mode Switch: 150 bpm ??Rate Response: MV off, accelerometer 8 Atrial - Amplitude: Auto 2 V ??Pulse width: 0.4 ms ??Sensitivity: Fixed 0.5 mV ??Refractory: 240/320 ms ??Polarity: Bipolar Ventricular - Amplitude: Auto 1.3 V ??Pulse width: 0.4 ms ?? Sensitivity: Fixed 2.5 mV ??Refractory: 230/250 ms ??Polarity: Bipolar Changes made: Device temporarily reprogrammed, iterative adjustments made during interrogation/testing. No permanent changes made. Conclusions: Normal pacemaker function. Stable lead measurements. No significant arrhythmias. Follow up: cancelled [place] appt and mailed remote for 05/16/2024. Routine is every 3-4 month [place], annual in [place] due in January Signed by: Jaxon Fox RN, CCDS 01/14/2024 Neville Dunbar MD CARDIAC SERVICES OR D * SCAN-CARDIAC STRIP (01/14/2024 10:10 AM CDT) Scanner OTHER * (ABNORMAL) HEMOGLOBIN A1C SCREENING (01/14/2024 6:42 AM CDT) HEMOGLOBIN A1C SCREENING 8.6(H) <=6.4 % 01/14/2024 7:58 AM CDT [facility] Blood BLOOD SPECIMEN / Unknown Venipuncture / Unknown 01/14/2024 6:42 AM CDT 01/14/2024 7:28 AM CDT Narrative [facility] - 01/14/2024 7:58 AM CDT ? (<5.7%) ?Normal ? (5.7% to 6.4%) ? Indicates prediabetes ? (>=6.5%) ? Confirms diabetes Falsely low levels may be seen with: Recent Transfusion, Recent Significant Blood Loss, Hemolytic Diseases, or Falsely elevated levels may be seen with: Untreated Anemias, Splenectomy Luis F BENAVIDES CHEMISTRY [facility] [address] [place], [place] [address], * SCAN-CARDIAC STRIP (01/14/2024 1:49 AM CDT) Scanner OTHER * CT CHEST TUBE PLACEMENT LEFT (01/13/2024 3:11 PM CDT) Anatomical Region Laterality Modality Computed Tomogra phy Narrative 01/13/2024 3:42 PM CDT RADIOLOGY POST PROCEDURE NOTE ?? 01/13/2024 Emilio Rider [id number] INFORMEDCONSENT: In my discussion, prior to [...] was used for local anesthesia. ??A 12 Tristanian drainage catheter was advanced into the pneumothorax [...] TECHNIQUE: Anterior left chest. EQUIPMENT UTILIZED: 12 Tristanian drainage catheter. CLOSURE: ??none RADIATION DOSE: ?? total exam DLP: 411 mGy-cm MEDICATIONS GIVEN: ?1% Lidocaine was used for local anesthesia. SPECIMEN(S): None. COMPLICATIONS: no complications noted DRAINS: 12 Tristanian drainage catheter. ESTIMATED BLOOD LOSS: ??Less than 10 cc. PHYSICIAN(S) AND ASSISTANTS (if any): ??Chase Child MD Additional Comments: Please call with questions. Chase Child MD [place] Protocol A. Pre-procedure verification complete yes 1-relevant [...] reasonably achievable. Getachew Pastrana MD CT * SCAN-CARDIAC STRIP (01/13/2024 10:48 AM CDT) Scanner OTHER * (ABNORMAL) LD,TOTAL (01/13/2024 7:57 AM CDT) LD,TOTAL 284(H) 135 - 225 IU/L 01/13/2024 9:24 AM CDT [facility] Blood BLOOD SPECIMEN / Unknown Venipuncture / Unknown 01/13/2024 7:57 AM CDT 01/13/2024 8:16 AM CDT Thi WALLIS CHEMISTRY [facility] [address] [place] [address] * (ABNORMAL) COMP METABOLIC PANEL (01/13/2024 7:57 AM CDT) Pathologist [facility] SODIUM 142 136 - 145 mmol/L 01/13/2024 8:42 AM CDT [facility] POTASSIUM 3.2(L) 3.5 - 5.1 mmol/L 01/13/2024 8:42 AM CDT [facility] CHLORIDE 100 98 - 107 mmol/L 01/13/2024 8:42 AM CDT [facility] CO2,TOTAL 32(H) 22 - 29 mmol/L 01/13/2024 8:42 AM CDT [facility] ANION GAP 10 5 - 18 01/13/2024 8:42 AM CDT [facility] GLUCOSE 70 70 - 99 mg/dL 01/13/2024 8:42 AM CDT [facility] CALCIUM 9.0 8.8 - 10.2 mg/dL 01/13/2024 8:42 AM CDT [facility] BUN 21 8 - 23 mg/dL 01/13/2024 8:42 AM CDT [facility] CREATININE 1.09 0.70 - 1.20 mg/dL 01/13/2024 8:42 AM CDT [facility] BUN/CREAT RATIO 19 10 - 20 8:42 AM CDT [facility] eGFR 67(L) >90 mL/min/1.7 3m2 01/13/2024 8:42 AM CDT [facility] Comment:As of 2021, eG FR is calculated by the CKD-EPI creatinine equation without race adjustment. ??eGFR can be influenced by muscle mass, exercise, and diet. ??The reported eGFR is an estimation only and is only applicable if the renal function is stable. ALBUMIN 3.4(L) 4.0 - 4.9 g/dL 01/13/2024 8:42 AM CDT [facility] PROTEIN,TOTAL 6.8 6.0 - 8.0 g/dL 01/13/2024 8:42 AM CDT [facility] BILIRUBIN,TOTAL 0.6 0.0 - 1.2 mg/dL 01/13/2024 8:42 AM CDT [facility] ALK PHOSPHATASE 107 40 - 129 IU/L 01/13/2024 8:42 AM CDT [facility] ALT (SGPT) 6(L) 10 - 50 IU/L 01/13/2024 8:42 AM CDT [facility] AST (SGOT) 25 10 - 50 IU/L 01/13/2024 8:42 AM CDT [facility] Blood BLOOD SPECIMEN / Unknown Venipuncture / Unknown 01/13/2024 7:57 AM CDT 01/13/2024 8:14 AM CDT Thi [place] CHEMISTRY [facility] [address] [place] [address], * SCAN-CARDIAC STRIP (01/12/2024 11:16 PM CDT) [...] ??Alternatives discussed: ??Delayed treatment, observation and referral [place] protocol: ??Procedure explained and questions answered to [...] midscapular line ??Intercostal space: ??6th ??Puncture method: ??Dpby-ftt-jqfrgy catheter ??Ultrasound guidance: yes ?Indwelling catheter placed: yes ?Needle gauge: ??18 ??Catheter size: ??8 Fr ??Number of attempts: ??1 ??Fluid characteristics: 1.3 L removed of yellow pleural fluid, some serosanguinous. Post-procedure details: ??Chest x-ray performed: yes ?Chest x-ray findings: ??Pneumothorax and pleural effusion improved ??Procedure completion: ??Tolerated Andres Hampton MD PROCEDURE ORD * COVID-19 MOLECULAR (01/12/2024 4:15 AM CDT) [facility] COVID 19 [place] MOLECULAR Not detected Not detected 01/12/2024 4:[address] [facility]ING LAB[facility]ATORY [facility] 01/12/2024 4:[address] [facility] Comment:Specimen submitted t o [facility] for testing. Other SPECIMEN FROM NASOPHARYNGEAL STRUCTURE / Unknown Non-Blood / Unknown 01/12/2024 4:15 AM CDT 01/12/2024 4:18 AM CDT Andres Hampton MD MICROBIOLOGY Performing Organization Address [facility] Co de Phone Number [facility] [address] [place] [address] * INFLUENZA A/B PCR (01/12/2024 4:15 AM CDT) [facility] INFLUENZA A PCR NOT Detected 01/12/2024 4:[address] [facility] INFLUENZA B PCR NOT Detected 01/12/2024 4:[address] [facility] Other SPECIMEN FROM NASOPHARYNGEAL STRUCTURE / Unknown Non-Blood / Unknown 01/12/2024 4:15 AM CDT 01/12/2024 4:18 AM CDT Andres Hampton MD MICROBIOLOGY Performing Organization Address [facility]/ZIP Co de Phone Number [facility] [address] [place] [address] * URINALYSIS MICROSCOPIC (01/11/2024 9:42 PM CDT) [facility] RBC None Seen 0-2, None Seen /HPF 01/11/2024 9:[address] [facility] WBC None Seen 0-2, 3-5, None Seen /HPF 01/11/2024 9:56 PM [facility] BACTERIA Rare None Seen, Rare, Few Bacteria/ HPF 01/11/2024 9:[address] [facility] EPITHELIAL CELLS None Seen None Seen, Few Epi/HPF 01/11/2024 9:[address] [facility] Urine URINE SPECIMEN / Unknown Non-Blood / Unknown 01/11/2024 9:42 PM CDT 01/11/2024 9:47 PM CDT Allyn Quevedo MD URINE [facility] [address] [place] [address] * (ABNORMAL) UA W/ SEDIMENT EXAM REFLEXED PER CRITERIA (01/11/2024 9:42 PM CDT) COLOR Yellow Yellow Color 01/11/2024 9:50 PM [facility] CLARITY Clear Clear Clarity 01/11/2024 9:50 PM [facility] SPECIFIC GRAVITY,URINE 1.015 1.010, 1.015, 1.020, 1.025 01/11/2024 9:50 PM [facility] PH,URINE 7.5 6.0, 7.0, 8.0, 5.5, 6.5, 7.5, 8.5 01/11/2024 9:50 PM [facility] UROBILINOGEN, QUALITATIVE Normal Normal EU/dl 01/11/2024 9:50 PM [facility] PROTEIN, URINE Negative Negative mg/dL 01/11/2024 9:50 PM [facility] GLUCOSE, URINE 500(A) Negative mg/dL 01/11/2024 9:50 PM [facility] KETONES,URINE Negative Negative mg/dL 01/11/2024 9:50 PM [facility] BILIRUBIN,URI NE Negative Negative 01/11/2024 9:50 PM [facility] OCCULT BLOOD,URINE Trace(A) Negative 01/11/2024 9:[address] [facility] NITRITE Negative Negative 01/11/2024 9:[address] [facility] LEUKOCYTE ESTERASE Negative Negative 01/11/2024 9:[address] [facility] Urine URINE SPECIMEN / Unknown Non-Blood / Unknown 01/11/2024 9:42 PM CDT 01/11/2024 9:47 PM CDT Allyn Quevedo MD URINE [facility] [address] [place] [address] * CT CHEST ABDOMEN PELVIS W (01/11/2024 [...] For Patients: ??As a result of the 21st Century Cures Act, medical imaging exams and [...] For Patients: As a result of the Century Cures Act, medical imagingexams and procedure reports [...] (HS) ONE TIME (01/11/2024 8:33 PM CDT) [facility] TROPONIN T HS 45(H) 6-15 ng/L ng/L 01/11/2024 8:[address] [facility] Blood BLOOD SPECIMEN / Unknown [place]fly / Unknown 01/11/2024 8:33 PM CDT 01/11/2024 8:39 PM CDT Andres Hampton MD CHEMISTRY Performing Organization Address [facility] Co de Phone Number [facility] [address] [place] [phone] * TYPE AND SCREEN ONLY (01/11/2024 8:33 PM CDT) [facility] ABORH B Rh Positive 01/11/2024 9:[address] [facility] BLOOD BANK ANTIBODY SCREEN Negative Negative 01/11/2024 9:[address] [facility] BLOOD BANK SPECIMEN EXPIRATION DATE/TIME 01/14/24 23:59 01/11/2024 9:[address] [facility] BLOOD BANK Blood BLOOD SPECIMEN / Unknown Butterfly / Unknown 01/11/2024 8:33 PM CDT 01/11/2024 8:39 PM CDT Andres Hampton MD BLOOD BANK [facility] BLOOD BANK [address] [place] [address] * EKG 12 LEAD (01/11/2024 7:21 PM CDT) Interpretation AV dual-paced rhythm Abnormal ECG When compared with ECG of 27-Feb-2023 15:47, Vent. rate has decreased by ?? 3 bpm BEYOND NOW Ventricular Rate 60 BPM BEYOND NOW Atrial Rate 60 BPM BEYOND NOW P-R Interval 188 ms BEYOND NOW QRS Duration 146 ms BEYOND NOW QT 506 ms BEYOND NOW QTc 506 ms BEYOND NOW P [place] degrees BEYOND NOW R [place] 39 degrees BEYOND NOW T [place] -65 degrees BEYOND NOW 01/11/2024 7:21 PM CDT 01/11/2024 7:55 PM CDT Allyn Quevedo MD EKG ORD Performing Organization Address [facility] Co de Phone Number BE[facility]OND NOW [place], [place] * CT SPINE CERVICAL WO (01/11/2024 [...] For Patients: ??As a result of the 21st Century Cures Act, medical imaging exams and [...] hypoattenuation, typical for chronic microvascular ischemic change. Wuyp-br-txeihyhv generalized parenchymal volume loss. Renovascular calcifications. No [...] white matterhypoattenuation, typical for chronic microvascular ischemic change.Bhlv-eh-ftshfzsx generalized parenchymal volume loss. Renovascularcalcifications. No acute [...] 6-15 ng/L ng/L 01/11/2024 8:[address] [facility] Blood BLOOD SPECIMEN / Unknown Venipuncture / Unknown 01/11/2024 6:36 PM CDT 01/11/2024 6:[address] [facility] - 01/11/2024 8:45 PM CDT hs-cTnT [...] department patient population. Andres Hampton MD CHEMISTRY [facility] [address] [place] [address] * (ABNORMAL) CBC W PLT NO DIFF (01/11/2024 6:36 PM CDT) [facility] WHITE BLOOD COUNT 7.7 4.5 - 11.0 thou/cu mm 01/11/2024 6:[address] [facility] RED BLOOD COUNT 2.95(L) 4.30 - 5.90 mil/cu mm 01/11/2024 6:[address] [facility] HEMOGLOBIN 9.5(L) 13.5 - 17.5 g/dL 01/11/2024 6:[address] [facility] HEMATOCRIT 30.5(L) 37.0 - 53.0 % 01/11/2024 6:45 PM [facility] MCV 103(H) 80 - 100 fL 01/11/2024 6:[address] [facility] MCH 32.2 26.0 - 34.0 pg 01/11/2024 6:[address] [facility] MCHC 31.1(L) 32.0 - 36.0 g/dL 01/11/2024 6:45 PM [facility] RDW 13.8 11.5 - 15.5 % 01/11/2024 6:45 PM [facility] PLATELET COUNT 182 140 - 440 thou/cu mm 01/11/2024 6:45 PM [facility] MPV 10.9 6.5 - 11.0 fL 01/11/2024 6:[address] [facility] Blood BLOOD SPECIMEN / Unknown Venipuncture / Unknown 01/11/2024 6:36 PM CDT 01/11/2024 6:41 PM CDT Allyn Quevedo MD HEMATOLOGY [facility] [address] [place] [address] * (ABNORMAL) PROTIME-INR (01/11/2024 6:36 PM CDT) INR 1.5(H) <1.3 01/11/2024 8:[address] [facility] PROTIME 16.4(H) 10.3 - 12.3 sec 01/11/2024 8:28 PM [facility] Blood BLOOD SPECIMEN / Unknown Venipuncture / Unknown 01/11/2024 6:36 PM CDT 01/11/2024 8:24 PM CDT [facility] - 01/11/2024 8:28 PM CDT ?Therapeutic [...] is on UFH. Andres Hampton MD HEMATOLOGY [facility] [address] [place] [address] * (ABNORMAL) PRO-BNP (01/11/2024 6:36 PM CDT) [facility] PRO-BNP 12,163(H) <450 pg/mL 01/11/2024 8:[address] [facility] Blood BLOOD SPECIMEN / Unknown Venipuncture / Unknown 01/11/2024 6:36 PM CDT 01/11/2024 6:41 PM CDT [facility] - 01/11/2024 8:45 PM CDT The [...] Hampton MD SEND OUTS Performing Organization Address [facility]/ZIP Co de Phone Number [facility] [address] [place] [address] * CK TOTAL (01/11/2024 6:36 PM CDT) [facility] CK,TOTAL 151 39 - 308 IU/L 01/11/2024 7:[address] [facility] Blood BLOOD SPECIMEN / Unknown Venipuncture / Unknown 01/11/2024 6:36 PM CDT 01/11/2024 6:41 PM CDT Allyn Quevedo MD CHEMISTRY Performing Organization Address [facility] Co de Phone Number [facility] [address] [place] [address] * SCAN-PACER (01/11/2024 12:00 AM CDT) Narrative 01/11/2024 12:00 AM CDT Ordered by an unspecified provider. Other Clinical Staff OTHER * SCAN-PACER (01/11/2024 12:00 AM CDT) Narrative 01/11/2024 12:00 AM CDT Ordered by an unspecified provider. Other Clinical Staff OTHER from Last 3 Months Advance Directives Documents on File Type Date Recorded Patient Business Intelligence Architect Expl anation Healthcare Directive 06/30/2014 3:23 PM [...] Comments Code Status Discussion: Discussed Care Teams Head Rose Grower Relationship Specialty Start Date End Date Tres Ling MD [address] [place] [address] PCP - General Family Practice 04/19/19
--- OUTSIDE RECORDS SUMMARY | 2024-03-18 13:03 | XMS_ITS | Encounter Summary ---
Author Organization [facility] Address [address] [place] [address] Care Team Providers Care Phlebotomy Services Representative Name Role Phone Unavailable Primary Care Provider Unavailabl e Encounter Details Date Type Department Care Team (Late st Contact Info) Description 09/11/2016 Historical Ophthalmology [facility] [place] [address] Social History Tobacco Use Types Packs/Day Years [...] RNFL: Ave RNFL thickness = 62/68; SS 8/; OD - thinning sup and inf; OS [...] Dry eye CDM Reports - EYEGEN Id: [id number] Status: Fnl documented in this encounter Plan of Treatment Not on file documented as of this encounter Visit Diagnoses Not on filedocumented in this encounter Additional Health Concerns Assessment Noted Time PHQ-9 Depression Total Score: 1 02/13/20 13 10:20 AM CDT documented as of this encounter
--- OUTSIDE RECORDS SUMMARY | 2024-03-18 13:03 | XMS_ITS | Encounter Summary ---
Author Organization [facility] Address [address] [place] [address] Care Team Providers Care Structural Rigger Name Role Phone Unavailable Primary Care Provider Unavailabl e Encounter Details Date Type Department Care Team (Late st Contact Info) Description 08/03/2016 Historical Ophthalmology [facility] [place] [address] Social History Tobacco Use Types Packs/Day Years [...] Dry eye CDM Reports - EYEGEN Id: [id number] Status: Fnl documented in this encounter Plan of Treatment Not on file documented as of this encounter Visit Diagnoses Not on filedocumented in this encounter Additional Health Concerns Assessment Noted Time PHQ-9 Depression Total Score: 1 02/13/20 13 10:20 AM CDT documented as of this encounter
--- OUTSIDE RECORDS SUMMARY | 2024-03-18 13:03 | XMS_ITS | Encounter Summary ---
Author Organization [facility] Address [address] [place] [address] Care Team Providers Care Business School Dean Name Role Phone Unavailable Primary Care Provider Unavailabl e Encounter Details Date Type Department Care Team (Late st Contact Info) Description 07/07/2016 Historical Ophthalmology [facility] Walter Talamantes M.D., Ph.D. [address] [place] [address] Social History Tobacco Use Types Packs/Day Years [...] Dry eye CDM Reports - EYEGEN Id: [id number] Status: Fnl documented in this encounter Plan of Treatment Not on file documented as of this encounter Visit Diagnoses Not on filedocumented in this encounter Additional Health Concerns Assessment Noted Time PHQ-9 Depression Total Score: 1 02/13/20 13 10:20 AM CDT documented as of this encounter
--- OUTSIDE RECORDS SUMMARY | 2024-03-18 13:03 | XMS_ITS | Encounter Summary ---
Author Organization [facility] Address [address] [place] [address] Care Team Providers Care Unitizer Name Role Phone Unavailable Primary Care Provider Unavailabl e Encounter Details Date Type Department Care Team (Late st Contact Info) Description 06/07/2016 Historical Ophthalmology [facility] Walter Talamantes M.D., Ph.D. [address] [place] [address] Social History Tobacco Use Types Packs/Day Years [...] Dry eye CDM Reports - EYEGEN Id: [id number] Status: Fnl documented in this encounter Plan of Treatment Not on file documented as of this encounter Visit Diagnoses Not on filedocumented in this encounter Additional Health Concerns Assessment Noted Time PHQ-9 Depression Total Score: 1 02/13/20 13 10:20 AM CDT documented as of this encounter
--- OUTSIDE RECORDS SUMMARY | 2024-03-18 13:03 | XMS_ITS | Encounter Summary ---
Author Organization [facility] Address [address] [place] [address] Care Team Providers Care Airline Station Agent Name Role Phone Unavailable Primary Care Provider Unavailabl e Encounter Details Date Type Department Care Team (Latest Contact Info) Description 01/09/2024 Clinical Communication Department of Ophthalmology in [place], [place] [address] [place] [address] Cherri Dorsey M.D., M.S. [address] [place] [address] Social History Tobacco Use Types Packs/Day Years [...]
--- OUTSIDE RECORDS SUMMARY | 2024-03-18 13:03 | XMS_ITS | Encounter Summary ---
Author Organization [facility] Address [address] [place] [address] Care Team Providers Care Tool Repair Technician Name Role Phone Unavailable Primary Care [...] diabetic retinopathy CDM Reports - EYEGEN Id: [id number] Status: Fnl documented in this encounter Plan of Treatment Not on file documented as of this encounter Visit Diagnoses Not on filedocumented in this encounter Additional Health Concerns Assessment Noted Time PHQ-9 Depression Total Score: 1 02/13/20 13 10:20 AM CDT documented as of this encounter
--- OUTSIDE RECORDS SUMMARY | 2024-03-18 13:03 | XMS_ITS ---
Author Organization [facility] Address [address] [place] [address] Care Team Providers Care Entertainment Reporter Name Role Phone Unavailable Unavailable Unavailable Surgery Details Not on file Complications Check Surgery Details section. Procedure Estimated Blood Loss Check Surgery Details section. Procedure Findings Check Surgery Details section. Procedure Specimens Taken Check Surgery Details section.
--- OUTSIDE RECORDS SUMMARY | 2024-03-18 13:03 | XMS_ITS | Encounter Summary ---
Author Organization [facility] Address [address] [place] [address] Care Team Providers Care Card Stripper Name Role Phone Unavailable Primary Care Provider Unavailabl e Encounter Details Date Type Department Care Team (Late st Contact Info) Description 01/31/2016 Historical Ophthalmology RST OPH Walter Talamantes M.D., Ph.D. [address] [place] [address] Social History Tobacco Use Types Packs/Day Years [...] Refractive error CDM Reports - EYEGEN Id: [id number] Status: Fnl documented in this encounter Plan of Treatment Not on file documented as of this encounter Visit Diagnoses Not on filedocumented in this encounter Additional Health Concerns Assessment Noted Time PHQ-9 Depression Total Score: 1 02/13/20 13 10:20 AM CDT documented as of this encounter
--- OUTSIDE RECORDS SUMMARY | 2024-03-18 13:03 | XMS_ITS | Encounter Summary ---
Author Organization [facility] Address [address] [place] [address] Care Team Providers Care Anesthesiology Teacher Name Role Phone Unavailable Primary Care Provider Unavailabl e Reason for Referral * Outpatient (Routine) - Authorized Specialty Diagnoses / Procedures Referred By Chris ratliff Referred To Contact Ophthalmology Miky Dorsey M.D., M.S. [address] [place] [phone] [facility] Referral ID Status Reason Start Date Expiration Date V isits Requested Visits Authorized [id number] Authorized 01/11/2024 07/12/2025 1 1 * Outpatient (Routine) - Authorized Specialty Diagnoses / Procedures Referred By Chris ratliff Referred To Contact Diagnoses Refraction Disorder Procedures Refraction Miky Dorsey M.D., M.S. [address] [place] [phone] [facility] Referral ID Status Reason Start Date Expiration Date V isits Requested Visits Authorized [id number] Authorized 01/11/2024 01/10/2025 1 1 Reason for Visit * Reason Comments Follow-up * Outpatient (Routine) - Closed Specialty Diagnoses / Procedures Referred By Chris t Referred To Contact Ophthalmology Braden Skinner M.D. [address] [place] [phone] [facility] Referral ID Status Reason Start Date Expiration Date Visits Re quested Visits Authorized [id number] Closed 11/28/2023 05/29/2025 1 1 Encounter Details Date Type Department Care Team (Latest Contact Info) Description 01/07/2024 8:30 AM CDT Office Visit Department of Ophthalmology in [place], [place] [address] [place] [address] Miky Dorsey M.D., M.S. [address] [place] [address] Primary Open-Angle Glaucoma Moderate Stage Left (Primary [...]
--- OUTSIDE RECORDS SUMMARY | 2024-03-18 13:03 | XMS_ITS | Clinical Summary ---
Author Organization [facility] Address [address] [place] [address] Care Team Providers Care Scrape Gatherer Name Role Phone Unavailable Primary Care Provider Unavailabl e Source Comments Patient records contain information from all sites at [facility]. For routine questions regarding patient records, call [phone] during business hours, M-F 8:00 AM - 5:00 PM Central Time. Record requests for emergency care only can be directed to [phone] at any time.[facility] Allergies Active Allergy Reactions Criticality Noted Date [...] 1 capsule by mouth daily. Active vitamins A,C,Z-pbzw-gguxug (PRESERVISION AREDS) 7,160 Units-113 mg-100 Units per [...] (09/04/2022): Added automatically from request for surgery [id number] Primary Open-Angle Glaucoma Moderate Stage Left 03/05/2019 [...] uncontrolled (also use V58.67 if pt has exterminator (current insulin use) Diabetes Mellitus Type 2 11/12/2009 Overview (10/31/2016): Diabetes mellitus type II Seizure 10/19/2008 Overview (10/31/2016): Spells Hypertension 11/29/2005 Encounters Date Type Department Care Team Description 01/09/2024 Clinical Communication Department of Ophthalmology in [place], [place] [address] [place] [address] Cherri Dorsey M.D., M.S. 01/07/2024 8:30 AM CDT Office Visit Department of Ophthalmology in [place], [place] [address] [place] [address] Cherri Dorsey M.D., M.S. 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 Immunizations Name Administration [...] Zoster Vaccines (2 of 3) 12/06/2006 10/11/2006 RSV vaccine - (32-3 6 weeks) or 60+ years (1 - 1-dose 75+ series) 2013 Urine Albumin 11/25/2015 11/24/2014, 10/09, 10/09/2012, Additional history exists Depression Screening (Annual PHQ-2) 06/11/2023 Fall Risk Screen (Annual) 06/11/2023 COVID-19 Vaccine (4 - 2023-2 5 season) 2024 03/28/2021, 08/18/2020, 07/28/2020 Influenza Vaccine (#1) 2024 , 03/27/2022, 03/17/2021, Additional history exists Hemoglobin A1C 04/15/2024 01/14/2024, 08/09, 02/26/2018, Additional history exists Dilated Eye Exam 10/15/2024 10/16/2023, 12/2023, 10/12/2023, Additional history exists Creatinine Level (Kidney Fun ction Test) 02/25/2025 02/26/2024, 01/13/2024, 01/11/2024, Additional history exists Potassium Level 02/25/2025 02/26/2024, 08/0 12/2023, 01/15/2024, Additional history exists Sodium Level 02/25/2025 02/26/2024, 08/0 09/2023, 01/11/2024, Additional history exists DTaP,Tdap,and Td Vaccines (3 - Td or Tdap) 06/07/2025 06/07/2015, 12/25/2003, 12/25/2003 Pneumococcal vaccine (65+ years) Completed 11/24/2014, 06/11/2011, 12/25/2003 Medical Devices Implanted Type Area [employer]obbies [employer] Crafts Sales Representative Device Identifier Shelf Expiration Date Model / Serial / Lot Grshannon Crn 9 - [id number] - [id number] Implanted:Qty: 1 on 10/09/2022 by Abdiaziz Salas M.D., M.S. at [facility] Bone or Tissue Right: Eye CorneaGen (Prev. Tissue [employer]) 06/20/2024 [id number] / [id number] / Lead [id number] Capsurefix Novus - Sebastian [id number] Implanted:Qty: 1 on 10/20/2008 Cardiac Lead Other/Legacy - See Implant Description Medtronic / [id number] / Description:Device Manufactu rer - [employer] Body Location - Other. Not Applicable. Device Status Text - CARD [id number]. Lead Tendril [id number] - Sebastian [id number] Implanted:Qty: 1 on 10/20/2008 Cardiac Lead Other/Legacy - See Implant Description [employer] (a Division of Rod[employer]) / [id number] / Description:Device Manufactu rer - [employer]. Body Location - Other. Not Applicable. Device Status Text - CARD LEAD-174545. Tutoplast Pericardium 1.5x1.5cm - Sebastian [id number] Implanted:Qty: 1 on 01/22/2012 Ocular (Eye) Implant Right: Other/Legacy - See Implant Description IOP Inc (Use Katena) Description:Device Manufactu rer - [employer] Inc.. Body Location - Right. Device Status Text - [id number]-155060. Valve Ahmed Glaucoma Flex Plate - Sebastian [id number] Implanted:Qty: 1 on 01/22/2012 Ocular (Eye) Implant Right: Other/Legacy - See Implant Description [employer] Imports Description:Device Manufactu rer - [employer]. Body Location - Right. Device Status Text - [id number]. Leda Carrington 350 - [id number] - [id number] Implanted:Qty: 1 on 10/09/2022 by Abdiaziz Salas M.D., M.S. at [facility] Ocular (Eye) Implant Right: Eye J and J Optics (Previously KELLY) 06/02/2024 [id number] / [id number] / Pacer Standard Altrua S-[address] Dr - Sebastian [id number] Implanted:Qty: 1 on 10/20/2008 Pacemaker Other/Legacy - See Implant Description [employer] / [id number] / Description:Device Manufactu rer - [employer]. Body Location - Other. Not Applicable. Device Status Text - [id number]. Pacemaker [employer] [id number] Implanted:10/20 (Quantity not on file) Pacemaker Other/Legacy - See Implant Description [employer] / [id number] / Description:Pacemaker [employer] [id number] S202 ALTRUA 20 Stent Precise Pro Rx [id number] - Sebastian [id number] Implanted:Qty: 1 on 11/27/2011 Vascular Stent Cordis Description:Device Manufactu rer - Cordis Dereck. Device Status Text - VASCULAR-30153. Procedures Procedure Name Priority Date/Time Associated Diagnosis Comments OPHTHALMOLOGY IMAGE EXAM Routine 10/16/2023 10:35 AM CDT HEMOGLOBIN A1C, B Routine 06/07/2015 8:3 6 AM DYNAMO REPAIRER BASIC METABOLIC PANEL, S/P Routine 06/07/2015 8:36 AM DYNAMO REPAIRER ALBUMIN, RANDOM, U Routine 11/24/2014 9: 47 [...] Advance Directives For more information, please contact: [phone] Documents on File Type Date Recorded Patient Erp Analyst Expl anation Advance Directives 07/17/2014 12:00 AM Lega cy document. See document viewer. Advance Directives 07/13/2014 12:00 AM Lega cy document. See document viewer.
--- OUTSIDE RECORDS SUMMARY | 2024-03-18 13:03 | XMS_ITS | Encounter Summary ---
Author Organization [facility] Address [address] [place] [address] Care Team Providers Care Director Of Religious Life Name Role Phone Unavailable Primary Care Provider Unavailabl e Encounter Details Date Type Department Care Team (Late st Contact Info) Description 07/18/2016 Historical Ophthalmology RST OPH [place] [address] Social History Tobacco Use Types Packs/Day Years [...] Dry eye CDM Reports - EYEGEN Id: [id number] Status: Fnl documented in this encounter Plan of Treatment Not on file documented as of this encounter Visit Diagnoses Not on filedocumented in this encounter Additional Health Concerns Assessment Noted Time PHQ-9 Depression Total Score: 1 02/13/20 13 10:20 AM CDT documented as of this encounter
--- OUTSIDE RECORDS SUMMARY | 2024-03-18 13:03 | XMS_ITS | Encounter Summary ---
Author Organization [facility] Address [address] [place] [address] Care Team Providers Care Chicken Cleaner Name Role Phone Unavailable Primary Care Provider Unavailabl e Encounter Details Date Type Department Care Team (Late st Contact Info) Description 07/13/2017 Historical Ophthalmology RST OPH Kaycee Tamayo M.B.B.S. [address] [place] [phone] Social History Tobacco Use Types Packs/Day Years [...] Dry eye CDM Reports - EYEGEN Id: [id number] Status: Fnl documented in this encounter Plan of Treatment Not on file documented as of this encounter Visit Diagnoses Not on filedocumented in this encounter Additional Health Concerns Assessment Noted Time PHQ-9 Depression Total Score: 1 02/13/20 13 10:20 AM CDT documented as of this encounter
--- OUTSIDE RECORDS SUMMARY | 2024-03-18 13:04 | XMS_ITS | Encounter Summary ---
Author Organization [facility] Address [address] [place] [address] Care Team Providers Care Photographer Apprentice Lithographic Name Role Phone Unavailable Primary Care Provider Unavailabl e Encounter Details Date Type Department Care Team (Late st Contact Info) Description 03/28/2012 Historical Ophthalmology RST OPH Jarocho Heath M.D. [address] [facility] [address] [place] [address] Social History Tobacco Use Types Packs/Day Years [...] Document Viewer. CDM Reports - EYEPO Id: [id number] Status: Fnl documented in this encounter Plan of Treatment Not on file documented as of this encounter Visit Diagnoses Not on filedocumented in this encounter
--- OUTSIDE RECORDS SUMMARY | 2024-03-18 13:04 | XMS_ITS | Encounter Summary ---
Author Organization [facility] Address [address] [place] [address] Care Team Providers Care Pharmacy Consultant Name Role Phone Unavailable Primary Care Provider Unavailabl e Encounter Details Date Type Department Care Team (Late st Contact Info) Description 12/23/2013 Historical Ophthalmology RST OPH Sherlyn Crenshaw M.D. [address] [address] Social History Tobacco Use Types [...] > left CDM Reports - EYEGEN Id: [id number] Status: Fnl documented in this encounter Plan of Treatment Not on file documented as of this encounter Visit Diagnoses Not on filedocumented in this encounter Additional Health Concerns Assessment Noted Time PHQ-9 Depression Total Score: 1 02/13/20 13 10:20 AM CDT documented as of this encounter
--- OUTSIDE RECORDS SUMMARY | 2024-03-18 13:04 | XMS_ITS | Encounter Summary ---
Author Organization [facility] Address [address] [place] [address] Care Team Providers Care News Clipping Cutter Name Role Phone Unavailable Primary Care Provider Unavailabl e Encounter Details Date Type Department Care Team (Late st Contact Info) Description 01/17/2012 Historical Ophthalmology RST OPH Celeste Thornton [address] [place] [address] Social History Tobacco Use Types Packs/Day Years [...] Dr. Gonzalez. CDM Reports - EYESV Id: [id number] Status: Fnl documented in this encounter Plan of Treatment Not on file documented as of this encounter Visit Diagnoses Not on filedocumented in this encounter
--- OUTSIDE RECORDS SUMMARY | 2024-03-18 13:04 | XMS_ITS | Encounter Summary ---
Author Organization [facility] Address [address] [place] [address] Care Team Providers Care Offal Roller Name Role Phone Unavailable Primary Care Provider [...] diabetic retinopathy CDM Reports - EYEGEN Id: [id number] Status: Fnl documented in this encounter Plan of Treatment Not on file documented as of this encounter Visit Diagnoses Not on filedocumented in this encounter Additional Health Concerns Assessment Noted Time PHQ-9 Depression Total Score: 1 02/13/20 13 10:20 AM CDT documented as of this encounter
--- OUTSIDE RECORDS SUMMARY | 2024-03-18 13:04 | XMS_ITS | Encounter Summary ---
Author Organization [facility] Address [address] [place] [address] Care Team Providers Care Temper Mill Roller Name Role Phone Unavailable Primary Care [...] > left CDM Reports - EYEGEN Id: [id number] Status: Fnl documented in this encounter Plan of Treatment Not on file documented as of this encounter Visit Diagnoses Not on filedocumented in this encounter Additional Health Concerns Assessment Noted Time PHQ-9 Depression Total Score: 1 02/13/20 13 10:20 AM CDT documented as of this encounter
--- OUTSIDE RECORDS SUMMARY | 2024-03-18 13:04 | XMS_ITS | Encounter Summary ---
Author Organization [facility] Address [address] [place] [address] Care Team Providers Care High School Football Coach Name Role Phone Unavailable Primary Care Provider Unavailabl e Encounter Details Date Type Department Care Team (Late st Contact Info) Description 01/05/2012 Historical Ophthalmology RST OPH Sherlyn Crenshaw M.D. [address] [address] Social History Tobacco Use Types [...] #3 Diabetes CDM Reports - EYEGEN Id: [id number] Status: Fnl documented in this encounter Plan of Treatment Not on file documented as of this encounter Visit Diagnoses Not on filedocumented in this encounter
--- OUTSIDE RECORDS SUMMARY | 2024-03-18 13:04 | XMS_ITS | Encounter Summary ---
Author Organization [facility] Address [address] [place] [address] Care Team Providers Care Supervisor Reinforced Steel Placing Name Role Phone Unavailable Primary Care Provider Unavailabl e Encounter Details Date Type Department Care Team (Late st Contact Info) Description 02/03/2014 Historical Ophthalmology RST OPH Sherlyn Crenshaw M.D. [address] [phone] Social History Tobacco Use Types [...] > left CDM Reports - EYEGEN Id: [id number] Status: Fnl documented in this encounter Plan of Treatment Not on file documented as of this encounter Visit Diagnoses Not on filedocumented in this encounter Additional Health Concerns Assessment Noted Time PHQ-9 Depression Total Score: 1 02/13/20 13 10:20 AM CDT documented as of this encounter
--- OUTSIDE RECORDS SUMMARY | 2024-03-18 13:04 | XMS_ITS | Encounter Summary ---
Author Organization [facility] Address [address] [place] [address] Care Team Providers Care Editing Computer Publisher Name Role Phone Unavailable Primary Care Provider Unavailabl e Encounter Details Date Type Department Care Team (Late st Contact Info) Description 12/26/2013 Historical Ophthalmology RST OPH Sherlyn Crenshaw M.D. [address] [address] Social History Tobacco Use Types Packs/Day Years Used Date Smoking Tobacco: Never Assessed Sex and Gender Information Value Date Recorded Sex Assigned at Not on file Gender Identity Not on file Sexual Orientation Not on file documented as of this encounter Progress Notes * Sherlyn Crenshaw M.D. - 12/26/2013 8:23 AM CDT Eye [...] > left CDM Reports - EYEGEN Id: [id number] Status: Fnl documented in this encounter Plan of Treatment Not on file documented as of this encounter Visit Diagnoses Not on filedocumented in this encounter Additional Health Concerns Assessment Noted Time PHQ-9 Depression Total Score: 1 02/13/20 13 10:20 AM CDT documented as of this encounter
--- OUTSIDE RECORDS SUMMARY | 2024-03-18 13:04 | XMS_ITS | Encounter Summary ---
Author Organization [facility] Address [address] [place] [address] Care Team Providers Care Roustabout Crew Pusher Name Role Phone Unavailable Primary Care Provider Unavailabl e Encounter Details Date Type Department Care Team (Late st Contact Info) Description 06/24/2012 Historical Ophthalmology RST OPH Sung Gonzalez M.D. [address] [place] [address] Social History Tobacco Use Types Packs/Day Years [...] this was being treated by his previous mold presser and may be a long-standing issue. Plan: [...] > left CDM Reports - EYEGEN Id: [id number] Status: Fnl documented in this encounter Plan of Treatment Not on file documented as of this encounter Visit Diagnoses Not on filedocumented in this encounter
--- OUTSIDE RECORDS SUMMARY | 2024-03-18 13:04 | XMS_ITS | Encounter Summary ---
Author Organization [facility] Address [address] [place] [address] Care Team Providers Care Director Of Video Analytics Name Role Phone Unavailable Primary Care Provider Unavailabl e Encounter Details Date Type Department Care Team (Late st Contact Info) Description 01/08/2012 Historical Ophthalmology RST OPH Sherlyn Crenshaw M.D. [address] [phone] Social History Tobacco Use Types [...] right eye #3 Diabetes CDM Reports - EYEkatena Id: [id number] Status: Fnl documented in this encounter Plan of Treatment Not on file documented as of this encounter Visit Diagnoses Not on filedocumented in this encounter
--- OUTSIDE RECORDS SUMMARY | 2024-03-18 13:04 | XMS_ITS | Encounter Summary ---
Author Organization [facility] Address [address] [place] [address] Care Team Providers Care Hand Hose Cutter Name Role Phone Unavailable Primary Care Provider Unavailabl e Encounter Details Date Type Department Care Team (Late st Contact Info) Description 01/10/2012 Historical Ophthalmology RST OPH Sherlyn Crenshaw M.D. [address] [address] Social History Tobacco Use Types [...] #3 Diabetes CDM Reports - EYEGEN Id: [id number] Status: Fnl documented in this encounter Plan of Treatment Not on file documented as of this encounter Visit Diagnoses Not on filedocumented in this encounter
--- OUTSIDE RECORDS SUMMARY | 2024-03-18 13:04 | XMS_ITS | Encounter Summary ---
Author Organization [facility] Address [address] [place] [address] Care Team Providers Care Press Reader Name Role Phone Unavailable Primary Care Provider Unavailabl e Encounter Details Date Type Department Care Team (Late st Contact Info) Description 01/06/2012 Historical Ophthalmology RST OPH Sherlyn Crenshaw M.D. [address] [address] Social History Tobacco Use Types [...] #3 Diabetes CDM Reports - EYEGEN Id: [id number] Status: Fnl documented in this encounter Plan of Treatment Not on file documented as of this encounter Visit Diagnoses Not on filedocumented in this encounter
--- OUTSIDE RECORDS SUMMARY | 2024-03-18 13:04 | XMS_ITS | Encounter Summary ---
Author Organization [facility] Address [address] [place] [address] Care Team Providers Care Swatch Paster Name Role Phone Unavailable Primary Care Provider Unavailabl e Encounter Details Date Type Department Care Team (Late st Contact Info) Description 12/26/2013 Historical Ophthalmology RST OPH Celeste Thornton [address] [place] [address] Social History Tobacco Use Types Packs/Day Years [...] and pictures. CDM Reports - EYESV Id: [id number] Status: Fnl documented in this encounter Plan of Treatment Not on file documented as of this encounter Visit Diagnoses Not on filedocumented in this encounter Additional Health Concerns Assessment Noted Time PHQ-9 Depression Total Score: 1 02/13/20 13 10:20 AM CDT documented as of this encounter
--- OUTSIDE RECORDS SUMMARY | 2024-03-18 13:04 | XMS_ITS | Encounter Summary ---
Author Organization [facility] Address [address] [place] [address] Care Team Providers Care Diabetes Territory Manager Name Role Phone Unavailable Primary Care Provider Unavailabl e Encounter Details Date Type Department Care Team (Late st Contact Info) Description 12/16/2013 Historical Ophthalmology RST OPH Sherlyn Crenshaw M.D. [address] [phone] Social History Tobacco Use Types [...] OCT NFL CDM Reports - EYESV Id: [id number] Status: Fnl documented in this encounter Plan of Treatment Not on file documented as of this encounter Visit Diagnoses Not on filedocumented in this encounter Additional Health Concerns Assessment Noted Time PHQ-9 Depression Total Score: 1 02/13/20 13 10:20 AM CDT documented as of this encounter
--- OUTSIDE RECORDS SUMMARY | 2024-03-18 13:04 | XMS_ITS | Encounter Summary ---
Author Organization [facility] Address [address] [place] [address] Care Team Providers Care Flow Manager Name Role Phone Unavailable Primary Care [...] CDT) Narrative [facility]IM[facility] - 07/13/2017 11:26 AM AIRPORT BAGGAGE SCREENER This order has been created and auto-finalized to support the import of images acquired without order. The clinical documentation to support these images can be found on the encounter that produced images. Provider Not In System IMG NON RAD IMAGI NG PROCEDURES [facility]IM[facility] NA documented in this encounter Visit Diagnoses Not on filedocumented in this encounter
--- OUTSIDE RECORDS SUMMARY | 2024-03-18 13:04 | XMS_ITS | Encounter Summary ---
Author Organization [facility] Address [address] [place] [address] Care Team Providers Care Casing Grader Name Role Phone Unavailable Primary Care Provider Unavailabl e Encounter Details Date Type Department Care Team (Late st Contact Info) Description 10/03/2013 Historical Ophthalmology RST OPH [place] [address] Social History Tobacco Use Types Packs/Day Years [...] > left CDM Reports - EYEGEN Id: [id number] Status: Fnl documented in this encounter Plan of Treatment Not on file documented as of this encounter Visit Diagnoses Not on filedocumented in this encounter Additional Health Concerns Assessment Noted Time PHQ-9 Depression Total Score: 1 02/13/20 13 10:20 AM CDT documented as of this encounter
--- OUTSIDE RECORDS SUMMARY | 2024-03-18 13:04 | XMS_ITS | Encounter Summary ---
Author Organization [facility] Address [address] [place] [address] Care Team Providers Care Software Engineering Supervisor Name Role Phone Unavailable Primary Care Provider Unavailabl e Encounter Details Date Type Department Care Team (Late st Contact Info) Description 07/07/2014 Historical Ophthalmology RST OPH Sherlyn Crenshaw M.D. [address] [address] Social History Tobacco Use Types [...] diabetic retinopathy CDM Reports - EYEGEN Id: [id number] Status: Fnl documented in this encounter Plan of Treatment Not on file documented as of this encounter Visit Diagnoses Not on filedocumented in this encounter Additional Health Concerns Assessment Noted Time PHQ-9 Depression Total Score: 1 02/13/20 13 10:20 AM CDT documented as of this encounter
--- OUTSIDE RECORDS SUMMARY | 2024-03-18 13:04 | XMS_ITS | Encounter Summary ---
Author Organization [facility] Address [address] [place] [address] Care Team Providers Care Cotton Gin Yard Supervisor Name Role Phone Unavailable Primary Care Provider Unavailabl e Encounter Details Date Type Department Care Team (Late st Contact Info) Description 01/02/2012 Historical Ophthalmology RST OPH Sherlyn Crenshaw M.D. [address] [address] Social History Tobacco Use Types [...] has YVAN and DM. Was seeing an hockey instructor in [place], [place] for regular exams. In October he [...] 5 minutes. 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 He was referred here by his local hockey instructor Dr. Erickson Perez for further management. IMPRESSION [...] #3 Diabetes CDM Reports - EYEGEN Id: [id number] Status: Fnl documented in this encounter Plan of Treatment Not on file documented as of this encounter Visit Diagnoses Not on filedocumented in this encounter
--- OUTSIDE RECORDS SUMMARY | 2024-03-18 13:04 | XMS_ITS | Encounter Summary ---
Author Organization [facility] Address [address] [place] [address] Care Team Providers Care Solar Development Engineer Name Role Phone Unavailable Primary Care Provider Unavailabl e Encounter Details Date Type Department Care Team (Late st Contact Info) Description 04/29/2012 Historical Ophthalmology RST OPH Jarocho Heath M.D. [address] [facility], [address] [place] [address] Social History Tobacco Use Types Packs/Day Years [...] #4 Diabetes CDM Reports - EYEGEN Id: [id number] Status: Fnl documented in this encounter Plan of Treatment Not on file documented as of this encounter Visit Diagnoses Not on filedocumented in this encounter
--- OUTSIDE RECORDS SUMMARY | 2024-03-18 13:04 | XMS_ITS | Encounter Summary ---
Author Organization [facility] Address [address] [place] [address] Care Team Providers Care Nurse Leader Name Role Phone Unavailable Primary Care Provider Unavailabl e Encounter Details Date Type Department Care Team (Late st Contact Info) Description 01/17/2012 Historical Ophthalmology RST OPH Sherlyn Crenshaw M.D. [address] [address] Social History Tobacco Use Types [...] #3 Diabetes CDM Reports - EYEGEN Id: [id number] Status: Fnl documented in this encounter Plan of Treatment Not on file documented as of this encounter Visit Diagnoses Not on filedocumented in this encounter
--- OUTSIDE RECORDS SUMMARY | 2024-03-18 13:04 | XMS_ITS | Encounter Summary ---
Author Organization [facility] Address [address] [place] [address] Care Team Providers Care Varnisher Name Role Phone Unavailable Primary Care Provider Unavailabl e Encounter Details Date Type Department Care Team (Late st Contact Info) Description 01/15/2012 Historical Ophthalmology RST OPH Sherlyn Crenshaw M.D. [address] [address] Social History Tobacco Use Types [...] for IOP check and discussion of surgery AUTOMATIC DRILL OPERATOR vs Tube in the right eye next week DIAGNOSIS #1 Ocular ischemic syndrome, right side #2 Neovascular glaucoma, right eye #3 Diabetes CDM Reports - EYEGEN Id: [id number] Status: Fnl documented in this encounter Plan of Treatment Not on file documented as of this encounter Visit Diagnoses Not on filedocumented in this encounter
--- OUTSIDE RECORDS SUMMARY | 2024-03-18 13:04 | XMS_ITS | Encounter Summary ---
Author Organization [facility] Address [address] [place] [address] Care Team Providers Care Videogame Tester Name Role Phone Unavailable Primary Care Provider Unavailabl e Encounter Details Date Type Department Care Team (Late st Contact Info) Description 11/06/2012 Historical Ophthalmology RST OPH Sung Gonzalez M.D. [address] [place] [address] Social History Tobacco Use Types Packs/Day Years [...] > left CDM Reports - EYEGEN Id: [id number] Status: Fnl documented in this encounter Plan of Treatment Not on file documented as of this encounter Visit Diagnoses Not on filedocumented in this encounter
--- OUTSIDE RECORDS SUMMARY | 2024-03-18 13:04 | XMS_ITS | Encounter Summary ---
Author Organization [facility] Address [address] [place] [address] Care Team Providers Care Incident Response Analyst Name Role Phone Unavailable Primary Care Provider Unavailabl e Encounter Details Date Type Department Care Team (Late st Contact Info) Description 12/03/2014 Historical Ophthalmology RST OPH Sherlyn Crenshaw M.D. [address] [phone] Social History Tobacco Use [...] diabetic retinopathy CDM Reports - EYEGEN Id: [id number] Status: Fnl documented in this encounter Plan of Treatment Not on file documented as of this encounter Visit Diagnoses Not on filedocumented in this encounter Additional Health Concerns Assessment Noted Time PHQ-9 Depression Total Score: 1 02/13/20 13 10:20 AM CDT documented as of this encounter
--- OUTSIDE RECORDS SUMMARY | 2024-03-18 13:04 | XMS_ITS | Encounter Summary ---
Author Organization [facility] Address [address] [place] [address] Care Team Providers Care Marketing Project Lead Name Role Phone Unavailable Primary Care Provider Unavailabl e Encounter Details Date Type Department Care Team (Late st Contact Info) Description 01/19/2012 Historical Ophthalmology RST OPH Sherlyn Crenshaw M.D. [address] [address] Social History Tobacco Use Types [...] #3 Diabetes CDM Reports - EYEGEN Id: [id number] Status: Fnl documented in this encounter Plan of Treatment Not on file documented as of this encounter Visit Diagnoses Not on filedocumented in this encounter
--- OUTSIDE RECORDS SUMMARY | 2024-03-18 13:04 | XMS_ITS | Encounter Summary ---
Author Organization [facility] Address [address] [place] [address] Care Team Providers Care Cdl A Driver Name Role Phone Unavailable Primary Care Provider Unavailabl e Encounter Details Date Type Department Care Team (Late st Contact Info) Description 07/15/2012 Historical Ophthalmology RST OPH Sung Gonzalez M.D. [address] [place] [address] Social History Tobacco Use Types Packs/Day Years [...] > left CDM Reports - EYEGEN Id: [id number] Status: Fnl documented in this encounter Plan of Treatment Not on file documented as of this encounter Visit Diagnoses Not on filedocumented in this encounter
--- OUTSIDE RECORDS SUMMARY | 2024-03-18 13:04 | XMS_ITS | Encounter Summary ---
Author Organization [facility] Address [address] [place] [address] Care Team Providers Care Cork Pressing Machine Operator Name Role Phone Unavailable Primary [...] > left CDM Reports - EYEGEN Id: [id number] Status: Fnl documented in this encounter Plan of Treatment Not on file documented as of this encounter Visit Diagnoses Not on filedocumented in this encounter
--- OUTSIDE RECORDS SUMMARY | 2024-03-18 13:04 | XMS_ITS | Encounter Summary ---
Author Organization [facility] Address [address] [place] [address] Care Team Providers Care Sheetrock Applicator Name Role Phone Unavailable Primary Care Provider Unavailabl e Encounter Details Date Type Department Care Team (Late st Contact Info) Description 08/19/2012 Historical Ophthalmology RST OPH Sung Gonzalez M.D. [address] [place] [address] Social History Tobacco Use Types Packs/Day Years [...] > left CDM Reports - EYEGEN Id: [id number] Status: Fnl documented in this encounter Plan of Treatment Not on file documented as of this encounter Visit Diagnoses Not on filedocumented in this encounter
--- OUTSIDE RECORDS SUMMARY | 2024-03-18 13:04 | XMS_ITS | Encounter Summary ---
Author Organization [facility] Address [address] [place] [address] Care Team Providers Care Refrigeration System Installer Name Role Phone Unavailable Primary Care Provider [...] > left CDM Reports - EYEGEN Id: [id number] Status: Fnl documented in this encounter Plan of Treatment Not on file documented as of this encounter Visit Diagnoses Not on filedocumented in this encounter Additional Health Concerns Assessment Noted Time PHQ-9 Depression Total Score: 1 02/13/20 13 10:20 AM CDT documented as of this encounter
--- OUTSIDE RECORDS SUMMARY | 2024-03-18 13:04 | XMS_ITS | Encounter Summary ---
Author Organization [facility] Address [address] [place] [address] Care Team Providers Care Chemical Treatment Operator Name Role Phone Unavailable Primary Care Provider Unavailabl e Encounter Details Date Type Department Care Team (Late st Contact Info) Description 01/04/2012 Historical Ophthalmology RST OPH Sherlyn Crenshaw M.D. [address] [address] Social History Tobacco Use Types [...] #3 Diabetes CDM Reports - EYEGEN Id: [id number] Status: Fnl documented in this encounter Plan of Treatment Not on file documented as of this encounter Visit Diagnoses Not on filedocumented in this encounter
--- OUTSIDE RECORDS SUMMARY | 2024-03-18 13:04 | XMS_ITS | Encounter Summary ---
Author Organization [facility] Address [address] [place] [address] Care Team Providers Care Office Engineer Name Role Phone Unavailable Primary Care Provider Unavailabl e Encounter Details Date Type Department Care Team (Late st Contact Info) Description 01/12/2012 Historical Ophthalmology RST OPH Sherlyn Crenshaw M.D. [address] [address] Social History Tobacco Use Types [...] RTC Sunday for IOP check Will consider ENVIRONMENTAL SOLUTIONS ENGINEER vs Tube in the right eye next week DIAGNOSIS #1 Ocular ischemic syndrome, right side #2 Neovascular glaucoma, right eye #3 Diabetes CDM Reports - EYEGEN Id: [id number] Status: Fnl documented in this encounter Plan of Treatment Not on file documented as of this encounter Visit Diagnoses Not on filedocumented in this encounter
[2024-03-18 13:09] VITALS: BP 104/45; PULSE 64; RESP 18; O2SAT 97
[2024-03-18 13:30] VITALS: BP 94/55; PULSE 64; RESP 18; O2SAT 95
[2024-03-18 13:45] VITALS: BP 101/43; PULSE 64; RESP 18; O2SAT 97
--- NOTE | 2024-03-18 13:45 | XR_ITS ---
Patient: [facility] Facility:?[facility] Patient ID:?[id number] Site Patient ID:?[id number]. Site :?[id number] Study:?XRay-Chest 1 VIEW PORTABLE-03/18/2024 2:05:22 PM Ordering Physician:?Adair Wilkinson Final Report: INDICATION: Thoracentesis COMPARISON: January 28, 2024 TECHNIQUE: Single-view study performed as a portable image FINDINGS: TUBES AND LINES: Abandoned left-sided pacer leads noted. Right-sided pacer leads normally located. HEART AND MEDIASTINUM: The heart size is normal. The mediastinal contour appears normal for patient age. LUNGS AND PLEURAL SPACES: Diffuse airspace opacity in the left midlung and left base. Minimal opacity at the right base. Pleural fluid or pleural thickening on the left. No pneumothorax on either side.No significant pleural fluid on the right OSSEOUS STRUCTURES: Age-appropriate appearance. No acute focal finding. IMPRESSION: 1. Pleural fluid or pleural thickening on the left. No pneumothorax. 2. Airspace opacity diffusely on the left, especially at the left midlung and left base and to a lesser degree the right base. 3. Pacer normally located. Dictated by Sung Moncada MD @ 03/18/2024 2:20:02 PM Signed by:?Sung Moncada MD @03/18/2024 2:20:02 PM (Electronic Signature)
--- NOTE | 2024-03-18 13:50 | P.GSCN_ITS ---
History of Present Illness Consult details Date Seen: 03/18/24 Consult date: 03/18/24 Narrative: Patient is an 83-year-old male who presented in early January with complaints of nonproductive cough. Chest x-ray showed evidence of a large pleural effusion. He underwent a thoracentesis with 1.3 L yellow pleural fluid removed. A subsequent chest x-ray showed pneumothorax. This did require chest tube placement in the emergency department and transfer to [facility]. He was seen by pulmonology, who recommended a CT of the chest. A CT was performed on 03/07 which showed a large right pleural effusion, small to moderate left- sided pleural effusion. Due to findings of now a large right-sided pleural effusion recommendations for thoracentesis were made. Patient denies any chest pain or shortness of breath. No fevers or chills. Review of Systems Status of ROS: Reports: 6 or more systems reviewed and unremarkable except as noted in History and below [facility] Medical History (Updated 03/18/24 @ 13:57 by Jaja Borrero MD) Weakness ?R53.1 - Weakness (ICD-10) Dementia ?F03.90 - Unspecified dementia, unspecified severity, without behavioral disturbance, psychotic disturbance, mood disturbance, and anxiety (ICD-10) Pneumothorax on left ?J93.9 - Pneumothorax, unspecified (ICD-10) Type 2 diabetes mellitus, without long-term current use of insulin ?E11.9 - Type 2 diabetes mellitus without complications (ICD-10) Primary hypertension ?I10 - Essential (primary) hypertension (ICD-10) Mixed hyperlipidemia ?E78.2 - Mixed hyperlipidemia (ICD-10) Proximal humerus fracture ?S42.209A - Unspecified fracture of upper end of unspecified humerus, initial encounter for closed fracture (ICD-10) Insomnia ?G47.00 - Insomnia, unspecified (ICD-10) Glaucoma ?H40.9 - Unspecified glaucoma (ICD-10) Vitamin D deficiency (09/25/11) ?E55.9 - Vitamin D deficiency, unspecified (ICD-10) 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) ?S06.36AA - Traumatic hemorrhage of cerebrum, unspecified, with loss of consciousness status unknown, initial encounter (ICD-10) Presence of cardiac pacemaker (2007) ?Z95.0 - Presence of cardiac pacemaker (ICD-10) Peripheral neuropathy ?G62.9 - Polyneuropathy, unspecified (ICD-10) Lumbar radiculopathy ?M54.16 - Radiculopathy, lumbar region (ICD-10) Dry eyes ?H04.123 - Dry eye syndrome of bilateral lacrimal glands (ICD-10) Chronic low back pain ?M54.50 - Low back pain, unspecified (ICD-10) ?G89.29 - Other chronic pain (ICD-10) BPH (benign prostatic hyperplasia) ?N40.0 - Benign prostatic hyperplasia without lower urinary tract symptoms (ICD-10) Surgical History (Updated 01/24/24 @ 23:23 by Rhina Robles MD) S/P placement of cardiac pacemaker ?Z95.0 - Presence of cardiac pacemaker (ICD-10) History of carotid endarterectomy ?Z98.890 - Other specified postprocedural states (ICD-10) Family History Brother Diabetes Sister Diabetes Social History Narrative: 4 children Non smoker social EtOH What is your current living situation?: I presently have a place to live Problems where you live: no known problems Problems where you live details: NA In the past 12 months, utilities in danger of being shut off: no In past 12 months, lack of transportation kept you from medical appts, meetings, work, or getting things needed for daily living: no In the past 12 mos, have been you worried that your food would run out before you had money to buy more?: never true In the past 12 mos, the food you bought just didn't last and you didn't have money to buy more?: never true Highest level of school completed/degree received: high school graduate Smoking Status: Never smoker How often do you have a drink containing alcohol: 2-4 times a month Alcohol type: beer How often do you have six or more drinks on one occasion: Never AUDIT-C Alcohol total score: 2 Non-prescribed substance use: denies use Caffeine: Yes (coffee) How often does anyone, including family, friends and others, physically hurt you : never How often does anyone, including family, friends and others, insult or talk down to you: never How often does anyone, including family, friends and others, threaten you with harm: never How often does anyone, including family, friends and others, scream or curse at you: never Little interest or pleasure in doing things: not at all Feeling down, depressed, or hopeless: not at all service: Yes Meds Home Medications and Allergies Home Medications ?Medication ?Instructions ?Recorded ?Confirmed ?Type aspirin 325 mg tablet 325 mg PO DAILY 12/26/21 03/06/24 History cholecalciferol (vitamin D3) 50 50 mcg PO DAILY 12/26/21 03/06/24 History mcg (2,000 unit) tablet omega 3-ryu-tqg-fish oil 100 1 cap PO DAILY 03/24/22 03/06/24 History mg-160 mg-1,000 mg capsule (Fish Oil) blood sugar diagnostic (Blood 05/30/22 03/06/24 History Glucose Test strips) finasteride 5 mg tablet 5 mg PO DAILY 01/24/24 03/06/24 History latanoprost 0.005 % eye drops 1 drp ophthalmic (eye) HS 01/24/24 03/06/24 History pioglitazone 30 mg tablet 30 mg PO DAILY 01/24/24 03/06/24 History furosemide 20 mg tablet 20 mg PO QDAY 03/06/24 03/06/24 History losartan 100 mg tablet 50 mg PO DAILY 03/06/24 03/06/24 History Allergies Allergy/AdvReac Type Severity Reaction Status Date / Time metformin Allergy Mild dizzy Verified 03/06/24 11:17 brimonidine AdvReac Intermediate Eye Verified 03/06/24 11:17 Infection Exam Narrative: Exam Narrative: General: Alert and oriented, no acute distress Respiratory: Decreased breath sounds at the lung bases bilaterally. Maintained on room air CV: Regular rhythm and rate Const: Vital Signs, click to edit/add: Vital Signs - 24 hr 03/18/24 13:09 03/18/24 13:30 Pulse Rate [Pulse Oximeter] 64 64 Respiratory Rate 18 18 Blood Pressure [Ri ght Arm] 104/45 L 94/55 L Pulse Oximetry 97 95 Oxygen Delivery Me thod Room Air Room Air Results Labs Labs: All other labs normal. General Surgery Procedures Thoracentesis Time Out Performed: Yes Imaging guidance used ?: Yes Indication: Pleural effusion Procedure: diagnostic thoracentesis Location: right Local anesthetic used: lidocaine Amount of anesthesia used (mL): 7 Bedside ultrasound used: yes, fluid confirmed and location marked Preparation: sterile prep and drape and 11 blade used to make miguel in skin Amount of fluid obtained (mL): 620 Fluid: other (Yellow serous) Post Procedure Exam: awake, alert, normal BP, normal HR and normal SpO2 Patient Tolerated Procedure: well Complications: none Progress Note:A&P Assessment and plan (1) Pleural effusion: Status: Acute Assessment and Plan: Patient is an 83-year-old male with CT chest imaging demonstrating a large right sided pleural effusion and a small left-sided pleural effusion. Patient is currently asymptomatic. Recommendations by pulmonology are for repeat thoracentesis. Risks and benefits of the procedure were discussed at length the patient. Risks included, but were not limited to: Bleeding, infection, risk of damage to surrounding structures and possible need for additional procedures. All questions and concerns were addressed with patient agreeing to proceed. Patient tolerated procedure well. 620 mL yellow serous fluid removed from the right side. The left-sided pleural effusion was very small on ultrasound with no adequate window for removal. Postprocedure chest x-ray shows resolution of pleural effusion on right side. No evidence of pneumothorax. Fluid was sent for cytology and evaluation.
[2024-03-18 14:08] VITALS: BP 98/48; PULSE 61; RESP 16; O2SAT 98
[2024-03-18 14:48] LABS: INR 1.15 (0.91-1.10); Prothrombin Time 15.5 Seconds
[2024-03-18 14:53] LABS: Cholesterol* 145 mg/dL (90-199)
[2024-03-18 14:54] LABS: Bilirubin Total* 0.6 mg/dL (0.1-1.5); Lactate Dehydrogenase* 227 U/L (120-246); Total Protein* 7.5 g/dL (6.0-8.3)
[2024-03-18 15:19] LABS: pH Body Fluid* 7.5
[2024-03-18 16:06] LABS: Mononuclear WBC Body Fluid* 94 %; Polynuclear WBC Body Fluid* 6 %; RBC, Body Fluid* 0 Cells/uL; WBC, Body Fluid* 80 Cells/uL
[2024-03-18 16:08] LABS: BF Color Xanthochromic; BF Total Volume* 23
[2024-03-18 16:09] LABS: BF Clarity* Clear
== END 2024-03-18 14:19 | disposition home or self-care (01) ==
LOC: US 12:58
PROVIDERS: PCP Family Medicine; Visit Provider Surgery
DX: J90 Pleural effusion, not elsewhere classified (principal)
CPT/HCPCS: 32555; 36415; 71045; 82040; 82042; 82150; 82247; 82465; 82945; 83615; 83986; 84155; 84157; 84311; 85610; 87015; 87070; 87102; 87116; 87205; 88112; 89051